=== PATIENT | female | born 1955 | race Caucasian/White ===

== ENCOUNTER 2020-10-12 11:15 | Outpatient (REF) | payer MEDICARE, MEDICAID, SELFPAY ==
[2020-10-12 14:40] LABS: MANUAL DIFF FLAG NO
[2020-10-12 14:46] LABS: Basophils Absolute Auto 0.1 X10*3/uL (0.0-0.2); Basophils Percent Auto 0.7 % (0-2); Eosinophils Absolute Auto 0.3 X10*3/uL (0.0-0.4); Eosinophils Percent Auto 3.9 % (0-4); Hematocrit 42.6 % (37-47); Hemoglobin 13.1 g/dl (12.0-16.0); Imm Gran Abs Auto 0.03 X10*3/uL (0.00-0.03); Imm Gran Pct Auto 0.4 % (0.0-0.4); Lymphocytes Absolute Auto 2.6 X10*3/uL (1.2-4.9); Lymphocytes Percent Auto 37.7 % (20-40); Mean Corpuscular HGB Conc 30.8 g/dl (31.0-35.0); Mean Corpuscular Hemoglobin 25.8 pg (27.0-33.0); Mean Platelet Volume 11.6 fL (9.4-12.3); Monocytes Absolute Auto 0.5 X10*3/uL (0.1-1.2); Monocytes Percent Auto 7.5 % (2-11); Neutrophils Absolute Auto 3.4 X10*3/uL (2.0-8.3); Neutrophils Percent Auto 49.8 % (45-73); Platelet Count 280 X10*3/uL (160-400); Red Blood Count 5.07 X10*6/uL (4.20-5.50); Red Cell Distribution Width 14.2 % (11.0-16.0); White Blood Count 6.9 X10*3/uL (4.8-10.8)
[2020-10-12 15:06] LABS: Alanine Aminotransferase 17 U/L (0-31); Albumin Level 4.1 g/dL (3.5-5.0); Alkaline Phosphatase 106 U/L (39-117); Anion Gap 13 (12-20); Aspartate Amino Transferase 16 U/L (5-31); Bilirubin Total 0.9 mg/dL (0.0-1.0); Blood Urea Nitrogen 11 mg/dL (9-16); Calcium 8.9 mg/dL (8.4-10.2); Carbon Dioxide 25 mmol/L (22-29); Chloride 106 mmol/L (96-108); Cholesterol 175 mg/dL; Estimated Glomerular Filt Rate 60; Glucose Fasting 175 mg/dL (60-99); HDL Cholesterol 44 mg/dL; LDL Cholesterol Calculated 108 mg/dl; Potassium 4.3 mmol/L (3.3-5.1); Sodium 140 mmol/L (135-145); Total Protein 6.7 g/dL (6.5-8.0); Triglycerides 116 mg/dL
[2020-10-12 15:11] LABS: Estimated Average Glucose 131 mg/dL; Hemoglobin A1C 151.1496 umol/L; Hemoglobin A1c % 6.2 %
== END 2020-10-12 11:16 | disposition home or self-care (01) ==
LOC: HO.10HDL 11:15
PROVIDERS: Visit Provider Internal Medicine Medical Oncology
DX: E11.9 Type 2 diabetes mellitus without complications (principal); E78.00 Pure hypercholesterolemia, unspecified; E66.01 Morbid (severe) obesity due to excess calories
CPT/HCPCS: 36415; 80053; 80061; 83036; 85025

== ENCOUNTER 2020-12-10 11:35 | Outpatient (REF) | payer MEDICARE, MEDICAID, SELFPAY ==
--- NOTE | ~2020-12-10 | XR_ITS ---
EXAMINATION: XR SHOULDER, LEFT CLINICAL INFORMATION: Pain. COMPARISON: None. TECHNIQUE: AP external rotation, Grashey, scapular Y, and axillary views of the left shoulder. FINDINGS: No fracture. Mild acromioclavicular arthritis. Glenohumeral and acromioclavicular alignment is anatomic with normal joint space. No abnormal soft tissue calcifications. XR/XR shoulder LT min 2V IMPRESSION: Mild acromioclavicular arthritis.
== END 2020-12-10 11:36 | disposition home or self-care (01) ==
LOC: HO.XRAY 11:35
PROVIDERS: PCP Internal Medicine Medical Oncology; Visit Provider Internal Medicine Medical Oncology
DX: M25.512 Pain in left shoulder (principal)
CPT/HCPCS: 73030

== ENCOUNTER 2021-01-12 08:58 | Outpatient (REF) | payer MEDICARE, MEDICAID, SELFPAY ==
--- NOTE | 2021-01-12 13:07 | MHC.AU.HAS ---
Hearing Aid Evaluation Date of Visit: 01/12/21 Historical Information: Description of Hearing: Normal sloping to profound sensorineural hearing loss bilaterally Current personal amplification information, if applicable: Oticon Nera miniRITE Summary: Patient was recently seen for audiological re-evaluation at [facility]. She received a pair of Oticon Nera miniRITE hearing aids in 2013. She has not been happy with the hearing aids, and would like to try a different style. Hearing aid options were discussed. Patient would like to try an ITC. She would like if we could stay with a 312 battery, as that is what her previous hearing aids used and she has many packages of them at home. Hearing Aid Prescription: Based on the individual?s shared listening needs, communication environments, dexterity, desire for connectivity, and personal preferences, the following prescription for amplification has been made: Right ear: Volunteer Services Specialist: Phonak Model: Virto M70-312 Battery Size: 312 Left ear: Volunteer Services Specialist: Phonak Model: Virto M70-312 Battery Size: 312 Action Taken/Action Needed: [place]old Impressions Taken Hearing Fitting to be scheduled when materials arrive Primary Diagnosis: H90.3 Bilateral Sensorineural Hearing Loss Signature: Provider: Freida Rodriguez, CCC-A
== END 2021-01-12 08:59 | disposition home or self-care (01) ==
LOC: HO.HAP 08:58
PROVIDERS: Visit Provider Otolaryngology
DX: Z46.1 Encounter for fitting and adjustment of hearing aid (principal); H90.3 Sensorineural hearing loss, bilateral
CPT/HCPCS: 92591; V5275

== ENCOUNTER 2021-01-13 07:51 | Outpatient (REF) | payer MEDICARE, MEDICAID, SELFPAY ==
--- NOTE | ~2021-01-13 | MM_ITS ---
EXAMINATION: BONE DENSITOMETRY CLINICAL INDICATION: Osteoporosis. COMPARISON: None (current study represents initial baseline exam). TECHNIQUE: Using a [employer] International DXA System (software version: 13.1) manufactured by [employer], dual-energy x-ray absorptiometry was performed of the lumbar spine and left hip. The images are of good technical quality. Summary results are attached. FINDINGS: AP SPINE L1-L4: BMD 0.881 g/cm2, Z-score -2.1, T-score -2.5, osteoporosis. LEFT FEMUR, NECK: BMD 0.812 g/cm2, Z-score -0.9, T-score -1.6, osteopenia. LEFT FEMUR, TOTAL: BMD 1.103 g/cm2, Z-score 1.1, T-score 0.8, normal. IDENTIFIED RISK FACTORS: Recurrent falls, height loss. Early menopause, secondary osteoporosis, glucocorticoids (chronic), hysterectomy, left oophorectomy. HISTORY OF FRACTURE: None listed. MEDICATIONS: None listed. MM/XR DEXA axial skeleton IMPRESSION: 1. DIAGNOSIS: Osteoporosis based on the lowest T-score value of -2.5 in the lumbar spine applying World Health Organization criteria. 2. 10-YEAR FRACTURE RISK PREDICTION, FRAX: Major osteoporotic fracture (clinical spine, forearm, hip or shoulder) 13.1%. Hip fracture 1.7%. 3. Treatment Recommendations: NOF guidelines recommend consideration for treatment in postmenopausal women and men age 50 and older presenting with the following: -A hip or vertebral (clinical or morphometric) fracture. -T-score less than or equal to -2.5 at the femoral neck or spine after appropriate evaluation to exclude secondary causes. -Low bone mass at the hip or spine and a 10-year fracture probability by FRAX of greater than or equal to 3% for hip fracture or greater than or equal to 20% for major osteoporotic fracture based on the [place] adapted WHO algorithm. 4. Other Recommendations: All treatment decisions require clinical judgment and consideration of individual patient factors, including patient preferences, comorbidities, previous drug use, risk factors not captured in the FRAX model (e.g. frailty, falls, vitamin D deficiency, increased bone turnover, interval significant decline in bone density) and possible under or overestimation of fracture risk by FRAX. Additional medical evaluation for secondary cause of low bone mineral density may be appropriate. FUTURE SCAN RECOMMENDATION: People with diagnosed cases of osteoporosis or at high risk for fracture should have regular bone mineral density tests. For patients eligible for Medicare, routine testing is allowed once every 2 years. The testing frequency can be increased to one year for patients who have rapidly progressing disease, those who are receiving or discontinuing medical therapy to restore bone mass, or have additional risk factors.
== END 2021-01-13 07:52 | disposition home or self-care (01) ==
LOC: HO.MAMMO 07:51
PROVIDERS: Visit Provider Internal Medicine Medical Oncology
DX: Z13.820 Encounter for screening for osteoporosis (principal); M81.0 Age-related osteoporosis without current pathological fracture; M85.80 Other specified disorders of bone density and structure, unspecified site; E27.49 Other adrenocortical insufficiency; Z98.890 Other specified postprocedural states; Z91.81 History of falling
CPT/HCPCS: 77080

== ENCOUNTER 2021-01-31 07:49 | Outpatient (REF) | payer MEDICARE, MEDICAID, SELFPAY ==
[2021-01-31 08:43] LABS: MANUAL DIFF FLAG NO
[2021-01-31 08:46] LABS: Basophils Absolute Auto 0.1 X10*3/uL (0.0-0.2); Basophils Percent Auto 0.7 % (0-2); Eosinophils Absolute Auto 0.4 X10*3/uL (0.0-0.4); Eosinophils Percent Auto 5.5 % (0-4); Hematocrit 41.2 % (37-47); Hemoglobin 12.8 g/dl (12.0-16.0); Imm Gran Abs Auto 0.03 X10*3/uL (0.00-0.03); Imm Gran Pct Auto 0.4 % (0.0-0.4); Lymphocytes Percent Auto 39.8 % (20-40); Mean Corpuscular HGB Conc 31.1 g/dl (31.0-35.0); Mean Corpuscular Hemoglobin 25.7 pg (27.0-33.0); Mean Corpuscular Volume 82.7 fL (80-98); Mean Platelet Volume 11.3 fL (9.4-12.3); Monocytes Absolute Auto 0.6 X10*3/uL (0.1-1.2); Monocytes Percent Auto 8.1 % (2-11); Neutrophils Absolute Auto 3.5 X10*3/uL (2.0-8.3); Neutrophils Percent Auto 45.5 % (45-73); Platelet Count 283 X10*3/uL (160-400); Red Blood Count 4.98 X10*6/uL (4.20-5.50); Red Cell Distribution Width 14.2 % (11.0-16.0); White Blood Count 7.6 X10*3/uL (4.8-10.8)
[2021-01-31 08:51] LABS: Estimated Average Glucose 143 mg/dL; Hemoglobin A1c % 6.6 %
[2021-01-31 09:13] LABS: Alanine Aminotransferase 18 U/L (0-31); Albumin Level 3.9 g/dL (3.5-5.0); Alkaline Phosphatase 110 U/L (39-117); Anion Gap 17 (12-20); Aspartate Amino Transferase 18 U/L (5-31); Bilirubin Total 0.7 mg/dL (0.0-1.0); Blood Urea Nitrogen 11 mg/dL (9-16); Carbon Dioxide 21 mmol/L (22-29); Chloride 108 mmol/L (96-108); Cholesterol 166 mg/dL; Estimated Glomerular Filt Rate > 60; Glucose Fasting 208 mg/dL (60-99); HDL Cholesterol 41 mg/dL; LDL Cholesterol Calculated 101 mg/dl; Potassium 4.5 mmol/L (3.3-5.1); Sodium 141 mmol/L (135-145); Total Protein 6.4 g/dL (6.5-8.0); Triglycerides 120 mg/dL
[2021-01-31 10:21] LABS: Creatinine Urine 153.28 mg/dL
== END 2021-01-31 07:50 | disposition home or self-care (01) ==
LOC: HO.LAB 07:49
PROVIDERS: PCP Internal Medicine Medical Oncology; Visit Provider Internal Medicine Medical Oncology
DX: E11.9 Type 2 diabetes mellitus without complications (principal); E66.01 Morbid (severe) obesity due to excess calories; E78.00 Pure hypercholesterolemia, unspecified
CPT/HCPCS: 36415; 80053; 80061; 82043; 83036; 85025

== ENCOUNTER 2021-01-31 08:20 | Outpatient (REF) | payer MEDICARE, MEDICAID, SELFPAY ==
--- NOTE | 2021-01-31 09:09 | MHC.AU.HFA ---
Hearing Instrument Fitting- Adult- Binaural Date of Visit: 01/31/21 Hearing Instruments Dispensed: Right Ear: Paid Internship: Phonak Model: Virto M70-312 Serial Number: [id number] Repair Warranty: 02/23/2024 Loss and Damage Warranty: 02/23/2024 Battery Size: 312 Color: [place] Type of Wax Guard: Cerustop Left Ear: Paid Internship: Phonak Model: Virto M70-312 Serial Number: [id number] Repair Warranty: 02/23/2024 Loss and Damage Warranty: 02/23/2024 Battery Size: 312 Color: [place] Type of Wax Guard: CeruStop Summary of Fitting: Feedback brand manager was run. Verifit performed and levels adjusted to better reach targets. Target gain set to 100%. Patient was pleased with the sound of the instruments and did not feel any additional adjustments were necessary. Hearing aid care and maintenance were discussed and demonstrated. Hearing aids were paired to the patient's phone. Recommendations: Patient is an experienced hearing aid user and will call if follow-up is needed. Diagnosis Code(s): Primary Diagnosis: H90.3 Bilateral Sensorineural Hearing Loss Signature: Provider: Freida Rodriguez, CCC-A
== END 2021-01-31 08:21 | disposition home or self-care (01) ==
LOC: HO.HAP 08:20
PROVIDERS: Visit Provider Otolaryngology
DX: Z46.1 Encounter for fitting and adjustment of hearing aid (principal); H90.3 Sensorineural hearing loss, bilateral
CPT/HCPCS: V5011; V5020; V5160; V5259; V5266

== ENCOUNTER 2021-05-12 09:39 | Outpatient (REF) | payer MEDICARE, MEDICAID, SELFPAY ==
[2021-05-12 10:20] LABS: MANUAL DIFF FLAG NO
[2021-05-12 10:33] LABS: Estimated Average Glucose 146 mg/dL; Hemoglobin A1c % 6.7 %
[2021-05-12 10:35] LABS: Basophils Absolute Auto 0.1 X10*3/uL (0.0-0.2); Basophils Percent Auto 0.7 % (0-2); Eosinophils Absolute Auto 0.4 X10*3/uL (0.0-0.4); Eosinophils Percent Auto 4.4 % (0-4); Hematocrit 42.5 % (37-47); Hemoglobin 13.2 g/dl (12.0-16.0); Imm Gran Abs Auto 0.02 X10*3/uL (0.00-0.03); Imm Gran Pct Auto 0.2 % (0.0-0.4); Lymphocytes Absolute Auto 3.1 X10*3/uL (1.2-4.9); Lymphocytes Percent Auto 37.5 % (20-40); Mean Corpuscular HGB Conc 31.1 g/dl (31.0-35.0); Mean Corpuscular Hemoglobin 25.7 pg (27.0-33.0); Mean Corpuscular Volume 82.8 fL (80-98); Mean Platelet Volume 11.5 fL (9.4-12.3); Monocytes Absolute Auto 0.7 X10*3/uL (0.1-1.2); Monocytes Percent Auto 8.7 % (2-11); Neutrophils Percent Auto 48.5 % (45-73); Platelet Count 306 X10*3/uL (160-400); Red Blood Count 5.13 X10*6/uL (4.20-5.50); Red Cell Distribution Width 14.4 % (11.0-16.0); White Blood Count 8.2 X10*3/uL (4.8-10.8)
[2021-05-12 10:50] LABS: Alanine Aminotransferase 19 U/L (0-31); Alkaline Phosphatase 106 U/L (39-117); Anion Gap 11 (12-20); Aspartate Amino Transferase 15 U/L (5-31); Bilirubin Total 0.7 mg/dL (0.0-1.0); Blood Urea Nitrogen 11 mg/dL (9-16); Calcium 9.8 mg/dL (8.4-10.2); Carbon Dioxide 29 mmol/L (22-29); Chloride 104 mmol/L (96-108); Cholesterol 166 mg/dL; Estimated Glomerular Filt Rate > 60; Glucose Fasting 150 mg/dL (60-99); HDL Cholesterol 45 mg/dL; LDL Cholesterol Calculated 100 mg/dl; Potassium 4.2 mmol/L (3.3-5.1); Sodium 140 mmol/L (135-145); Total Protein 6.7 g/dL (6.5-8.0); Triglycerides 105 mg/dL
== END 2021-05-12 09:40 | disposition home or self-care (01) ==
LOC: HO.10HDL 09:39
PROVIDERS: Visit Provider Internal Medicine Medical Oncology
DX: E11.9 Type 2 diabetes mellitus without complications (principal); E78.00 Pure hypercholesterolemia, unspecified; E66.01 Morbid (severe) obesity due to excess calories
CPT/HCPCS: 36415; 80053; 80061; 83036; 85025

== ENCOUNTER 2021-07-08 09:18 | Outpatient (REF) | payer MEDICARE, MEDICAID, SELFPAY | END 2021-07-08 09:19 | disposition home or self-care (01) | LOC: HO.HAP 09:18 | PROVIDERS: Visit Provider Internal Medicine Medical Oncology | DX: Z13.89 Encounter for screening for other disorder (principal) ==

== ENCOUNTER 2021-09-02 09:18 | Outpatient (REF) | payer MEDICARE, MEDICAID, SELFPAY ==
[2021-09-02 10:05] LABS: MANUAL DIFF FLAG NO
[2021-09-02 10:07] LABS: Basophils Absolute Auto 0.1 X10*3/uL (0.0-0.2); Basophils Percent Auto 0.6 % (0-2); Eosinophils Absolute Auto 0.3 X10*3/uL (0.0-0.4); Eosinophils Percent Auto 3.9 % (0-4); Hematocrit 43.3 % (37.0-47.0); Hemoglobin 13.8 g/dl (12.0-16.0); Imm Gran Abs Auto 0.03 X10*3/uL (0.00-0.03); Imm Gran Pct Auto 0.4 % (0.0-0.4); Lymphocytes Absolute Auto 2.9 X10*3/uL (1.2-4.9); Lymphocytes Percent Auto 36.2 % (20-40); Mean Corpuscular HGB Conc 31.9 g/dl (31.0-35.0); Mean Corpuscular Hemoglobin 26.3 pg (27.0-33.0); Mean Corpuscular Volume 82.5 fL (80.0-98.0); Mean Platelet Volume 11.2 fL (9.4-12.3); Monocytes Absolute Auto 0.6 X10*3/uL (0.1-1.2); Monocytes Percent Auto 7.8 % (2-11); Neutrophils Percent Auto 51.1 % (45-73); Platelet Count 310 X10*3/uL (160-400); Red Blood Count 5.25 X10*6/uL (4.20-5.50); Red Cell Distribution Width 14.1 % (11.0-16.0); White Blood Count 7.9 X10*3/uL (4.8-10.8)
[2021-09-02 10:44] LABS: Estimated Average Glucose 143 mg/dL; Hemoglobin A1c % 6.6 %
[2021-09-02 11:22] LABS: Alanine Aminotransferase 22 U/L (0-31); Alkaline Phosphatase 103 U/L (39-117); Anion Gap 13 (12-20); Aspartate Amino Transferase 16 U/L (5-31); Bilirubin Total 0.9 mg/dL (0.0-1.0); Blood Urea Nitrogen 12 mg/dL (9-16); Calcium 9.5 mg/dL (8.4-10.2); Carbon Dioxide 26 mmol/L (22-29); Chloride 106 mmol/L (96-108); Cholesterol 168 mg/dL; Estimated Glomerular Filt Rate 60; Glucose Fasting 153 mg/dL (60-99); HDL Cholesterol 45 mg/dL; LDL Cholesterol Calculated 99 mg/dl; Potassium 4.6 mmol/L (3.3-5.1); Sodium 140 mmol/L (135-145); Total Protein 6.9 g/dL (6.5-8.0); Triglycerides 122 mg/dL
== END 2021-09-02 09:19 | disposition home or self-care (01) ==
LOC: HO.10HDL 09:18
PROVIDERS: Visit Provider Internal Medicine Medical Oncology
DX: E11.9 Type 2 diabetes mellitus without complications (principal); J45.909 Unspecified asthma, uncomplicated; E78.5 Hyperlipidemia, unspecified
CPT/HCPCS: 36415; 80053; 80061; 83036; 85025

== ENCOUNTER 2022-01-23 09:39 | Outpatient (REF) | payer MEDICARE, MEDICAID, SELFPAY | END 2022-01-23 09:40 | disposition home or self-care (01) | LOC: HO.HAP 09:39 | PROVIDERS: Visit Provider Internal Medicine Medical Oncology | DX: Z46.1 Encounter for fitting and adjustment of hearing aid (principal); H90.3 Sensorineural hearing loss, bilateral | CPT/HCPCS: 92593; V5266 ==

== ENCOUNTER 2022-02-14 09:50 | Outpatient (REF) | payer MEDICARE, MEDICAID, SELFPAY ==
[2022-02-14 11:11] LABS: MANUAL DIFF FLAG NO
[2022-02-14 11:12] LABS: Basophils Absolute Auto 0.1 X10*3/uL (0.0-0.2); Eosinophils Absolute Auto 0.3 X10*3/uL (0.0-0.4); Eosinophils Percent Auto 4.2 % (0-4); Hematocrit 41.9 % (37.0-47.0); Hemoglobin 13.1 g/dl (12.0-16.0); Imm Gran Abs Auto 0.03 X10*3/uL (0.00-0.03); Imm Gran Pct Auto 0.4 % (0.0-0.4); Lymphocytes Absolute Auto 2.5 X10*3/uL (1.2-4.9); Lymphocytes Percent Auto 36.9 % (20-40); Mean Corpuscular HGB Conc 31.3 g/dl (31.0-35.0); Mean Corpuscular Hemoglobin 26.1 pg (27.0-33.0); Mean Corpuscular Volume 83.6 fL (80.0-98.0); Mean Platelet Volume 11.6 fL (9.4-12.3); Monocytes Absolute Auto 0.6 X10*3/uL (0.1-1.2); Monocytes Percent Auto 9.2 % (2-11); Neutrophils Absolute Auto 3.3 x10*3/uL (2.0-8.3); Neutrophils Percent Auto 48.3 % (45-73); Platelet Count 262 X10*3/uL (160-400); Red Blood Count 5.01 X10*6/uL (4.20-5.50); Red Cell Distribution Width 13.8 % (11.0-16.0); White Blood Count 6.7 X10*3/uL (4.8-10.8)
[2022-02-14 11:20] LABS: Estimated Average Glucose 131 mg/dL; Hemoglobin A1C 160.7267 umol/L; Hemoglobin A1c % 6.2 %
[2022-02-14 11:43] LABS: Alanine Aminotransferase 18 U/L (0-31); Albumin Level 3.9 g/dL (3.5-5.0); Alkaline Phosphatase 102 U/L (39-117); Anion Gap 14 (12-20); Aspartate Amino Transferase 14 U/L (5-31); Bilirubin Total 0.7 mg/dL (0.0-1.0); Blood Urea Nitrogen 9 mg/dL (9-16); Calcium 8.7 mg/dL (8.4-10.2); Carbon Dioxide 26 mmol/L (22-29); Chloride 106 mmol/L (96-108); Cholesterol 151 mg/dL; Estimated Glomerular Filt Rate > 60; Glucose Fasting 185 mg/dL (60-99); HDL Cholesterol 42 mg/dL; LDL Cholesterol Calculated 89 mg/dl; Potassium 4.2 mmol/L (3.3-5.1); Sodium 142 mmol/L (135-145); Total Protein 6.4 g/dL (6.5-8.0); Triglycerides 102 mg/dL
== END 2022-02-14 09:51 | disposition home or self-care (01) ==
LOC: HO.10HDL 09:50
PROVIDERS: Visit Provider Internal Medicine Medical Oncology
DX: E11.9 Type 2 diabetes mellitus without complications (principal); E78.01 Familial hypercholesterolemia
CPT/HCPCS: 36415; 80053; 80061; 83036; 85025

== ENCOUNTER → 2022-02-17 08:02 | Outpatient (BNVA) | payer MEDICARE, MEDICAID, SELFPAY | PROVIDERS: PCP Internal Medicine Medical Oncology; Referring Provider Internal Medicine Medical Oncology; Visit Provider Nurse Practitioner | DX: Z01.818 Encounter for other preprocedural examination (principal); Z80.0 Family history of malignant neoplasm of digestive organs | CPT/HCPCS: 99202 ==

== ENCOUNTER 2022-04-18 11:01 | Outpatient (REF) | payer MEDICARE, MEDICAID, SELFPAY ==
[2022-04-18 13:46] LABS: MANUAL DIFF FLAG NO
[2022-04-18 13:51] LABS: Basophils Absolute Auto 0.1 X10*3/uL (0.0-0.2); Basophils Percent Auto 0.7 % (0-2); Eosinophils Absolute Auto 0.3 X10*3/uL (0.0-0.4); Eosinophils Percent Auto 3.5 % (0-4); Hematocrit 41.5 % (37.0-47.0); Hemoglobin 13.1 g/dl (12.0-16.0); Imm Gran Abs Auto 0.03 X10*3/uL (0.00-0.03); Imm Gran Pct Auto 0.4 % (0.0-0.4); Lymphocytes Absolute Auto 2.6 X10*3/uL (1.2-4.9); Lymphocytes Percent Auto 34.9 % (20-40); Mean Corpuscular HGB Conc 31.6 g/dl (31.0-35.0); Mean Corpuscular Hemoglobin 26.1 pg (27.0-33.0); Mean Corpuscular Volume 82.7 fL (80.0-98.0); Mean Platelet Volume 11.9 fL (9.4-12.3); Monocytes Absolute Auto 0.5 X10*3/uL (0.1-1.2); Monocytes Percent Auto 7.2 % (2-11); Neutrophils Absolute Auto 3.9 x10*3/uL (2.0-8.3); Neutrophils Percent Auto 53.3 % (45-73); Platelet Count 282 X10*3/uL (160-400); Red Blood Count 5.02 X10*6/uL (4.20-5.50); Red Cell Distribution Width 14.1 % (11.0-16.0); White Blood Count 7.4 X10*3/uL (4.8-10.8)
[2022-04-18 14:02] LABS: Estimated Average Glucose 134 mg/dL; Hemoglobin A1c % 6.3 %
[2022-04-18 14:04] LABS: Alanine Aminotransferase 17 U/L (0-31); Alkaline Phosphatase 90 U/L (39-117); Anion Gap 14 (12-20); Aspartate Amino Transferase 14 U/L (5-31); Bilirubin Total 0.8 mg/dL (0.0-1.0); Blood Urea Nitrogen 12 mg/dL (9-16); Calcium 9.1 mg/dL (8.4-10.2); Carbon Dioxide 28 mmol/L (22-29); Chloride 104 mmol/L (96-108); Cholesterol 181 mg/dL; Estimated Glomerular Filt Rate > 60; Glucose Fasting 134 mg/dL (60-99); HDL Cholesterol 49 mg/dL; LDL Cholesterol Calculated 110 mg/dl; Potassium 4.4 mmol/L (3.3-5.1); Sodium 142 mmol/L (135-145); Total Protein 6.7 g/dL (6.5-8.0); Triglycerides 111 mg/dL
[2022-04-18 14:49] LABS: Creatinine Urine 101.89 mg/dL; Microalbumin Urine < 5.0 mg/L
== END 2022-04-18 11:02 | disposition home or self-care (01) ==
LOC: HO.10HDL 11:01
PROVIDERS: Visit Provider Internal Medicine Medical Oncology
DX: E11.9 Type 2 diabetes mellitus without complications (principal); E66.01 Morbid (severe) obesity due to excess calories; E78.01 Familial hypercholesterolemia
CPT/HCPCS: 36415; 80053; 80061; 82043; 83036; 85025

== ENCOUNTER 2022-04-19 08:57 | Outpatient (REF) | payer MEDICARE, MEDICAID, SELFPAY ==
[2022-04-19 11:22] LABS: Vitamin D 25-OH Total 26.9 ng/mL (>30)
== END 2022-04-19 08:58 | disposition home or self-care (01) ==
LOC: HO.10HDL 08:57
PROVIDERS: Visit Provider Internal Medicine Medical Oncology
DX: E55.9 Vitamin D deficiency, unspecified (principal)
CPT/HCPCS: 36415; 82306

== ENCOUNTER 2022-06-21 07:55 | Outpatient (REF) | payer MEDICARE, MEDICAID, SELFPAY | END 2022-06-21 07:56 | disposition home or self-care (01) | LOC: HO.HAP 07:55 | PROVIDERS: Visit Provider Internal Medicine Medical Oncology | DX: Z46.1 Encounter for fitting and adjustment of hearing aid (principal); H90.3 Sensorineural hearing loss, bilateral | CPT/HCPCS: 92593; V5266; V5275 ==

== ENCOUNTER 2022-07-11 10:27 | Outpatient (REF) | payer SELFPAY ==
--- NOTE | 2022-07-11 11:40 | MHC.AU.HFU ---
Hearing Instrument Follow-Up- Binaural Date of Visit: 07/11/22 Right Ear: Phonak Virto M70-312 SN: [id number] Color: [place] Repair Warranty: 04/23/2024 Loss and Damage Warranty: 04/23/2024 Service Plan: 01/31/2022 Battery Size: 312 Type of Wax Guard: Cerustop Dispensed By: [facility] Date of Fittin01/31/2021 Left Ear: Phonak Virto M70-312 SN: [id number] Color: [place] Repair Warranty: 04/23/2024 Loss and Damage Warranty: 04/23/2024 Service Plan: 01/31/2022 Battery Size: 312 Type of Wax Guard: CeruStop Dispensed By: [facility] Date of Fittin01/31/2021 Follow-Up Summary: Yareli picked up her repaired left hearing aid. Performed feedback business management manager, reprogrammed, and reconnected to right hearing aid via [employer]. Re-paired both hearing aids to cell phone and confirmed connection. Recommendations: Hearing instrument maintenance in 6 months, or sooner if needed. Please contact our clinic with any questions or concerns. Diagnosis Code(s): Primary Diagnosis: H90.3 Bilateral Sensorineural Hearing Loss Signature: Provider: Dave Zamora, [facility]
== END 2022-07-11 10:28 | disposition home or self-care (01) ==
LOC: HO.HAP 10:27
PROVIDERS: Visit Provider Internal Medicine Medical Oncology
DX: Z46.1 Encounter for fitting and adjustment of hearing aid (principal); H90.3 Sensorineural hearing loss, bilateral
CPT/HCPCS: V5267

== ENCOUNTER 2022-12-18 08:38 | Outpatient (REF) | payer MEDICARE, MEDICAID, SELFPAY ==
[2022-12-18 10:57] LABS: MANUAL DIFF FLAG NO
[2022-12-18 11:10] LABS: Basophils Absolute Auto 0.1 X10*3/uL (0.0-0.2); Basophils Percent Auto 0.8 % (0-2); Eosinophils Absolute Auto 0.3 X10*3/uL (0.0-0.4); Eosinophils Percent Auto 3.7 % (0-4); Hematocrit 40.2 % (37.0-47.0); Hemoglobin 12.8 g/dl (12.0-16.0); Imm Gran Abs Auto 0.03 X10*3/uL (0.00-0.03); Imm Gran Pct Auto 0.4 % (0.0-0.4); Lymphocytes Percent Auto 40.6 % (20-40); Mean Corpuscular HGB Conc 31.8 g/dl (31.0-35.0); Mean Corpuscular Volume 81.5 fL (80.0-98.0); Mean Platelet Volume 11.7 fL (9.4-12.3); Monocytes Absolute Auto 0.7 X10*3/uL (0.1-1.2); Monocytes Percent Auto 8.9 % (2-11); Neutrophils Absolute Auto 3.3 x10*3/uL (2.0-8.3); Neutrophils Percent Auto 45.6 % (45-73); Platelet Count 285 X10*3/uL (160-400); Red Blood Count 4.93 X10*6/uL (4.20-5.50); Red Cell Distribution Width 13.9 % (11.0-16.0); White Blood Count 7.3 X10*3/uL (4.8-10.8)
[2022-12-18 12:25] LABS: Microalbum/Creatinine Ratio Ur 6.3 ug/mg cr
[2022-12-18 12:39] LABS: Alanine Aminotransferase 19 U/L (0-31); Albumin Level 3.8 g/dL (3.5-5.0); Alkaline Phosphatase 104 U/L (39-117); Anion Gap 13 (12-20); Aspartate Amino Transferase 14 U/L (5-31); Bilirubin Total 1.3 mg/dL (0.0-1.0); Blood Urea Nitrogen 9 mg/dL (9-16); Calcium 9.2 mg/dL (8.4-10.2); Carbon Dioxide 24 mmol/L (22-29); Chloride 106 mmol/L (96-108); Cholesterol 148 mg/dL; Estimated Glomerular Filt Rate > 60; Glucose Fasting 125 mg/dL (60-99); HDL Cholesterol 45 mg/dL; LDL Cholesterol Calculated 85 mg/dl; Sodium 139 mmol/L (135-145); Total Protein 6.3 g/dL (6.5-8.0); Triglycerides 91 mg/dL
[2022-12-18 12:44] LABS: Estimated Average Glucose 140 mg/dL; Hemoglobin A1c % 6.5 %
== END 2022-12-18 08:39 | disposition home or self-care (01) ==
LOC: HO.10HDL 08:38
PROVIDERS: Visit Provider Internal Medicine Medical Oncology
DX: E11.9 Type 2 diabetes mellitus without complications (principal); J45.909 Unspecified asthma, uncomplicated; E78.5 Hyperlipidemia, unspecified
CPT/HCPCS: 36415; 80053; 80061; 82043; 83036; 85025

== ENCOUNTER 2023-04-05 13:40 | Outpatient (REF) | payer MEDICARE, MEDICAID, SELFPAY | END 2023-04-05 13:41 | disposition home or self-care (01) | LOC: HO.HAP 13:40 | PROVIDERS: Visit Provider Internal Medicine Medical Oncology | DX: Z46.1 Encounter for fitting and adjustment of hearing aid (principal); H90.3 Sensorineural hearing loss, bilateral | CPT/HCPCS: 92593; V5266 ==

== ENCOUNTER 2023-04-05 14:03 | Outpatient (REF) | payer SELFPAY | END 2023-04-05 14:04 | disposition home or self-care (01) | LOC: HO.HAP 14:03 | PROVIDERS: Visit Provider Internal Medicine Medical Oncology | DX: Z46.1 Encounter for fitting and adjustment of hearing aid (principal); H90.3 Sensorineural hearing loss, bilateral | CPT/HCPCS: V5267 ==

== ENCOUNTER 2023-04-12 10:29 | Outpatient (REF) | payer MEDICARE, MEDICAID, SELFPAY ==
--- NOTE | ~2023-04-12 | MM_ITS ---
EXAMINATION: BONE DENSITOMETRY CLINICAL INDICATION: Age-related osteoporosis without current pathological fracture. COMPARISON: Baseline BD dated 01/13/2021. TECHNIQUE: Using a Declara DXA System (software version: 13.1) manufactured by [employer], dual-energy x-ray absorptiometry was performed of the lumbar spine and left hip. The images are of good technical quality. Summary results are attached. FINDINGS: LEFT FEMUR, NECK: Current: BMD 0.767 g/cm2, Z-score -1.0, T-score -1.9, osteopenia. Baseline: BMD 0.812 g/cm2. LEFT FEMUR, TOTAL: Current: BMD 1.037 g/cm2, Z-score 0.9, T-score 0.2, normal, 6.0% decrease from baseline (<5% change is not significant). Baseline: BMD 1.103 g/cm2. AP SPINE L1-L4: Current: BMD 0.920 g/cm2, Z-score -1.5, T-score -2.2, osteopenia, 4.4% increase from baseline (<5% change is not significant). Baseline: BMD 0.881 g/cm2. IDENTIFIED RISK FACTORS: Recurrent falls, hysterectomy, menopause, left oophorectomy. HISTORY OF FRACTURE: None listed. MEDICATIONS: Vitamin D. MM/XR DEXA axial skeleton IMPRESSION: 1. DIAGNOSIS: Osteopenia based on the lowest T-score value of -2.2 in the lumbar spine applying World Health Organization criteria. 2. 10-YEAR FRACTURE RISK PREDICTION, FRAX: Major osteoporotic fracture (clinical spine, forearm, hip or shoulder) 10.1%. Hip fracture 1.6%. 3. Treatment Recommendations: NOF guidelines recommend consideration for treatment in postmenopausal women and men age 50 and older presenting with the following: -A hip or vertebral (clinical or morphometric) fracture. -T-score less than or equal to -2.5 at the femoral neck or spine after appropriate evaluation to exclude secondary causes. -Low bone mass at the hip or spine and a 10-year fracture probability by FRAX of greater than or equal to 3% for hip fracture or greater than or equal to 20% for major osteoporotic fracture based on the [place] adapted WHO algorithm. 4. Other Recommendations: All treatment decisions require clinical judgment and consideration of individual patient factors, including patient preferences, comorbidities, previous drug use, risk factors not captured in the FRAX model (e.g. frailty, falls, vitamin D deficiency, increased bone turnover, interval significant decline in bone density) and possible under or overestimation of fracture risk by FRAX. Additional medical evaluation for secondary cause of low bone mineral density may be appropriate. FUTURE SCAN RECOMMENDATION: People with diagnosed cases of osteoporosis or at high risk for fracture should have regular bone mineral density tests. For patients eligible for Medicare, routine testing is allowed once every 2 years. The testing frequency can be increased to one year for patients who have rapidly progressing disease, those who are receiving or discontinuing medical therapy to restore bone mass, or have additional risk factors.
== END 2023-04-12 10:30 | disposition home or self-care (01) ==
LOC: HO.MAMMO 10:29
PROVIDERS: PCP Internal Medicine Medical Oncology; Visit Provider Internal Medicine Medical Oncology
DX: Z13.820 Encounter for screening for osteoporosis (principal); M81.0 Age-related osteoporosis without current pathological fracture; Z78.0 Asymptomatic menopausal state
CPT/HCPCS: 77080

== ENCOUNTER → 2023-04-12 10:30 | Outpatient (BNV) | payer MEDICARE, MEDICAID, SELFPAY | PROVIDERS: PCP Internal Medicine Medical Oncology; Visit Provider Radiology Diagnostic Radiology | DX: M85.89 Other specified disorders of bone density and structure, multiple sites (principal) | CPT/HCPCS: 77080 ==

== ENCOUNTER 2023-05-10 10:15 | Outpatient (REF) | payer MEDICARE, MEDICAID, SELFPAY ==
[2023-05-15 21:08] LABS: HPV mRNA E6/E7 rflx Not Detected (Not Detected)
== END 2023-05-10 10:16 | disposition home or self-care (01) ==
LOC: HO.LNP 10:15
PROVIDERS: PCP Internal Medicine Medical Oncology; Visit Provider Obstetrics & Gynecology
DX: Z01.419 Encounter for gynecological examination (general) (routine) without abnormal findings (principal); Z90.710 Acquired absence of both cervix and uterus
CPT/HCPCS: 87624; 88142; G0101

== ENCOUNTER 2023-05-10 10:15 | Outpatient (AMB) | payer MEDICARE, MEDICAID, SELFPAY ==
--- NOTE | 2023-05-10 10:46 | MHC.OFFVIS ---
Intake Vital Signs 05/10/23 10:48 Height 5 ft 2 in Weight 223 lb BMI 40.8 BP 120/66 Intake Visit Reasons: pcp referral [facility] Shift Lead Required: No Information Interpreted: non-clinical & clinical Television Schedule Coordinator: Television Schedule Coordinator Present (Shara HUMPHREY) Accompanied by: Self / Same As Patient Allergies cyclobenzaprine [From FLEXERIL] Allergy (Severe, Verified 05/10/23 10:50) STOP BREATHING latex [LATEX] Allergy (Intermediate, Verified 05/10/23 10:50) RASH, anxiety Post menopausal: Yes HPI HPI Comments History of Present Illness Details Presenting referred from PCP for annual exam. No complaints. The patient has a history of endometrial complex hyperplasia with ATP IN 3 status post hysterectomy. No history of cervical dysplasia abnormal Pap smears Last Pap/HPV was many years ago, no history of abnormal Pap smear status post supracervical hysterectomy with LSO Last Mammogram was 2 months ago at [facility], no report available, according to the patient was negative Last Colonoscopy was in 2016, the patient is in the process of scheduling another colonoscopy Last DEXA scan was in 04/11 was in the low risk category PFSH Medical History Chronic neck and back pain DM type 2 (diabetes mellitus, type 2) GERD (gastroesophageal reflux disease) Depression Asthma Elevated cholesterol On beta luis fernando at home HTN (hypertension) Surgical History History of thyroglossal duct cyst removal Hx of bilateral breast reduction surgery Hx of colonoscopy Hx of breast lump removal Hx of cholecystectomy Hx of hysterectomy Hx of section Hx of tubal ligation Family History Maternal Aunt Bone cancer Sister Breast CA Colon cancer Father Lung cancer Mother Colon cancer Maternal Grandmother Stomach cancer Breast CA Maternal Uncle Pancreatic cancer Social History Household Members: Spouse and Family Alcohol intake: current Alcohol intake frequency: holidays/special occasions only Patient Tobacco Use Status: Former Tobacco user Tobacco use type: Cigarette Years Smoked: patient quie 2011 Review of Systems Const All systems reviewed & are unremarkable except as noted in HPI and below Card Reports as per HPI and Reports no additional complaints Resp Reports as per HPI and Reports no additional complaints GI Reports as per HPI and Reports no additional complaints Reports as per HPI Physical Exam Vital Signs: Last Vital Signs BP 120/66 05/10/23 10:48 BMI result Body Mass Index 40.8 Const General: cooperative, healthy appearing and comfortable External Female Exam: No lesion Speculum Exam - Vagina: normal appearance of the vagina, normal vaginal discharge and not erythematous Speculum Exam - Cervix: normal appearance of the cervix Bimanual exam- vagina & uterus: uterus absent Bimanual Exam- Adnexa, other: Other (No masses detected) Assessment & Plan Assessment & Plan (1) Well woman exam: Code(s): Z01.419 - Encounter for gynecological examination (general) (routine) without abnormal findings Plan: Co testing I done. Counseled the patient about the recommended dietary allowance of 1200 mg of Calcium & 800 IU of vitamin D. Instructions given the patient to schedule next screening Mammogram in 03/12 The patient states that she will call to schedule her next screening colonoscopy with GI since she has seen 1 of the providers for a preop visit. The patient was instructed to perform monthly self-breast exams and to schedule a 2 week DEXA scan follow-up appointment and an annual exam in a year; All questions answered and the patient verbalized understanding. Coding Level of Care Code Est Pt Prev Care >65y(86888) Diagnoses Well woman exam Z01.419
[2023-05-10 10:48] VITALS: BP 120/66; BMI 40.8
== END 2023-05-10 11:10 | disposition home or self-care (01) ==
PROVIDERS: PCP Internal Medicine Medical Oncology; Visit Provider Obstetrics & Gynecology
DX: Z01.419 Encounter for gynecological examination (general) (routine) without abnormal findings (principal)
CPT/HCPCS: G0101

== ENCOUNTER 2023-06-18 09:07 | Outpatient (REF) | payer MEDICARE, MEDICAID, SELFPAY ==
[2023-06-18 11:04] LABS: MANUAL DIFF FLAG NO
[2023-06-18 11:08] LABS: Basophils Absolute Auto 0.1 X10*3/uL (0.0-0.2); Basophils Percent Auto 0.8 % (0-2); Eosinophils Absolute Auto 0.3 X10*3/uL (0.0-0.4); Eosinophils Percent Auto 3.4 % (0-4); Imm Gran Abs Auto 0.03 X10*3/uL (0.00-0.03); Imm Gran Pct Auto 0.4 % (0.0-0.4); Lymphocytes Absolute Auto 2.5 X10*3/uL (1.2-4.9); Lymphocytes Percent Auto 31.1 % (20-40); Mean Corpuscular Hemoglobin 26.2 pg (27.0-33.0); Mean Corpuscular Volume 84.5 fL (80.0-98.0); Mean Platelet Volume 11.4 fL (9.4-12.3); Monocytes Absolute Auto 0.5 X10*3/uL (0.1-1.2); Monocytes Percent Auto 6.2 % (2-11); Neutrophils Absolute Auto 4.6 x10*3/uL (2.0-8.3); Neutrophils Percent Auto 58.1 % (45-73); Platelet Count 299 X10*3/uL (160-400); Red Blood Count 4.97 X10*6/uL (4.20-5.50); Red Cell Distribution Width 13.8 % (11.0-16.0); White Blood Count 7.9 X10*3/uL (4.8-10.8)
[2023-06-18 11:28] LABS: Estimated Average Glucose 131 mg/dL; Hemoglobin A1c % 6.2 % (<6.0)
[2023-06-18 11:40] LABS: Alanine Aminotransferase 17 U/L (0-31); Albumin Level 3.9 g/dL (3.5-5.0); Alkaline Phosphatase 103 U/L (39-117); Anion Gap 14 (12-20); Aspartate Amino Transferase 16 U/L (5-31); Bilirubin Total 0.7 mg/dL (0.0-1.0); Blood Urea Nitrogen 9 mg/dL (9-16); Calcium 9.2 mg/dL (8.4-10.2); Carbon Dioxide 23 mmol/L (22-29); Chloride 106 mmol/L (96-108); Cholesterol 157 mg/dL (<200); Estimated Glomerular Filt Rate > 60; Glucose Fasting 192 mg/dL (60-99); HDL Cholesterol 40 mg/dL (>40); LDL Cholesterol Calculated 93 mg/dL (<100); Potassium 3.7 mmol/L (3.3-5.1); Sodium 139 mmol/L (135-145); Triglycerides 123 mg/dL (<150)
== END 2023-06-18 09:08 | disposition home or self-care (01) ==
LOC: HO.10HDL 09:07
PROVIDERS: Visit Provider Internal Medicine Medical Oncology
DX: E11.9 Type 2 diabetes mellitus without complications (principal); E66.01 Morbid (severe) obesity due to excess calories; E78.5 Hyperlipidemia, unspecified
CPT/HCPCS: 36415; 80053; 80061; 83036; 85025

== ENCOUNTER 2023-08-31 11:19 | Outpatient (REF) | payer MEDICARE, MEDICAID, SELFPAY ==
--- NOTE | 2023-08-31 13:26 | MHC.AU.HA3 ---
Hearing Instrument Follow-Up- Binaural Date of Visit: 08/31/23 Right Ear: Larry, Model, Color, Serial Number: Shanta Blunt M70-312 SN: [id number] Color: [place] Light Rail Train Operator Repair Warranty: 04/23/2024 Light Rail Train Operator Loss and Damage Warranty: 04/23/2024 [facility] Service Plan: 01/31/2022 Battery Size: 312 Second Hand/Slim Tube: [place]/Dome/CShell/SlimTip: Type of Wax Guard: Cerustop Dispensed By: [facility] Date of Fittin01/31/2021 Left Ear: Larry, Model, Color, Serial Number: Shanta Blunt M70-312 SN: [id number] Color: [place] Light Rail Train Operator Repair Warranty: 04/23/2024 Light Rail Train Operator Loss and Damage Warranty: 04/23/2024 [facility] Service Plan: 01/31/2022 Battery Size: 312 Second Hand/Slim Tube: [place]/Dome/CShell/SlimTip: Type of Wax Guard: CeruStop Dispensed By: [facility] Date of Fittin01/31/2021 Follow-Up Summary: Yareli reported difficulty hearing out of her hearing aids, believes they need a cleaning. Changed wax guards, vacuumed microphones. Listening check OK after cleaning. Otoscopy clear bilaterally. Yareli reported improved sound quality in office. Follow up as needed. Recommendations: Recommendations: Hearing instrument follow-up or maintenance as needed. Diagnosis Code(s): Primary Diagnosis: H90.3 Bilateral Sensorineural Hearing Loss Signature: Provider: Freida Marcos, CCC-A
== END 2023-08-31 11:20 | disposition home or self-care (01) ==
LOC: HO.HAP 11:19
PROVIDERS: Visit Provider Internal Medicine Medical Oncology
DX: Z13.89 Encounter for screening for other disorder (principal)
CPT/HCPCS: 92593; 99499

== ENCOUNTER 2023-08-31 12:27 | Outpatient (REF) | payer MEDICARE, MEDICAID, SELFPAY | END 2023-08-31 12:28 | disposition home or self-care (01) | LOC: HO.HAP 12:27 | PROVIDERS: Visit Provider Internal Medicine Medical Oncology | DX: Z46.1 Encounter for fitting and adjustment of hearing aid (principal) | CPT/HCPCS: 92593; 99499; V5266 ==

== ENCOUNTER 2023-12-11 12:54 | Outpatient (REF) | payer MEDICARE, MEDICAID, SELFPAY ==
[2023-12-11 13:23] LABS: MANUAL DIFF FLAG NO
[2023-12-11 13:45] LABS: Basophils Absolute Auto 0.1 X10*3/uL (0.0-0.2); Basophils Percent Auto 0.7 % (0-2); Eosinophils Absolute Auto 0.3 X10*3/uL (0.0-0.4); Eosinophils Percent Auto 3.4 % (0-4); Hematocrit 41.4 % (37.0-47.0); Hemoglobin 13.5 g/dl (12.0-16.0); Imm Gran Abs Auto 0.04 X10*3/uL (0.00-0.03); Imm Gran Pct Auto 0.5 % (0.0-0.4); Lymphocytes Absolute Auto 3.6 X10*3/uL (1.2-4.9); Lymphocytes Percent Auto 41.5 % (20-40); Mean Corpuscular HGB Conc 32.6 g/dl (31.0-35.0); Mean Corpuscular Hemoglobin 26.9 pg (27.0-33.0); Mean Corpuscular Volume 82.5 fL (80.0-98.0); Mean Platelet Volume 10.8 fL (9.4-12.3); Monocytes Absolute Auto 0.9 X10*3/uL (0.1-1.2); Monocytes Percent Auto 9.9 % (2-11); Neutrophils Absolute Auto 3.8 x10*3/uL (2.0-8.3); Platelet Count 289 X10*3/uL (160-400); Red Blood Count 5.02 X10*6/uL (4.20-5.50); Red Cell Distribution Width 14.2 % (11.0-16.0); White Blood Count 8.6 X10*3/uL (4.8-10.8)
[2023-12-11 14:08] LABS: Alanine Aminotransferase 23 U/L (0-31); Albumin Level 4.1 g/dL (3.5-5.0); Alkaline Phosphatase 108 U/L (39-117); Anion Gap 10 (12-20); Aspartate Amino Transferase 18 U/L (5-31); Bilirubin Total 0.5 mg/dL (0.0-1.0); Blood Urea Nitrogen 13 mg/dL (9-16); Calcium 9.7 mg/dL (8.4-10.2); Carbon Dioxide 26 mmol/L (22-29); Chloride 108 mmol/L (96-108); Cholesterol 199 mg/dL (<200); Estimated Glomerular Filt Rate > 60; Glucose Fasting 122 mg/dL (60-99); HDL Cholesterol 48 mg/dL (>40); LDL Cholesterol Calculated 128 mg/dL (<100); Potassium 3.9 mmol/L (3.3-5.1); Sodium 140 mmol/L (135-145); Total Protein 7.2 g/dL (6.5-8.0); Triglycerides 115 mg/dL (<150)
[2023-12-11 14:38] LABS: Estimated Average Glucose 148 mg/dL; Hemoglobin A1c % 6.8 % (<6.0)
[2023-12-11 14:58] LABS: Creatinine Urine 171.36 mg/dL; Microalbum/Creatinine Ratio Ur 5.2 ug/mg cr (<30)
== END 2023-12-11 12:55 | disposition home or self-care (01) ==
LOC: HO.LAB 12:54
PROVIDERS: PCP Internal Medicine Medical Oncology; Visit Provider Internal Medicine Medical Oncology
DX: E11.9 Type 2 diabetes mellitus without complications (principal); E66.01 Morbid (severe) obesity due to excess calories; E78.5 Hyperlipidemia, unspecified
CPT/HCPCS: 36415; 80053; 80061; 82043; 82570; 83036; 85025

== ENCOUNTER 2024-02-04 08:05 | Outpatient (REF) | payer MEDICARE, MEDICAID, SELFPAY ==
--- NOTE | 2024-02-04 09:18 | MHC.AU.HA3 ---
Hearing Instrument Follow-Up- Binaural Date of Visit: 02/04/24 Right Ear: Larry, Model, Color, Serial Number: Shanta Blunt M70-312 SN: [id number] Color: [place] [employer] Car Checker Repair Warranty: 04/23/2024 Mechanical And Auto Body Car Checker Loss and Damage Warranty: 04/23/2024 [facility] Service Plan: 01/31/2022 Battery Size: 312 Recycling Crew Supervisor/Slim Tube: [place]/Dome/CShell/SlimTip: Type of Wax Guard: Cerustop Dispensed By: [facility] Date of Fittin01/31/2021 Left Ear: Larry, Model, Color, Serial Number: Shanta Blunt M70-312 SN: [id number] Color: [place] [employer] Car Checker Repair Warranty: 04/23/2024 Mechanical And Auto Body Car Checker Loss and Damage Warranty: 04/23/2024 [facility] Service Plan: 01/31/2022 Battery Size: 312 Recycling Crew Supervisor/Slim Tube: [place]/Dome/CShell/SlimTip: Type of Wax Guard: CeruStop Dispensed By: [facility] Date of Fittin01/31/2021 Follow-Up Summary: Here with hearing aid problem, reports wax guard missing. Cleaned and checked aids, found both wax guards missing, vacuumed out mortgage loan officer originator ports. Replaced wax guard left. Right is missing gasket and cannot hold wax guard. Listening check positive left. Sending right to Phonak, under warranty. Yareli notes hearing has been muffled recently. Will see how things sound for her when right is back, may need adjustment, would recommend new eval as last in chart is from 2020. Recommendations: Recommendations: Patient will be contacted when materials have arrived. Diagnosis Code(s): Primary Diagnosis: H90.3 Bilateral Sensorineural Hearing Loss Signature: Provider: Dave Eddy, [facility]
== END 2024-02-04 08:06 | disposition home or self-care (01) ==
LOC: HO.HAP 08:05
PROVIDERS: Visit Provider Internal Medicine Medical Oncology
DX: Z46.1 Encounter for fitting and adjustment of hearing aid (principal); H90.3 Sensorineural hearing loss, bilateral
CPT/HCPCS: 92593; V5266

== ENCOUNTER 2024-03-07 09:38 | Outpatient (REF) | payer SELFPAY ==
--- NOTE | 2024-03-07 09:54 | MHC.AU.HA3 ---
Hearing Instrument Follow-Up- Binaural Date of Visit: 03/07/24 Right Ear: Make, Model, Color, Serial Number: Shanta Blunt M70-312 SN: [id number] Color: [place] Help Desk Engineer Repair Warranty: 04/23/2024 Help Desk Engineer Loss and Damage Warranty: 04/23/2024 [facility] Service Plan: 01/31/2022 Battery Size: 312 Type of Wax Guard: Cerustop Dispensed By: [facility] Date of Fittin01/31/2021 Left Ear: Make, Model, Color, Serial Number: Shanta Blunt M70-312 SN: [id number] Color: [place] Help Desk Engineer Repair Warranty: 04/23/2024 Help Desk Engineer Loss and Damage Warranty: 04/23/2024 [facility] Service Plan: 01/31/2022 Battery Size: 312 Type of Wax Guard: CeruStop Dispensed By: [facility] Date of Fittin01/31/2021 Follow-Up Summary: Dispensed repaired right aid. Paired with phone and tested streaming. Advised that her new MR Adv plan will require her to go to an in network hearing aid provider and suggested calling number on insurance card for direction. Recommendations: Recommendations: Hearing instrument follow-up or maintenance as needed. Diagnosis Code(s): Primary Diagnosis: H90.3 Bilateral Sensorineural Hearing Loss Signature: Provider: Dave Eddy, [facility]
== END 2024-03-07 09:39 | disposition home or self-care (01) ==
LOC: HO.HAP 09:38
PROVIDERS: Visit Provider Internal Medicine Medical Oncology
DX: Z13.89 Encounter for screening for other disorder (principal)

== ENCOUNTER 2024-07-31 09:26 | Outpatient (AMB) | payer MEDICARE, SELFPAY ==
--- OUTSIDE RECORDS SUMMARY | 2024-07-31 09:31 | XMS_ITS ---
Author Organization Aureliano Conteh III, MD Address [address] [place] [address] Care Team Providers Care Special Education Resource Teacher Name Role Phone Aureliano Conteh Primary Care Provider [phone] REASON FOR VISIT Rx Request Medications Medication SIG (Take, Route, Frequency, Duration) Notes Start Date End Date Status One Touch Delica Lancets - Check blood sugar 4 times a day for 30 days E11.9 Type 2 Diabetes 06/04/2024 Active Social History Sex Assigned At : Social History Observation Description Sex Assigned At Female Encounters Encounter Location Date Provider Diagnosis Aureliano Conteh III, MD [address] [place] [address] [place] [address] 06/03/2024 Aureliano Conteh Plan Of Treatment Medication Medication Name Sig Start Date Stop Date Notes One Touch Delica Lancets - Check blood sugar 4 times a day for 30 days 06/04/2024 E11.9 Type 2 Diabete s Next Appt Details Provider Name:Aureliano Conteh, 08/07/2024 09:45:00 AM, [address] [place] [address] [place], [address], Provider Name:Aureliano Conteh, 12/16/2024 02:00:00 PM, [address] [place] [address] [address], [place], [address], Progress Notes * CALHOUNYareli RODRIGUEZ HDOB:[birth year] (69 yo F)Acc No.[id number]:06/03/2024 Patient:?Yareli CALHOUN H :1955???Age:69 Y???Sex:Female Address:[address] [place], [place] [address], [address] * Refills? Start One Touch Delica Lancets Miscellaneous, -, 120 Unspecified, Check blood sugar 4 times a day, 30 days, Refills=11 * true * Date:? Generated for Yovani rod/Zo/Gabesmitting on:?07/31/2024 09:31 AM EST
--- OUTSIDE RECORDS SUMMARY | 2024-07-31 09:31 | XMS_ITS | Continuity of Care Document ---
Author Organization [facility] Address [address] [place] [address] Care Team Providers Care Seafood Service Team Member Name Role Phone Yady LUTZ, Aureliano Fisher Primary Care Physician [phone] Encounter [facility] Date(s): 06/05/24 - 07/05/[address] [address] Attending Physician: Yoel Pak Admitting Physician: Yoel Pak Referring Physician: AdmtrYoel Encounter Type: Triage Allergies, Adverse Reactions, Alerts Substance Criticality Severity Reaction Reaction Severity Status Flexeril diffculty breathing Active Latex itchy feeling Active Medications acetaminophen 325 mg oral tablet 650 mg, 2, tablet, By Mouth, Every 4 hours, Refills 0, Maintenance, 04/06/20 7:58:00 AM EDT Start Date: 04/06/20 Status: Ordered Repeat number: 1 atorvastatin 10 mg oral tablet 1 tablet = 10 mg, By Mouth, Daily, 0 Refills, Maintenance Start Date: 01/21/17 Status: Ordered Repeat number: 1 Caltrate 600 + D By Mouth, 2 times a day, 0 Refills, Maintenance, 05/07/23 9:34:00 AM EDT, Partial fill upon patient request if the prescription is for a schedule II opioid drug. Start Date: 05/07/23 Status: Ordered Repeat number: 1 escitalopram 20 mg oral tablet 1 tablet = 20 mg, By Mouth, Daily, # 30 tablet, 0 Refills, Maintenance, 04/05/20 1:26:00 PM EDT, Tablet Start Date: 04/05/20 Status: Ordered Quantity: 30.0 Unit: tablet Repeat number: 1 metoprolol 25 mg oral tablet, extended release 25 mg, 1, tablet, By Mouth, Daily, Refills 0, Maintenance, 01/21/17 1:36:34 PM EDT Start Date: 01/21/17 Status: Ordered Repeat number: 1 omeprazole 20 mg oral enteric coated capsule 1 capsule = 20 mg, By Mouth, Daily, # 30 capsule, 0 Refills, Maintenance, 05/10/18 11:04:44 AM EDT, EC Capsule Start Date: 05/10/18 Status: Ordered Quantity: 30.0 Unit: capsule Repeat number: 1 oxyCODONE 5 mg oral tablet 5 mg, 1, tablet, By Mouth, Every 4 hours, PRN, The patient may fill in an amount not to exceed the recommended full quantity indicated., # 10 tablet, Refills 0, Tot. Refills 0, Maintenance, for pain,04/06/20 7:58:00 AM EDT, Route to Pharmacy Electronically, [facility], Partial fill upon patient request, 158, cm, 04/06/20 4:02:00 EDT, Height, 83.4, kg, 04/05/20 15:57:00 EDT, Dry Weight Start Date: 04/06/20 Status: Ordered Quantity: 10.0 Unit: tablet Repeat number: 1 pioglitazone 15 mg oral tablet 1 tablet = 15 mg, By Mouth, Daily, # 30 tablet, 0 Refills, Maintenance, 04/05/20 1:28:00 PM EDT, Tablet Start Date: 04/05/20 Status: Ordered Quantity: 30.0 Unit: tablet Repeat number: 1 ProAir HFA 2 puffs, Inhalation, 4 times a day, PRN Wheezing/Shortness of Breath, 0 Refills, Maintenance, 01/16/14 4:51:47 PM EDT Start Date: 01/16/14 Status: Ordered Repeat number: 1 Trulicity Pen 1.5 mg/0.5 mL subcutaneous solution = 1.5 mg, Subcutaneous Infusion, 0 Refills, Maintenance, 05/07/23 9:34:00 AM EDT, Partial fill upon patient request if the prescription is for a schedule II opioid drug. Start Date: 05/07/23 Status: Ordered Repeat number: 1 Problem List Condition Confirmation Course Effective Dates Status Health St atus Informant Chest pain Confirmed Active Erythematous condition Confirmed Active Obese class II Confirmed Active Social History Social History Type Response Smoking Status Former smoker entered on: 05/09/18 Sex Female Sex Representation Female (finding) Patient Care team information Care Team Personnel Name: Aureliano Conteh MD Position: [facility] Physician - Oncology Member Role: PCP Address: [address] [place] [address] [address] [place] [address] Telecom: Care Team Related Persons Name: NOY CALHOUN Insurance Providers Guarantor name: MALICK CALHOUN Health Plan Information #: 1 Payer: MEDICARE PART B OUTPT Member Number: NA Policy Number: NA Group Number: NA Health Plan Information #: 2 [facility] Member Number: NA Policy Number: NA Group Number: NA
--- OUTSIDE RECORDS SUMMARY | 2024-07-31 09:31 | XMS_ITS ---
Author Organization Aureliano Conteh III, MD Address [address] [place] [address] [place] [address] Care Team Providers Care Fresh Work Wrapper Layer Name Role Phone Aureliano Conteh Primary Care Provider REASON FOR VISIT Rx Refill Medications Medication SIG (Take, Route, Fr equency, Duration) Notes Start Date End Date Status Nystatin 758947 UNIT/GM APPLY TOPICALLY TO THE AFFECTED AREA TWICE DAILY Externally Twice a day for 7 days Active Social History Sex Assigned At : Social History Observation Description Sex Assigned At Female Encounters Encounter Location Date Provider Diagnosis Aureliano Conteh III, MD [address] [place] [address] [place] [address] 06/10/2024 Aureliano Conteh Former smoker Z87.891 Assessments Encounter Date Diagnosis (ICD Code) Assessment Notes Treatment Notes Treatment Clinical Notes 06/10/2024 Former smoker (ICD-10 - Z87.891) She is highly motivated not to smoke and we discussed strategies for maintenance of abstinence. Plan Of Treatment Medication Medication Name Sig Start Date Stop Date Notes Nystatin 687780 UNIT/GM APPLY TOPICALLY TO THE AFFECTED AREA TWICE DAILY Externally Twice a day for 7 days Next Appt Details Provider Name:Aureliano Conteh, 08/07/2024 09:45:00 AM, [address] [place] [address] [place] [place], [place], [phone], Provider Name:Aureliano Conteh, 12/16/2024 02:00:00 PM, [address] [place] [address] [place], [place], [phone], Progress Notes * Yareli CALHOUN HDOB:[birth year] (69 yo F)Acc No.[id number]:06/10/2024 Patient:?CALHOUN, Yareli H :1955???Age:69 Y???Sex:Female Address:[address] [place] [address], [phone] * Refills? Refill Nystatin Cream, 245850 UNIT/GM, Externally, 15 Gram, APPLY TOPICALLY TO THE AFFECTED AREA TWICE DAILY, Twice a day, 7 days, Refills=11 * true * Date:? Generated for Yovani rod/Zo/eTransmitting on:?07/31/2024 09:31 AM EST
--- OUTSIDE RECORDS SUMMARY | 2024-07-31 09:31 | XMS_ITS | Patient Health Record ---
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 In Name Role Phone Aureliano Conteh Primary Care Provider Allergies Allergen (clinical drug ingredient) Drug/Non Drug Allergy documented on EMR Reaction Allergy Type Onset Date Status Cat dander Cat Dander Unknown Allergy Active Latex Gloves Unknown Drug Allergy Acti ve Flexeril Unknown Drug Allergy Active Results Component Value Reference Range Notes Diabetic Eye Exam Reviewed date:12/12/2023 05:13:32 AM Interpretation:undefined Performing Lab: Notes/Report: undefined Complete Blood Count Auto Di ff Reviewed date:12/12/2023 05:13:32 AM Interpretation: Performing Lab:[facility], [address] [place] [phone] Notes/Report: White Blood Count 8.6 4.8-10.8 X10*3/uL Red Blood Count 5.02 4.20-5.50 X10*6/uL Hemoglobin 13.5 12.0-16.0 g/dl Hematocrit 41.4 37.0-47.0 % Mean Corpuscular Volume 82.5 80.0-98.0 fL Mean Corpuscular Hemoglobin 26.9 27.0-33.0 pg Mean Corpuscular HGB Conc 32.6 31.0-35.0 g/dl Red Cell Distribution Width 14.2 11.0-16.0 % Platelet Count 289 160-400 X10*3/uL Mean Platelet Volume 10.8 9.4-12.3 fL Neutrophils Percent Auto 44.0 45-73 % Imm Gran Pct Auto 0.5 0.0-0.4 % Lymphocytes Percent Auto 41.5 20-40 % Monocytes Percent Auto 9.9 2-11 % Eosinophils Percent Auto 3.4 0-4 % Basophils Percent Auto 0.7 0-2 % NRBC Pct Auto 0.0 0.0-0.2 /100WBC Neutrophils Absolute Auto 3.8 2.0-8.3 x10*3/u L Imm Gran Abs Auto 0.04 0.00-0.03 X10*3/uL Lymphocytes Absolute Auto 3.6 1.2-4.9 X10*3/u L Monocytes Absolute Auto 0.9 0.1-1.2 X10*3/uL Eosinophils Absolute Auto 0.3 0.0-0.4 X10*3/u L Basophils Absolute Auto 0.1 0.0-0.2 X10*3/uL NRBC Abs Auto 0.000 0.0-0.012 X10*3/uL Comprehensive [place]. Panel Fa st Reviewed date:12/12/2023 05:13:32 AM Interpretation: Performing Lab:[facility], [address] [place] [phone] Notes/Report: Sodium 140 135-145 mmol/L Potassium 3.9 3.3-5.1 mmol/L Chloride 108 96-108 mmol/L Carbon Dioxide 26 22-29 mmol/L Anion Gap 10 12-20 Blood Urea Nitrogen 13 9-16 mg/dL Creatinine 0.84 0.5-1.4 mg/dL Estimated Glomerular Filt Rate > 60 NOTE: For -[place] individuals, multiply the result by 1.210. Chronic Kidney Disease: Estimated GFR < 60 mL/min/1.73m2 Severe Kidney Disease: Estimated GFR < 15 mL/min/1.73m2 Glucose Fasting 122 60-99 mg/dL A fasting glucose from 100-125 mg/dl is considered impaired (pre-diabetes). Calcium 9.7 8.4-10.2 mg/dL Bilirubin Total 0.5 0.0-1.0 mg/dL Aspartate Amino Transferase 18 5-31 U/L Alanine Aminotransferase 23 0-31 U/L Total Protein 7.2 6.5-8.0 g/dL Albumin Level 4.1 3.5-5.0 g/dL Alkaline Phosphatase 108 39-117 U/L Lipid Panel Reviewed date:12/12/2023 05:13:32 AM Interpretation: Performing Lab:[facility], [address] [place] [phone] Notes/Report: Triglycerides 115 <150 mg/dL Desirable Triglyceride: less than 150 mg/dL Borderline High Triglyceride 150-199 mg/dL High Triglyceride: 200-499 mg/dL Very High Triglyceride: greater than or equal to 5OO mg/dL Cholesterol 199 <200 mg/dL Desirable Cholesterol: less than 200 mg/dL Borderline High Cholesterol: 200-239 mg/dL High Cholesterol: greater than 239 mg/dL LDL Cholesterol Calculated 128 <100 mg/dL Desirable LDL: less than 100 mg/dL Near Optimal/Above Optimal LDL: 110-129 mg/dL Borderline High LDL: 130-159 mg/dL High LDL: 160-189 mg/dL Very High LDL: greater than or equal to 190 mg/dL HDL Cholesterol 48 >40 mg/dL Desirable HDL: greater than 40 mg/dL Note: This HDL assay may give artificially low results in patients with liver disease. Microalbumin, Random Reviewed date:12/12/2023 05:13:32 AM Interpretation: Performing Lab:[facility], [address] [place] [phone] Notes/Report: Creatinine Urine 171.36 Microalbumin Urine 9.0 Microalbum/Creatinine Ratio Ur 5.2 <30 ug/mg cr Albumin/Creatinine Ratio Reference Ranges: Normal: < 30 ug/mg creatinine Microalbuminuria: 30 - 300 ug/mg creatinine Clinical Albuminuria: > 300 ug/mg creatinine Hemoglobin A1c Reviewed date:12/12/2023 05:13:32 AM Interpretation: Performing Lab:[facility], [address] [place] [phone] Notes/Report: Hemoglobin A1c % 6.8 <6.0 % Hemoglobin A1C Reference Range Adults: 4.8 - 6.0 % Non diabetic: < 6.0 % Goal: < 7.0 % Additional Action Suggested: > 8.0 % Note: Hemoglobin A1c results are invalid for patients with abnormal amounts of HbF. Blood transfusions may impact the HbA1c concentration in the patient sample. Estimated Average Glucose 148 eAG = Estimated average glucose which is %A1C expressed as average glucose, using the formula of the Z1T-Mvcusyc Average Glucose study (ADAG), Diabetes Care, Vol.31,#8, Mar. 2007 Reason For Referral Reason Screen for Colon Can cer, Overdue Diagnosis 1 Colon cancer screeni ng (Z12.11) Referral Organization Aureliano Conteh III, MD Referring Provider First Name Aureliano Referring Provider Last Name Yady Referring Provider Speciality Internal edicine Referred Provider [facility] er, Gastroenterology Referred Provider Specialty Gastroentero logy Referral Priority Routine Reason Consult and Treat Panniculitis Diagnosis 1 Panniculitis, unspec ified (M79.3) Referral Organization Aureliano Conteh III, MD Referring Provider First Name Aureliano Referring Provider Last Name Yady Referring Provider Speciality Internal edicine Referred Provider YUE MENDES Referred Provider Specialty Plastic and Reconstructive Surgery General Notes Nikki Diana 2023 04:01:43 PM EDT > Faxed referral and progress Joel taylor Amber 06/12/2024 03:49:37 PM > Office spoke with patient. BMI 33 or below. Patient is not able to go at this time, but once she is able to get her BMI under she is able to schedule an appointment with them. Referral Priority Routine Reason Consult and Treat Bilateral Hearing Loss Diagnosis 1 Hearing loss, bilate ral (H91.93) Referral Organization Aureliano Conteh III, MD Referring Provider First Name Aureliano Referring Provider Last Name Yady Referring Provider Speciality Internal edicine Referred Provider [facility] Referred Provider Specialty Audiologists General Notes Nikki Diana 05/27 04:52:30 PM > Faxed referral Referral Priority Routine Medications Medication SIG (Take, Route, Frequency, Duration) Notes Start Date End Date Status Nebulizer Mask Adult - as directed - use three times daily 04/16/2023 Active All-In-One Nebulizer System - as directed - use three times a day 04/16/2023 Active Albuterol Sulfate (2.5 MG/3ML) 0.083% 3 ml Inhalation Three times a day 02/06/2017 Active Metoprolol Succinate ER 25 MG TAKE 1 TABLET BY MOUTH DAILY Active Omeprazole 20 MG TAKE 1 CAPSULE BY MOUTH DAILY Active Trulicity 1.5 MG/0.5ML as directed Subcutaneous Active Caltrate 600+D Activ e One Touch Delica Lancets - Check blood sugar 4 times a day for 30 days E11.9 Type 2 Diabetes 06/04/2024 Active Nystatin 261809 UNIT/GM APPLY TOPICALLY TO THE AFFECTED AREA TWICE DAILY Externally Twice a day for 7 days Active Pioglitazone HCl 15 MG TAKE 1 TABLET BY MOUTH EVERY DAY Active Pioglitazone HCl 15 MG TAKE 1 TABLET BY MOUTH EVERY DAY Active Alcohol Prep Pad none - - use to check blood sugars four times a day for 90 days 05/19/2018 Active Atorvastatin Calcium 10 MG TAKE 1 TABLET BY MOUTH DAILY Active Albuterol Sulfate HFA 108 (90 Base) MCG/ACT 1 puff as needed Inhalation every 4 hrs 01/22/2024 Active Immunizations Vaccine Route Administration Date Status Comme nts Influenza, quad IM Intramuscular 07/28/2021 Administered Decline: Influenza Unknown 06/12/2014 Refused Decline: Pneumococcal Unknown 06/12/2014 Refused Social History Tobacco Use: Social History Observation Description Date Details (start date - stop date) Former Smoker NA - NA Sex Assigned At : Social History Observation Description Sex Assigned At Female Tobacco Use/Smoking Question Answer Notes Patient is a former smoker How long has it been since you last smoked? > 10 years Additional Findings: Tobacco Non-User Ex-cigaret te smoker Alcohol Screen Question Answer Notes Did you have a drink containing alcohol in the p ast year? No Points 0 Interpretation Negative Problems Problem Type SNOMED Code ICD Code Onset Dates Problem Status W/U Status Risk Notes Problem 7891373 Former smoker (Z87.891) Active confirmed She is highly motivated not to smoke and we discussed strategies for maintenance of abstinence. Problem Hyperlipidemia (50848455) Hyperlipidemia (E78.5) Active confirmed Problem 937297379 Asthma (J45.909) Active confirmed She is breathing comfortably today on room air. No change in her regimen was needed. Problem DM - Diabetes mellitus (93644011) DM (diabetes mellitus) (E11.9) Active confirmed I have increased the trulicity to 1.5. She was given a follow-up appointment in near future. Comprehensive blood work has been ordered. Problem 41290226 Depression (F32.9) Active confirmed Her depression is much better. No change in her medication was made. Problem 36453765 Type 2 diabetes mellitus without complications (E11.9) Active confirmed She has been compliant with her medications. She has not had blood work done but it was ordered today to be done in the next week. In November of this year the hemoglobin A1c was 6.8. 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 She will obtain a pair of those are new symptoms. She willl then reportt back. Problem 980763788 Low back pain (M54.5) Active confirmed Her back pain is mild and stable and she is conducting all of the activities of daily life without impairment. No change in her regimen was needed. Problem History of transplantation of pancreas (231022455) Pancreas transplant status (Z94.83) Active confirmed Problem 37262016 Hearing loss, bilateral (H91.93) Active confirmed She did not have her hearing aids today. They are being repaired. She will wear them on her next visit. There is been no change in her hearing loss. Problem 418708793 Hyperlipidemia type II (E78.0) Active confirmed Most recent fasting total cholesterol was 199. A fasting lipid profile has been ordered today. No change in her medications was made today. Problem Osteoporosis (79635925) Osteoporosis (M81.0) Active confirmed She was sent for a bone density test. Problem 23703554 Cervical dysplasia (N87.9) Active confirmed She says she has an upcoming appointment with her focused factory manager. She wished to defer her pelvic examination and rectal examination to the focused factory manager. Her breast examination was unremarkable. 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 She has no difficulty swallowing or odynophagia. Problem 838969828 Atypical lobular hyperplasia of breast (N62) Active confirmed There is no sign of breast cancer. She has completed 5 years of tamoxifen as a preventative and the drug was discontinued at this time. Problem Hyperlipidaemia (57370204) Hyperlipemia (E78.5) Active confirmed Problem 600386159 Morbid obesity (E66.01) Active confirmed Her weight is stable and unchanged. Her body mass index is 43. We have reviewed her weight loss strategy today. We have reviewed her diet and nutrition. We have discussed lifestyle modifications. He is using trulicity. We have discussed the use of injected semaglutide at length today. Is going to consider it but has not made a decision. Problem Pure hypercholesterolemi a (409399126) Hyperlipidemia type II (E78.01) Active confirmed Vital Signs Heart Rate 94 /min 05/08/2024 Temperature 98.3 degrees Fahrenheit 05/08/2024 Blood pressure diastolic 76 mm Hg 05/08/2024 Height 61 in 05/08/2024 Blood pressure systolic 137 mm Hg 05/08/2024 Weight 230 lbs 05/08/2024 BMI 43.45 kg/m2 05/08/2024 Encounters Encounter Location Date Provider Diagnosis Aureliano Conteh III, MD [address] [place] [address] [place] [address] 10/01/2023 Aureliano Conteh Type 2 diabetes amor itus without complications E11.9 ; Hyperlipidemia type II E78.0 ; Morbid obesity E66.01 ; Former smoker Z87.891 ; Hearing loss, bilateral H91.93 and Depression F32.9 Aureliano Conteh III, MD [address] [place] [address] [place] [address] 12/11/2023 Aureliano Conteh Former smoker Z87.89 1 ; Hearing loss, bilateral H91.93 ; Depression F32.9 ; Atypical lobular hyperplasia of breast N62 ; Type 2 diabetes mellitus without complications E11.9 ; Hyperlipidemia type II E78.0 ; Vitamin D deficiency E55.9 and Morbid obesity E66.01 Aureliano Conteh III, MD [address] [place] [address] [place] [address] 01/22/2024 Aureliano Conteh Depression F32.9 ; Hearing loss, bilateral H91.93 ; Former smoker Z87.891 ; Low back pain M54.5 ; Cervical dysplasia N87.9 ; Asthma J45.909 ; Osteoporosis M81.0 ; Morbid obesity E66.01 ; Atypical lobular hyperplasia of breast N62 ; Varicose veins of bilateral lower extremities with other complications I83.893 ; Hyperlipidemia type II E78.01 and Type 2 diabetes mellitus without complications E11.9 Aureliano Conteh III, MD [address] [place] [address] [place] [address] 02/26/2024 Aureliano Conteh Former smoker Z87.89 1 ; Depression F32.9 ; Hearing loss, bilateral H91.93 ; Type 2 diabetes mellitus without complications E11.9 ; Hyperlipidemia type II E78.0 and Asthma J45.909 Aureliano Conteh III, MD [address] [place] [address] [place] [address] 05/08/2024 Aureliano Conteh Former smoker Z87.89 1 ; Type 2 diabetes mellitus without complications E11.9 ; Hyperlipidemia type II E78.0 ; Morbid obesity E66.01 ; Hearing loss, bilateral H91.93 ; Depression F32.9 ; Low back pain M54.5 and Asthma J45.909 Aureliano Conteh III, MD [address] [place] [address] [place] [address] 10/09/2023 Aureliano Conteh III, MD [address] [place] [address] [place] [address] 10/11/2023 Aureliano Conteh III, MD [address] [place] [address] [place] [address] 11/13/2023 Aureliano Conteh III, MD [address] [place] [address] [place] [address] 11/14/2023 Aureliano Conteh III, MD [address] [place] [address] [place] [address] 11/26/2023 Aureliano Conteh III, MD [address] [place] [address] [place] [address] 11/28/2023 Aureliano Conteh III, MD [address] [place] [address] [place] [address] 11/29/2023 Aureliano Conteh III, MD [address] [place] [address] [place] [address] 12/12/2023 Aureliano Conteh III, MD [address] [place] [address] [place] [address] 12/13/2023 Aureliano Conteh III, MD [address] [place] [address] [place] [address] 12/17/2023 Aureliano Conteh III, MD [address] [place] [address] 03/18/2024 Aureliano Conteh III, MD [address] [place] [address] [place] [address] 03/18/2024 Aureliano Conteh III, MD [address] [place] [address] [place] [address] 05/13/2024 Aureliano Conteh Former smoker Z87.89 1 Aureliano Conteh III, MD [address] [place] [address] [place] [address] 05/15/2024 Aureliano Conteh Former smoker Z87.89 1 Aureliano Conteh III, MD [address] [place] [address] [place] [address] 05/15/2024 Aureliano Conteh III, MD [address] [place] [address] [place] [address] 05/27/2024 Aureliano Conteh III, MD [address] [place] [address] [place] [address] 06/03/2024 Aureliano Conteh III, MD [address] [place] [address] [place] [address] 06/10/2024 Aureliano Conteh Former smoker Z87.89 1 Aureliano Conteh III, MD [address] [place] [address] [place] [address] 06/11/2024 Aureliano Conteh Assessments Encounter Date Diagnosis (ICD Code) Assessment Notes Treat ment Notes Treatment Clinical Notes 10/01/2023 Type 2 diabetes mellitus without complications (ICD-10 - E11.9) Her diabetes mellitus appears to be stable and controlled. No change in her regimen was made. Strongly recommended aggressive weight loss. We reviewed the elements of a diabetic diet. 10/01/2023 Hyperlipidemia type II (ICD-10 - E78.0) Comprehensive blood work with a fasting lipid profile has been ordered. 12/11/2023 Former smoker (ICD-1 0 - Z87.891) She is highly motivated not to smoke and we discussed strategies for maintenance of abstinence. 12/11/2023 Hearing loss, bilateral (ICD-10 - H91.93) She did not have her hearing aids today. They are being repaired. She will wear them on her next visit. There is been no change in her hearing loss. 01/22/2024 Depression (ICD-10 - F32.9) Her depression is much better. No change in her medication was made. 01/22/2024 Hearing loss, bilateral (ICD-10 - H91.93) She did not have her hearing aids today. They are being repaired. She will wear them on her next visit. There is been no change in her hearing loss. 02/26/2024 Former smoker (ICD-1 0 - Z87.891) She is highly motivated not to smoke and we discussed strategies for maintenance of abstinence. 02/26/2024 Depression (ICD-10 - F32.9) Her depression is much better. No change in her medication was made. 05/08/2024 Former smoker (ICD-1 0 - Z87.891) She is highly motivated not to smoke and we discussed strategies for maintenance of abstinence. 05/08/2024 Type 2 diabetes mellitus without complications (ICD-10 - E11.9) She has been compliant with her medications. She has not had blood work done but it was ordered today to be done in the next week. In November of this year the hemoglobin A1c was 6.8. 05/13/2024 Former smoker (ICD-1 0 - Z87.891) She is highly motivated not to smoke and we discussed strategies for maintenance of abstinence. 05/15/2024 Former smoker (ICD-1 0 - Z87.891) She is highly motivated not to smoke and we discussed strategies for maintenance of abstinence. 06/10/2024 Former smoker (ICD-1 0 - Z87.891) She is highly motivated not to smoke and we discussed strategies for maintenance of abstinence. 10/01/2023 Morbid obesity (ICD-10 - E66.01) I recommended aggressive weight loss and calorie restriction combined with physical activity. I offered to refer her for bariatric surgery at [facility] weight loss program but she declined. I did recommend her to the metabolic clinic. 12/11/2023 Depression (ICD-10 - F32.9) Her depression is much better than on the last visit. Despite the pain in her knee. She was tearful and seemed happy today. No change in her medication was made. 01/22/2024 Former smoker (ICD-1 0 - Z87.891) She is highly motivated not to smoke and we discussed strategies for maintenance of abstinence. 02/26/2024 Hearing loss, bilateral (ICD-10 - H91.93) She did not have her hearing aids today. They are being repaired. She will wear them on her next visit. There is been no change in her hearing loss. 05/08/2024 Hyperlipidemia type II (ICD-10 - E78.0) Most recent fasting total cholesterol was 199. A fasting lipid profile has been ordered today. No change in her medications was made today. 10/01/2023 Former smoker (ICD-1 0 - Z87.891) She is highly motivated not to smoke and we discussed strategies for maintenance of abstinence. 12/11/2023 Atypical lobular hyperplasia of breast (ICD-10 - N62) There is no sign of breast cancer. She has completed 5 years of tamoxifen as a preventative and the drug was discontinued at this time. 01/22/2024 Low back pain (ICD-1 0 - M54.5) Her back pain is mild and stable and she is conducting all of the activities of daily life without impairment. No change in her regimen was needed. 02/26/2024 Type 2 diabetes mellitus without complications (ICD-10 - E11.9) Her diabetes mellitus appears to be stable and controlled. No change in her regimen was made. Her hemoglobin A1c has increased from 6.2-6.8. We have discussed the importance of weight loss and adherence to a diabetic diet and physical activity. 05/08/2024 Morbid obesity (ICD-10 - E66.01) Her weight is stable and unchanged. Her body mass index is 43. We have reviewed her weight loss strategy today. We have reviewed her diet and nutrition. We have discussed lifestyle modifications. He is using trulicity. We have discussed the use of injected semaglutide at length today. Is going to consider it but has not made a decision. 10/01/2023 Hearing loss, bilateral (ICD-10 - H91.93) She did not have her hearing aids today. They are being repaired. She will wear them on her next visit. There is been no change in her hearing loss. 12/11/2023 Type 2 diabetes mellitus without complications (ICD-10 - E11.9) Her diabetes mellitus appears to be stable and controlled. No change in her regimen was made. Her hemoglobin A1c has increased from 6.2-6.8. We have discussed the importance of weight loss and adherence to a diabetic diet and physical activity. 01/22/2024 Cervical dysplasia (ICD-10 - N87.9) She says she has an upcoming appointment with her focused factory manager. She wished to defer her pelvic examination and rectal examination to the focused factory manager. Her breast examination was unremarkable. 02/26/2024 Hyperlipidemia type II (ICD-10 - E78.0) Comprehensive blood work with a fasting lipid profile has been ordered. 05/08/2024 Hearing loss, bilateral (ICD-10 - H91.93) She did not have her hearing aids today. They are being repaired. She will wear them on her next visit. There is been no change in her hearing loss. 10/01/2023 Depression (ICD-10 - F32.9) Her depression is much better than on the last visit. Despite the pain in her knee. She was tearful and seemed happy today. No change in her medication was made. 12/11/2023 Hyperlipidemia type II (ICD-10 - E78.0) Comprehensive blood work with a fasting lipid profile has been ordered. 01/22/2024 Asthma (ICD-10 - J45.909) She is breathing comfortably today on room air. No change in her regimen was needed. 02/26/2024 Asthma (ICD-10 - J45.909) She is breathing comfortably today on room air. No change in her regimen was needed. 05/08/2024 Depression (ICD-10 - F32.9) Her depression is much better. No change in her medication was made. 12/11/2023 Vitamin D deficiency (ICD-10 - E55.9) She has been found to have osteoporosis. She will continue on 1000 units of vitamin D daily. 01/22/2024 Osteoporosis (ICD-10 - M81.0) She was sent for a bone density test. 05/08/2024 Low back pain (ICD-1 0 - M54.5) Her back pain is mild and stable and she is conducting all of the activities of daily life without impairment. No change in her regimen was needed. 12/11/2023 Morbid obesity (ICD-10 - E66.01) I recommended aggressive weight loss and calorie restriction combined with physical activity. I offered to refer her for bariatric surgery at [facility] weight loss program but she declined. I did recommend her to the metabolic clinic. 01/22/2024 Morbid obesity (ICD-10 - E66.01) I recommended aggressive weight loss and calorie restriction combined with physical activity. I offered to refer her for bariatric surgery at [facility] weight loss program but she declined. I did recommend her to the metabolic clinic. 05/08/2024 Asthma (ICD-10 - J45.909) She is breathing comfortably today on room air. No change in her regimen was needed. 01/22/2024 Atypical lobular hyperplasia of breast (ICD-10 - N62) There is no sign of breast cancer. She has completed 5 years of tamoxifen as a preventative and the drug was discontinued at this time. 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 She will obtain a pair of those are new symptoms. She willl then reportt back. 01/22/2024 Hyperlipidemia type II (ICD-10 - E78.01) The recent fasting lipid profile shows good control of her lipids and no change in her regimen was needed. We discussed her weight loss program in detail. 01/22/2024 Type 2 diabetes mellitus without complications (ICD-10 - E11.9) Her diabetes mellitus appears to be stable and controlled. No change in her regimen was made. Her hemoglobin A1c has increased from 6.2-6.8. We have discussed the importance of weight loss and adherence to a diabetic diet and physical activity. Plan Of Treatment Pending Test Test Name Order Date PROFILE, FASTING (COMPREHENSIVE METABOLI C) 08/04/2021 PROFILE, FASTING (COMPREHENSIVE METABOLI C) 04/10/2019 PROFILE, FASTING (COMPREHENSIVE METABOLI C) 02/08/2018 PROFILE, FASTING (COMPREHENSIVE METABOLI C) 11/01/2018 PROFILE, FASTING (COMPREHENSIVE METABOLI C) 04/06/2017 PROFILE, FASTING (COMPREHENSIVE METABOLI C) 12/10/2020 PROFILE, FASTING (COMPREHENSIVE METABOLI C) 03/12/2023 PROFILE, FASTING (COMPREHENSIVE METABOLI C) 05/12/2021 PROFILE, FASTING (COMPREHENSIVE METABOLI C) 05/08/2024 PROFILE, FASTING (COMPREHENSIVE METABOLI C) 10/01/2023 PROFILE, FASTING (COMPREHENSIVE METABOLI C) 08/09/2020 PROFILE, FASTING (COMPREHENSIVE METABOLI C) 02/14/2022 PROFILE, FASTING (COMPREHENSIVE METABOLI C) 04/30/2020 PROFILE, FASTING (COMPREHENSIVE METABOLI C) 02/09/2021 PROFILE, FASTING (COMPREHENSIVE METABOLI C) 12/18/2022 PROFILE, FASTING (COMPREHENSIVE METABOLI C) 06/28/2018 PROFILE, FASTING (COMPREHENSIVE METABOLI C) 11/02/2022 PROFILE, FASTING (COMPREHENSIVE METABOLI C) 08/18/2019 PROFILE, RANDOM (COMPREHENSIVE METABOLIC ) 01/14/2020 PROFILE, RANDOM (COMPREHENSIVE METABOLIC ) 11/03/2021 HEMOGLOBIN A1C (GLYCOHEMOGLOBIN) 023 HEMOGLOBIN A1C (GLYCOHEMOGLOBIN) 020 HEMOGLOBIN A1C (GLYCOHEMOGLOBIN) 022 HEMOGLOBIN A1C (GLYCOHEMOGLOBIN) 023 HEMOGLOBIN A1C (GLYCOHEMOGLOBIN) 019 HEMOGLOBIN A1C (GLYCOHEMOGLOBIN) 021 HEMOGLOBIN A1C (GLYCOHEMOGLOBIN) 019 HEMOGLOBIN A1C (GLYCOHEMOGLOBIN) 018 HEMOGLOBIN A1C (GLYCOHEMOGLOBIN) 019 HEMOGLOBIN A1C (GLYCOHEMOGLOBIN) 017 HEMOGLOBIN A1C (GLYCOHEMOGLOBIN) 021 HEMOGLOBIN A1C (GLYCOHEMOGLOBIN) 023 HEMOGLOBIN A1C (GLYCOHEMOGLOBIN) 021 HEMOGLOBIN A1C (GLYCOHEMOGLOBIN) 020 HEMOGLOBIN A1C (GLYCOHEMOGLOBIN) 022 HEMOGLOBIN A1C (GLYCOHEMOGLOBIN) 020 LIPID PANEL 06/28/2018 LIPID PANEL 08/09/2020 LIPID PANEL 04/30/2020 LIPID PANEL 01/14/2020 LIPID PANEL 11/03/2021 LIPID PANEL 11/02/2022 LIPID PANEL 08/18/2019 LIPID PANEL 08/04/2021 LIPID PANEL 04/10/2019 LIPID PANEL 02/08/2018 LIPID PANEL 11/01/2018 LIPID PANEL 04/06/2017 LIPID PANEL 12/10/2020 LIPID PANEL 03/12/2023 LIPID PANEL 12/18/2022 MICROALBUMIN, RANDOM 12/10/2020 MICROALBUMIN, RANDOM 03/12/2023 MICROALBUMIN, RANDOM 02/14/2022 MICROALBUMIN, RANDOM 12/18/2022 MICROALBUMIN, RANDOM 01/14/2020 MICROALBUMIN, RANDOM 11/02/2022 MICROALBUMIN, RANDOM 08/18/2019 CBC w DIFF 12/10/2020 CBC w DIFF 06/28/2018 CBC w DIFF 08/09/2020 CBC w DIFF 03/12/2023 CBC w DIFF 02/14/2022 CBC w DIFF 04/30/2020 CBC w DIFF 12/18/2022 CBC w DIFF 11/03/2021 CBC w DIFF 01/14/2020 CBC w DIFF 11/02/2022 CBC w DIFF 08/18/2019 CBC w DIFF 08/04/2021 CBC w DIFF 04/10/2019 CBC w DIFF 05/12/2021 CBC w DIFF 02/08/2018 CBC w DIFF 11/01/2018 CBC w DIFF 02/09/2021 CBC w DIFF 04/06/2017 ROUTINE CULTURE 03/05/2018 XR SHOULDER LT 2 VIEWS 12/10/2020 BONE DENSITY DEXA 03/12/2023 BONE DENSITY DEXA 12/10/2020 MAMMOGRAM DIGITAL BILATERAL SCREEN 04/06 MAMMOGRAM DIGITAL BILATERAL SCREEN 11/03 MAMMOGRAM DIGITAL BILATERAL SCREEN 08/23 MAMMOGRAM DIGITAL UNILATERAL ANÍBAL RT 02/17 Stress Test 05/13/2018 VITAMIN D 25-OH TOTAL 04/18/2022 VITAMIN D 25-OH TOTAL 04/30/2020 US BREAST RIGHT 03/05/2018 CBC WITH AUTO DIFF 05/08/2024 CBC WITH AUTO DIFF 10/01/2023 Lipid Panel 10/01/2023 Lipid Panel 02/09/2021 Lipid Panel 05/08/2024 Microalbumin, Random 10/01/2023 Hemoglobin A1c 05/08/2024 Hemoglobin A1c 02/09/2021 Hemoglobin A1c 10/01/2023 Next Appt Details Provider Name:Aureliano Conteh, 08/07/2024 09:45:00 AM, [address] [facility] [place], [address], Provider Name:Aureliano Conteh, 12/16/2024 02:00:00 PM, [address] [facility] [place], [address], Insurance Providers Payer Name Payer Address Payer Phone Subscriber Number Group Number Insured Name Patient Relationship to Insured Coverage Start Date Coverage End Date [employer] Medicare [address] [place] [phone] [id number] Yareli Fernandez Self - patient is the insured MEDICAID [address] [place], [place] [id number] Yareli Fernandez Self - patient is the insured Medical (General) History Medical History History ICD Code asthma depression obesity low back pain cervical dysplasia thyroglosal cyst hearing loss chronic upper back and neck pain bilateral breast pain. atypical lobular hyperplasia AODM 2017 noncardiac chest pain Osteoporosis January 2022 diabetes Surgical History Surgery Date(Month/Year) Gallbaldder surgery 03/2020 bilateral reduction mammoplasty January tubal ligation laser surgery of cervix, precancer thyroglossal cystectomy partial hystererectomy 08/04/2003 Hospitalization History Reason Date(Month/Year) chest pain [facility] 05/10/2018
--- OUTSIDE RECORDS SUMMARY | 2024-07-31 09:31 | XMS_ITS ---
Author Organization Aureliano Conteh III, MD Address [address] [place] [address] [place] [address] Care Team Providers Care Brick Tender Name Role Phone Aureliano Conteh Primary Care Provider [phone] Medications Medication SIG (Take, Route, Frequency, Duration) Notes Start Date End Date Status Nystatin 815352 UNIT/GM 1 application Ex ternally Twice a day for 30 days 06/11/2024 06/06/2025 Active Social History Sex Assigned At : Social History Observation Description Sex Assigned At Female Encounters Encounter Location Date Provider Diagnosis Aureliano Conteh III, MD [address] [place] [address] [place] [address] 06/11/2024 Aureliano Conteh Plan Of Treatment Medication Medication Name Sig Start Date Stop Date Notes Nystatin 356344 UNIT/GM 1 application Ex ternally Twice a day for 30 days 06/11/2024 06/06/2025 Next Appt Details Provider Name:Aureliano Conteh, 08/07/2024 09:45:00 AM, [address] [place] [address] [place], [address], Provider Name:Aureliano Conteh, 12/16/2024 02:00:00 PM, [address] [place] [address] [address] [place], [place], [address], Progress Notes * CALHOUNYareli RODRIGUEZ HDOB:[birth year] (69 yo F)Acc No.[id number]:06/11/2024 Patient:?Yareli CALHOUN H :1955???Age:69 Y???Sex:Female Address:[address] [place], [place] [address], [address] * Refills? Start Nystatin Ointment, 139845 UNIT/GM, Externally, 30 Gram, 1 application, Twice a day, 30 days, Refills=11 * true * Date:? Generated for Yovani rod/Zo/Gabesmitting on:?07/31/2024 09:30 AM EST
--- NOTE | 2024-07-31 09:32 | MHC.OFFVIS ---
Vital Signs 07/31/24 09:33 Height 5 ft 2 in Weight 222 lb 10.67 oz BMI 40.7 BP 143/74 H Blood Pressure Location Lt brachial Position Sitting Pulse 98 Intake Visit Reasons: Colonoscopy screening Intake Note: Patient in office today for colonoscopy screening. CC: Patient c/o a lot of gas, and bouts of diarrhea every once in a while per PT. She reports that she had an episode of black stool once but she was taking Pepto Bismol at the time. She states a little bit of acid reflux and heartburn but Omeprazole helps. She states that she has been very stressed lately. Screen Printing Inspector Required: No Accompanied by: Son Allergies cyclobenzaprine [From FLEXERIL] Allergy (Severe, Verified 07/31/24 09:34) STOP BREATHING latex [LATEX] Allergy (Intermediate, Verified 07/31/24 09:34) RASH, anxiety HPI HPI Colonoscopy screening: Details: 66-year-old female here for initial evaluation of rectal bleeding. She is referred by Aureliano Conteh MD of [facility] primary care. PMX Asthma Diabetes Depression [place] Chronic back and neck pain Cervical dysplasia Thyroglossal cyst Atypical lobular hyperplasia of the lung * SURGICAL HISTORY Partial hysterectomy Thyroglossal cystectomy Tubal ligation Cholecystectomy Bilateral reduction mammaplasty * ALLERGIES Flexeril Latex gloves * [facility]: Laboratory Tests 12/11/23 13:20 WBC 8.6 Hgb 13.5 Hct 41.4 Plt Count 289 Estimated GFR > 60 Total Bilirubin 0.5 AST 18 ALT 23 Alkaline Phosphatase 108 Assessment & Plan (1) Pre-op examination: Code(s): Z01.818 - Encounter for other preprocedural examination Plan: This is her third colonoscopy, the last was in 2017 and she tolerated it well. She has trouble with gas anesthesia r/t her asthma, no other problems. No ID problems. Her asthma is controlled and she denies cardiac problems. Her mother and her sister had CRC - sister fighting it now. She herself tied to TA is removed in 2017. (2) Family history of colon cancer in mother: Code(s): Z80.0 - Family history of malignant neoplasm of digestive organs Medications: New peg 3350-electrolytes 236-22.74-6.74 -5.86 gram (Golytely) until fecal effluent is clear; do not exceed a total volume of 2,000 mL 240 mL PO Q10M 1 day 4,000 mL 0RF Z12.11 - Encounter for screening for malignant neoplasm of colon TODAY'S VISIT She is here today with her son who is supportive. This is her third colonoscopy, the last was in 2017 and she tolerated it well. She has trouble with gas anesthesia r/t her asthma, no other problems. No ID problems. Her asthma is controlled and she denies cardiac problems. Her mother and her sister had CRC - sister fighting it now. She herself had 2 TA is removed in 2017. [facility] Medical History (Updated 07/31/24 @ 09:56 by ISI Kirk) Well woman exam Chronic neck and back pain DM type 2 (diabetes mellitus, type 2) GERD (gastroesophageal reflux disease) Depression Asthma Elevated cholesterol On beta luis fernando at home HTN (hypertension) Surgical History History of thyroglossal duct cyst removal Hx of bilateral breast reduction surgery Hx of colonoscopy Hx of breast lump removal Hx of cholecystectomy Hx of hysterectomy Hx of section Hx of tubal ligation Family History Maternal Aunt Bone cancer Sister Breast CA Colon cancer Father Lung cancer Mother Colon cancer Maternal Grandmother Stomach cancer Breast CA Maternal Uncle Pancreatic cancer Social History Household Members: Spouse and Family Alcohol intake: current Alcohol intake frequency: holidays/special occasions only Patient Tobacco Use Status: Former Tobacco user Tobacco use type: Cigarette Years Smoked: patient quie 2012 Review of Systems Const Denies fatigue, Denies fever(s), Denies night sweats, Denies poor appetite and Denies weight loss Eyes Details: glasses Reports requires corrective lenses ENT Reports Normal hearing present, Denies dental pain, Denies dysphagia, Denies hearing loss, Denies mouth pain, Denies odynophagia, Denies throat swelling, Denies tongue swelling and Reports other (Dentition adequate) Card Reports no additional complaints and Reports dyspnea on exertion Resp Reports cough and Reports dyspnea on exertion GI Details: Denies abdominal pain, Denies melena, Reports bloating, Denies hematochezia, Denies constipation, Denies GI cramping, Denies dysphagia, Reports excessive flatus, Denies early satiety, Denies heartburn, Reports diarrhea, Denies nausea, Denies odynophagia, Denies vomiting and Denies hematemesis Skin/Breast Denies pruritus, Denies lesions, Denies rash and Denies jaundice Neuro Reports Normal hearing present and Denies Abnormal speech present Endo Denies fatigue Aller/Immun Denies throat swelling and Denies tongue swelling Physical Exam Vital Signs: Last Vital Signs Pulse 98 07/31/24 09:33 BP 143/74 H 07/31/24 09:33 BMI result Body Mass Index 40.7 Const General: cooperative, no acute distress, well developed and well groomed Nutritional Appearance: well nourished and obese centrally obese Orientation/consciousness: oriented to person, oriented to place and oriented to time Limitations: No language barrier HEENT Head: Yes normocephalic and Yes atraumatic Eyes General: appearance normal, both eyes and all related structures Pupils: Equal, round and reactive pupils present Neck Neck: Yes normal visual inspection and Yes no lymphadenopathy Thyroid: Thyroid normal Resp Effort & Inspection: normal respiratory effort and able to speak in complete sentences Auscultation: clear to auscultation bilaterally Cardio Rate: regular rate Rhythm: regular rhythm Heart sounds: Normal, physiologic split S2 sound present Peripheral pulses: radial pulses present and posterior tibial pulses present GI Inspection: No distended, Yes Abdominal panniculus present and Yes obesity Palpation (GI): Soft to palpation, nontender, no guarding, not rigid and No hepatosplenomegaly present Percussion: Yes normal to percussion Auscultation: normal bowel sounds Rectal Exam - Female: deferred Abdomen image: 1. surgical scar Skin General skin exam: no rashes or lesions noted, turgor normal, skin not dry, no jaundice, No spider nevi and no striae Rashes: no rashes Nails: normal Neuro General: oriented to person, oriented to place and oriented to time Cranial nerves: Yes Equal, round and reactive pupils present and Yes Normal hearing present Speech: No Abnormal speech present Extrem General: Yes normal to inspection, No clubbing, No cyanosis and No edema Psych Appearance: grossly normal and well kempt Mental Status: mental status grossly normal Speech and movement: Normal speech and movement present Affect: normal affect Attitude: cooperative Thought process: Normal thought process present and not confabulating Thought content: Normal thought content present Insight: Limited insight present (Psych) Judgement: Limited judgement present (Psych) Assessment & Plan Assessment & Plan (1) Pre-op examination: Code(s): Z01.818 - Encounter for other preprocedural examination Category: Medical (2) Tubular adenoma of colon: Comment: 2 TA's removed 2017; kristen. Code(s): D12.6 - Benign neoplasm of colon, unspecified Category: Medical (3) Family history of colon cancer in mother: Code(s): Z80.0 - Family history of malignant neoplasm of digestive organs Category: Medical (4) Irritable bowel syndrome with diarrhea: Code(s): K58.0 - Irritable bowel syndrome with diarrhea Category: Medical Plan She is here today with her son who is supportive. This is her third colonoscopy, the last was in 2017 and she tolerated it well. She has trouble with gas anesthesia r/t her asthma, no other problems. No ID problems. Her asthma is controlled and she denies cardiac problems. Her mother and her sister had CRC - sister fighting it now. She herself had 2 TA is removed in 2017. Orders: Orders Colonoscopy - GI Use Only Today D12.6 - Benign neoplasm of colon, unspecified, Z01.818 - Encounter for other preprocedural examination, Z80.0 - Family history of malignant neoplasm of digestive organs Medications: New sodium,potassium,mag sulfates 17.5-3.13-1.6 gram (Suprep Bowel Prep Kit) 480 mL orally; FOR COLONOSCOPY PREP 354 mL 0RF fnpusm-uulbrhoq-xfprlmu 36,000-114,000- 180,000 unit (Creon) administer with meals and/or snacks 2 caps PO BID 120 caps 6RF K58.0 - Irritable bowel syndrome with diarrhea Coding Level of Care Code New Pt Level 3 (09083) Diagnoses Pre-op examination Z01.818 Tubular adenoma of colon D12.6 Family history of colon cancer in mother Z80.0 Irritable bowel syndrome with diarrhea K58.0
[2024-07-31 09:33] VITALS: BP 143/74; PULSE 98; BMI 40.7
== END 2024-07-31 09:59 | disposition home or self-care (01) ==
PROVIDERS: PCP Internal Medicine Medical Oncology; Visit Provider Nurse Practitioner
DX: K58.0 Irritable bowel syndrome with diarrhea (principal); Z01.818 Encounter for other preprocedural examination; Z12.11 Encounter for screening for malignant neoplasm of colon; Z86.0101 Personal history of adenomatous and serrated colon polyps; Z80.0 Family history of malignant neoplasm of digestive organs
CPT/HCPCS: 99203

== ENCOUNTER 2024-07-31 09:26 | Outpatient (REF) | payer MEDICARE, SELFPAY ==
[2024-07-31 10:50] LABS: MANUAL DIFF FLAG NO
[2024-07-31 11:44] LABS: Basophils Absolute Auto 0.1 X10*3/uL (0.0-0.2); Basophils Percent Auto 0.9 % (0-2); Eosinophils Absolute Auto 0.2 X10*3/uL (0.0-0.4); Eosinophils Percent Auto 2.9 % (0-4); Hematocrit 42.3 % (37.0-47.0); Hemoglobin 13.7 g/dl (12.0-16.0); Imm Gran Abs Auto 0.02 X10*3/uL (0.00-0.03); Imm Gran Pct Auto 0.3 % (0.0-0.4); Lymphocytes Absolute Auto 2.4 X10*3/uL (1.2-4.9); Lymphocytes Percent Auto 36.3 % (20-40); Mean Corpuscular HGB Conc 32.4 g/dl (31.0-35.0); Mean Corpuscular Hemoglobin 26.4 pg (27.0-33.0); Mean Corpuscular Volume 81.5 fL (80.0-98.0); Mean Platelet Volume 11.8 fL (9.4-12.3); Monocytes Absolute Auto 0.5 X10*3/uL (0.1-1.2); Monocytes Percent Auto 8.1 % (2-11); Neutrophils Absolute Auto 3.4 x10*3/uL (2.0-8.3); Neutrophils Percent Auto 51.5 % (45-73); Platelet Count 277 X10*3/uL (160-400); Red Blood Count 5.19 X10*6/uL (4.20-5.50); Red Cell Distribution Width 14.1 % (11.0-16.0); White Blood Count 6.6 X10*3/uL (4.8-10.8)
[2024-07-31 11:54] LABS: Estimated Average Glucose 148 mg/dL; Hemoglobin A1C 169.7773 umol/L; Hemoglobin A1c % 6.8 % (<6.0); Total Hemoglobin (HGBA1C) 3361.8301 umol/L
[2024-07-31 12:19] LABS: Alanine Aminotransferase 27 U/L (0-31); Albumin Level 3.9 g/dL (3.5-5.0); Alkaline Phosphatase 100 U/L (39-117); Anion Gap 13 (12-20); Aspartate Amino Transferase 24 U/L (5-31); Bilirubin Total 0.8 mg/dL (0.0-1.0); Blood Urea Nitrogen 9 mg/dL (9-16); Calcium 9.5 mg/dL (8.4-10.2); Carbon Dioxide 25 mmol/L (22-29); Chloride 108 mmol/L (96-108); Cholesterol 162 mg/dL (<200); Estimated Glomerular Filt Rate > 60; Glucose Fasting 129 mg/dL (60-99); HDL Cholesterol 43 mg/dL (>40); LDL Cholesterol Calculated 100 mg/dL (<100); Potassium 3.8 mmol/L (3.3-5.1); Sodium 142 mmol/L (135-145); Total Protein 6.9 g/dL (6.5-8.0); Triglycerides 99 mg/dL (<150)
== END 2024-07-31 09:27 | disposition home or self-care (01) ==
LOC: HO.LAB 09:26
PROVIDERS: PCP Internal Medicine Medical Oncology; Visit Provider Nurse Practitioner
DX: Z01.818 Encounter for other preprocedural examination (principal); D12.6 Benign neoplasm of colon, unspecified; K58.0 Irritable bowel syndrome with diarrhea; Z80.0 Family history of malignant neoplasm of digestive organs; E11.9 Type 2 diabetes mellitus without complications; I10 Essential (primary) hypertension
CPT/HCPCS: 36415; 80053; 80061; 83036; 85025; 99202

== ENCOUNTER 2024-11-10 10:51 | Outpatient (REF) | payer MEDICARE, MEDICAID, SELFPAY ==
[2024-11-10 11:31] LABS: MANUAL DIFF FLAG NO
[2024-11-10 11:51] LABS: Basophils Absolute Auto 0.1 X10*3/uL (0.0-0.2); Basophils Percent Auto 0.7 % (0-2); Eosinophils Absolute Auto 0.3 X10*3/uL (0.0-0.4); Eosinophils Percent Auto 3.3 % (0-4); Hematocrit 41.3 % (37.0-47.0); Imm Gran Abs Auto 0.02 X10*3/uL (0.00-0.03); Imm Gran Pct Auto 0.3 % (0.0-0.4); Lymphocytes Absolute Auto 2.6 X10*3/uL (1.2-4.9); Mean Corpuscular HGB Conc 31.5 g/dl (31.0-35.0); Mean Corpuscular Hemoglobin 25.8 pg (27.0-33.0); Mean Corpuscular Volume 81.9 fL (80.0-98.0); Mean Platelet Volume 11.2 fL (9.4-12.3); Monocytes Absolute Auto 0.6 X10*3/uL (0.1-1.2); Monocytes Percent Auto 7.6 % (2-11); Neutrophils Absolute Auto 4.1 x10*3/uL (2.0-8.3); Neutrophils Percent Auto 54.1 % (45-73); Platelet Count 315 X10*3/uL (160-400); Red Blood Count 5.04 X10*6/uL (4.20-5.50); Red Cell Distribution Width 14.1 % (11.0-16.0); White Blood Count 7.6 X10*3/uL (4.8-10.8)
[2024-11-10 12:14] LABS: Estimated Average Glucose 154 mg/dL; Total Hemoglobin (HGBA1C) 3496.6069 umol/L
[2024-11-10 12:41] LABS: Alanine Aminotransferase 27 U/L (0-31); Albumin Level 3.8 g/dL (3.5-5.0); Alkaline Phosphatase 100 U/L (39-117); Anion Gap 11 (12-20); Aspartate Amino Transferase 27 U/L (5-31); Bilirubin Total 0.9 mg/dL (0.0-1.0); Blood Urea Nitrogen 8 mg/dL (9-16); Calcium 9.3 mg/dL (8.4-10.2); Carbon Dioxide 25 mmol/L (22-29); Chloride 109 mmol/L (96-108); Cholesterol 152 mg/dL (<200); Estimated Glomerular Filt Rate > 60; Glucose Fasting 131 mg/dL (60-99); HDL Cholesterol 39 mg/dL (>40); LDL Cholesterol Calculated 85 mg/dL (<100); Potassium 3.9 mmol/L (3.3-5.1); Sodium 141 mmol/L (135-145); Total Protein 6.9 g/dL (6.5-8.0); Triglycerides 143 mg/dL (<150)
[2024-11-10 12:53] LABS: Creatinine Urine 139.35 mg/dL; Microalbum/Creatinine Ratio Ur 12.9 ug/mg cr (<30)
== END 2024-11-10 10:52 | disposition home or self-care (01) ==
LOC: HO.LAB 10:51
PROVIDERS: PCP Internal Medicine Medical Oncology; Visit Provider Internal Medicine Medical Oncology
DX: Z87.891 Personal history of nicotine dependence (principal); E11.9 Type 2 diabetes mellitus without complications; J45.909 Unspecified asthma, uncomplicated; E66.01 Morbid (severe) obesity due to excess calories
CPT/HCPCS: 36415; 80053; 80061; 82043; 82570; 83036; 85025

== ENCOUNTER 2024-12-04 09:13 | Outpatient (AMB) | payer MEDICARE, MEDICAID, SELFPAY ==
[2024-12-04 09:16] VITALS: BP 141/96; PULSE 84; BMI 38.4
--- NOTE | 2024-12-04 09:16 | MHC.OFFVIS ---
Vital Signs 12/04/24 09:16 Height 5 ft 2 in Weight 209 lb 14.081 oz BMI 38.4 BP 141/96 H Blood Pressure Location Lt brachial Position Sitting Pulse 84 Intake Visit Reasons: 6 week follow up GERD R/S from 09/26/24 Intake Note: Patient in office today in follow up of GERD. CC: Patient states that she saw a little bit of blood when she wiped after having a BM. Denies other GI symptoms today. Floor Steward/Stewardess Required: No Accompanied by: Self / Same As Patient Allergies cyclobenzaprine [From FLEXERIL] Allergy (Severe, Verified 12/04/24 09:23) STOP BREATHING latex [LATEX] Allergy (Intermediate, Verified 12/04/24 09:23) RASH, anxiety HPI HPI 6 week follow up GERD R/S from 09/26/24: Details: Assessment & Plan (1) Pre-op examination: Code(s): Z01.818 - Encounter for other preprocedural examination Category: Medical (2) Tubular adenoma of colon: Comment: 2 TA's removed 2017; kristen. Code(s): D12.6 - Benign neoplasm of colon, unspecified Category: Medical (3) Family history of colon cancer in mother: Code(s): Z80.0 - Family history of malignant neoplasm of digestive organs Category: Medical (4) Irritable bowel syndrome with diarrhea: Code(s): K58.0 - Irritable bowel syndrome with diarrhea Category: Medical Plan She is here today with her son who is supportive. This is her third colonoscopy, the last was in 2017 and she tolerated it well. She has trouble with gas anesthesia r/t her asthma, no other problems. No ID problems. Her asthma is controlled and she denies cardiac problems. Her mother and her sister had CRC - sister fighting it now. She herself had 2 TA is removed in 2017. Orders: Orders Colonoscopy - GI Use Only Today D12.6 - Benign neoplasm of colon, unspecified, Z01.818 - Encounter for other preprocedural examination, Z80.0 - Family history of malignant neoplasm of digestive organs Medications: New sodium,potassium,mag sulfates 17.5-3.13-1.6 gram (Suprep Bowel Prep Kit) 480 mL orally; FOR COLONOSCOPY PREP 354 mL 0RF ysuyas-vkvgritt-sjmckan 36,000-114,000- 180,000 unit (Creon) administer with meals and/or snacks 2 caps PO BID 120 caps 6RF K58.0 - Irritable bowel syndrome with diarrhea COLONOSCOPY BIOPSY TODAY'S VISIT She had a bout of rectal bleeding that frightened her because her sister of CRC. But she also had itching and burning at the rectum so hemorrhoids are the likely cause at it was BRB. She is using OTC hemorrhoid tx with good success. She had N/V with the creon, but she is now using imodium with good control of her diarrhea. She has not yet heard re: colonoscopy, but the schedulers are behind. I encourage her to persist with this test given her FHX of crc despite her having a negative BRACA test. ROV 6 mos. PFS Medical History (Updated 07/31/24 @ 09:56 by ISI Kirk) Well woman exam Chronic neck and back pain DM type 2 (diabetes mellitus, type 2) GERD (gastroesophageal reflux disease) Depression Asthma Elevated cholesterol On beta luis fernando at home HTN (hypertension) Surgical History History of thyroglossal duct cyst removal Hx of bilateral breast reduction surgery Hx of colonoscopy Hx of breast lump removal Hx of cholecystectomy Hx of hysterectomy Hx of section Hx of tubal ligation Family History Maternal Aunt Bone cancer Sister Breast CA Colon cancer Father Lung cancer Mother Colon cancer Maternal Grandmother Stomach cancer Breast CA Maternal Uncle Pancreatic cancer Social History Household Members: Spouse and Family Alcohol intake: current Alcohol intake frequency: holidays/special occasions only Patient Tobacco Use Status: Former Tobacco user Tobacco use type: Cigarette Years Smoked: patient piero 2011 Review of Systems Const Denies fatigue, Denies fever(s), Denies night sweats, Denies poor appetite and Denies weight loss Eyes Details: glasses Reports requires corrective lenses ENT Reports Normal hearing present, Denies dental pain, Denies dysphagia, Denies hearing loss, Denies mouth pain, Denies odynophagia, Denies throat swelling, Denies tongue swelling and Reports other (Dentition adequate) Card Reports no additional complaints Resp Reports no additional complaints GI Details: Denies abdominal pain, Denies melena, Denies bloating, Reports hematochezia, Denies constipation, Denies GI cramping, Denies dysphagia, Denies excessive flatus, Denies early satiety, Denies heartburn, Denies diarrhea, Reports loose stools, Denies nausea, Denies odynophagia, Denies vomiting and Denies hematemesis Skin/Breast Denies pruritus, Denies lesions, Denies rash and Denies jaundice Neuro Reports Normal hearing present and Denies Abnormal speech present Endo Denies fatigue Aller/Immun Denies throat swelling and Denies tongue swelling Physical Exam Vital Signs: Last Vital Signs Pulse 84 12/04/24 09:16 BP 141/96 H 12/04/24 09:16 BMI result Body Mass Index 38.4 Const General: cooperative, no acute distress, well developed and well groomed Nutritional Appearance: well nourished and obese Orientation/consciousness: oriented to person, oriented to place and oriented to time Limitations: No language barrier HEENT Head: Yes normocephalic and Yes atraumatic Eyes General: appearance normal, both eyes and all related structures Pupils: Equal, round and reactive pupils present Neck Neck: Yes normal visual inspection and Yes no lymphadenopathy Thyroid: Thyroid normal Resp Effort & Inspection: normal respiratory effort and able to speak in complete sentences Auscultation: clear to auscultation bilaterally Cardio Rate: regular rate Rhythm: regular rhythm Heart sounds: Normal, physiologic split S2 sound present Peripheral pulses: radial pulses present and posterior tibial pulses present GI Inspection: No distended, Yes Abdominal panniculus present and Yes obesity Palpation (GI): Soft to palpation, nontender, no guarding, not rigid and No hepatosplenomegaly present Percussion: Yes normal to percussion Auscultation: normal bowel sounds Rectal Exam - Female: deferred Skin General skin exam: no rashes or lesions noted, turgor normal, skin not dry, no jaundice, No spider nevi and no striae Rashes: no rashes Nails: normal Neuro General: oriented to person, oriented to place and oriented to time Cranial nerves: Yes Equal, round and reactive pupils present and Yes Normal hearing present Speech: No Abnormal speech present Extrem General: Yes normal to inspection, No clubbing, No cyanosis and No edema Psych Appearance: grossly normal and well kempt Mental Status: mental status grossly normal Speech and movement: Pressured speech present Affect: Animated affect present Attitude: cooperative Thought process: not confabulating and Loose association thought process present Thought content: Normal thought content present Insight: Limited insight present (Psych) Judgement: Limited judgement present (Psych) Assessment & Plan Assessment & Plan (1) Irritable bowel syndrome with diarrhea: Code(s): K58.0 - Irritable bowel syndrome with diarrhea Category: Medical (2) Family history of colon cancer in mother: Code(s): Z80.0 - Family history of malignant neoplasm of digestive organs Category: Medical Plan She had a bout of rectal bleeding that frightened her because her sister of CRC. But she also had itching and burning at the rectum so hemorrhoids are the likely cause at it was BRB. She is using OTC hemorrhoid tx with good success. She had N/V with the creon, but she is now using imodium with good control of her diarrhea. She has not yet heard re: colonoscopy, but the schedulers are behind. I encourage her to persist with this test given her FHX of crc despite her having a negative BRACA test. ROV 6 mos. Medications: New omeprazole 20 mg PO DAILY 30 caps 6RF Discontinued qipuqk-tblcqrzx-tauubov 36,000-114,000- 180,000 unit (Creon) administer with meals and/or snacks Discontinued Reason: Doctor's Order 2 caps PO BID 120 caps 6RF K58.0 - Irritable bowel syndrome with diarrhea Coding Level of Care Code Est Pt Level 3 (95550) Diagnoses Irritable bowel syndrome with diarrhea K58.0 Family history of colon cancer in mother Z80.0
--- OUTSIDE RECORDS SUMMARY | 2024-12-04 10:17 | XMS_ITS ---
Author Organization Aureliano Conteh III, MD Address [address] [place] [address] Care Team Providers Care Occupational Health Manager Name Role Phone Aureliano Conteh Primary Care Provider REASON FOR VISIT Message Social History Sex Assigned At : Social History Observation Description Sex Assigned At Female Encounters Encounter Location Date Provider Diagnosis Aureliano Conteh III, MD [address] [place] [address] [place] [address] 11/17/2024 Aureliano Conteh Plan Of Treatment Next Appt Details Provider Name:Aureliano Conteh, 12/16/2024 02:00:00 PM, [address] [place] [address] [place], [address], Progress Notes * Yareli CALHOUN HDOB:[birth year] (69 yo F)Acc No.[id number]:11/17/2024 Patient:?Yareli CALHOUN :1955???Age:69 Y???Sex:Female Address:[address] [place] [address], [phone] * true * Date:? Generated for Yovani rod/Zo/Angelaitting on:?12/04/2024 10:17 AM EDT
--- OUTSIDE RECORDS SUMMARY | 2024-12-04 10:17 | XMS_ITS ---
Author Organization Aureliano Conteh III, MD Address [address] [place] [address] Care Team Providers Care Radiotelegraphist Name Role Phone Aureliano Conteh Primary Care Provider Medications Medication SIG (Take, Route, Frequency, Duration) Notes Start Date End Date Status Ciprofloxacin HCl 500 MG 1 tablet Orally every 12 hrs for 7 days 11/12/2024 11/19/2024 Active Social History Sex Assigned At : Social History Observation Description Sex Assigned At Female Encounters Encounter Location Date Provider Diagnosis Aureliano Conteh III, MD [address] [place] [address] [place] [address] 11/12/2024 Aureliano Conteh Plan Of Treatment Medication Medication Name Sig Start Date Stop Date Notes Ciprofloxacin HCl 500 MG 1 tablet Orally every 12 hrs for 7 days 11/12/2024 11/19/2024 Next Appt Details Provider Name:Aureliano Conteh, 12/16/2024 02:00:00 PM, [address] [place] [address] [place], [address], Progress Notes * Yareli CALHOUN HDOB:[birth year] (69 yo F)Acc No.[id number]:11/12/2024 Patient:?Yareli CALHOUN :1955???Age:69 Y???Sex:Female Address:[address] [place] [address], [address] * Refills? Start Ciprofloxacin HCl Tablet, 500 MG, Orally, 14 Tablet, 1 tablet, every 12 hrs, 7 days, Refills=0 * true * Date:? Generated for Yovani rod/Zo/Gabesmitting on:?12/04/2024 10:16 AM EDT
--- OUTSIDE RECORDS SUMMARY | 2024-12-04 10:17 | XMS_ITS ---
Author Organization Aureliano Conteh III, MD Address [address] [place] [address] Care Team Providers Care Doping Supervisor Name Role Phone Aureliano Conteh Primary Care Provider [phone] REASON FOR VISIT PT-1 Form Social History Sex Assigned At : Social History Observation Description Sex Assigned At Female Encounters Encounter Location Date Provider Diagnosis Aureliano Conteh III, MD [address] [place] [address] [place] [address] 11/13/2024 Aureliano Conteh Plan Of Treatment Next Appt Details Provider Name:Aureliano Conteh, 12/16/2024 02:00:00 PM, [address] [place] [address] [place], [address], Progress Notes * Yareli CALHOUN HDOB:[birth year] (69 yo F)Acc No.[id number]:11/13/2024 Patient:?Yareli CALHOUN :1955???Age:69 Y???Sex:Female Address:[address] [place] [address], [place], [address] * true * Date:? Generated for Yovani rod/Zo/Gabesmitting on:?12/04/2024 10:17 AM EDT
--- OUTSIDE RECORDS SUMMARY | 2024-12-04 10:17 | XMS_ITS | Patient Health Record ---
Author Organization Aureliano Conteh III, MD Address [address] [place] [address] Care Team Providers Care Assistant Professor Of History Name Role Phone Aureliano Conteh Primary Care Provider [phone] Allergies Allergen (clinical drug ingredient) Drug/Non Drug Allergy documented on EMR Reaction Allergy Type Onset Date Status Cat dander Cat Dander Unknown Allergy Active Latex Gloves Unknown Drug Allergy Acti ve Flexeril Unknown Drug Allergy Active Results Component Value Reference Range Notes Lipid Panel Reviewed date:11/12/2024 01:06:57 PM Interpretation: Performing Lab:[facility] [place], [address] [place] [phone] Notes/Report: Triglycerides 143 <150 mg/dL Desirable Triglyceride: less than 150 mg/dL Borderline High Triglyceride 150-199 mg/dL High Triglyceride: 200-499 mg/dL Very High Triglyceride: greater than or equal to 5OO mg/dL Cholesterol 152 <200 mg/dL Desirable Cholesterol: less than 200 mg/dL Borderline High Cholesterol: 200-239 mg/dL High Cholesterol: greater than 239 mg/dL LDL Cholesterol Calculated 85 <100 mg/dL Desirable LDL: less than 100 mg/dL Near Optimal/Above Optimal LDL: 110-129 mg/dL Borderline High LDL: 130-159 mg/dL High LDL: 160-189 mg/dL Very High LDL: greater than or equal to 190 mg/dL HDL Cholesterol 39 >40 mg/dL Desirable HDL: greater than 40 mg/dL Note: This HDL assay may give artificially low results in patients with liver disease. Microalbumin, Random Reviewed date:11/12/2024 01:06:57 PM Interpretation: Performing Lab:[address] [phone] Notes/Report: Creatinine Urine 139.35 Microalbumin Urine 18.0 Microalbum/Creatinine Ratio Ur 12.9 <30 ug/mg cr Albumin/Creatinine Ratio Reference Ranges: Normal: < 30 ug/mg creatinine Microalbuminuria: 30 - 300 ug/mg creatinine Clinical Albuminuria: > 300 ug/mg creatinine Hemoglobin A1c Reviewed date:11/12/2024 01:06:57 PM Interpretation: Performing Lab:[address] [phone] Notes/Report: Hemoglobin A1c % 7.0 <6.0 % Hemoglobin A1C Reference Range Adults: 4.8 - 6.0 % Non diabetic: < 6.0 % Goal: < 7.0 % Additional Action Suggested: > 8.0 % Note: Hemoglobin A1c results are invalid for patients with abnormal amounts of HbF. Blood transfusions may impact the HbA1c concentration in the patient sample. Estimated Average Glucose 154 eAG = Estimated average glucose which is %A1C expressed as average glucose, using the formula of the [id number] Average Glucose study (ADAG), Diabetes Care, Vol.31,#8, Mar. 2007 Complete Blood Count Auto Di ff Reviewed date:12/12/2023 05:13:32 AM Interpretation: Performing Lab:[address] [phone] Notes/Report: White Blood Count 8.6 4.8-10.8 X10*3/uL [...] NRBC Abs Auto 0.000 0.0-0.012 X10*3/uL Comprehensive [place]. Panel Fa st Reviewed date:12/12/2023 05:13:32 AM Interpretation: Performing Lab:[facility] [place], [address] [place] [phone] Notes/Report: Sodium 140 135-145 mmol/L Potassium 3.9 3.3-5.1 mmol/L Chloride 108 96-108 mmol/L Carbon Dioxide 26 22-29 mmol/L Anion Gap 10 12-20 Blood Urea Nitrogen 13 9-16 mg/dL Creatinine 0.84 0.5-1.4 mg/dL Estimated Glomerular Filt Rate > 60 NOTE: For -Swedish individuals, multiply the result by 1.210. Chronic [...] Panel Reviewed date:12/12/2023 05:13:32 AM Interpretation: Performing Lab:[facility] [place], [address] [place] [phone] Notes/Report: Triglycerides 115 <150 mg/dL Desirable Triglyceride: [...] Random Reviewed date:12/12/2023 05:13:32 AM Interpretation: Performing Lab:[facility] [place], [address] [place] [phone] Notes/Report: Creatinine Urine 171.36 Microalbumin Urine 9.0 Microalbum/Creatinine Ratio Ur 5.2 <30 ug/mg cr Albumin/Creatinine Ratio Reference Ranges: Normal: < 30 ug/mg creatinine Microalbuminuria: 30 - 300 ug/mg creatinine Clinical Albuminuria: > 300 ug/mg creatinine Hemoglobin A1c Reviewed date:12/12/2023 05:13:32 AM Interpretation: Performing Lab:[facility] [place], [address] [place] [phone] Notes/Report: Hemoglobin A1c % 6.8 <6.0 % [...] average glucose, using the formula of the [id number] Average Glucose study (ADAG), Diabetes Care, Vol.31,#8, Mar. 2007 Complete Blood Count Auto Di ff Reviewed date:08/01/2024 08:35:00 AM Interpretation: Performing Lab:[facility] [place], [address] [place] [phone] Notes/Report: White Blood Count 6.6 4.8-10.8 X10*3/uL Red Blood Count 5.19 4.20-5.50 X10*6/uL Hemoglobin 13.7 12.0-16.0 g/dl Hematocrit 42.3 37.0-47.0 % Mean Corpuscular Volume 81.5 80.0-98.0 fL Mean Corpuscular Hemoglobin 26.4 27.0-33.0 pg Mean Corpuscular HGB Conc 32.4 31.0-35.0 g/dl Red Cell Distribution Width 14.1 11.0-16.0 % Platelet Count 277 160-400 X10*3/uL Mean Platelet Volume 11.8 9.4-12.3 fL Neutrophils Percent Auto 51.5 45-73 % Imm Gran Pct Auto 0.3 0.0-0.4 % Lymphocytes Percent Auto 36.3 20-40 % Monocytes Percent Auto 8.1 2-11 % Eosinophils Percent Auto 2.9 0-4 % Basophils Percent Auto 0.9 0-2 % NRBC Pct Auto 0.0 0.0-0.2 /100WBC Neutrophils Absolute Auto 3.4 2.0-8.3 x10*3/u L Imm Gran Abs Auto 0.02 0.00-0.03 X10*3/uL Lymphocytes Absolute Auto 2.4 1.2-4.9 X10*3/u L Monocytes Absolute Auto 0.5 0.1-1.2 X10*3/uL Eosinophils Absolute Auto 0.2 0.0-0.4 X10*3/u L Basophils Absolute Auto 0.1 0.0-0.2 X10*3/uL NRBC Abs Auto 0.000 0.0-0.012 X10*3/uL Comprehensive [place]. Panel Fa st Reviewed date:08/01/2024 08:35:00 AM Interpretation: Performing Lab:[facility] [place], [address] [place] [phone] Notes/Report: Sodium 142 135-145 mmol/L Potassium 3.8 3.3-5.1 mmol/L Chloride 108 96-108 mmol/L Carbon Dioxide 25 22-29 mmol/L Anion Gap 13 12-20 Blood Urea Nitrogen 9 9-16 mg/dL Creatinine 0.85 0.5-1.4 mg/dL Estimated Glomerular Filt Rate > 60 Chronic Kidney Disease: Estimated GFR < 60 mL/min/1.73m2 Severe Kidney Disease: Estimated GFR < 15 mL/min/1.73m2 Glucose Fasting 129 60-99 mg/dL A fasting glucose of 126 mg/dl or greater on more than one occasion is considered diagnostic of diabetes. Calcium 9.5 8.4-10.2 mg/dL Bilirubin Total 0.8 0.0-1.0 mg/dL Aspartate Amino Transferase 24 5-31 U/L Alanine Aminotransferase 27 0-31 U/L Total Protein 6.9 6.5-8.0 g/dL Albumin Level 3.9 3.5-5.0 g/dL Alkaline Phosphatase 100 39-117 U/L Lipid Panel Reviewed date:08/01/2024 08:35:01 AM Interpretation: Performing Lab:[facility] [place], [address] [place] [phone] Notes/Report: Triglycerides 99 <150 mg/dL Desirable Triglyceride: less than 150 mg/dL Borderline High Triglyceride 150-199 mg/dL High Triglyceride: 200-499 mg/dL Very High Triglyceride: greater than or equal to 5OO mg/dL Cholesterol 162 <200 mg/dL Desirable Cholesterol: less than 200 mg/dL Borderline High Cholesterol: 200-239 mg/dL High Cholesterol: greater than 239 mg/dL LDL Cholesterol Calculated 100 <100 mg/dL Desirable LDL: less than 100 mg/dL Near Optimal/Above Optimal LDL: 110-129 mg/dL Borderline High LDL: 130-159 mg/dL High LDL: 160-189 mg/dL Very High LDL: greater than or equal to 190 mg/dL HDL Cholesterol 43 >40 mg/dL Desirable HDL: greater than 40 mg/dL Note: This HDL assay may give artificially low results in patients with liver disease. Hemoglobin A1c Reviewed date:08/01/2024 08:35:00 AM Interpretation: Performing Lab:[facility] [place], [address] [place] [phone] Notes/Report: Hemoglobin A1c % 6.8 <6.0 % [...] average glucose, using the formula of the P0X-Uusnzzj Average Glucose study (ADAG), Diabetes Care, Vol.31,#8, Mar. 2007 Complete Blood Count Auto Di ff Reviewed date:11/12/2024 01:06:57 PM Interpretation: Performing Lab:[facility] [place], [address] [place] [phone] Notes/Report: White Blood Count 7.6 4.8-10.8 X10*3/uL Red Blood Count 5.04 4.20-5.50 X10*6/uL Hemoglobin 13.0 12.0-16.0 g/dl Hematocrit 41.3 37.0-47.0 % Mean Corpuscular Volume 81.9 80.0-98.0 fL Mean Corpuscular Hemoglobin 25.8 27.0-33.0 pg Mean Corpuscular HGB Conc 31.5 31.0-35.0 g/dl Red Cell Distribution Width 14.1 11.0-16.0 % Platelet Count 315 160-400 X10*3/uL Mean Platelet Volume 11.2 9.4-12.3 fL Neutrophils Percent Auto 54.1 45-73 % Imm Gran Pct Auto 0.3 0.0-0.4 % Lymphocytes Percent Auto 34.0 20-40 % Monocytes Percent Auto 7.6 2-11 % Eosinophils Percent Auto 3.3 0-4 % Basophils Percent Auto 0.7 0-2 % NRBC Pct Auto 0.0 0.0-0.2 /100WBC Neutrophils Absolute Auto 4.1 2.0-8.3 x10*3/u L Imm Gran Abs Auto 0.02 0.00-0.03 X10*3/uL Lymphocytes Absolute Auto 2.6 1.2-4.9 X10*3/u L Monocytes Absolute Auto 0.6 0.1-1.2 X10*3/uL Eosinophils Absolute Auto 0.3 0.0-0.4 X10*3/u L Basophils Absolute Auto 0.1 0.0-0.2 X10*3/uL NRBC Abs Auto 0.000 0.0-0.012 X10*3/uL Comprehensive [place]. Panel Fa st Reviewed date:11/12/2024 01:06:57 PM Interpretation: Performing Lab:[facility] [place], [address] [place] [phone] Notes/Report: Sodium 141 135-145 mmol/L Potassium 3.9 3.3-5.1 mmol/L Chloride 109 96-108 mmol/L Carbon Dioxide 25 22-29 mmol/L Anion Gap 11 12-20 Blood Urea Nitrogen 8 9-16 mg/dL Creatinine 0.79 0.5-1.4 mg/dL Estimated Glomerular Filt Rate > 60 Chronic Kidney Disease: Estimated GFR < 60 mL/min/1.73m2 Severe Kidney Disease: Estimated GFR < 15 mL/min/1.73m2 Glucose Fasting 131 60-99 mg/dL A fasting glucose of 126 mg/dl or greater on more than one occasion is considered diagnostic of diabetes. Calcium 9.3 8.4-10.2 mg/dL Bilirubin Total 0.9 0.0-1.0 mg/dL Aspartate Amino Transferase 27 5-31 U/L Alanine Aminotransferase 27 0-31 U/L Total Protein 6.9 6.5-8.0 g/dL Albumin Level 3.8 3.5-5.0 g/dL Alkaline Phosphatase 100 39-117 U/L Reason For Referral Reason Screen for Colon Can cer, Overdue Diagnosis 1 Colon cancer screeni ng (Z12.11) Referral Organization Aureliano Conteh III, MD Referring Provider First Name Aureliano Referring Provider Last Name Yady Referring Provider Speciality Internal M edicine Referred Provider [facility], Gastroenterology Referred Provider Specialty Gastroentero logy Referral Priority Routine Referral Appointment Date 07/31/2024 Reason Consult and Treat Panniculitis Diagnosis 1 Panniculitis, unspec ified (M79.3) Referral Organization Aureliano Conteh III, MD Referring Provider First Name Aureliano Referring Provider Last Name Conteh Referring Provider Speciality Internal edicine Referred Provider YUE MENDES Referred Provider Specialty Plastic and Reconstructive Surgery General Notes Nikki Diana 2023 04:01:43 PM EDT > Faxed referral and progress note, Nikki Maldonado 06/12/2024 03:49:37 PM > Office spoke with patient. BMI 33 or below. Patient is not able to go at this time, but once she is able to get her BMI under she is able to schedule an appointment with them. Referral Priority Routine Reason Consult and Treat Bilateral Hearing Loss Diagnosis 1 Hearing loss, bilate ral (H91.93) Referral Organization Aureliaon Conteh III, MD Referring Provider First Name Aureliano Referring Provider Last Name Yady [facility] Referred Provider [facility] Audiology Referred Provider Specialty Audiologists General Notes Nikki Diana 05/27 04:52:30 PM > Faxed referral Referral Priority Routine Referral Appointment Date 11/14/2024 Reason Consult and Treat Bilateral Hearing Loss Diagnosis 1 Hearing loss, bilate ral (H91.93) Referral Organization Aureliano Conteh III, MD Referring Provider First Name Aureliano Referring Provider Last Name Conteh [facility] Referred Provider [facility] Audiology Referred Provider Specialty Audiologists General Notes Nikki Maldonado 10/13/2024 01:13:57 PM > referral was faxed again per request from [facility]ologists. Referral Priority Routine Referral Appointment Date 11/14/2024 Reason left 5th finger old fracture now pain with lump in palm evaluate and treatment Diagnosis 1 Closed nondisplaced fracture of phalanx of finger, unspecified finger, unspecified phalanx, initial encounter (S62.606A) Referral Organization Aureliano Conteh III, MD Referring Provider First Name Aureliano Referring Provider Last Name Conteh Referring Provider Speciality Internal edicine Referred Provider [place] Referred Provider Specialty Orthopedic S urgery General Notes Bibi Benoit CMA 11/11 01:28:05 PM >referral with progress note faxed to [place] [facility] pt made aware of this, Bibi Benoit KIRBY 11/25/2024 04:09:32 PM >I called TAYL[facility] pt has appt on 11/28/2024 at 9:15am Referral Priority Routine Referral Appointment Date 11/28/2024 Medications Medication SIG (Take, Route, Frequency, Duration) Notes Start Date End Date Status Alcohol Prep Pad none - - use to check blood sugars four times a day 05/19/2018 Active Osteo Bi-Flex One Per Day - as directed Orally Active Metoprolol Succinate ER 25 MG TAKE 1 TABLET BY MOUTH DAILY Active Pioglitazone HCl 15 MG TAKE 1 TABLET BY MOUTH EVERY DAY Active Atorvastatin Calcium 10 MG 1 tablet Orally Once a day Active Albuterol Sulfate HFA 108 (90 Base) MCG/ACT 1 puff as needed Inhalation every 4 hrs 01/22/2024 Active Pioglitazone HCl 15 MG TAKE 1 TABLET BY MOUTH EVERY DAY Active Nebulizer Mask Adult - as directed - use three times daily 04/16/2023 Active All-In-One Nebulizer System - as directed - use three times a day 04/16/2023 Active Albuterol Sulfate (2.5 MG/3ML) 0.083% 3 ml Inhalation Three times a day 02/06/2017 Active Caltrate 600+D Activ e Omeprazole 20 MG TAKE 1 CAPSULE BY MOUTH DAILY Active Ozempic (0.25 or 0.5 MG/DOSE) 2 MG/3ML 0.5 mg Subcutaneous weekly disp one month supply woitjh needles please 09/11/2024 Active One Touch Delica Lancets - Check blood sugar 4 times a day E11.9 Type 2 Diabetes 06/04/2024 Active Nystatin 885206 UNIT/GM APPLY TOPICALLY TO THE AFFECTED AREA TWICE DAILY Externally Twice a day Active Trulicity 1.5 MG/0.5ML as directed Subcutaneous Active Immunizations Vaccine Route Administration Date Status [...] Problem Status W/U Status Risk Notes Problem 9217344 Former smoker (Z87.891) Active confirmed She is highly motivated not to smoke and we discussed strategies for maintenance of abstinence. Problem 587543940 Asthma (J45.909) Active confirmed She is breathing comfortably today on room air. No change in her regimen was needed. Problem 06168376 Depression (F32.9) Active confirmed Her depression is much better. No change in her medication was made. Problem 17774961 Type 2 diabetes mellitus without complications (E11.9) Active confirmed She has been compliant with her medications. She has not had blood work done but it was ordered today to be done in the next week. Her hemoglobin A1c was 6.8.Her blood sugar was 129. 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 She will obtain a pair of those are new symptoms. She willl then reportt back. Problem 613167963 Low back pain (M54.5) Active confirmed Her back pain is mild and stable and she is conducting all of the activities of daily life without impairment. No change in her regimen was needed. Problem 46111603 Hearing loss, bilateral (H91.93) Active confirmed She did not have her hearing aids today. They are being repaired. She will wear them on her next visit. There is been no change in her hearing loss. Problem 344382767 Hyperlipidemia type II (E78.0) Active confirmed Most recent fasting total cholesterol was 199. A fasting lipid profile has been ordered today. No change in her medications was made today. Problem 63818761 Cervical dysplasia (N87.9) Active confirmed She says s he has an upcoming appointment with her winding inspector and tester. She wished to defer her pelvic examination and rectal examination to the winding inspector and tester. Her breast examination was unremarkable. Problem 62954227 Thyroglossal cys t (Q89.2) Active confirmed She has no symptoms in her neck. She has no difficulty swallowing or odynophagia. Problem 039403033 Atypical lobular hyperplasia of breast (N62) Active confirmed There is no sign of breast cancer. She has completed 5 years of tamoxifen as a preventative and the drug was discontinued at this time. Problem 494128688 Morbid obesity (E66.01) Active confirmed Her weight is stable and unchanged. Her body mass index is 43. We have reviewed her weight loss strategy today. We have reviewed her diet and nutrition. We have discussed lifestyle modifications. I all stopped her trulicity. She began Ozempic. Problem 222215341 Osteopenia of spine (M85.88) Active confirmed He was continued on her regimen of calcium tablets and vitamin D. Vital Signs Heart Rate 90 /min 11/10/2024 Temperature 99.1 degrees Fahrenheit 11/10/2024 Blood pressure diastolic 87 mm Hg 11/10/2024 Height 61 in 11/10/2024 Blood pressure systolic 130 mm Hg 11/10/2024 Weight 215 lbs 11/10/2024 BMI 40.62 kg/m2 11/10/2024 Encounters Encounter Location Date Provider Diagnosis Aureliano Conteh III, MD [address] [place] [address] [place] [address] 12/11/2023 Aureliano Conteh Former smoker Z87.89 1 ; Hearing loss, bilateral H91.93 ; Depression F32.9 ; Atypical lobular hyperplasia of breast N62 ; Type 2 diabetes mellitus without complications E11.9 ; Hyperlipidemia type II E78.0 ; Vitamin D deficiency E55.9 and Morbid obesity E66.01 Aureliano Conteh III, MD [address] [place] [address] [place] [address] 01/22/2024 Aureliano Conteh Depression F32.9 ; Hearing [...] without complications E11.9 Aureliano Conteh III, MD [address] [place] [address] [place] [address] 02/26/2024 Aureliano Conteh Former smoker Z87.89 1 ; Depression F32.9 ; Hearing loss, bilateral H91.93 ; Type 2 diabetes mellitus without complications E11.9 ; Hyperlipidemia type II E78.0 and Asthma J45.909 Aureliano Conteh III, MD [address] [place] [address] [place] [address] 05/08/2024 Aureliano Kaiserrne Former smoker Z87.89 1 ; Type 2 diabetes mellitus without complications E11.9 ; Hyperlipidemia type II E78.0 ; Morbid obesity E66.01 ; Hearing loss, bilateral H91.93 ; Depression F32.9 ; Low back pain M54.5 and Asthma J45.909 Aureliano Conteh III, MD [address] [place] [address] [place] [address] 08/07/2024 Aureliano Kaiserrne Former smoker Z87.89 1 ; Type 2 diabetes mellitus without complications E11.9 ; Depression F32.9 ; Hearing loss, bilateral H91.93 ; Asthma J45.909 ; Morbid obesity E66.01 and Osteoporosis M81.0 Aureliano Conteh III, MD [address] [place] [address] [place] [address] 09/11/2024 Aureliano Kaiserrne Former smoker Z87.89 1 ; Type 2 diabetes mellitus without complications E11.9 ; Depression F32.9 ; Hearing loss, bilateral H91.93 ; Atypical lobular hyperplasia of breast N62 ; Obesity 278.00 ; Hyperlipidemia type II E78.0 ; Low back pain M54.5 ; Asthma J45.909 ; Morbid obesity E66.01 ; Varicose veins of bilateral lower extremities with other complications I83.893 and Osteopenia of spine M85.88 Aureliano Conteh III, MD [address] [place] [address] [place] [address] 10/13/2024 Aureliano Conteh Type 2 diabetes amor itus without complications E11.9 ; Obesity E66.9 ; Former smoker Z87.891 ; Asthma J45.909 ; Depression F32.9 and Hearing loss, bilateral H91.93 Aureliano Conteh III, MD [address] [place] [address] [place] [address] 11/10/2024 Aureliano Yady Former smoker Z87.89 1 ; Type 2 diabetes mellitus without complications E11.9 ; Hearing loss, bilateral H91.93 ; Depression F32.9 ; Asthma J45.909 ; Morbid obesity E66.01 and Low back pain M54.5 Aureliano Conteh III, MD [address] [place] [address] 12/12/2023 Aureliano Conteh III, MD [address] [place] [address] [place] [address] 12/13/2023 Aureliano Conteh III, MD [address] [place] [address] [place] [address] 12/17/2023 Aureliano Conteh III, MD [address] [place] [address] [place] [address] 03/18/2024 Aureliano Conteh III, MD [address] [place] [address] [place] [address] 03/18/2024 Aureliano Conteh III, MD [address] [place] [address] [place] [address] 05/13/2024 Aureliano Conteh Former smoker Z87.89 1 Aureliano Conteh III, MD [address] [place] [address] [place] [address] 05/15/2024 Aureliano Conteh Former smoker Z87.89 1 Aureliano Conteh III, MD [address] [place] [address] [place] [address] 05/15/2024 Aureliano Conteh III, MD [address] [place] [address] [place] [address] 05/27/2024 Aureliano Conteh III, MD [address] [place] [address] [place] [address] 06/03/2024 Aureliano Conteh III, MD [address] [place] [address] [place] [address] 06/10/2024 Aureliano Conteh Former smoker Z87.89 1 Aureliano Conteh III, MD [address] [place] [address] 06/11/2024 Aureliano Conteh III, MD [address] [place] [address] [place] [address] 08/14/2024 Aureliano Conteh III, MD [address] [place] [address] [place] [address] 08/22/2024 Aureliano Conteh III, MD [address] [place] [address] [place] [address] 11/07/2024 Aureliano Conteh III, MD [address] [place] [address] [place] [address] 11/12/2024 Aureliano Conteh III, MD [address] [place] [address] [place] [address] 11/12/2024 Aureliano Conteh III, MD [address] [place] [address] [place] [address] 11/13/2024 Aureliano Conteh III, MD [address] [place] [address] [address] [place] [address] 11/17/2024 Aureliano Conteh Assessments Encounter Date Diagnosis (ICD Code) Assessment Notes Treat ment Notes Treatment Clinical Notes 12/11/2023 Former smoker (ICD-1 0 - Z87.891) [...] this year the hemoglobin A1c was 6.8. 08/07/2024 Former smoker (ICD-1 0 - Z87.891) She is highly motivated not to smoke and we discussed strategies for maintenance of abstinence. 08/07/2024 Type 2 diabetes mellitus without complications (ICD-10 - E11.9) She has been compliant with her medications. She has not had blood work done but it was ordered today to be done in the next week. Her hemoglobin A1c was 6.8.Her blood sugar was 129. All 09/11/2024 Former smoker (ICD-1 0 - Z87.891) She is highly motivated not to smoke and we discussed strategies for maintenance of abstinence. 09/11/2024 Type 2 diabetes mellitus without complications (ICD-10 - E11.9) She has been compliant with her medications. She has not had blood work done but it was ordered today to be done in the next week. Her hemoglobin A1c was 6.8.Her blood sugar was 129. I have increased the dose of Ozempic to 0.5 mg weekly 10/13/2024 Obesity (ICD-10 - E66.9) She continues to lose weight on the current dose of Ozempic. No changes in her regimen were made. Her only side effect is mild nausea infrequently and occasional loose stools not more than once a day. 10/13/2024 Type 2 diabetes mellitus without complications (ICD-10 - E11.9) She has been compliant with her medications. She has not had blood work done but it was ordered today to be done in the next week. Her hemoglobin A1c was 6.8.Her blood sugar was 129. I have increased the dose of Ozempic to 0.5 mg weekly 11/10/2024 Former smoker (ICD-1 0 - Z87.891) She is highly motivated not to smoke and we discussed strategies for maintenance of abstinence. 11/10/2024 Type 2 diabetes mellitus without complications (ICD-10 - E11.9) She has been compliant with her medications. She has not had blood work done but it was ordered today to be done in the next week. Her hemoglobin A1c was 6.8.Her blood sugar was 129. I have increased the dose of Ozempic to 0.5 mg weekly 05/13/2024 Former smoker (ICD-1 0 - Z87.891) [...] discussed strategies for maintenance of abstinence. 12/11/2023 Depression (ICD-10 - F32.9) Her depression [...] change in her medications was made today. 08/07/2024 Depression (ICD-10 - F32.9) Her depression is much better. No change in her medication was made. 09/11/2024 Depression (ICD-10 - F32.9) Her depression is much better. No change in her medication was made. 10/13/2024 Former smoker (ICD-1 0 - Z87.891) She is highly motivated not to smoke and we discussed strategies for maintenance of abstinence. 11/10/2024 Hearing loss, bilateral (ICD-10 - H91.93) She did not have her hearing aids today. They are being repaired. She will wear them on her next visit. There is been no change in her hearing loss. 12/11/2023 Atypical lobular hyperplasia of breast (ICD-10 [...] it but has not made a decision. 08/07/2024 Hearing loss, bilateral (ICD-10 - H91.93) She did not have her hearing aids today. They are being repaired. She will wear them on her next visit. There is been no change in her hearing loss. 09/11/2024 Hearing loss, bilateral (ICD-10 - H91.93) She did not have her hearing aids today. They are being repaired. She will wear them on her next visit. There is been no change in her hearing loss. 10/13/2024 Asthma (ICD-10 - J45.909) She is breathing comfortably today on room air. No change in her regimen was needed. 11/10/2024 Depression (ICD-10 - F32.9) Her depression is much better. No change in her medication was made. 12/11/2023 Type 2 diabetes mellitus without complications [...] she has an upcoming appointment with her winding inspector and tester. She wished to defer her pelvic examination and rectal examination to the winding inspector and tester. Her breast examination was unremarkable. 02/26/2024 Hyperlipidemia type II (ICD-10 - E78.0) Comprehensive blood work with a fasting lipid profile has been ordered. 05/08/2024 Hearing loss, bilateral (ICD-10 - H91.93) She did not have her hearing aids today. They are being repaired. She will wear them on her next visit. There is been no change in her hearing loss. 08/07/2024 Asthma (ICD-10 - J45.909) She is breathing comfortably today on room air. No change in her regimen was needed. 09/11/2024 Atypical lobular hyperplasia of breast (ICD-10 - N62) There is no sign of breast cancer. She has completed 5 years of tamoxifen as a preventative and the drug was discontinued at this time. 10/13/2024 Depression (ICD-10 - F32.9) Her depression is much better. No change in her medication was made. 11/10/2024 Asthma (ICD-10 - J45.909) She is breathing comfortably today on room air. No change in her regimen was needed. 12/11/2023 Hyperlipidemia type II (ICD-10 - E78.0) [...] No change in her medication was made. 08/07/2024 Morbid obesity (ICD-10 - E66.01) Her weight is stable and unchanged. Her body mass index is 43. We have reviewed her weight loss strategy today. We have reviewed her diet and nutrition. We have discussed lifestyle modifications.I all stopped her trulicity. She began Ozempic. 09/11/2024 Obesity (ICD9-CM - 278.00) 10/13/2024 Hearing loss, bilateral (ICD-10 - H91.93) She did not have her hearing aids today. They are being repaired. She will wear them on her next visit. There is been no change in her hearing loss. 11/10/2024 Morbid obesity (ICD-10 - E66.01) Her weight is stable and unchanged. Her body mass index is 43. We have reviewed her weight loss strategy today. We have reviewed her diet and nutrition. We have discussed lifestyle modifications.I all stopped her trulicity. She began Ozempic. 12/11/2023 Vitamin D deficiency (ICD-10 - E55.9) [...] No change in her regimen was needed. 08/07/2024 Osteoporosis (ICD-10 - M81.0) She was sent for a bone density test. 09/11/2024 Hyperlipidemia type II (ICD-10 - E78.0) Most recent fasting total cholesterol was 199. A fasting lipid profile has been ordered today. No change in her medications was made today. 11/10/2024 Low back pain (ICD-1 0 - M54.5) Her back pain is mild and stable and she is conducting all of the activities of daily life without impairment. No change in her regimen was needed. 12/11/2023 Morbid obesity (ICD-10 - E66.01) I recommended aggressive weight loss and calorie restriction combined with physical activity. I offered to refer her for bariatric surgery at [facility] weight loss program but she declined. I did recommend her to the metabolic clinic. 01/22/2024 Morbid obesity (ICD-10 - E66.01) I recommended aggressive weight loss and calorie restriction combined with physical activity. I offered to refer her for bariatric surgery at [facility] weight loss program but she declined. I did recommend her to the metabolic clinic. 05/08/2024 Asthma (ICD-10 - J45.909) She is breathing comfortably today on room air. No change in her regimen was needed. 09/11/2024 Low back pain (ICD-1 0 - M54.5) [...] the drug was discontinued at this time. 09/11/2024 Asthma (ICD-10 - J45.909) She is breathing comfortably today on room air. No change in her regimen was needed. 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 She will obtain a pair of those are new symptoms. She willl then reportt back. 09/11/2024 Morbid obesity (ICD-10 - E66.01) Her weight is stable and unchanged. Her body mass index is 43. We have reviewed her weight loss strategy today. We have reviewed her diet and nutrition. We have discussed lifestyle modifications.I all stopped her trulicity. She began Ozempic. 01/22/2024 Hyperlipidemia type II (ICD-10 - E78.01) The recent fasting lipid profile shows good control of her lipids and no change in her regimen was needed. We discussed her weight loss program in detail. 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 She will obtain a pair of those are new symptoms. She willl then reportt back. 01/22/2024 Type 2 diabetes mellitus without complications (ICD-10 - E11.9) Her diabetes mellitus appears to be stable and controlled. No change in her regimen was made. Her hemoglobin A1c has increased from 6.2-6.8. We have discussed the importance of weight loss and adherence to a diabetic diet and physical activity. 09/11/2024 Osteopenia of spine (ICD-10 - M85.88) He was continued on her regimen of calcium tablets and vitamin D. Plan Of Treatment Pending Test Test Name Order Date PROFILE, FASTING (COMPREHENSIVE METABOLI C) 02/08/2018 PROFILE, FASTING (COMPREHENSIVE METABOLI C) 04/06/2017 PROFILE, FASTING (COMPREHENSIVE METABOLI C) 11/01/2018 PROFILE, FASTING (COMPREHENSIVE METABOLI C) 05/08/2024 PROFILE, FASTING (COMPREHENSIVE METABOLI C) 12/10/2020 PROFILE, FASTING (COMPREHENSIVE METABOLI C) 10/01/2023 PROFILE, FASTING (COMPREHENSIVE METABOLI C) 05/12/2021 PROFILE, FASTING (COMPREHENSIVE METABOLI C) 03/12/2023 PROFILE, FASTING (COMPREHENSIVE METABOLI C) 08/09/2020 PROFILE, FASTING (COMPREHENSIVE METABOLI C) 02/09/2021 PROFILE, FASTING (COMPREHENSIVE METABOLI C) 02/14/2022 PROFILE, FASTING (COMPREHENSIVE METABOLI C) 04/30/2020 PROFILE, FASTING (COMPREHENSIVE METABOLI C) 06/28/2018 PROFILE, FASTING (COMPREHENSIVE METABOLI C) 12/18/2022 PROFILE, FASTING (COMPREHENSIVE METABOLI C) 11/02/2022 PROFILE, FASTING (COMPREHENSIVE METABOLI C) 08/18/2019 PROFILE, FASTING (COMPREHENSIVE METABOLI C) 08/04/2021 PROFILE, FASTING (COMPREHENSIVE METABOLI C) 04/10/2019 PROFILE, RANDOM (COMPREHENSIVE METABOLIC ) 11/03/2021 PROFILE, RANDOM (COMPREHENSIVE METABOLIC ) 01/14/2020 HEMOGLOBIN A1C (GLYCOHEMOGLOBIN) 021 HEMOGLOBIN A1C (GLYCOHEMOGLOBIN) 019 HEMOGLOBIN A1C (GLYCOHEMOGLOBIN) 018 HEMOGLOBIN A1C (GLYCOHEMOGLOBIN) 017 HEMOGLOBIN A1C (GLYCOHEMOGLOBIN) 019 HEMOGLOBIN A1C (GLYCOHEMOGLOBIN) 021 HEMOGLOBIN A1C (GLYCOHEMOGLOBIN) 021 HEMOGLOBIN A1C (GLYCOHEMOGLOBIN) 023 HEMOGLOBIN A1C (GLYCOHEMOGLOBIN) 020 HEMOGLOBIN A1C (GLYCOHEMOGLOBIN) 022 HEMOGLOBIN A1C (GLYCOHEMOGLOBIN) 020 HEMOGLOBIN A1C (GLYCOHEMOGLOBIN) 022 HEMOGLOBIN A1C (GLYCOHEMOGLOBIN) 023 HEMOGLOBIN A1C (GLYCOHEMOGLOBIN) 020 HEMOGLOBIN A1C (GLYCOHEMOGLOBIN) 023 HEMOGLOBIN A1C (GLYCOHEMOGLOBIN) 019 LIPID PANEL 11/03/2021 LIPID PANEL 01/14/2020 LIPID PANEL 11/02/2022 LIPID PANEL 08/18/2019 LIPID PANEL 08/04/2021 LIPID PANEL 04/10/2019 LIPID PANEL 02/08/2018 LIPID PANEL 04/06/2017 LIPID PANEL 11/01/2018 LIPID PANEL 12/10/2020 LIPID PANEL 03/12/2023 LIPID PANEL 06/28/2018 LIPID PANEL 12/18/2022 LIPID PANEL 08/09/2020 LIPID PANEL 04/30/2020 MICROALBUMIN, RANDOM 12/18/2022 MICROALBUMIN, RANDOM 01/14/2020 MICROALBUMIN, RANDOM 11/02/2022 MICROALBUMIN, RANDOM 08/18/2019 MICROALBUMIN, RANDOM 12/10/2020 MICROALBUMIN, RANDOM 03/12/2023 MICROALBUMIN, RANDOM 02/14/2022 CBC w DIFF 12/10/2020 CBC w DIFF 06/28/2018 CBC w DIFF 08/09/2020 CBC w DIFF 03/12/2023 CBC w DIFF 02/14/2022 CBC w DIFF 04/30/2020 CBC w DIFF 11/03/2021 CBC w DIFF 12/18/2022 CBC w DIFF 01/14/2020 CBC w DIFF 08/04/2021 CBC w DIFF 11/02/2022 CBC w DIFF 08/18/2019 CBC w DIFF 04/10/2019 CBC w DIFF 05/12/2021 CBC w DIFF 02/08/2018 CBC w DIFF 02/09/2021 CBC w DIFF 04/06/2017 CBC w DIFF 11/01/2018 ROUTINE CULTURE 03/05/2018 XR SHOULDER LT 2 VIEWS 12/10/2020 BONE DENSITY DEXA 12/10/2020 MAMMOGRAM DIGITAL BILATERAL SCREEN 11/03 MAMMOGRAM DIGITAL BILATERAL SCREEN 08/23 MAMMOGRAM DIGITAL BILATERAL SCREEN 04/06 MAMMOGRAM DIGITAL UNILATERAL ANÍBAL RT 02/17 Stress Test 05/13/2018 VITAMIN D 25-OH TOTAL 04/18/2022 VITAMIN D 25-OH TOTAL 04/30/2020 US BREAST RIGHT 03/05/2018 CBC WITH AUTO DIFF 05/08/2024 CBC WITH AUTO DIFF 10/01/2023 Lipid Panel 05/08/2024 Lipid Panel 10/01/2023 Lipid Panel 02/09/2021 Microalbumin, Random 10/01/2023 Hemoglobin A1c 10/01/2023 Hemoglobin A1c 02/09/2021 Hemoglobin A1c 05/08/2024 Next Appt Details Provider Name:Aureliano Yady, 12/16/2024 02:00:00 PM, [address] [place] [address] [place]AT PIMENTEL, SHARON SAEZ, [id number], Insurance Providers Payer Name Payer Address Payer Phone Subscriber Number Group Number Insured Name Patient Relationship to Insured Coverage Start Date Coverage End Date [employer] [address] [place] [address] [id number] Yareli Fernandez Self - patient is the insured [place] [address] [place], [place] [id number] [phone] [id number] Yareli Fernandez Self - patient is the insured MEDICARE NGS [address] [facility] [address] [id number] Yareli Fernandez Self - patient is the insured Medical (General) History Medical History History ICD Code asthma depression obesity low back pain cervical dysplasia thyroglosal cyst hearing loss chronic upper back and neck pain bilateral breast pain. atypical lobular hyperplasia AODM 2017 noncardiac chest pain Osteoporosis January 2022 diabetes Surgical History Surgery Date(Month/Year) No history Gallbaldder surgery 03/2020 bilateral reduction mammoplasty January tubal ligation laser surgery of cervix, precancer thyroglossal cystectomy partial hystererectomy 08/04/2003 Hospitalization History Reason Date(Month/Year) No history chest pain [facility] 05/10/2018
== END 2024-12-04 10:01 | disposition home or self-care (01) ==
LOC: HO.HGI 09:14
PROVIDERS: PCP Internal Medicine Medical Oncology; Visit Provider Nurse Practitioner
DX: K58.0 Irritable bowel syndrome with diarrhea (principal); Z80.0 Family history of malignant neoplasm of digestive organs
CPT/HCPCS: 99213

== ENCOUNTER → 2024-12-04 09:13 | Outpatient (BNVA) | payer MEDICARE, MEDICAID, SELFPAY | PROVIDERS: PCP Internal Medicine Medical Oncology; Visit Provider Nurse Practitioner | DX: K21.9 Gastro-esophageal reflux disease without esophagitis (principal); K58.0 Irritable bowel syndrome with diarrhea; Z80.0 Family history of malignant neoplasm of digestive organs | CPT/HCPCS: 99212 ==

== ENCOUNTER 2025-02-12 06:57 | Day surgery (SDC) | payer MEDICARE, MEDICAID, SELFPAY ==
--- OUTSIDE RECORDS SUMMARY | 2024-12-15 13:08 | XMS_ITS | Continuity of Care Document ---
Author Organization [facility] Address [address] [place] [id number]- Care Team Providers Care Duster Tender Name Role Phone Yady LUTZ, Aureliano Fisher Primary Care Physician [phone] Encounter [facility] Date(s): 11/14/24 - 12/14/[address] [address] Attending Physician: Yoel Pak Admitting Physician: Yoel [...] 7:58:00 AM EDT, Route to Pharmacy Electronically, [facility], Partial fill upon patient [...] Team Personnel Name: Aureliano Conteh MD Position: [facility] Physician - Oncology Member Role: PCP Address: [address] [place] [address] [address] [place] [address] Telecom: Care Team Related Persons Name: NOY CALHOUN Insurance Providers Guarantor name: [facility] Information #: 1 Payer: [employer] Member Number: NA Policy Number: NA Group Number: NA
[2025-02-10 14:36] VITALS: BMI 38.2
--- NOTE | 2025-02-11 11:59 | HO.ANESPROP2 ---
Documented by User: Bernice Keller NP 02/11/25 12:00 HPI - Anesthesia Eval Consult details Narrative: 69yo F for Colonoscopy Anesthesia Pre-Procedure Meds Is the patient on any of the following meds?: GLP1/DPP4 PMFSH Active Problems Active Problems: All Active Problems Irritable bowel syndrome with diarrhea (Acute) Tubular adenoma of colon (Acute) Asthma (Acute) Family history of colon cancer in mother (Acute) Pre-op examination (Acute) Past Medical History Medical History Well woman exam Chronic neck and back pain DM type 2 (diabetes mellitus, type 2) GERD (gastroesophageal reflux disease) Depression Asthma Elevated cholesterol On beta luis fernando at home HTN (hypertension) Family History Family History Maternal Aunt Bone cancer Sister Breast CA Colon cancer Father Lung cancer Mother Colon cancer Maternal Grandmother Stomach cancer Breast CA Maternal Uncle Pancreatic cancer Surgical History Surgical History History of thyroglossal duct cyst removal Hx of bilateral breast reduction surgery Hx of colonoscopy Hx of breast lump removal Hx of cholecystectomy Hx of hysterectomy Hx of section Hx of tubal ligation Social History Social History Household Members: Spouse and Family Are you a primary healthcare market consultant to a significant other at home: No Do you presently have visiting nurse or other home services: No Alcohol intake: current Alcohol intake frequency: does not drink Patient Tobacco Use Status: Former Tobacco user Tobacco use type: Cigarette Years Smoked: patient quie 2011 Use of substances other than those prescribed or required for medical reasons: No Are you DNR?: No Advance Directives: No Advance Directives Information Provided: Yes Poor oral hygiene: Yes Meds Allergies Allergy/AdvReac Type Severity Reaction Status Date / Time cyclobenzaprine (From Allergy Severe STOP Verified 02/12/25 07:36 FLEXERIL) BREATHING latex (LATEX) Allergy Intermediate RASH, Verified 02/12/25 07:36 anxiety Home Medications ?Medication ?Instructions ?Recorded ?Confirmed ?Last Taken ?Type atorvastatin 10 mg tablet 10 mg PO DAILY 02/17/22 02/12/25 Unknown History metoprolol succinate 25 mg 25 mg PO DAILY 02/17/22 02/12/25 Unknown History tablet,extended release 24 hr pioglitazone 15 mg tablet 15 mg PO DAILY 02/17/22 02/12/25 Unknown History calcium 600 mg (as carbonate)-vit 1 tab PO DAILY 07/31/24 02/12/25 Unknown History D3 20 mcg (800 unit) chewable tablet (Caltrate plus D) glucosamine-chondroitin 250 mg-200 2 tab PO TID 07/31/24 02/12/25 Unknown History mg tablet (Osteo Bi-Flex) semaglutide 0.25 mg or 0.5 mg (2 0.5 mg subcut QWEEK 12/04/24 02/12/25 02/02/25 History mg/3 mL) subcutaneous pen injector (I AND [employer]empic) Exam Height,Weight and Vital Signs: Height 5 ft 2 in Weight 94.801 kg Assessment and Plan Assessment Anesthesia Assessment: Chart Reviewed Documented by User: Chris Goldberg MD 02/12/25 09:03 FORMERLY [facility], [facility] Past Medical History Medical History Well woman exam Chronic neck and back pain DM type 2 (diabetes mellitus, type 2) GERD (gastroesophageal reflux disease) Depression Asthma Elevated cholesterol On beta luis fernando at home HTN (hypertension) Family History Family History Maternal Aunt Bone cancer Sister Breast CA Colon cancer Father Lung cancer Mother Colon cancer Maternal Grandmother Stomach cancer Breast CA Maternal Uncle Pancreatic cancer Family history of problems with anesthesia: No Surgical History Surgical History History of thyroglossal duct cyst removal Hx of bilateral breast reduction surgery Hx of colonoscopy Hx of breast lump removal Hx of cholecystectomy Hx of hysterectomy Hx of section Hx of tubal ligation History of Problems with Anesthesia: No Social History Social History Household Members: Spouse and Family Are you a primary healthcare market consultant to a significant other at home: No Do you presently have visiting nurse or other home services: No Alcohol intake: current Alcohol intake frequency: does not drink Patient Tobacco Use Status: Former Tobacco user Tobacco use type: Cigarette Years Smoked: patient quie 2011 Use of substances other than those prescribed or required for medical reasons: No Are you DNR?: No Advance Directives: No Advance Directives Information Provided: Yes Poor oral hygiene: Yes Meds Allergies Allergy/AdvReac Type Severity Reaction Status Date / Time cyclobenzaprine (From Allergy Severe STOP Verified 02/12/25 07:36 FLEXERIL) BREATHING latex (LATEX) Allergy Intermediate RASH, Verified 02/12/25 07:36 anxiety Home Medications ?Medication ?Instructions ?Recorded ?Confirmed ?Last Taken ?Type atorvastatin 10 mg tablet 10 mg PO DAILY 02/17/22 02/12/25 Unknown History metoprolol succinate 25 mg 25 mg PO DAILY 02/17/22 02/12/25 Unknown History tablet,extended release 24 hr pioglitazone 15 mg tablet 15 mg PO DAILY 02/17/22 02/12/25 Unknown History calcium 600 mg (as carbonate)-vit 1 tab PO DAILY 07/31/24 02/12/25 Unknown History D3 20 mcg (800 unit) chewable tablet (Caltrate plus D) glucosamine-chondroitin 250 mg-200 2 tab PO TID 07/31/24 02/12/25 Unknown History mg tablet (Osteo Bi-Flex) semaglutide 0.25 mg or 0.5 mg (2 0.5 mg subcut QWEEK 12/04/24 02/12/25 02/02/25 History mg/3 mL) subcutaneous pen injector (Ozempic) Exam Airway Mallampati Class: III TM Dist: <=3cm Neck ROM: Full Denture: Upper and Lower Heart: ok Lungs: ok Assessment and Plan Assessment Anesthesia Assessment: Anesthesia Plan Discussed Final Anesthetic Review Family History of Problems with Anesthesia: No History of Problems with Anesthesia: No NPO: Yes ASA Class: III Final Preanesthetic Review: No Changes in Pt Med Stat, Meds/Allgs Chart Reviewed, Consent Obtained/Reviewed and Anes Risks/Benef Reviewed Patient Risk: High Procedure Risk: Low Anesthetic Plan Anesthetic Plan: MAC: and Agree w/ Assess. and Plan Disposition: Standard PACU
[2025-02-12 07:44] VITALS: BMI 38.7
[2025-02-12 07:45] VITALS: BP 133/67; PULSE 78; RESP 14; TEMP 36.6; O2SAT 96; BMI 38.7
[2025-02-12] MEDS: Lactated Ringers 1,000 ML 100 ML IVCONT (07:48)
--- NOTE | 2025-02-12 08:02 | MHC.SHP ---
Pre-Procedural Eval Section A - 24 Hr Update-Section A only Date of Service: 02/12/25 Section B - Complete if H&P > 30 days Chief Complaint: IBS,Encounter for other preprocedural examination Relevant Family History (Specify if Yes): Yes Relevant Social History: None Medical History: Significant History (History of thyroglossal duct cyst removal Hx of bilateral breast reduction surgery Hx of colonoscopy Hx of breast lump removal Hx of cholecystectomy Hx of hysterectomy Hx of section Hx of tubal ligation) History of Previous Operations: Relevant previous surgery/procedure and date(s) (Chronic neck and back pain DM type 2 (diabetes mellitus, type 2) GERD (gastroesophageal reflux disease) Depression Asthma Elevated cholesterol On beta luis fernando at home HTN (hypertension)) Allergies: Allergies Allergy/AdvReac Type Severity Reaction Status Date / Time cyclobenzaprine (From Allergy Severe STOP Verified 02/12/25 07:36 FLEXERIL) BREATHING latex (LATEX) Allergy Intermediate RASH, Verified 02/12/25 07:36 anxiety Review of Systems Sugical H&P ROS: Negative: Constitution, Cardiovascular, Respiratory, Neurological, Psychiatric, Hem-Onc, Allergic/Immunologic, Gastrointestinal, Genitourinary, Musculoskeletal, Integumentary, Endocrine and Eyes/Ears/Nose/Throat Exam Surgical H&P Exam: Normal: HEENT, Normal: Heart, Normal: Lungs, Normal: Extremities, Normal: Abdomen, Normal: Skin and Normal: Neurological Plan Diagnosis/Plan: Unchanged I have reviewed the history and physical and performed a pertinent physical examination on my patient. No changes have occurred unless specified. Time Spent With Patient Time: Total time managing care of this patient today ____ minutes.
[2025-02-12 08:07] LABS: Glucose, Whole Blood 147 mg/dL (60-115)
--- NOTE | 2025-02-12 09:19 | P.OPN-COLO_ITS ---
Colonoscopy Operative Note Operative Note Date of Service: 02/12/25 Narrative: Operative Information Procedure Description: Colonoscopy Indication: FH of CRC Anesthesia: MAC COLONOSCOPY Instrument: Olympus variable stiffness pediatric scope 190L Colonoscopy Monitoring: Vital signs and clinical assessment, continuous EKG monitoring, Pulse oximetry, Carbon Dioxide monitoring and blood pressure monitoring were done throughout the procedure. Colon withdrawal time was 22 minutes. Procedure: The patient was placed in the left lateral decubitis position and pre-procedure medications were administered. After a digital rectal examination of the ano-rectum, the video colonoscope was inserted into the rectum and advanced through the colon to the cecum/TI. The colonoscope was slowly withdrawn in a retrograde panoramic fashion and the colon mucosa was carefully examined including a retroflexed view of the rectum. Findings and interventions are described below. Procedure Difficulty: difficult, colowrap was on, also prep was fair to poor in areas Findings: Terminal Ileum-not intubated Cecum: AVM noted Ascending Colon: normal Transverse Colon -normal Descending Colon: x 3 sessile polyps 10 mm removed with cold snare Sigmoid Colon: moderate severe diverticulosis, x 2 sessile polyps 8-10 mm removed with cold snare Rectum: Retroflexion with small internal hemorrhoids seen, grade I with skin tag, x 2 sessile polyps 8-9 mm removed with cold snare Anorectum - normal Intervention: cold snare Colon preparation: [place] Bowel Preparation Scale Right colon; 1-2 Transverse colon: 2 Left colon; 1-2 (0 = Unprepared colon segment with mucosa not seen due to solid stool that cannot be cleared. 1 = Portion of mucosa of the colon segment seen, but other areas of the colon segment not well seen due to staining, residual stool and/or opaque liquid. 2 = Minor amount of residual staining, small fragments of stool and/or opaque liquid, but mucosa of colon segment seen well. 3 = Entire mucosa of colon segment seen well with no residual staining, small fragments of stool or opaque liquid) Impression and Post Procedure Diagnosis: diverticulosis colon polyps x 8 internal hemorrhoids Plan: High fiber diet leaflet Avoid straining at stool, epsom salts and sitz bath, anusol supps or cream Repeat Colonoscopy in 6-12 months or earlier if clinically indicated --next time try 2 d prep also adult scope with colowrap Above findings were reviewed with the patient and relevant handouts were provided if indicated.
[2025-02-12 09:26] VITALS: BP 110/60; PULSE 77; RESP 16; TEMP 36.4; O2SAT 95
[2025-02-12 09:41] VITALS: BP 120/67; PULSE 84; RESP 12; O2SAT 98
[2025-02-12 09:56] VITALS: PULSE 76; RESP 12; TEMP 36.3; O2SAT 98
== END 2025-02-12 11:36 | disposition home or self-care (01) ==
PROVIDERS: PCP Internal Medicine Medical Oncology; Visit Provider Internal Medicine Gastroenterology
PROC: 0DJD8ZZ Inspection of Lower Intestinal Tract, Via Natural or Artificial Opening Endoscopic (ICD-10-PCS; CPT 45378; principal; 2025-02-12 09:10)
DX: Z12.11 Encounter for screening for malignant neoplasm of colon (principal); D12.4 Benign neoplasm of descending colon; D12.5 Benign neoplasm of sigmoid colon; K62.1 Rectal polyp; K56.2 Volvulus; K55.20 Angiodysplasia of colon without hemorrhage; K57.30 Diverticulosis of large intestine without perforation or abscess without bleeding; K64.0 First degree hemorrhoids; K64.4 Residual hemorrhoidal skin tags; Z86.0101 Personal history of adenomatous and serrated colon polyps; Z80.0 Family history of malignant neoplasm of digestive organs; I10 Essential (primary) hypertension; J45.909 Unspecified asthma, uncomplicated; E78.00 Pure hypercholesterolemia, unspecified; K21.9 Gastro-esophageal reflux disease without esophagitis; Z79.02 Long term (current) use of antithrombotics/antiplatelets; Z79.899 Other long term (current) drug therapy
CPT/HCPCS: 45385; 82947; 88305; J2003; J2704

== ENCOUNTER → 2025-02-12 06:57 | Outpatient (BNV) | payer MEDICARE, MEDICAID, SELFPAY | PROVIDERS: PCP Internal Medicine Medical Oncology; Visit Provider Internal Medicine Gastroenterology | DX: Z12.11 Encounter for screening for malignant neoplasm of colon (principal); K55.20 Angiodysplasia of colon without hemorrhage; D12.4 Benign neoplasm of descending colon; D12.5 Benign neoplasm of sigmoid colon; D12.8 Benign neoplasm of rectum; K57.30 Diverticulosis of large intestine without perforation or abscess without bleeding; K64.0 First degree hemorrhoids; K64.4 Residual hemorrhoidal skin tags; Z80.0 Family history of malignant neoplasm of digestive organs | CPT/HCPCS: 45385 ==

== ENCOUNTER 2025-03-26 09:18 | Outpatient (AMB) | payer MEDICARE, MEDICAID, SELFPAY ==
--- NOTE | 2025-03-26 09:19 | A.OFFVIS_ITS ---
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 Animal Scientist: Animal Scientist Present Allergies cyclobenzaprine (From FLEXERIL) Allergy (Severe, Verified 03/26/25 09:27) STOP BREATHING latex (LATEX) Allergy (Intermediate, Verified 03/26/25 09:27) RASH, anxiety Medication List - Last Reconciled 03/26/25 by Gemma Brown LPN atorvastatin 10 mg PO DAILY calcium carbonate-vitamin D3 600 mg-20 mcg (800 unit) (Caltrate plus D) 1 tab PO DAILY glucosamine-chondroitin 250-200 mg (Osteo Bi-Flex) 2 tabs PO TID metoprolol succinate ER 25 mg PO DAILY omeprazole 20 mg PO DAILY pioglitazone 15 mg PO DAILY semaglutide (Ozempic) 0.5 mg subcut QWEEK Post menopausal: Yes Patient : No HPI Comments Details: Patient is a postmenopausal woman 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 Currently not sexually active in years. Denies any vaginal dryness or irritation. STI testing offered; she declines. Attempting to eat a healthy diet with calcium and vitamin D and stays active with exercise. Last pap smear; 2022, negative. History of abnormal Pap in 1983, treated with laser therapy. History of hysterectomy due to heavy menstrual bleeding and fi broids. Last mammogram; at [facility] no copies available. Colonoscopy is UTD. Family history of breast and colon cancer. FOR[facility]LY [facility], 1928–1983 Medical History Abnormal Pap smear of cervix Well woman exam Chronic neck and back pain DM type 2 (diabetes mellitus, type 2) GERD (gastroesophageal reflux disease) Depression Asthma Elevated cholesterol On beta luis fernando at home HTN (hypertension) Surgical History History of thyroglossal duct cyst removal Hx of bilateral breast reduction surgery Hx of colonoscopy Hx of breast lump removal Hx of cholecystectomy Hx of hysterectomy Hx of section Hx of tubal ligation Family History Maternal Aunt Bone cancer Sister Breast CA Colon cancer Father Lung cancer Mother Colon cancer Maternal Grandmother Stomach cancer Breast CA Maternal Uncle Pancreatic cancer Social History Household Members: Spouse and Family Are you a primary health care liaison to a significant other at home: No Do you presently have visiting nurse or other home services: No Alcohol intake: current Alcohol intake frequency: does not drink Patient Tobacco Use Status: Former Tobacco user Tobacco use type: Cigarette Years Smoked: patient piero 2012 Female Reproductive History Menstrual Menopause type: surgical Total pregnancies: 3 Full term: 3 Number of Living Children: 3 Date of last pap smear: 05/11/23 History of abnormal pap smear: No History of STI: No Date of Mammogram: 10/29/24 (done at [facility] [place], need records.) Date of last Bone Density Screenin04/12/23 (Osteopenia) Review of Systems Const All systems reviewed & are unremarkable except as noted in HPI and below Reports as per HPI Eyes Reports no additional complaints ENT Reports no additional complaints Card Reports no additional complaints Resp Reports no additional complaints GI Reports as per HPI and Reports no additional complaints Reports as per HPI Musc Reports no additional complaints Skin/Breast Reports as per HPI Neuro Reports no additional complaints Psych Reports no additional complaints Endo Reports no additional complaints Cosmo/Lymph Reports no additional complaints Aller/Immun Reports no additional complaints Physical Exam Const General: cooperative, healthy appearing, no acute distress, well developed and alert Orientation/consciousness: patient oriented x3 HEENT Head: Yes normal to inspection Eyes General: appearance normal, both eyes and all related structures Neck Neck: Yes normal visual inspection Thyroid: Thyroid normal Chest Chest palpation & inspection: normal inspection of the chest (Bilateral breast reduction scarring) and other (no puckering, dimpling, peau de orange, retraction, discharge, masses) Breast/axilla inspection: normal inspection of the breasts Breast/axilla palpation: normal palpation of the breasts Resp Effort & Inspection: normal respiratory effort GI Inspection: Yes normal to inspection, Yes obesity and Yes scar Palpation (GI): Soft to palpation Rectal Exam - Female: deferred General: Yes bladder normal to palpation External Female Exam: normal external appearance and normal appearance of the urethra Speculum Exam - Vagina: normal appearance of the vagina, normal palpation, normal vaginal discharge and vagina atrophic Speculum Exam - Cervix: normal appearance of the cervix Bimanual exam- vagina & uterus: normal bimanual exam, normal palpation and bladder normal to palpation Bimanual Exam- Adnexa, other: no masses Skin General skin exam: no rashes or lesions noted Rashes: no rashes Neuro General: patient oriented x3 Cognition (Neuro): normal cognition Extrem General: Yes normal to inspection Psych Attitude: cooperative Thought process: Normal thought process present Assessment & Plan Assessment & Plan (1) Encounter for well woman exam with routine gynecological exam: Code(s): Z01.419 - Encounter for gynecological examination (general) (routine) without abnormal findings Category: Medical Plan Discussed: Current recommendations for pap smears per ASCCP guidelines. Breast awareness, periodic self breast exams and yearly mammogram. Maintain a healthy lifestyle, well balanced diet including Calcium 1,200 mg and Vitamin D 600 IU daily, and routine exercise. Contact the office with any postmenopausal bleeding. Patient verbalizes understanding and agrees to the plan of care. She was given opportunity to ask questions and all questions were answered to the best of my ability. RTO in 1 year for annual senior clinical research scientist exam. This note is constructed using voice recognition software. While every effort has been made to ensure accuracy, director dermatology errors may have been included. Coding Level of Care Code Est Pt Prev Care >65y(70116) Diagnoses Encounter for well woman exam with routine gynecological exam Z01.419
[2025-03-26 09:20] VITALS: BP 124/64; BMI 38.8
--- OUTSIDE RECORDS SUMMARY | 2025-03-26 09:42 | XMS_ITS | Patient Health Record ---
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 Name Role Phone Aureliano Conteh Primary Care Provider Allergies Allergen (clinical drug ingredient) Drug/Non Drug Allergy documented on EMR Reaction Allergy Type Onset Date Status Ragweed Unknown Allergy Active Cat dander Cat Dander Unknown Allergy Active Latex Gloves Unknown Drug Allergy Acti ve Flexeril Unknown Drug Allergy Active Results Component Value Reference Range Notes Lipid Panel Reviewed date:11/12/2024 01:06:57 PM Interpretation: Performing Lab:[facility], [address] [place] [phone] Notes/Report: Triglycerides 143 <150 mg/dL Desirable Triglyceride: [...] Random Reviewed date:11/12/2024 01:06:57 PM Interpretation: Performing Lab:[address] [address] Notes/Report: Creatinine Urine 139.35 Microalbumin Urine 18.0 Microalbum/Creatinine Ratio Ur 12.9 <30 ug/mg cr Albumin/Creatinine Ratio Reference Ranges: Normal: < 30 ug/mg creatinine Microalbuminuria: 30 - 300 ug/mg creatinine Clinical Albuminuria: > 300 ug/mg creatinine Hemoglobin A1c Reviewed date:11/12/2024 01:06:57 PM Interpretation: Performing Lab:[address] [address] Notes/Report: Hemoglobin A1c % 7.0 <6.0 % [...] average glucose, using the formula of the K8R-Zwcytxl Average Glucose study (ADAG), Diabetes Care, Vol.31,#8, Mar. 2007 Complete Blood Count Auto Di ff Reviewed date:08/01/2024 08:35:00 AM Interpretation: Performing Lab:[address] [address] Notes/Report: White Blood Count 6.6 4.8-10.8 X10*3/uL [...] 0.0-0.2 /100WBC Neutrophils Absolute Auto 3.4 2.0-8.3 x10*3/uL Imm Gran Abs Auto 0.02 0.00-0.03 X10*3/uL Lymphocytes Absolute Auto 2.4 1.2-4.9 X10*3/uL Monocytes Absolute Auto 0.5 0.1-1.2 X10*3/uL Eosinophils Absolute Auto 0.2 0.0-0.4 X10*3/uL Basophils Absolute Auto 0.1 0.0-0.2 X10*3/uL NRBC Abs Auto 0.000 0.0-0.012 X10*3/uL Comprehensive [place]. Panel Fa st Reviewed date:08/01/2024 08:35:00 AM Interpretation: Performing Lab:[facility], [address] [place] [phone] Notes/Report: Sodium 142 135-145 mmol/L Potassium 3.8 [...] Panel Reviewed date:08/01/2024 08:35:01 AM Interpretation: Performing Lab:[address] [address] Notes/Report: Triglycerides 99 <150 mg/dL Desirable Triglyceride: [...] A1c Reviewed date:08/01/2024 08:35:00 AM Interpretation: Performing Lab:[address] [address] Notes/Report: Hemoglobin A1c % 6.8 <6.0 % [...] average glucose, using the formula of the L3P-Drdites Average Glucose study (ADAG), Diabetes Care, Vol.31,#8, 2007 Complete Blood Count Auto Di ff Reviewed date:11/12/2024 01:06:57 PM Interpretation: Performing Lab:[facility], [address] [place] [phone] Notes/Report: White Blood Count 7.6 4.8-10.8 X10*3/uL [...] 0.0-0.2 /100WBC Neutrophils Absolute Auto 4.1 2.0-8.3 x10*3/uL Imm Gran Abs Auto 0.02 0.00-0.03 X10*3/uL Lymphocytes Absolute Auto 2.6 1.2-4.9 X10*3/uL Monocytes Absolute Auto 0.6 0.1-1.2 X10*3/uL Eosinophils Absolute Auto 0.3 0.0-0.4 X10*3/uL Basophils Absolute Auto 0.1 0.0-0.2 X10*3/uL NRBC Abs Auto 0.000 0.0-0.012 X10*3/uL Comprehensive [place]. Panel Fa st Reviewed date:11/12/2024 01:06:57 PM Interpretation: Performing Lab:[facility], [address] [place] [phone] Notes/Report: Sodium 141 135-145 mmol/L Potassium 3.9 [...] 3.5-5.0 g/dL Alkaline Phosphatase 100 39-117 U/L Glucose, Whole Blood Reviewed date:02/18/2025 03:55:55 PM Interpretation: Performing Lab:[facility], [address] [place] [phone] Notes/Report: Glucose, Whole Blood 147 60-115 mg/dL METER # : [id number] Pathology Reviewed date:02/18/2025 03:55:55 PM Interpretation: Performing Lab:[facility], [address] [place] [phone] Notes/Report: ------ Name: Cosme Salvador leoncio Age/Sex: 69/F : 1955 Unit#: [id number] Attend Dr: Parish Lopez MD Re02/12/25 Status : [facility] Location: [facility] Disch: ------ SPEC : [id number] RECD : 02/12/25 STATUS: [facility] NUM: [id number] MARK: 02/12/[address] [facility] DR: Parish Lopez MD ENTERED: 02/12/25 51 SP TYPE: Surgical OTHR DR: Aureliano Conteh MD ORDERED: HE Stain/9, Gross Micro L4/3 Diagnosis A. Colon, descending , polypectomies: Fragments of tubular adenomata; negative for high- grade dysplasia or carcinoma. B. Colon, sigmoid, polypectomies: - Tubular adenoma; negative for high-grade dysplasia or carcinoma. - Hyperplastic mucos al polyp. C. Rectum, polypecto mies: Hyperplastic mucosal polyps. Clinical History Pre-Op Dx: IBS, screening Post-Op Dx: Diverticulosis, colon polyps, AVM, tortuous colon, internal hemorrhoids - fair prep Microscopic Description A-C. Microscopic sec tions reviewed. Material Received A. Descending colon polyps B. Sigmoid colon polyps C. Rectal polyps Gross Description Received in three parts. Part A: Received in formalin labeled ?descending colon polyps? are multiple joiner-pink irregular and papula r tissue fragments ranging from minute to 0.3 cm and aggregating 1.5 x 1.2 x 0.3 cm, submit tab in toto in a cassette labeled A. Part B: Received in formalin labeled ?sigmoid colon polyps? along with copious mucus and debris are multiple joiner and joiner-pink irregular and papular tissue fragments ranging from minute to 0.45 cm an d aggregating 1.2 x 1.0 x 0.3 cm, submitted in toto in a cassette labeled B. Part C: Received in formalin labeled ?rectal polyps? are two joiner-pink papular tissue fragments each measu ring 0.6 cm, submitted in toto in a cassette labeled C. CEDS CONTINUED ON NEXT PAGE ------ Name: Cosme Salvador Age/Sex: 69/F : 1955 Unit#: [id number] Attend Dr: Parish Lopez MD Re02/12/25 Status : [facility] Location: [facility] Disch: ------ SPEC : [id number] RECD : 02/12/25 STATUS: [facility] NUM: [id number] MARK: 02/12/[address] [facility] [address]: Parish Lopez MD ENTERED: 02/12/25 51 SP TYPE: Surgical OTHR DR: Aureliano Conteh MD ORDERED: HE Stain/9, Gross Micro L4/3 IHC S/NG Disclaimer NOTE: Unless otherwi se stated, all tissue is formalin-fixed and paraffin-embedded. Some or all of the immunohistochemical tests reported herein may have been developed and their performance characteristics determined by [facility]. They have not been cleared or appr micah by the U.S. Food and Drug Administration (FDA). However, the FDA has determined that such clearance or approval is not necessary. This laboratory is certified under the Clinical Laboratory Improvement Amendments of 1988 (CLIA) as qualified to perform high comp lexity clinical laboratory testing. Copies To: Aureliano Conteh MD [address] [facility] [address] [place] [address] Parish Lopez MD [facility] [address] [place], [place] [id number] ------ Signed (signature on file) Pepe Amanda MD 02/13/25 1334 ------ END OF REPORT Reason For Referral Reason Consult and Treat Panniculitis Diagnosis 1 Panniculitis, unspec ified (M79.3) Referral Organization Aureliano Conteh III, MD Referring Provider First Name Aureliano Referring Provider Last Name Yady Referring Provider Speciality Internal M edicine Referred Provider YUE MENDES Referred Provider Specialty Plastic and Reconstructive Surgery General Notes Nikki Diana 2023 04:01:43 PM EDT > Faxed referral and progress note, Nikki Gonzales 06/12/2024 03:49:37 PM > Office spoke with patient. BMI 33 or below. Patient is not able to go at this time, but once she is able to get her BMI under she is able to schedule an appointment with them. Referral Priority Routine Reason Consult and Treat Bilateral Hearing Loss Diagnosis 1 Hearing loss, yanaate narda (H91.93) Referral Organization Aureliano Conteh III, MD Referring Provider First Name Aureliano Referring Provider Last Name Yady Referring Provider Speciality Internal M edicine Referred Provider [facility] Audiology Referred Provider Specialty Audiologists General Notes Nikki Diana 05/27 04:52:30 PM > Faxed referral Referral Priority Routine Referral Appointment Date 11/14/2024 Reason Consult and Treat Bilateral Hearing Loss Diagnosis 1 Hearing loss, bilate ral (H91.93) Referral Organization Aureliano Conteh III, MD Referring Provider First Name Aureliano Referring Provider Last Name Conteh Referring Provider Speciality Internal M edicine Referred Provider [facility] Audiology Referred Provider Specialty Audiologists General Notes Nikki Gonzales 10/13/2024 01:13:57 PM > referral was faxed again per request from [facility] Audiologists. Referral Priority Routine Referral Appointment Date 11/14/2024 Reason left 5th finger old fracture now pain with lump in palm evaluate and treatment Diagnosis 1 Closed nondisplaced fracture of phalanx of finger, unspecified finger, unspecified phalanx, initial encounter (S62.609A) Referral Organization Aureliano Conteh III, MD Referring Provider First Name Aureliano Referring Provider Last Name Yady Referring Provider Speciality Internal M edicine Referred Provider [facility] Referred Provider Specialty Orthopedic S gamal General Notes Bibi Benoit CMA 11/11 01:28:05 PM >referral with progress note faxed to [facility] pt made aware of this, Bibi Benoit CMA 11/25/2024 04:09:32 PM >I called [facility] pt has appt on 11/28/2024 at 9:15am Referral Priority Routine Referral Appointment Date 11/28/2024 Medications Medication SIG (Take, Route, Frequency, Duration) Notes Start Date End Date Status Caltrate 600+D Activ e All-In-One Nebulizer System - as directed - use three times a day 04/16/2023 Active Albuterol Sulfate (2.5 MG/3ML) 0.083% 3 ml Inhalation Three times a day 02/06/2017 Active Omeprazole 20 MG TAKE 1 CAPSULE BY MOUTH DAILY Active Alcohol Prep Pad none - - use to check blood sugars four times a day 05/19/2018 Active One Touch Delica Lancets - Check blood sugar 4 times a day E11.9 Type 2 Diabetes 06/04/2024 Active Ozempic (0.25 or 0.5 MG/DOSE) 2 MG/3ML 0.5 mg Subcutaneous weekly disp one month supply woitjh needles please 09/11/2024 Active Nystatin 017023 UNIT/GM APPLY TOPICALLY TO THE AFFECTED AREA TWICE DAILY Externally Twice a day Active Osteo Bi-Flex One Per Day - as directed Orally Active Metoprolol Succinate ER 25 MG TAKE 1 TABLET BY MOUTH DAILY Active Trulicity 1.5 MG/0.5ML [...] - use three times daily 04/16/2023 Active Immunizations Vaccine Route Administration Date Status Comme nts Influenza, quad IM Intramuscular 07/28/2021 Administered Flu-IIv4pf Unknown 06/09/2018 Administered Influenza-iiv4 p-free high dose Unknown 07/13/2020 Administered PCV13 Unknown 07/13/2020 Administered Flu-IIv4pf Unknown 08/29/2022 Administered Decline: Influenza Unknown 06/12/2014 Refused Decline: [...] Additional Findings: Tobacco non-user Ex-cigaret te smoker AUDIT-C (Standard) Question Answer Notes Did you have a drink containing alcohol in the p ast year? No Points 0 Interpretation Negative Problems Problem Type SNOMED Code ICD Code Onset Dates Problem Status W/U Status Risk Notes Problem 6813073 Former smoker (Z87.891) Active confirmed She is highly motivated not to smoke and we discussed strategies for maintenance of abstinence. Problem 291685816 Obesity (E66.9) Active confirmed She continues to lose weight on the current dose of Ozempic. No changes in her regimen were made. Her only side effect is mild nausea infrequently and occasional loose stools not more than once a day. Problem 178900634 Asthma (J45.909) Active confirmed She is breathing comfortably today on room air. No change in her regimen was needed. Problem 24996074 Depression (F32.9) Active confirmed Her depression is much better. No change in her medication was made. Problem 05763632 Type 2 diabetes mellitus without complications (E11.9) Active confirmed She has been compliant with her medications. She has not had blood work done but it was ordered today to be done in the next week. Her hemoglobin A1c was 6.8.Her blood sugar was 129. 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 She will obtain a pair of those are new symptoms. She willl then reportt back. Problem 729792235 Low back pain (M54.5) Active confirmed Her back pain is mild and stable and she is conducting all of the activities of daily life without impairment. No change in her regimen was needed. Problem 76072667 Hearing loss, bilateral (H91.93) Active confirmed She did not have her hearing aids today. They are being repaired. She will wear them on her next visit. There is been no change in her hearing loss. Problem 678823321 Hyperlipidemia type II (E78.0) Active confirmed Most recent fasting total cholesterol was 199. A fasting lipid profile has been ordered today. No change in her medications was made today. Problem Osteoporosis (66360208) Osteoporosis (M81.0) Active confirmed She was sent for a bone density test. Problem 89731633 Cervical dysplasia (N87.9) Active confirmed She says she has an upcoming appointment with her sample paster. She wished to defer her pelvic examination and rectal examination to the sample paster. Her breast examination was unremarkable. 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 She has no difficulty swallowing or odynophagia. Problem 192834973 Atypical lobular hyperplasia of breast (N62) Active confirmed There is no sign of breast cancer. She has completed 5 years of tamoxifen as a preventative and the drug was discontinued at this time. Problem 766637553 Morbid obesity (E66.01) Active confirmed Her weight is stable and unchanged. Her body mass index is 43. We have reviewed her weight loss strategy today. We have reviewed her diet and nutrition. We have discussed lifestyle modifications. I all stopped her trulicity. She began Ozempic. Problem 174427275 Osteopenia of spine (M85.88) Active confirmed He was continued on her regimen of calcium tablets and vitamin D. Vital Signs Heart Rate 91 /min 02/19/2025 Temperature 97.6 degrees Fahrenheit 02/19/2025 Blood pressure diastolic 77 mm Hg 02/19/2025 Height 61 in 02/19/2025 Blood pressure systolic 132 mm Hg 02/19/2025 Weight 211 lbs 02/19/2025 BMI 39.86 kg/m2 02/19/2025 Encounters Encounter Location Date Provider Diagnosis Aureliano Conteh III, MD [address] [place] [address] [place] [address] 05/08/2024 Aureliano Conteh Former smoker Z87.89 1 ; Type 2 diabetes mellitus without complications E11.9 ; Hyperlipidemia type II E78.0 ; Morbid obesity E66.01 ; Hearing loss, bilateral H91.93 ; Depression F32.9 ; Low back pain M54.5 and Asthma J45.909 Aureliano Conteh III, MD [address] [place] [address] [place] [address] 08/07/2024 Aureliano Conteh Former smoker Z87.89 1 ; Type 2 diabetes mellitus without complications E11.9 ; Depression F32.9 ; Hearing loss, bilateral H91.93 ; Asthma J45.909 ; Morbid obesity E66.01 and Osteoporosis M81.0 Aureliano Conteh III, MD [address] [place] [address] [place] [address] 09/11/2024 Aureliano Yady Former smoker Z87.89 1 ; [...] of spine M85.88 Aureliano Conteh III, MD [address] [place] [address] [place] [address] 10/13/2024 Aureliano Conteh Type 2 diabetes amor itus without complications E11.9 ; Obesity E66.9 ; Former smoker Z87.891 ; Asthma J45.909 ; Depression F32.9 and Hearing loss, bilateral H91.93 Aureliano Conteh III, MD [address] [place] [address] [place] [address] 11/10/2024 Aureliano Conteh Former smoker Z87.89 1 ; Type 2 diabetes mellitus without complications E11.9 ; Hearing loss, bilateral H91.93 ; Depression F32.9 ; Asthma J45.909 ; Morbid obesity E66.01 and Low back pain M54.5 Aureliano Conteh III, MD [address] [place] [address] [place] [address] 12/16/2024 Aureliano Kaiserrne Former smoker Z87.89 1 ; Type 2 diabetes mellitus without complications E11.9 ; Depression F32.9 ; Hearing loss, bilateral H91.93 ; Asthma J45.909 ; Obesity E66.9 ; Osteoporosis M81.0 and Varicose veins of bilateral lower extremities with other complications I83.893 Aureliano Conteh III, MD [address] [place] [address] [place] [address] 01/13/2025 Aureliano Kaiserrne Former smoker Z87.89 1 ; Type 2 diabetes mellitus without complications E11.9 ; Depression F32.9 ; Hearing loss, bilateral H91.93 ; Low back pain M54.5 ; Cervical dysplasia N87.9 ; Hyperlipidemia type II E78.0 ; Asthma J45.909 and Morbid obesity E66.01 Aureliano Conteh III, MD [address] [place] [address] [place] [address] 02/19/2025 Aureliano Kaiserrne Former smoker Z87.89 1 ; Type 2 diabetes mellitus without complications E11.9 ; Hearing loss, bilateral H91.93 ; Depression F32.9 ; Asthma J45.909 and Obesity E66.9 Aureliano Conteh III, MD [address] [place] [address] [place] [address] 05/13/2024 Aureliano Conteh Former smoker Z87.89 1 Aureliano Conteh III, MD [address] [place] [address] [place] [address] 05/15/2024 Aureliano Yady Former smoker Z87.89 1 Aureliano Conteh III, MD [address] [place] [address] [place] [address] 05/15/2024 Aureliano Conteh III, MD [address] [place] [address] [place] [address] 05/27/2024 Aureliano Conteh III, MD [address] [place] [address] [place] [address] 06/03/2024 Aureliano Conteh III, MD [address] [place] [address] [place] [address] 06/10/2024 Aureliano Conteh Former smoker Z87.89 1 Aureliano Conteh III, MD [address] [place] [address] [place] [address] 06/11/2024 Aureliano Conteh III, MD [address] [place] [address] [place] [address] 08/14/2024 Aureliano Conteh III, MD [address] [place] [address] [place] [address] 08/22/2024 Aureliano Conteh III, MD [address] [place] [address] [place] [address] 11/07/2024 Aureliano Conteh III, MD [address] [place] [address] [place] [address] 11/12/2024 Aureliano Conteh III, MD [address] [place] [address] [place] [address] 11/12/2024 Aureliano Conteh III, MD [address] [place] [address] [place] [address] 11/13/2024 Aureliano Conteh III, MD [address] [place] [address] [place] [address] 11/17/2024 Aureliano Conteh Assessments Encounter Date Diagnosis (ICD Code) Assessment Notes Treat ment Notes Treatment Clinical Notes 05/08/2024 Former smoker (ICD-1 0 - Z87.891) [...] dose of Ozempic to 0.5 mg weekly 12/16/2024 Former smoker (ICD-1 0 - Z87.891) She is highly motivated not to smoke and we discussed strategies for maintenance of abstinence. 12/16/2024 Type 2 diabetes mellitus without complications (ICD-10 - E11.9) She has been compliant with her medications. She has not had blood work done but it was ordered today to be done in the next week. Her hemoglobin A1c was 6.8.Her blood sugar was 129. I have increased the dose of Ozempic to 0.5 mg weekly 01/13/2025 Former smoker (ICD-1 0 - Z87.891) [...] of Ozempic to 0.5 mg weekly 02/19/2025 Former smoker (ICD-1 0 - Z87.891) She [...] discussed strategies for maintenance of abstinence. 05/08/2024 Hyperlipidemia type II (ICD-10 - E78.0) [...] been no change in her hearing loss. 12/16/2024 Depression (ICD-10 - F32.9) Her depression is much better. No change in her medication was made. 01/13/2025 Depression (ICD-10 - F32.9) Her depression is much better. No change in her medication was made. 02/19/2025 Hearing loss, bilateral (ICD-10 - H91.93) She did not have her hearing aids today. They are being repaired. She will wear them on her next visit. There is been no change in her hearing loss. 05/08/2024 Morbid obesity (ICD-10 - E66.01) Her [...] No change in her medication was made. 12/16/2024 Hearing loss, bilateral (ICD-10 - H91.93) She did not have her hearing aids today. They are being repaired. She will wear them on her next visit. There is been no change in her hearing loss. 01/13/2025 Hearing loss, bilateral (ICD-10 - H91.93) She did not have her hearing aids today. They are being repaired. She will wear them on her next visit. There is been no change in her hearing loss. 02/19/2025 Depression (ICD-10 - F32.9) Her depression is much better. No change in her medication was made. 05/08/2024 Hearing loss, bilateral (ICD-10 - H91.93) [...] No change in her regimen was needed. 12/16/2024 Asthma (ICD-10 - J45.909) She is breathing comfortably today on room air. No change in her regimen was needed. 01/13/2025 Low back pain (ICD-1 0 - M54.5) Her back pain is mild and stable and she is conducting all of the activities of daily life without impairment. No change in her regimen was needed. 02/19/2025 Asthma (ICD-10 - J45.909) She is [...] all stopped her trulicity. She began Ozempic. 12/16/2024 Obesity (ICD-10 - E66.9) She continues to lose weight on the current dose of Ozempic. No changes in her regimen were made. Her only side effect is mild nausea infrequently and occasional loose stools not more than once a day. 01/13/2025 Cervical dysplasia (ICD-10 - N87.9) She says she has an upcoming appointment with her sample paster. She wished to defer her pelvic examination and rectal examination to the sample paster. Her breast examination was unremarkable. 02/19/2025 Obesity (ICD-10 - E66.9) She continues to lose weight on the current dose of Ozempic. No changes in her regimen were made. Her only side effect is mild nausea infrequently and occasional loose stools not more than once a day. 05/08/2024 Low back pain (ICD-1 0 - [...] No change in her regimen was needed. 12/16/2024 Osteoporosis (ICD-10 - M81.0) She was sent for a bone density test. 01/13/2025 Hyperlipidemia type II (ICD-10 - E78.0) Most recent fasting total cholesterol was 199. A fasting lipid profile has been ordered today. No change in her medications was made today. 05/08/2024 Asthma (ICD-10 - J45.909) She is breathing comfortably today on room air. No change in her regimen was needed. 09/11/2024 Low back pain (ICD-1 0 - M54.5) Her back pain is mild and stable and she is conducting all of the activities of daily life without impairment. No change in her regimen was needed. 12/16/2024 Varicose veins of bilateral lower extremities with other complications (ICD-10 - I83.893) We discussed compression hose. She will obtain a pair of those are new symptoms. She willl then reportt back. 01/13/2025 Asthma (ICD-10 - J45.909) She is breathing comfortably today on room air. No change in her regimen was needed. 09/11/2024 Asthma (ICD-10 - J45.909) She is [...] stopped her trulicity. She began Ozempic. 09/11/2024 Morbid obesity (ICD-10 - E66.01) Her weight is stable and unchanged. Her body mass index is 43. We have reviewed her weight loss strategy today. We have reviewed her diet and nutrition. We have discussed lifestyle modifications.I all stopped her trulicity. She began Ozempic. 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 She will obtain a pair of those are new symptoms. She willl then reportt back. 09/11/2024 Osteopenia of spine (ICD-10 - M85.88) He was continued on her regimen of calcium tablets and vitamin D. Plan Of Treatment Pending Test Test Name Order Date PROFILE, FASTING (COMPREHENSIVE METABOLI C) 08/04/2021 PROFILE, FASTING (COMPREHENSIVE METABOLI C) 04/10/2019 PROFILE, FASTING (COMPREHENSIVE METABOLI C) 02/08/2018 PROFILE, FASTING (COMPREHENSIVE METABOLI C) 04/06/2017 PROFILE, FASTING (COMPREHENSIVE METABOLI C) 11/01/2018 PROFILE, FASTING (COMPREHENSIVE METABOLI C) 12/10/2020 PROFILE, FASTING (COMPREHENSIVE METABOLI C) 05/12/2021 PROFILE, FASTING (COMPREHENSIVE METABOLI C) 08/09/2020 PROFILE, FASTING (COMPREHENSIVE METABOLI C) 04/30/2020 PROFILE, FASTING (COMPREHENSIVE METABOLI C) 02/09/2021 PROFILE, FASTING (COMPREHENSIVE METABOLI C) 02/14/2022 PROFILE, FASTING (COMPREHENSIVE METABOLI C) 05/08/2024 PROFILE, FASTING (COMPREHENSIVE METABOLI C) 06/28/2018 PROFILE, FASTING (COMPREHENSIVE METABOLI C) 10/01/2023 PROFILE, FASTING (COMPREHENSIVE METABOLI C) 12/18/2022 PROFILE, FASTING (COMPREHENSIVE METABOLI C) 03/12/2023 PROFILE, FASTING (COMPREHENSIVE METABOLI C) 11/02/2022 PROFILE, FASTING (COMPREHENSIVE METABOLI C) 08/18/2019 PROFILE, RANDOM (COMPREHENSIVE METABOLIC ) 11/03/2021 PROFILE, RANDOM (COMPREHENSIVE METABOLIC ) 01/14/2020 HEMOGLOBIN A1C (GLYCOHEMOGLOBIN) 023 HEMOGLOBIN A1C (GLYCOHEMOGLOBIN) 023 HEMOGLOBIN A1C (GLYCOHEMOGLOBIN) 019 HEMOGLOBIN A1C (GLYCOHEMOGLOBIN) 021 HEMOGLOBIN A1C (GLYCOHEMOGLOBIN) 019 HEMOGLOBIN A1C (GLYCOHEMOGLOBIN) 018 HEMOGLOBIN A1C (GLYCOHEMOGLOBIN) 017 HEMOGLOBIN A1C (GLYCOHEMOGLOBIN) 019 HEMOGLOBIN A1C (GLYCOHEMOGLOBIN) 021 HEMOGLOBIN A1C (GLYCOHEMOGLOBIN) 021 HEMOGLOBIN A1C (GLYCOHEMOGLOBIN) 020 HEMOGLOBIN A1C (GLYCOHEMOGLOBIN) 020 HEMOGLOBIN A1C (GLYCOHEMOGLOBIN) 022 HEMOGLOBIN A1C (GLYCOHEMOGLOBIN) 022 HEMOGLOBIN A1C (GLYCOHEMOGLOBIN) 023 HEMOGLOBIN A1C (GLYCOHEMOGLOBIN) 020 LIPID PANEL 08/09/2020 LIPID PANEL 04/30/2020 LIPID PANEL 11/03/2021 LIPID PANEL 01/14/2020 LIPID PANEL 03/12/2023 LIPID PANEL 11/02/2022 LIPID PANEL 08/18/2019 LIPID PANEL 12/18/2022 LIPID PANEL 08/04/2021 LIPID PANEL 04/10/2019 LIPID PANEL 02/08/2018 LIPID PANEL 04/06/2017 LIPID PANEL 11/01/2018 LIPID PANEL 12/10/2020 LIPID PANEL 06/28/2018 MICROALBUMIN, RANDOM 02/14/2022 MICROALBUMIN, RANDOM 01/14/2020 MICROALBUMIN, RANDOM 03/12/2023 MICROALBUMIN, RANDOM 11/02/2022 MICROALBUMIN, RANDOM 08/18/2019 MICROALBUMIN, RANDOM 12/18/2022 MICROALBUMIN, RANDOM 12/10/2020 CBC w DIFF 12/10/2020 CBC w DIFF 06/28/2018 CBC w DIFF 08/09/2020 CBC w DIFF 04/30/2020 CBC w DIFF 02/14/2022 CBC w DIFF 11/03/2021 CBC w DIFF 01/14/2020 CBC w DIFF 08/04/2021 CBC w DIFF 03/12/2023 CBC w DIFF 11/02/2022 CBC w DIFF 08/18/2019 CBC w DIFF 12/18/2022 CBC w DIFF 04/10/2019 CBC w DIFF [...] Stress Test 05/13/2018 VITAMIN D 25-OH TOTAL 04/30/2020 VITAMIN D 25-OH TOTAL 04/18/2022 US BREAST RIGHT 03/05/2018 CBC WITH AUTO DIFF 05/08/2024 CBC WITH AUTO DIFF 10/01/2023 Lipid Panel 02/09/2021 Lipid Panel 05/08/2024 Lipid Panel 10/01/2023 Microalbumin, Random 10/01/2023 Hemoglobin A1c 02/09/2021 Hemoglobin A1c 05/08/2024 Hemoglobin A1c 10/01/2023 Next Appt Details Provider Name:Aureliano Conteh, 04/03/2025 09:45:00 AM, [address] [facility] [address], [place], [address], Provider Name:Aureliano Conteh, 12/18/2025 02:15:00 PM, [address] [facility] [address], [place], [address], Insurance Providers Payer Name Payer Address Payer Phone Subscriber Number Group Number Insured Name Patient Relationship to Insured Coverage Start Date Coverage End Date [employer] [address] [place] [address] [id number] Yareli Fernandez Self - patient is the insured MEDICAID [place] [address] [place] [id number] Vi gonzales Yareli Self - patient is the insured MEDICARE NGS [address] [place] [address] [id number] Vi gonzales Yareli Self - patient is the insured Medical (General) History Medical History History ICD Code asthma depression obesity low back pain cervical dysplasia thyroglosal cyst hearing loss chronic upper back and neck pain bilateral breast pain. atypical lobular hyperplasia AODM 2017 noncardiac chest pain Osteoporosis January 2022 diabetes Surgical History Surgery Date(Month/Year) No history Gallbaldder surgery 03/2020 bilateral reduction mammoplasty January 4 tubal ligation laser surgery of cervix, precancer thyroglossal cystectomy partial hystererectomy 08/04/2003 Hospitalization History Reason Date(Month/Year) No history chest pain [facility] 05/10/2018
== END 2025-03-26 10:02 | disposition home or self-care (01) ==
LOC: HO.HWS 09:18
PROVIDERS: PCP Internal Medicine Medical Oncology; Visit Provider Advanced Practice Midwife
DX: Z01.419 Encounter for gynecological examination (general) (routine) without abnormal findings (principal)
CPT/HCPCS: 99397; 99459

== ENCOUNTER → 2025-03-26 09:18 | Outpatient (BNVA) | payer MEDICARE, MEDICAID, SELFPAY | PROVIDERS: PCP Internal Medicine Medical Oncology; Visit Provider Advanced Practice Midwife | DX: Z01.419 Encounter for gynecological examination (general) (routine) without abnormal findings (principal) | CPT/HCPCS: 99397 ==

== ENCOUNTER 2025-05-01 10:17 | Outpatient (REF) | payer MEDICARE, MEDICAID, SELFPAY ==
--- OUTSIDE RECORDS SUMMARY | 2025-01-13 07:30 | XMS_ITS ---
Author Organization Aureliano Conteh III, MD Address [address] [address] Care Team Providers Care Compliance Monitor Name Role Phone Aureliano Conteh Primary Care Provider [phone] Allergies Allergen (clinical drug ingredient) Drug/Non Drug Allergy documented on EMR Reaction Allergy Type Onset Date Status Ragweed Unknown Allergy Active Cat dander Cat Dander Unknown Allergy Active Latex Gloves Unknown Drug Allergy Acti ve Flexeril Unknown Drug Allergy Active REASON FOR VISIT Depression, Hearing loss, Diabetes, Has, Morbid obesity, Osteoporosis, Atypical lobular hyperplasiaof the breast Medications Medication SIG (Take, Route, Frequency, Duration) Notes Start Date End Date Status Metoprolol Succinate ER 25 MG TAKE 1 TABLET BY MOUTH DAILY Active One Touch Delica Lancets - Check blood sugar 4 times a day E11.9 Type 2 Diabetes 06/04/2024 Active Nystatin 358216 UNIT/GM APPLY TOPICALLY TO THE AFFECTED AREA TWICE DAILY Externally Twice a day Active Alcohol Prep Pad none - - use to check blood sugars four times a day 05/19/2018 Active Omeprazole 20 MG TAKE 1 CAPSULE BY MOUTH DAILY Active Trulicity 1.5 MG/0.5ML as directed Subcutaneous Active Atorvastatin Calcium 10 MG 1 tablet Orally Once a day Active Pioglitazone HCl 15 MG TAKE 1 TABLET BY MOUTH EVERY DAY Active Ozempic (0.25 or 0.5 MG/DOSE) 2 MG/3ML 0.5 mg Subcutaneous weekly disp one month supply stevie hawkins 09/11/2024 Active Osteo Bi-Flex One Per Day - as directed Orally Active Caltrate 600+D Activ e All-In-One Nebulizer System - as directed - use three times a day 04/16/2023 Active Albuterol Sulfate (2.5 MG/3ML) 0.083% 3 ml Inhalation Three times a day 02/06/2017 Active Albuterol Sulfate HFA 108 (90 Base) MCG/ACT 1 puff as needed Inhalation every 4 hrs 01/22/2024 Active Nebulizer Mask Adult - as directed - use three times daily 04/16/2023 Active Social History Tobacco Use: Social History Observation Description Date Details (start date - stop date) Former Smoker NA - NA Sex Assigned At : Social History Observation Description Sex Assigned At Female Tobacco Control (Standard) Question Answer Notes Tobacco use: Former smoker How long has it been since you last smoked? Grea ter than 10 years Additional Findings: Tobacco non-user Ex-cigaret te smoker Vital Signs Temperature 98.0 degrees Fahrenheit 01/14/20 25 Blood pressure systolic 130 mm Hg 01/14/20 25 Blood pressure diastolic 73 mm Hg 025 Heart Rate 83 /min 01/13/2025 Height 61 in 01/13/2025 Weight 213 lbs 01/13/2025 BMI 40.24 kg/m2 01/13/2025 Encounters Encounter Location Date Provider Diagnosis Aureliano Conteh III, MD [address] [place] [address] [address] [place], [place] [id number] 01/13/2025 Aureliano Conteh Former smoker Z87.89 1 ; Type 2 diabetes mellitus without complications E11.9 ; Depression F32.9 ; Hearing loss, bilateral H91.93 ; Low back pain M54.5 ; Cervical dysplasia N87.9 ; Hyperlipidemia type II E78.0 ; Asthma J45.909 and Morbid obesity E66.01 Assessments Encounter Date Diagnosis (ICD Code) Assessment Notes Treat ment Notes Treatment Clinical Notes 01/13/2025 Former smoker (ICD-1 0 - Z87.891) She is highly motivated not to smoke and we discussed strategies for maintenance of abstinence. 01/13/2025 Type 2 diabetes mellitus without complications (ICD-10 - E11.9) She has been compliant with her medications. She has not had blood work done but it was ordered today to be done in the next week. Her hemoglobin A1c was 6.8.Her blood sugar was 129. I have increased the dose of Ozempic to 0.5 mg weekly 01/13/2025 Depression (ICD-10 - F32.9) Her depression is much better. No change in her medication was made. 01/13/2025 Hearing loss, bilateral (ICD-10 - H91.93) She did not have her hearing aids today. They are being repaired. She will wear them on her next visit. There is been no change in her hearing loss. 01/13/2025 Low back pain (ICD-1 0 - M54.5) Her back pain is mild and stable and she is conducting all of the activities of daily life without impairment. No change in her regimen was needed. 01/13/2025 Cervical dysplasia (ICD-10 - N87.9) She says she has an upcoming appointment with her field sales agent. She wished to defer her pelvic examination and rectal examination to the field sales agent. Her breast examination was unremarkable. 01/13/2025 Hyperlipidemia type II (ICD-10 - E78.0) Most recent fasting total cholesterol was 199. A fasting lipid profile has been ordered today. No change in her medications was made today. 01/13/2025 Asthma (ICD-10 - J45.909) She is breathing comfortably today on room air. No change in her regimen was needed. 01/13/2025 Morbid obesity (ICD-10 - E66.01) Her weight is stable and unchanged. Her body mass index is 43. We have reviewed her weight loss strategy today. We have reviewed her diet and nutrition. We have discussed lifestyle modifications.I all stopped her trulicity. She began Ozempic. Plan Of Treatment Medication Medication Name Sig Start Date Stop Date Notes Metoprolol Succinate ER 25 MG TAKE 1 TABLET BY MOUTH DAILY One Touch Delica Lancets - Check blood sugar 4 times a day 06/04/2024 E11.9 Type 2 Diabetes Nystatin 012326 UNIT/GM APPLY TOPICALLY TO THE AFFECTED AREA TWICE DAILY Externally Twice a day Alcohol Prep Pad none - - use to check b lood sugars four times a day 05/19/2018 Omeprazole 20 MG TAKE 1 CAPSULE BY MO [facility] DAILY Trulicity 1.5 MG/0.5ML as directed Subcutaneous Atorvastatin Calcium 10 MG 1 tablet Orally Once a day Pioglitazone HCl 15 MG TAKE 1 TABLET BY MOUTH EVERY DAY Ozempic (0.25 or 0.5 MG/DOSE) 2 MG/3ML 0.5 mg Subcutaneous weekly 09/11/2024 disp one month supply [facility] needles please Osteo Bi-Flex One Per Day - as directed Orally Caltrate 600+D All-In-One Nebulizer System - as directed - use three times a day 04/16/2023 Albuterol Sulfate (2.5 MG/3ML) 0.083% 3 ml Inhalation Three times a day 02/06/2017 Albuterol Sulfate HFA 108 (90 Base) MCG/ACT 1 puff as needed Inhalation every 4 hrs 01/22/2024 Nebulizer Mask Adult - as directed - use three times daily 04/16/2023 Next Appt Details Follow Up: 4 Weeks, Reason: OV Provider Name:Aureliano Conteh, 05/29/2025 10:00:00 AM, [address] [place] [address] [address], [place], [address], Provider Name:Aureliano Conteh, 12/18/2025 02:15:00 PM, [address] [place] [address] [address], [place], [phone], Progress Notes * Yareli CALHOUN HDOB:[birth year] (69 yo F)Acc No.[id number]:01/13/2025 Progress Notes Patient: Yareli WALSH Provider: Otto Conteh MD :1955 A ge:69 Y S ex:Female Date:01/13/2025 Address:[address] [place] [address], [id number] Subjective: * Chief Complaints: * D epressionHearing lossDiabetesHasMorbid obesityOsteoporosisAtypical lobular hyperplasia of the breast * HPI: C OVID-19 Screening: She returns for medical management of all of her medical issues. She continues her efforts at weight loss and consumption of a healthy diet. She has been compliant with all off her medications. She has had no asthma recently, despite it being pollen season.She has gained 2 pounds.? Her blood pressure is stable. Questions H ave you had any new onset fever, chills, cough, congestion, sore throat, shortness of breath, muscle aches? N o * ROS: G eneral/Constitutional: pain L umbar spine, otherwise only normal aches and pains.?Chills d enies. F atigue a dmits. F ever d enies. E NT: Decreased hearing i n both ears. R espiratory: Cough d enies. C ardiovascular: Chest pain with exertion d enies. D yspnea on exertion?denies. S hortness of breath d enies. G astrointestinal: Constipation o ccasional. D ecreased appetite d enies. D iarrhea d enies. H eartburn d enies. N ausea d enies. R ectal bleeding d enies. V omiting d enies. H ematology: bruising d enies. p etechiae d enies. S wollen glands n one have been noted. G enitourinary: Frequent urination d enies. M usculoskeletal: Muscle aches d enies. P ainful joints L umbar spine. S ciatica d enies. W eakness d enies. S kin: Itching d enies. R rosa isela d enies. S kin lesion(s)?denies. N eurologic: Difficulty speaking d enies. D izziness d enies.?Headache d enies. L ow back pain t hat is chronic. P sychiatric: Depressed mood w hich is mild. * Medical History: * Surgical History: p artial hystererectomy 08/04/2003thyroglossal cystectomy laser surgery of cervix, precancer tubal ligation bilateral reduction mammoplasty January 2014[facility] surgery 03/2020No history * Hospitalization/Major Diagno stic Procedure: c hest pain [facility] 05/10/2018No history * Family History: F ather: 52 yrs, lung cancer, diagnosed with Cancer. M other: 68 yrs, colon cancer, uterine cancer, diagnosed with Cancer. S on(s): alive. S iblings: alive, colon cancer, diagnosed with Cancer. 2 brother(s) , 1 sister(s) . 2 son(s) , 1 daughter(s) . . A brother and a sister have type 2 diabetes mellitus. One son has Aspberger's syndrome. A sister had breast cancer in her forties, Ulcerative Cillitis. A grandmother had breast and gastric cancer. Youngest sister have Colon Cancer. Colon cancer The patient's sister has terminal cancer ( 08/2024) The patient's niece is in liver and kidney failure. * Social History: T obacco Use: T obacco Control (Standard) T obacco use: F ormer smoker H ow long has it been since you last smoked??Greater than 10 years A dditional Findings: Tobacco non-user E x-cigarette smoker S he has been to Shmuel for thirty years. They have one child. She has two other children from a previous union. She is not working at this time. 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 She was born in [place], [place]. * Medications: T akingAtorvastatin Calcium 10 MG Tablet 1 tablet Orally Once a day Metoprolol Succinate ER 25 MG Tablet Extended Release 24 Hour TAKE 1 TABLET BY MOUTH DAILY Nystatin 721034 UNIT/GM Cream APPLY TOPICALLY TO THE AFFECTED AREA TWICE DAILY Externally Twice a day One Touch Delica Lancets - Miscellaneous Check blood sugar 4 times a day , Notes to Pharmacist: E11.9 Type 2 DiabetesAlcohol Prep Pad none pad - - use to check blood sugars four times a day Omeprazole 20 MG Capsule Delayed Release TAKE 1 CAPSULE BY MOUTH DAILY Caltrate 600+D Albuterol Sulfate (2.5 MG/3ML) 0.083% Nebulization Solution 3 ml Inhalation Three times a day All-In-One Nebulizer System - Miscellaneous as directed - use three times a day Nebulizer Mask Adult - Miscellaneous as directed - use three times daily Albuterol Sulfate HFA 108 (90 Base) MCG/ACT Aerosol Solution 1 puff as needed Inhalation every 4 hrs Pioglitazone HCl 15 MG Tablet TAKE 1 TABLET BY MOUTH EVERY DAY Trulicity 1.5 MG/0.5ML Solution Pen-injector as directed Subcutaneous Osteo Bi-Flex One Per Day - Tablet as directed Orally Ozempic (0.25 or 0.5 MG/DOSE) 2 MG/3ML Solution Pen-injector 0.5 mg Subcutaneous weekly , Notes to Pharmacist: disp one month supply [facility] needles pleaseMedication List reviewed and reconciled with the patientTaking Atorvastatin Calcium 10 MG Tablet 1 tablet Orally Once a day Taking Metoprolol Succinate ER 25 MG Tablet Extended Release 24 Hour TAKE 1 TABLET BY MOUTH DAILY Taking Nystatin 159873 UNIT/GM Cream APPLY TOPICALLY TO THE AFFECTED AREA TWICE DAILY Externally Twice a day Taking One Touch Delica Lancets - Miscellaneous Check blood sugar 4 times a day , Notes to Pharmacist: E11.9 Type 2 DiabetesTaking Alcohol Prep Pad none pad - - use to check blood sugars four times a day Taking Omeprazole 20 MG Capsule Delayed Release TAKE 1 CAPSULE BY MOUTH DAILY Taking Caltrate 600+D Taking Albuterol Sulfate (2.5 MG/3ML) 0.083% Nebulization Solution 3 ml Inhalation Three times a day Taking All-In-One Nebulizer System - Miscellaneous as directed - use three times a day Taking Nebulizer Mask Adult - Miscellaneous as directed - use three times daily Taking Albuterol Sulfate HFA 108 (90 Base) MCG/ACT Aerosol Solution 1 puff as needed Inhalation every 4 hrs Taking Pioglitazone HCl 15 MG Tablet TAKE 1 TABLET BY MOUTH EVERY DAY Taking Trulicity 1.5 MG/0.5ML Solution Pen-injector as directed Subcutaneous Taking Osteo Bi-Flex One Per Day - Tablet as directed Orally Taking Ozempic (0.25 or 0.5 MG/DOSE) 2 MG/3ML Solution Pen-injector 0.5 mg Subcutaneous weekly , Notes to Pharmacist: disp one month supply [facility] needles pleaseMedication List reviewed and reconciled with the patient * Allergies: F lexerilLatex GlovesCat DanderRagweedno[Allergies Verified] Objective: * Vitals: H t: 61, Wt:213, BMI:40.24, BP:130/73, HR:83, Temp:98.0, Ht-cm: 154.94, Wt-k.62. * Examination: G eneral Examination: GENERAL APPEARANCE: p leasant, well nourished, well developed, in no acute distress, calm and relaxed, obese, woman. HEAD: a traumatic, normocephalic. EYES: e jojo, perrla, anicteric, conjugate. EARS: n ormal. NOSE: s eptum intact. ORAL CAVITY: n ormal, unremarkable. NECK/THYROID: n o jugular venous distention, no carotid bruit, thyroid normal. LYMPH NODES: n o enlarged lymph nodes,spleen normal. SKIN: n o suspicious lesions, anicteric. HEART: n o clicks, gallops, murmurs, or rubs, regular rhythm, S1, S2 normal, no s3, or vascular bruits. LUNGS: c lear to auscultation . BREASTS: N ot examined. ABDOMEN: b owel sounds normal, no ascites, no organomegaly, no mass, centripital obesity. RECTAL EXAM: n ot examined. MUSCULOSKELETAL: e xtremities unremarkable, no clubbing, cyanosis or edema. PERIPHERAL PULSES: n ormal. NEUROLOGIC: a lert and oriented, cranial nerves 2-12 grossly intact, deep tendon reflexes 2+ symmetrical, motor strength normal upper and lower extremities, sensory exam intact. PSYCH: a lert, oriented, mood depressed. ? Assessment: * Assessment: 1. T ype 2 diabetes mellitus without complications - E11.9 (Primary) N otes :She has been compliant with her medications. She has not had blood work done but it was ordered today to be done in the next week. Her hemoglobin A1c was 6.8.Her blood sugar was 129. I have increased the dose of Ozempic to 0.5 mg weekly 2 . F ormer smoker - Z87.891 N otes :She is highly motivated not to smoke and we discussed strategies for maintenance of abstinence. 3 . D epression - F32.9 N otes :Her depression is much better. No change in her medication was made. 4 . H earing loss, bilateral - H91.93 N otes :She did not have her hearing aids today. They are being repaired. She will wear them on her next visit. There is been no change in her hearing loss. 5 . L ow back pain - M54.5 N otes :Her back pain is mild and stable and she is conducting all of the activities of daily life without impairment. No change in her regimen was needed. 6 . C ervical dysplasia - N87.9 N otes :She says she has an upcoming appointment with her field sales agent. She wished to defer her pelvic examination and rectal examination to the field sales agent. Her breast examination was unremarkable. 7 . H yperlipidemia type II - E78.0 N otes :Most recent fasting total cholesterol was 199. A fasting lipid profile has been ordered today. No change in her medications was made today. 8 . A sthma - J45.909 N otes :She is breathing comfortably today on room air. No change in her regimen was needed. 9 . M orbid obesity - E66.01 N otes :Her weight is stable and unchanged. Her body mass index is 43. We have reviewed her weight loss strategy today. We have reviewed her diet and nutrition. We have discussed lifestyle modifications.I all stopped her trulicity. She began Ozempic. Plan: * Treatment: 2. O thers Continue One Touch Delica Lancets Miscellaneous, -, Check blood sugar 4 times a day, Notes to Pharmacist: E11.9 Type 2 Diabetes; C ontinue Omeprazole Capsule Delayed Release, 20 MG, TAKE 1 CAPSULE BY MOUTH DAILY; C ontinue Pioglitazone HCl Tablet, 15 MG, TAKE 1 TABLET BY MOUTH EVERY DAY.? * Procedure Codes: * Preventive Medicine: Counseling: C are goal follow-up plan: Counseling for abnormal BMI given Y es Above Normal BMI Follow-up D ietary management education, guidance, and counseling, Dietary needs education, Exercise promotion: strength training, Exercise promotion: stretching, Feeding regime, Giving encouragement to exercise, Lifestyle education regarding diet, Nutrition / feeding management, Nutrition therapy, Prescribed activity/exercise education, Prescribed diet education, Prescribed dietary intake, Special diet education, Weight monitoring , Intervention, Order not done: Medical or Other reason not done S moking/Tobacco Use Patient counseled on the dangers of tobacco use and urged to quit. 0 01/13/2025 DM Care Plan: P atient Lifestyle Goals P atient wants to be able to manage diabetes without too much effort. T reatment Goals H bA1C < 7.0, Blood Sugars less than < 115. B arriers n o barriers. S elf-Managment Goals W ork on weight loss, with a goal of losing 1 lb per week. * Follow Up: 4 Weeks (Reason: OV) * Images: * Sign off status: Completed true * Provider: Otto Conteh MD Date: 0 01/13/2025 Generated for Yovani rod/Zo/Melony on: 0 05/01/2025 11:43 AM EDT History and Physical Notes * HPI (History of Present Illness) Category Sub-Category Detail Notes COVID-19 Screening Questions Have you had any new onset fever, chills, cough, congestion, sore throat, shortness of breath, muscle aches?: No Examination Category Sub-Category Detail Notes General Examination GENERAL APPEARANCE: pleasant , well nourished, well developed, in no acute distress, calm and relaxed, obese, woman HEAD: atraumatic, normocep halic EYES: eomi, perrla, anicte jenny, conjugate EARS: normal NOSE: septum intact NECK/THYROID: no jugular venous di stention, no carotid bruit, thyroid normal HEART: no clicks, gallops, murmurs, or rubs, regular rhythm, S1, S2 normal, no s3, or vascular bruits LUNGS: clear to auscultatio n ABDOMEN: bowel sounds normal, no ascites, no organomegaly, no mass, centripital obesity NEUROLOGIC: alert and oriented, cranial nerves 2-12 grossly intact, deep tendon reflexes 2+ symmetrical, motor strength normal upper and lower extremities, sensory exam intact SKIN: no suspicious lesion s, anicteric PERIPHERAL PULSES: normal BREASTS: Not examined MUSCULOSKELETAL: extremities unremark able, no clubbing, cyanosis or edema LYMPH NODES: no enlarged lymph no gaurav,spleen normal RECTAL EXAM: not examined PSYCH: alert, oriented, moo d depressed ORAL CAVITY: normal, unremarkable
--- OUTSIDE RECORDS SUMMARY | 2025-02-19 07:15 | XMS_ITS ---
Author Organization Aureliano Conteh III, MD Address [address] [address] Care Team Providers Care Sales Merchandise Associate Name Role Phone Aureliano Conteh Primary Care Provider [phone] Allergies Allergen (clinical drug ingredient) Drug/Non Drug [...] E11.9 Type 2 Diabetes 06/04/2024 Active Nystatin 440520 UNIT/GM APPLY TOPICALLY TO THE AFFECTED AREA [...] Date Provider Diagnosis Aureliano Conteh III, MD [address] [place] [address] [address] [place], [place] [phone] 02/19/2025 Aureliano Conteh Former smoker Z87.89 1 [...] 20 MG TAKE 1 CAPSULE BY MO [facility] DAILY Nebulizer Mask Adult - as directed - use three times daily 04/16/2023 Alcohol Prep Pad none - - use to check b lood sugars four times a day 05/19/2018 One Touch Delica Lancets - Check blood sugar 4 times a day 06/04/2024 E11.9 Type 2 Diabetes Nystatin 868607 UNIT/GM APPLY TOPICALLY TO THE AFFECTED AREA TWICE DAILY Externally Twice a day Metoprolol Succinate ER 25 MG TAKE 1 TABLET BY MOUTH DAILY Atorvastatin Calcium 10 MG 1 tablet Orally Once a day Next Appt Details Follow Up: 6 Weeks, Reason: OV Provider Name:Aureliano Conteh, 05/29/2025 10:00:00 AM, [address] [place] [address] [address], [place], [phone], Provider Name:Aureliano Conteh, 12/18/2025 02:15:00 PM, [address] [place] [address] [place] [place]IM[place], [place], [phone], Progress Notes * Yareli CALHOUN HDOB:[birth year] (69 yo F)Acc No.[id number]:02/19/2025 Progress Notes Patient: Yareli WALSH Provider: Otto Conteh MD :1955 A ge:69 Y S ex:Female Date:02/19/2025 Address:[address] [place] [address], [id number] Subjective: * Chief Complaints: * O besityOzempic [...] working at this time. 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 * Medications: T akingAtorvastatin Calcium 10 MG Tablet 1 tablet Orally Once a day Metoprolol Succinate ER 25 MG Tablet Extended Release 24 Hour TAKE 1 TABLET BY MOUTH DAILY Nystatin 422187 UNIT/GM Cream APPLY TOPICALLY TO THE AFFECTED [...] 1 TABLET BY MOUTH DAILY Taking Nystatin 292252 UNIT/GM Cream APPLY TOPICALLY TO THE AFFECTED [...] 0 02/19/2025 Generated for Yovani rod/Zo/Angelaitting on: 05/01/2025 11:44 AM EDT History and Physical Notes * [...] edema LYMPH NODES: no enlarged lymph no gauarv,spleen normal RECTAL EXAM: not examined PSYCH: alert, oriented ORAL CAVITY: normal, unremarkable
--- OUTSIDE RECORDS SUMMARY | 2025-04-03 05:45 | XMS_ITS ---
Author Organization Aureliano Conteh III, MD Address [address] [place] [address] Care Team Providers Care Agency Cashier Name Role Phone Aureliano Conteh Primary Care Provider Allergies Allergen (clinical drug ingredient) Drug/Non Drug Allergy documented on EMR Reaction Allergy Type Onset Date Status Ragweed Unknown Allergy Active Cat dander Cat Dander Unknown Allergy Active Latex Gloves Unknown Drug Allergy Acti ve Flexeril Unknown Drug Allergy Active REASON FOR VISIT Depression, Hearing loss, Diabetes, Hyperlipidemia, Osteopenia, Obesity Medications Medication SIG (Take, Route, Frequency, Duration) Notes Start Date End Date Status Trulicity 1.5 MG/0.5ML as directed Subcutaneous Active Pioglitazone HCl 15 MG TAKE 1 TABLET BY MOUTH EVERY DAY Active Ozempic (0.25 or 0.5 MG/DOSE) 2 MG/3ML 0.5 mg Subcutaneous weekly disp one month supply woitjh needles please 09/11/2024 Active Osteo Bi-Flex One Per Day - as directed Orally Active Albuterol Sulfate HFA 108 (90 Base) MCG/ACT 1 puff as needed Inhalation every 4 hrs 01/22/2024 Active All-In-One Nebulizer System - as directed - use three times a day 04/16/2023 Active Albuterol Sulfate (2.5 MG/3ML) 0.083% 3 ml Inhalation Three times a day 02/06/2017 Active Nebulizer Mask Adult - as directed - use three times daily 04/16/2023 Active Caltrate 600+D Activ e Omeprazole 20 MG TAKE 1 CAPSULE BY MOUTH DAILY Active Atorvastatin Calcium 10 MG 1 tablet Orally Once a day Active Nystatin 440551 UNIT/GM APPLY TOPICALLY TO THE AFFECTED AREA TWICE DAILY Externally Twice a day Active Metoprolol Succinate ER 25 MG TAKE 1 TABLET BY MOUTH DAILY Active Alcohol Prep Pad none - - use to check blood sugars four times a day 05/19/2018 Active One Touch Delica Lancets - Check blood sugar 4 times a day E11.9 Type 2 Diabetes 06/04/2024 Active Social History Tobacco Use: Social History [...] Additional Findings: Tobacco non-user Ex-cigaret te smoker Problems Problem Type SNOMED Code ICD Code Onset Dates Problem Status W/U Status Risk Notes Problem 841909011 Osteopenia of hip, unspecified laterality (M85.859) Active confirmed She will continue on vitamin D and calcium. Vital Signs Temperature 97.4 degrees Fahrenheit 04/03/20 25 Blood pressure systolic 136 mm Hg 04/03/20 25 Blood pressure diastolic 77 mm Hg 025 Heart Rate 81 /min 04/03/2025 Height 61 in 04/03/2025 Weight 210 lbs 04/03/2025 BMI 39.67 kg/m2 04/03/2025 Encounters Encounter Location Date Provider Diagnosis Aureliano Conteh III, MD [address] [place] [address] [address] [place], [place] [address] 04/03/2025 Aureliano Conteh Obesity E66.9 ; Type 2 diabetes mellitus without complications E11.9 ; Former smoker Z87.891 ; Hearing loss, bilateral H91.93 ; Depression F32.9 ; Low back pain M54.5 ; Cervical dysplasia N87.9 ; Atypical lobular hyperplasia of breast N62 ; Varicose veins of bilateral lower extremities with other complications I83.893 ; Osteopenia of spine M85.88 and Osteopenia of hip, unspecified laterality M85.859 Assessments Encounter Date Diagnosis (ICD Code) Assessment Notes Treat ment Notes Treatment Clinical Notes 04/03/2025 Obesity (ICD-10 - E66.9) She continues to lose weight on the current dose of Ozempic. No changes in her regimen were made. Her only side effect is mild nausea infrequently and occasional loose stools not more than once a day. 04/03/2025 Type 2 diabetes mellitus without complications (ICD-10 - E11.9) She has been compliant with her medications. She has not had blood work done but it was ordered today to be done in the next week. Her hemoglobin A1c was 6.8.Her blood sugar was 129. I have increased the dose of Ozempic to 0.5 mg weekly 04/03/2025 Former smoker (ICD-10 - Z87.891) She is highly motivated not to smoke and we discussed strategies for maintenance of abstinence. 04/03/2025 Hearing loss, bilateral (ICD-10 - H91.93) She did not have her hearing aids today. They are being repaired. She will wear them on her next visit. There is been no change in her hearing loss. 04/03/2025 Depression (ICD-10 - F32.9) Her depression is much better. No change in her medication was made. 04/03/2025 Low back pain (ICD-10 - M54.5) Her back pain is mild and stable and she is conducting all of the activities of daily life without impairment. No change in her regimen was needed. 04/03/2025 Cervical dysplasia (ICD-10 - N87.9) She says she has an upcoming appointment with her installer apprentice. She wished to defer her pelvic examination and rectal examination to the installer apprentice. Her breast examination was unremarkable. 04/03/2025 Atypical lobular hyperplasia of breast (ICD-10 - N62) There is no sign of breast cancer. She has completed 5 years of tamoxifen as a preventative and the drug was discontinued at this time. 04/03/2025 Varicose veins of bilateral lower extremities with other complications (ICD-10 - I83.893) We discussed compression hose. She will obtain a pair of those are new symptoms. She willl then reportt back. 04/03/2025 Osteopenia of spine (ICD-10 - M85.88) He was continued on her regimen of calcium tablets and vitamin D. 04/03/2025 Osteopenia of hip, unspecified laterality (ICD-10 - M85.859) She will continue on vitamin D and calcium. Plan Of Treatment Medication Medication Name Sig Start Date Stop Date Notes Trulicity 1.5 MG/0.5ML as directed Subcutaneous Pioglitazone HCl 15 MG TAKE 1 TABLET BY MOUTH EVERY DAY Ozempic (0.25 or 0.5 MG/DOSE) 2 MG/3ML 0.5 mg Subcutaneous weekly 09/11/2024 disp one month supply woit needles please Osteo Bi-Flex One Per Day - as directed Orally Albuterol Sulfate HFA 108 (90 Base) MCG/ACT 1 puff as needed Inhalation every 4 hrs 01/22/2024 All-In-One Nebulizer System - as directed - use three times a day 04/16/2023 Albuterol Sulfate (2.5 MG/3ML) 0.083% 3 ml Inhalation Three times a day 02/06/2017 Nebulizer Mask Adult - as directed - use three times daily 04/16/2023 Caltrate 600+D Omeprazole 20 MG TAKE 1 CAPSULE BY MO UTH DAILY Atorvastatin Calcium 10 MG 1 tablet Orally Once a day Nystatin 426291 UNIT/GM APPLY TOPICALLY TO THE AFFECTED AREA TWICE DAILY Externally Twice a day Metoprolol Succinate ER 25 MG TAKE 1 TABLET BY MOUTH DAILY Alcohol Prep Pad none - - use to check b lood sugars four times a day 05/19/2018 One Touch Delica Lancets - Check blood sugar 4 times a day 06/04/2024 E11.9 Type 2 Diabetes Next Appt Details Follow Up: 6 Weeks, Reason: ov Provider Name:Aureliano Conteh, 05/29/2025 10:00:00 AM, [address] [facility] [place], [address], Provider Name:Aureliano Conteh, 12/18/2025 02:15:00 PM, [address] [facility] [place], [address], Progress Notes * Yareli CALHOUN:[birth year] (69 yo F)Acc No.[id number]:04/03/2025 Progress Notes Patient: Yareli WALSH Provider: Otto Conteh MD :1955 A ge:69 Y S ex:Female Date:04/03/2025 Address:[address] [place] [address], [id number] Subjective: * Chief Complaints: * D epressionHearing lossDiabetesHyperlipidemiaOsteopeniaObesity * HPI: C OVID-19 Screening: She returns for ongoing medical management. She recently had a mammogram as well as a colonoscopy. She was found to have tubular adenomas. She is feeling healthy and well today.Her weight and blood pressure are stable. She is trying to consume a healthy diet and lose weight.? She has joined a gym. She has no new complaints. She has been compliant with her medications. Questions H ave you had any new [...] have been noted. G enitourinary: Frequent urination a t night. M usculoskeletal: Muscle aches d enies. P ainful joints d enies. S ciatica d enies. W eakness d enies. S kin: Itching d enies. R rosa isela d enies. S kin lesion(s)?denies. N eurologic: Difficulty speaking d enies. D izziness d enies.?Headache d enies. L ow back pain d enies. P sychiatric: Depressed mood d enies. * Medical History: * Surgical History: p artial hystererectomy 08/04/2003thyroglossal cystectomy laser surgery of cervix, precancer tubal ligation bilateral reduction mammoplasty January 2014Gallbaldder surgery 03/2020No history * Hospitalization/Major Diagno stic Procedure: c hest pain [facility] 05/10/2018No history * Family History: F ather: [...] working at this time. 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 * Medications: T akingAtorvastatin Calcium 10 MG Tablet 1 tablet Orally Once a day Metoprolol Succinate ER 25 MG Tablet Extended Release 24 Hour TAKE 1 TABLET BY MOUTH DAILY Nystatin 735200 UNIT/GM Cream APPLY TOPICALLY TO THE AFFECTED [...] 1 TABLET BY MOUTH DAILY Taking Nystatin 001966 UNIT/GM Cream APPLY TOPICALLY TO THE AFFECTED [...] the patient * Allergies: F lexerilLatex GlovesCat Renukano[Allergies Verified] Objective: * Vitals: H t: 61, Wt:210, BMI:39.67, BP:136/77, HR:81, Temp:97.4, Ht-cm: 154.94, Wt-k.25. * P ast Orders: L ab:Pathology (Order Date - 02/12/2025) (Collection Date & Time - 02/12/2025 08:56 AM) L ab:Glucose, Whole Blood (Order Date - 02/12/2025) (Collection Date & Time - 02/12/2025 08:02 AM) Value Reference Range Glucose, Whole Blood 147 H 60-115 - mg/dL * Examination: G eneral Examination: GENERAL APPEARANCE: p leasant, well nourished, well developed, in no acute distress, calm and relaxed: overweight: woman. HEAD: a traumatic, normocephalic. EYES: e jojo, perrla, anicteric, conjugate. EARS: N ormal anatomy without cerumen with bilateral hearing loss wearing hearing aids. NOSE: s eptum intact. ORAL CAVITY: n [...] sounds normal, no ascites, no organomegaly, no mass: overweight: soft, nontender, nondistended: no rebound tenderness. RECTAL EXAM: n ot examined. MUSCULOSKELETAL: e [...] Ozempic to 0.5 mg weekly 2 . O besity - E66.9 N otes :She continues to lose weight on the current dose of Ozempic. No changes in her regimen were made. Her only side effect is mild nausea infrequently and occasional loose stools not more than once a day. 3 . F ormer smoker - Z87.891 N otes :She is highly motivated not to smoke and we discussed strategies for maintenance of abstinence. 4 . H earing loss, bilateral - H91.93 N otes :She did not have her hearing aids today. They are being repaired. She will wear them on her next visit. There is been no change in her hearing loss. 5 . D epression - F32.9 N otes :Her depression is much better. No change in her medication was made. 6 . L ow back pain - M54.5 N otes :Her back pain is mild and stable and she is conducting all of the activities of daily life without impairment. No change in her regimen was needed. 7 . C ervical dysplasia - N87.9 N otes :She says she has an upcoming appointment with her installer apprentice. She wished to defer her pelvic examination and rectal examination to the installer apprentice. Her breast examination was unremarkable. 8 . A typical lobular hyperplasia of breast - N62 N otes :There is no sign of breast cancer. She has completed 5 years of tamoxifen as a preventative and the drug was discontinued at this time. 9 . V aricose veins of bilateral lower extremities with other complications - I83.893 N otes :We discussed compression hose. She will obtain a pair of those are new symptoms. She willl then reportt back. 1 0. O steopenia of spine - M85.88 N otes :He was continued on her regimen of calcium tablets and vitamin D. 1 1. O steopenia of hip, unspecified laterality - M85.859 N otes :She will continue on vitamin D and calcium. Plan: * Treatment: 2. O thers Continue [...] tobacco use and urged to quit. 0 04/03/2025 DM Care Plan: P atient Lifestyle Goals P atient wants to be able to manage diabetes without too much effort. T reatment Goals B lood Sugars less than < 115, HbA1C < 7.0. B arriers n o barriers. S elf-Managment Goals W ork on weight loss, with a goal of losing 1 lb per week. * Follow Up: 6 Weeks (Reason: ov) * Images: * Sign off status: Completed true * Provider: Otto Conteh MD Date: 0 04/03/2025 Generated for Yovani rod/Zo/Angelaitting on: 0 05/01/2025 11:44 AM EDT History and Physical Notes * HPI (History of Present Illness) Category Sub-Category Detail Notes COVID-19 Screening Questions Have you had any new onset fever, chills, cough, congestion, sore throat, shortness of breath, muscle aches?: No Examination Category Sub-Category Detail Notes General Examination GENERAL APPEARANCE: pleasant , well nourished, well developed, in no acute distress, calm and relaxed: overweight: woman HEAD: atraumatic, normocep halic EYES: eomi, perrla, anicte jenny, conjugate EARS: Normal anatomy witho ut cerumen with bilateral hearing loss wearing hearing aids NOSE: septum intact NECK/THYROID: no jugular venous di stention, no carotid bruit, thyroid normal HEART: no clicks, gallops, murmurs, or rubs, regular rhythm, S1, S2 normal, no s3, or vascular bruits LUNGS: clear to auscultatio n ABDOMEN: bowel sounds normal, no ascites, no organomegaly, no mass: overweight: soft, nontender, nondistended: no rebound tenderness NEUROLOGIC: alert and oriented, cranial nerves 2-12 [...]
--- OUTSIDE RECORDS SUMMARY | 2025-04-17 07:26 | XMS_ITS ---
Author Organization Aureliano Conteh III, MD Address [address] [facility] [place] [address] Care Team Providers Care Surgical Services Asst Name Role Phone Aureliano Conteh Primary Care Provider REASON FOR VISIT PT 1 Request Social History Sex Assigned At : Social History Observation Description Sex Assigned At Female Encounters Encounter Location Date Provider Diagnosis Aureliano Conteh III, MD [address] [place] [address] [place] [address] 04/17/2025 Aureliano Conteh Plan Of Treatment Next Appt Details Provider Name:Aureliano Conteh, 05/29/2025 10:00:00 AM, [address] [place] [address] [place], [address], Provider Name:Aureliano Conteh, 12/18/2025 02:15:00 PM, [address] [place] [address] [place], [address], Progress Notes * Yareli CALHOUN HDOB:[birth year] (69 yo F)Acc No.[id number]:04/17/2025 Patient: Yareli WALSH :1955 A ge:69 Y S ex:Female Address:[address] [place] [address], [phone] * true * Date: Generated for Yovani rod/Zo/Angelaitting on: 0 05/01/2025 11:43 AM EDT
--- OUTSIDE RECORDS SUMMARY | 2025-05-01 05:30 | XMS_ITS ---
Author Organization Aureliano Conteh III, MD Address [address] [place] [address] Care Team Providers Care Oracle Database Architect Name Role Phone Aureliano Conteh Primary Care Provider [phone] Allergies Allergen (clinical drug ingredient) Drug/Non Drug Allergy documented on EMR Reaction Allergy Type Onset Date Status Ragweed Unknown Allergy Active Cat dander Cat Dander Unknown Allergy Active Latex Gloves Unknown Drug Allergy Acti ve Flexeril Unknown Drug Allergy Active REASON FOR VISIT Follow up, Left leg pain Medications Medication SIG (Take, Route, Frequency, Duration) [...] 1 CAPSULE BY MOUTH DAILY Active Nystatin 040941 UNIT/GM APPLY TOPICALLY TO THE AFFECTED AREA [...] has it been since you last smoked? Caioa ter than 10 years Additional Findings: Tobacco non-user Ex-cigaret te smoker Vital Signs Temperature 97.7 degrees Fahrenheit 05/01/20 25 Blood pressure systolic 128 mm Hg 05/01/20 25 Blood pressure diastolic 63 mm Hg 025 Heart Rate 76 /min 05/01/2025 Height 61 in 05/01/2025 Weight 211 lbs 05/01/2025 BMI 39.86 kg/m2 05/01/2025 Encounters Encounter Location Date Provider Diagnosis Aureliano Conteh III, MD [address] [place] [address] [place] [address] 05/01/2025 Aureliano Conteh Former smoker Z87.89 1 ; Left leg pain M79.605 ; Type 2 diabetes mellitus without complications E11.9 ; Obesity E66.9 and Hyperlipidemia type II E78.01 Assessments Encounter Date Diagnosis (ICD Code) Assessment Notes Treat ment Notes Treatment Clinical Notes 05/01/2025 Former smoker (ICD-1 0 - Z87.891) She is highly motivated not to smoke and we discussed strategies for maintenance of abstinence. 05/01/2025 Left leg pain (ICD-1 0 - M79.605) 05/01/2025 Type 2 diabetes mellitus without complications (ICD-10 - E11.9) 05/01/2025 Obesity (ICD-10 - E66.9) 05/01/2025 Hyperlipidemia type II (ICD-10 - E78.01) Plan Of Treatment Medication Medication Name Sig [...] disp one month supply woit needles please All-In-One Nebulizer System - as [...] 20 MG TAKE 1 CAPSULE BY MO PAH DAILY Nystatin 887547 UNIT/GM APPLY TOPICALLY TO THE AFFECTED AREA TWICE DAILY Externally Twice a day One Touch Delica Lancets - Check blood sugar 4 times a day 06/04/2024 E11.9 Type 2 Diabetes Pending Test Test Name Order Date PROFILE, FASTING (COMPREHENSIVE METABOLI C) 05/01/2025 CBC w DIFF 05/01/2025 US LEG LT VENOUS DOPPLER 05/01/2025 Lipid Panel 05/01/2025 Next Appt Details Follow Up: 4 Weeks, Reason: OV Provider Name:Aureliano Conteh, 05/29/2025 10:00:00 AM, [address] [place] [address] [place], [place], [id number], Provider Name:Aureliano Conteh, 12/18/2025 02:15:00 PM, [address] [place] [address] [place], [place], [phone], Progress Notes * Yareli CALHOUN HDOB:[birth year] (69 yo F)Acc No.[id number]:05/01/2025 Progress Notes Patient: Yareli WALSH Provider: Otto Conteh MD :1955 A ge:69 Y S ex:Female Date:05/01/2025 Address:[address] [place] [address] [place], [id number] Subjective: * Chief Complaints: * 1 . Follow up. 2. Left leg pain. * HPI: C OVID-19 Screening: ssaw vein doc squeezed left leg and it hurts a while ago diarrhea frpom ozempi. Questions H ave you had any new onset fever, chills, cough, congestion, sore throat, shortness of breath, muscle aches? N o * ROS: G eneral/Constitutional: pain o nly normal aches and pains. C hills d enies.?Fatigue a dmits. F ever d enies. E NT: Decreased hearing d enies. R espiratory: Cough d enies. C ardiovascular: Chest pain with exertion d enies. D yspnea on exertion?denies. S hortness of breath d enies. G astrointestinal: Constipation d enies. D ecreased appetite d enies.?Diarrhea d enies. H eartburn d enies. N ausea d enies. R ectal bleeding?denies. V omiting d enies. H ematology: bruising [...] Depressed mood d enies. * Medical History: A sthma, Depression, Obesity, Low back pain, Cervical dysplasia, Thyroglosal cyst, Hearing loss, Chronic upper back and neck pain, Bilateral breast pain., Atypical lobular hyperplasia, AODM, 2017 noncardiac chest pain, Osteoporosis January 2022, Diabetes. * Surgical History: p artial hystererectomy 08/04/2003, thyroglossal cystectomy , laser surgery of cervix, precancer , tubal ligation , bilateral reduction mammoplasty January 2014, Gallbaldder surgery 03/2020, No history . * Hospitalization/Major Diagno stic Procedure: c hest pain [facility] 05/10/2018, No history . * Family History: F ather: 52 yrs, [...] working at this time. 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 She was born in [place], [place]. * Medications: T aking Atorvastatin Calcium 10 MG Tablet 1 tablet Orally Once a day , Taking Metoprolol Succinate ER 25 MG Tablet Extended Release 24 Hour TAKE 1 TABLET BY MOUTH DAILY , Taking Nystatin 482693 UNIT/GM Cream APPLY TOPICALLY TO THE AFFECTED AREA TWICE DAILY Externally Twice a day , Taking One Touch Delica Lancets - Miscellaneous Check blood sugar 4 times a day , Notes to Pharmacist: E11.9 Type 2 Diabetes, Taking Alcohol Prep Pad none pad - - use to check blood sugars four times a day , Taking Omeprazole 20 MG Capsule Delayed Release TAKE 1 CAPSULE BY MOUTH DAILY , Taking Caltrate 600+D , Taking Albuterol Sulfate (2.5 MG/3ML) 0.083% Nebulization Solution 3 ml Inhalation Three times a day , Taking All-In-One Nebulizer System - Miscellaneous as directed - use three times a day , Taking Nebulizer Mask Adult - Miscellaneous as directed - use three times daily , Taking Albuterol Sulfate HFA 108 (90 Base) MCG/ACT Aerosol Solution 1 puff as needed Inhalation every 4 hrs , Taking Pioglitazone HCl 15 MG Tablet TAKE 1 TABLET BY MOUTH EVERY DAY , Taking Trulicity 1.5 MG/0.5ML Solution Pen-injector as directed Subcutaneous , Taking Osteo Bi-Flex One Per Day - Tablet as directed Orally , Taking Ozempic (0.25 or 0.5 MG/DOSE) 2 MG/3ML Solution Pen- injector 0.5 mg Subcutaneous weekly , Notes to Pharmacist: disp one month supply woit needles please, Medication List reviewed and reconciled with the patient * Allergies: F lexeril, Latex Gloves, Cat Dander, Ragweed. Objective: * Vitals: H t: 61, Wt:211, [...] developed, in no acute distress, calm and relaxed. HEAD: a traumatic, normocephalic. EYES: e jojo, [...] a lert, oriented. Assessment: * Assessment: 1. F ormer smoker - Z87.891 N otes :She is highly motivated not to smoke and we discussed strategies for maintenance of abstinence. 2 . L eft leg pain - M79.605 3 . T ype 2 diabetes mellitus without complications - E11.9 4 . O besity - E66.9 5 . H yperlipidemia type II - E78.01 Plan: * Treatment: 2. L eft leg pain I maging: US LEG LT VENOUS DOPPLER 3. T ype 2 diabetes mellitus without complications L AB: PROFILE, FASTING (COMPREHENSIVE METABOLIC) L AB: CBC w DIFF L AB: Lipid Panel 4. O besity L AB: PROFILE, FASTING (COMPREHENSIVE METABOLIC) L AB: CBC w DIFF L AB: Lipid Panel 5. H yperlipidemia type II L AB: PROFILE, FASTING (COMPREHENSIVE METABOLIC) L AB: CBC w DIFF L AB: Lipid Panel 6. O thers Continue One Touch Delica Lancets Miscellaneous, -, Check blood sugar 4 times a day, Notes to Pharmacist: E11.9 Type 2 Diabetes; C ontinue Omeprazole Capsule Delayed Release, 20 MG, TAKE 1 CAPSULE BY MOUTH DAILY; C ontinue Pioglitazone HCl Tablet, 15 MG, TAKE 1 TABLET BY MOUTH EVERY DAY.? * Preventive Medicine: Counseling: C are goal [...] done: Medical or Other reason not done * Follow Up: 4 Weeks (Reason: OV) * Images: * The named appointment provid er may or may not be the originator of this progress note, and it is not deemed complete until electronically signed by the appointment provider. Sign off status: Pending * Provider: Otto Conteh MD Date: 05/01/2025 Generated for Reginai marcel/Zo/Angelaitting on: 05/01/2025 11:45 AM EDT History and Physical Notes * HPI (History of Present Illness) Category Sub-Category Detail Notes COVID-19 Screening Questions Have you had any new onset fever, chills, cough, congestion, sore throat, shortness of breath, muscle aches?: No Examination Category Sub-Category Detail Notes General Examination GENERAL APPEARANCE: pleasant , well nourished, well developed, in no acute distress, calm and relaxed HEAD: atraumatic, normocep halic EYES: eomi, perrla, [...] BREASTS: no masses palpable b ilaterally MUSCULOSKELETAL: extremities unremark able, no clubbing, cyanosis or edema LYMPH NODES: no enlarged lymph no gaurav,spleen normal RECTAL EXAM: not examined PSYCH: alert, oriented ORAL CAVITY: normal, unremarkable
[2025-05-01 13:25] LABS: MANUAL DIFF FLAG NO
[2025-05-01 13:33] LABS: Hematocrit 40.1 % (37.0-47.0); Hemoglobin 13.1 g/dl (12.0-16.0); Imm Gran Abs Auto 0.04 X10*3/uL (0.00-0.03); Imm Gran Pct Auto 0.6 % (0.0-0.4); Lymphocytes Absolute Auto 2.3 X10*3/uL (1.2-4.9); Mean Corpuscular HGB Conc 32.7 g/dl (31.0-35.0); Mean Corpuscular Hemoglobin 26.6 pg (27.0-33.0); Mean Corpuscular Volume 81.3 fL (80.0-98.0); NRBC Abs Auto 0.000 X10*3/uL (0.0-0.012); NRBC Pct Auto 0.0 /100WBC (0.0-0.2); Platelet Count 262 X10*3/uL (160-400); Red Blood Count 4.93 X10*6/uL (4.20-5.50); White Blood Count 7.0 X10*3/uL (4.8-10.8)
[2025-05-01 14:10] LABS: Alanine Aminotransferase 18 U/L (0-31); Albumin Level 3.9 g/dL (3.5-5.0); Alkaline Phosphatase 88 U/L (39-117); Anion Gap 11 (12-20); Aspartate Amino Transferase 26 U/L (5-31); Blood Urea Nitrogen 12 mg/dL (9-16); Calcium 9.4 mg/dL (8.4-10.2); Carbon Dioxide 26 mmol/L (22-29); Chloride 109 mmol/L (96-108); Cholesterol 158 mg/dL (<200); Estimated Glomerular Filt Rate > 60; HDL Cholesterol 45 mg/dL (>40); Potassium 3.7 mmol/L (3.3-5.1); Sodium 142 mmol/L (135-145); Total Protein 6.6 g/dL (6.5-8.0); Triglycerides 101 mg/dL (<150)
== END 2025-05-01 10:18 | disposition home or self-care (01) ==
LOC: HO.10HDL 10:17
PROVIDERS: Visit Provider Internal Medicine Medical Oncology
DX: E11.9 Type 2 diabetes mellitus without complications (principal); E78.5 Hyperlipidemia, unspecified; E66.9 Obesity, unspecified
CPT/HCPCS: 36415; 80053; 80061; 85025

== ENCOUNTER 2025-05-01 10:45 | Outpatient (REF) | payer MEDICARE, MEDICAID, SELFPAY ==
--- NOTE | ~2025-05-01 | US_ITS ---
EXAMINATION: US LOWER EXTREMITY VEINS LIMITED FOLLOW UP LEFT HISTORY: left leg pain COMPARISON: There are no prior studies available for comparison. TECHNIQUE: Duplex and color Doppler sonographic examination of the deep venous system of the left lower extremity was performed. FINDINGS: The common femoral, superficial femoral, and popliteal veins are patent demonstrating normal compressibility, spontaneous flow, and augmentation. There is a normal color and spectral Doppler waveform appearance of the visualized deep venous system above the knee. The posterior tibial and peroneal veins are patent. US/US venous duplex LE LT IMPRESSION: No evidence of acute DVT in the left lower extremity. Electronically signed by: Aureliano Ochoa MD 05/01/2025 11:26 AM EDT
== END 2025-05-01 10:46 | disposition home or self-care (01) ==
LOC: HO.US 10:45
PROVIDERS: PCP Internal Medicine Medical Oncology; Visit Provider Internal Medicine Medical Oncology
DX: M79.605 Pain in left leg (principal)
CPT/HCPCS: 93971

== ENCOUNTER → 2025-05-01 11:00 | Outpatient (BNV) | payer MEDICARE, MEDICAID, SELFPAY | PROVIDERS: PCP Internal Medicine Medical Oncology; Visit Provider Radiology Diagnostic Radiology | DX: M79.605 Pain in left leg (principal) | CPT/HCPCS: 93971 ==

== ENCOUNTER 2025-05-07 09:32 | Outpatient (AMB) | payer MEDICARE, MEDICAID, SELFPAY ==
--- OUTSIDE RECORDS SUMMARY | 2025-01-13 07:30 | XMS_ITS ---
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 She wished to defer her pelvic examination and rectal examination to the email operations manager. Her breast examination was unremarkable. 01/13/2025 Hyperlipidemia [...] day 06/04/2024 E11.9 Type 2 Diabetes Nystatin 947777 UNIT/GM APPLY TOPICALLY TO THE AFFECTED AREA TWICE DAILY Externally Twice a day Alcohol Prep Pad none - - use to check b lood sugars four times a day 05/19/2018 Omeprazole 20 MG TAKE 1 [facility]SULE [facility] Trulicity 1.5 MG/0.5ML as directed Subcutaneous [...] OV Provider Name:Aureliano Conteh, 05/29/2025 10:00:00 AM, [address] [place] [address] [address], [place], [phone], Provider Name:Aureliano Conteh, 12/18/2025 02:15:00 PM, [address] [place] [address] [address], [place], [phone], Progress Notes * Yareli CALHOUN HDOB:[birth year] (69 yo F)Acc No.[id number]:01/13/2025 Progress Notes Patient: Yareli WALSH Provider: Otto Conteh MD :1955 A ge:69 Y S ex:Female Date:01/13/2025 Address:[address] [place] [address], [id number] Subjective: * Chief Complaints: * D epressionHearing [...] working at this time. 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 * Medications: T akingAtorvastatin Calcium 10 MG Tablet 1 tablet Orally Once a day Metoprolol Succinate ER 25 MG Tablet Extended Release 24 Hour TAKE 1 TABLET BY MOUTH DAILY Nystatin 471210 UNIT/GM Cream APPLY TOPICALLY TO THE AFFECTED [...] Notes to Pharmacist: disp one month supply [facility] needles pleaseMedication List reviewed and reconciled with the patientTaking Atorvastatin Calcium 10 MG Tablet 1 tablet Orally Once a day Taking Metoprolol Succinate ER 25 MG Tablet Extended Release 24 Hour TAKE 1 TABLET BY MOUTH DAILY Taking Nystatin 316165 UNIT/GM Cream APPLY TOPICALLY TO THE AFFECTED [...] Notes to Pharmacist: disp one month supply [facility] needles pleaseMedication List reviewed and reconciled with [...] she has an upcoming appointment with her email operations manager. She wished to defer her pelvic examination and rectal examination to the email operations manager. Her breast examination was unremarkable. 7 . [...] 01/13/2025 Generated for Yovani rod/Zo/Melony on: 0 05/07/2025 11:11 AM EDT History and Physical Notes * [...]
--- OUTSIDE RECORDS SUMMARY | 2025-02-19 07:15 | XMS_ITS ---
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 Name Role Phone Aureliano Conteh Primary Care Provider [phone] Allergies Allergen (clinical drug ingredient) Drug/Non Drug Allergy documented on EMR Reaction Allergy Type Onset Date Status Ragweed Unknown Allergy Active Cat dander Cat Dander Unknown Allergy Active Latex Gloves Unknown Drug Allergy Acti ve Flexeril Unknown Drug Allergy Active REASON FOR VISIT Obesity, Ozempic weight loss program, Osteoporosis, Asthma, Hyperlipidemia, Diabetes, Hearing loss,Depression Medications Medication SIG (Take, Route, Frequency, Duration) Notes Start Date End Date Status Ozempic (0.25 or 0.5 MG/DOSE) 2 MG/3ML 0.5 mg Subcutaneous weekly disp one month supply woitjsamuel needles please 09/11/2024 Active Osteo Bi-Flex One Per Day - as directed Orally Active Trulicity 1.5 MG/0.5ML as directed Subcutaneous Active Pioglitazone HCl 15 MG TAKE 1 TABLET BY MOUTH EVERY DAY Active Albuterol Sulfate HFA 108 (90 Base) MCG/ACT 1 puff as needed Inhalation every 4 hrs 01/22/2024 Active All-In-One Nebulizer System - as directed - use three times a day 04/16/2023 Active Albuterol Sulfate (2.5 MG/3ML) 0.083% 3 ml Inhalation Three times a day 02/06/2017 Active Caltrate 600+D Activ e Omeprazole 20 MG TAKE 1 CAPSULE BY MOUTH DAILY Active Nebulizer Mask Adult - as directed - use three times daily 04/16/2023 Active Alcohol Prep Pad none - - use to check blood sugars four times a day 05/19/2018 Active One Touch Delica Lancets - Check blood sugar 4 times a day E11.9 Type 2 Diabetes 06/04/2024 Active Nystatin 116366 UNIT/GM APPLY TOPICALLY TO THE AFFECTED AREA TWICE DAILY Externally Twice a day Active Metoprolol Succinate ER 25 MG TAKE 1 TABLET BY MOUTH DAILY Active Atorvastatin Calcium 10 MG 1 tablet Orally Once a day Active Social History Tobacco Use: Social History [...] non-user Ex-cigaret te smoker Vital Signs Temperature 97.6 degrees Fahrenheit 02/20/20 25 Blood pressure systolic 132 mm Hg 02/20/20 25 Blood pressure diastolic 77 mm Hg 025 Heart Rate 91 /min 02/19/2025 Height 61 in 02/19/2025 Weight 211 lbs 02/19/2025 BMI 39.86 kg/m2 02/19/2025 Encounters Encounter Location Date Provider Diagnosis Aureliano Conteh III, MD [address] [place] [address] [place], [place] [id number] 02/19/2025 Aureliano Conteh Former smoker Z87.89 1 ; Type 2 diabetes mellitus without complications E11.9 ; Hearing loss, bilateral H91.93 ; Depression F32.9 ; Asthma J45.909 and Obesity E66.9 Assessments Encounter Date Diagnosis (ICD Code) Assessment Notes Treat ment Notes Treatment Clinical Notes 02/19/2025 Former smoker (ICD-10 - Z87.891) She is highly motivated not to smoke and we discussed strategies for maintenance of abstinence. 02/19/2025 Type 2 diabetes mellitus without complications (ICD-10 - E11.9) She has been compliant with her medications. She has not had blood work done but it was ordered today to be done in the next week. Her hemoglobin A1c was 6.8.Her blood sugar was 129. I have increased the dose of Ozempic to 0.5 mg weekly 02/19/2025 Hearing loss, bilateral (ICD-10 - H91.93) She did not have her hearing aids today. They are being repaired. She will wear them on her next visit. There is been no change in her hearing loss. 02/19/2025 Depression (ICD-10 - F32.9) Her depression is much better. No change in her medication was made. 02/19/2025 Asthma (ICD-10 - J45.909) She is breathing comfortably today on room air. No change in her regimen was needed. 02/19/2025 Obesity (ICD-10 - E66.9) She continues to lose weight on the current dose of Ozempic. No changes in her regimen were made. Her only side effect is mild nausea infrequently and occasional loose stools not more than once a day. Plan Of Treatment Medication Medication Name Sig Start Date Stop Date Notes Ozempic (0.25 or 0.5 MG/DOSE) 2 MG/3ML 0.5 mg Subcutaneous weekly 09/11/2024 disp one month supply woitj needles please Osteo Bi-Flex One Per Day - as directed Orally Trulicity 1.5 MG/0.5ML as directed Subcutaneous Pioglitazone HCl 15 MG TAKE 1 TABLET BY MOUTH EVERY DAY Albuterol Sulfate HFA 108 (90 Base) MCG/ACT 1 puff as needed Inhalation every 4 hrs 01/22/2024 All-In-One Nebulizer System - as directed - use three times a day 04/16/2023 Albuterol Sulfate (2.5 MG/3ML) 0.083% 3 ml Inhalation Three times a day 02/06/2017 Caltrate 600+D Omeprazole 20 MG TAKE 1 CAPSULE BY MO [facility] DAILY Nebulizer Mask Adult - as directed - use three times daily 04/16/2023 Alcohol Prep Pad none - - use to check b lood sugars four times a day 05/19/2018 One Touch Delica Lancets - Check blood sugar 4 times a day 06/04/2024 E11.9 Type 2 Diabetes Nystatin 239369 UNIT/GM APPLY TOPICALLY TO THE AFFECTED AREA TWICE DAILY Externally Twice a day Metoprolol Succinate ER 25 MG TAKE 1 TABLET BY MOUTH DAILY Atorvastatin Calcium 10 MG 1 tablet Orally Once a day Next Appt Details Follow Up: 6 Weeks, Reason: OV Provider Name:Aureliano Conteh, 05/29/2025 10:00:00 AM, [address] [place] [address] [address], [place], [phone], Provider Name:Aureliano Conteh, 12/18/2025 02:15:00 PM, [address] [place] [address] [address], [place], [phone], Progress Notes * Yareli CALHOUN HDOB:[birth year] (69 yo F)Acc No.[id number]:02/19/2025 Progress Notes Patient: Yareli WALSH Provider: Otto Conteh MD :1955 A ge:69 Y S ex:Female Date:02/19/2025 Address:[address] [place] [address], [id number] Subjective: * Chief Complaints: * O besityOzempic weight loss programOsteoporosisAsthmaHyperlipidemiaDiabetesHearing lossDepression * HPI: C OVID-19 Screening: She has lost 2 more pounds. Discussed the dose of Ozempic she should be taking his was 0.5 mg weekly. He feels generally healthy and her depression is in remission. She is not smoking. Her hearing is stable. She wants to lose faster. Her breathing has been unremarkable.She had a colonoscopy recently had an adenomatous we discussed the significance of this. Glucose levels have been acceptable. Questions H ave you had any new onset fever, chills, cough, congestion, sore throat, shortness of breath, muscle aches? N o * ROS: G eneral/Constitutional: pain o nly normal aches and pains. C hills d enies.?Fatigue a dmits. F ever d enies. E NT: Decreased hearing i n both ears. R espiratory: Cough d enies. C ardiovascular: Chest pain with exertion d enies. D yspnea on exertion?denies. S hortness of breath d enies. G astrointestinal: Constipation o ccasional. D ecreased appetite d enies. D iarrhea d enies. H eartburn c ontrolled with medications. N ausea d enies. R ectal bleeding d enies. V omiting d enies. H ematology: bruising d enies. p etechiae d enies. S wollen glands n one have been noted. G enitourinary: Frequent urination o nce a night. M usculoskeletal: Muscle aches d enies. P ainful joints d enies. S ciatica d enies. W eakness d enies. S kin: Itching d enies. R rosa isela d enies. S kin lesion(s)?denies. N eurologic: Difficulty speaking d enies. D izziness d enies.?Headache d enies. L ow back pain d enies. P sychiatric: Depressed mood w hich is [...] working at this time. 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 She was born in [place], [place]. * Medications: T akingAtorvastatin Calcium 10 MG Tablet 1 tablet Orally Once a day Metoprolol Succinate ER 25 MG Tablet Extended Release 24 Hour TAKE 1 TABLET BY MOUTH DAILY Nystatin 657186 UNIT/GM Cream APPLY TOPICALLY TO THE AFFECTED [...] Notes to Pharmacist: disp one month supply woitjh needles pleaseMedication List reviewed and reconciled with the patientTaking Atorvastatin Calcium 10 MG Tablet 1 tablet Orally Once a day Taking Metoprolol Succinate ER 25 MG Tablet Extended Release 24 Hour TAKE 1 TABLET BY MOUTH DAILY Taking Nystatin 417780 UNIT/GM Cream APPLY TOPICALLY TO THE AFFECTED [...] Notes to Pharmacist: disp one month supply woitj needles pleaseMedication List reviewed and reconciled with the patient * Allergies: F lexerilLatex GlovesCat DanderRagweedno[Allergies Verified] Objective: * Vitals: H t: 61, Wt:211, BMI:39.86, BP:132/77, HR:91, Temp:97.6, Ht-cm: 154.94, Wt-k.71. * P ast Orders: L ab:Glucose, Whole Blood (Order Date - 02/12/2025) (Collection Date & Time - 02/12/2025 08:02 AM) Value Reference Range Glucose, Whole Blood 147 H 60-115 - mg/dL L ab:Pathology (Order Date - 02/12/2025) (Collection Date & Time - 02/12/2025 08:56 AM) * Examination: G eneral Examination: GENERAL APPEARANCE: [...] normal, no s3, or vascular bruits. LUNGS: , diminished breath sounds throughout, no wheezes, rales, rhonchi, good air movement. BREASTS: , Not examined, Declined. ABDOMEN: b owel sounds normal, no ascites, no organomegaly, no mass. RECTAL EXAM: n ot examined. MUSCULOSKELETAL: e xtremities unremarkable, no clubbing, cyanosis or edema. PERIPHERAL PULSES: n ormal. NEUROLOGIC: a lert and oriented, cranial nerves 2-12 grossly intact, deep tendon reflexes 2+ symmetrical, motor strength normal upper and lower extremities, sensory exam intact. PSYCH: a lert, oriented. Assessment: * Assessment: 1. T ype 2 [...] strategies for maintenance of abstinence. 3 . H earing loss, bilateral - H91.93 N otes :She did not have her hearing aids today. They are being repaired. She will wear them on her next visit. There is been no change in her hearing loss. 4 . D epression - F32.9 N otes :Her depression is much better. No change in her medication was made. 5 . A sthma - J45.909 N otes :She is breathing comfortably today on room air. No change in her regimen was needed. 6 . O besity - E66.9 N otes :She continues to lose weight on the current dose of Ozempic. No changes in her regimen were made. Her only side effect is mild nausea infrequently and occasional loose stools not more than once a day. Plan: * Treatment: 2. O thers Continue [...] tobacco use and urged to quit. 0 02/19/2025 DM Care Plan: P atient Lifestyle Goals P atient wants to be able to manage diabetes without too much effort. T reatment Goals B lood Sugars less than < 115, HbA1C < 7.0. B arriers n o barriers. S elf-Managment Goals W ork on weight loss, with a goal of losing 1 lb per week. * Follow Up: 6 Weeks (Reason: OV) * Images: * Sign off status: Completed true * Provider: Otto Conteh MD Date: 0 02/19/2025 Generated for Yovani rod/Zo/Angelaitting on: 05/07/2025 11:11 AM EDT History and Physical [...] normal, no s3, or vascular bruits LUNGS: , diminished breath sounds throughout, no wheezes, rales, rhonchi, good air movement ABDOMEN: bowel sounds normal, no ascites, no organomegaly, no mass NEUROLOGIC: alert and oriented, cranial nerves 2-12 grossly intact, deep tendon reflexes 2+ symmetrical, motor strength normal upper and lower extremities, sensory exam intact SKIN: no suspicious lesion s, anicteric PERIPHERAL PULSES: normal BREASTS: , Not examined, Decl ined MUSCULOSKELETAL: extremities unremark able, no clubbing, cyanosis or edema LYMPH NODES: no enlarged lymph no gaurav,spleen normal RECTAL EXAM: not examined PSYCH: alert, oriented ORAL CAVITY: normal, unremarkable
--- OUTSIDE RECORDS SUMMARY | 2025-04-03 05:45 | XMS_ITS ---
Author Organization Aureliano Conteh III, MD Address [address] [facility] [place] [address] Care Team Providers Care Advanced Nursing Professor Name Role Phone Aureliano Conteh Primary Care [...] tablet Orally Once a day Active Nystatin 078418 UNIT/GM APPLY TOPICALLY TO THE AFFECTED AREA [...] Problem Status W/U Status Risk Notes Problem 147644457 Osteopenia of hip, unspecified laterality (M85.859) Active [...] Date Provider Diagnosis Aureliano Conteh III, MD [address] [place] [address] [address] [place], [place] [address] 04/03/2025 Aureliano Conteh Obesity E66.9 ; Type [...] she has an upcoming appointment with her chilling hood operator. She wished to defer her pelvic examination and rectal examination to the chilling hood operator. Her breast examination was unremarkable. 04/03/2025 Atypical [...] 1 tablet Orally Once a day Nystatin 851929 UNIT/GM APPLY TOPICALLY TO THE AFFECTED AREA [...] Provider Name:Aureliano Conteh, 05/29/2025 10:00:00 AM, [address] [facility] [place], [address], Provider Name:Aureliano Conteh, 12/18/2025 02:15:00 PM, [address] [facility] [place], [address], Progress Notes * Yareli CALHOUN:[birth year] (69 yo F)Acc No.[id number]:04/03/2025 Progress Notes Patient: Yareli WALSH Provider: Otto Conteh MD :1955 A ge:69 Y S ex:Female Date:04/03/2025 Address:[address] [place] [address], [id number] Subjective: * Chief Complaints: * D epressionHearing [...] Hospitalization/Major Diagno stic Procedure: [place] [facility] [place] * Family History: [...] working at this time. 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 * Medications: T akingAtorvastatin Calcium 10 MG Tablet 1 tablet Orally Once a day Metoprolol Succinate ER 25 MG Tablet Extended Release 24 Hour TAKE 1 TABLET BY MOUTH DAILY Nystatin 377171 UNIT/GM Cream APPLY TOPICALLY TO THE AFFECTED [...] 1 TABLET BY MOUTH DAILY Taking Nystatin 228775 UNIT/GM Cream APPLY TOPICALLY TO THE AFFECTED [...] she has an upcoming appointment with her chilling hood operator. She wished to defer her pelvic examination and rectal examination to the chilling hood operator. Her breast examination was unremarkable. 8 . [...] 04/03/2025 Generated for Yovani rod/Zo/Angelaitting on: 0 05/07/2025 11:12 AM EDT History and Physical Notes * [...]
--- OUTSIDE RECORDS SUMMARY | 2025-04-17 07:26 | XMS_ITS ---
Author Organization Aureliano Conteh III, MD Address [address] [facility] [place] [address] Care Team Providers Care Journeyman Pipe Fitter Name Role Phone Aureliano Conteh Primary Care Provider REASON FOR VISIT PT 1 Request Social History Sex Assigned At : Social History Observation Description Sex Assigned At Female Encounters Encounter Location Date Provider Diagnosis Aureliano Conteh III, MD [address] [place] [address] [place] [address] 04/17/2025 Aureliano Conteh Plan Of Treatment Next Appt Details Provider Name:Aureliano Conteh, 05/29/2025 10:00:00 AM, [address] [place] [address] [place], [address], Provider Name:Aureliano Conteh, 12/18/2025 02:15:00 PM, [address] [place] [address] [place], [address], Progress Notes * Yraeli CALHOUN HDOB:[birth year] (69 yo F)Acc No.[id number]:04/17/2025 Patient: Yareli WALSH :1955 A ge:69 Y S ex:Female Address:[address] [place] [address], [phone] * true * Date: Generated for Yovani rod/Zo/Gabesmitting on: 0 05/07/2025 11:11 AM EDT
--- OUTSIDE RECORDS SUMMARY | 2025-05-01 05:30 | XMS_ITS ---
Author Organization Aureliano Conteh III, MD Address [address] [place] [address] Care Team Providers Care Calculation Clerk Name Role Phone Aureliano Conteh Primary Care Provider Allergies Allergen (clinical drug ingredient) Drug/Non Drug Allergy documented on EMR Reaction Allergy Type Onset Date Status Ragweed Unknown Allergy Active Cat dander Cat Dander Unknown Allergy Active Latex Gloves Unknown Drug Allergy Acti ve Flexeril Unknown Drug Allergy Active Results Component Value Reference Range Notes Lipid Panel Reviewed date:05/02/2025 05:58:34 PM Interpretation: Performing Lab:[facility], [address] [place] [phone] Notes/Report: Triglycerides 101 <150 mg/dL Desirable Triglyceride: less than 150 mg/dL Borderline High Triglyceride 150-199 mg/dL High Triglyceride: 200-499 mg/dL Very High Triglyceride: greater than or equal to 5OO mg/dL Cholesterol 158 <200 mg/dL Desirable Cholesterol: less than 200 mg/dL Borderline High Cholesterol: 200-239 mg/dL High Cholesterol: greater than 239 mg/dL LDL Cholesterol Calculated 93 <100 mg/dL Desirable LDL: less than 100 mg/dL Near Optimal/Above Optimal LDL: 110-129 mg/dL Borderline High LDL: 130-159 mg/dL High LDL: 160-189 mg/dL Very High LDL: greater than or equal to 190 mg/dL HDL Cholesterol 45 >40 mg/dL Desirable HDL: greater than 40 mg/dL Note: This HDL assay may give artificially low results in patients with liver disease. REASON FOR VISIT Left leg pain, Depression, Hearing loss, Diabetes, Asthma, obesity, Hyperlipidemia Medications Medication SIG (Take, Route, Frequency, Duration) Notes Start Date End Date Status Atorvastatin Calcium 10 MG 1 tablet Orally Once a day Active Pioglitazone HCl 15 MG TAKE 1 TABLET BY MOUTH EVERY DAY Active Trulicity 1.5 MG/0.5ML as directed Subcutaneous Active Osteo Bi-Flex One Per Day - as directed Orally Active Ozempic (0.25 or 0.5 MG/DOSE) 2 MG/3ML 0.5 mg Subcutaneous weekly disp one month supply woitjh needles please 09/11/2024 Active All-In-One Nebulizer System - as directed - use three times a day 04/16/2023 Active Nebulizer Mask Adult - as directed - use three times daily 04/16/2023 Active Albuterol Sulfate HFA 108 (90 Base) MCG/ACT 1 puff as needed Inhalation every 4 hrs 01/22/2024 Active Caltrate 600+D Activ e Albuterol Sulfate (2.5 MG/3ML) 0.083% 3 ml Inhalation Three times a day 02/06/2017 Active Metoprolol Succinate ER 25 MG TAKE 1 TABLET BY MOUTH DAILY Active Alcohol Prep Pad none - - use to check blood sugars four times a day 05/19/2018 Active Omeprazole 20 MG TAKE 1 CAPSULE BY MOUTH DAILY Active Nystatin 635113 UNIT/GM APPLY TOPICALLY TO THE AFFECTED AREA TWICE DAILY Externally Twice a day Active One Touch Delica Lancets - Check [...] Problem Status W/U Status Risk Notes Problem Pain in left leg (157692425) Left leg pain (M79.605) Active confirmed A subsequent evaluation showed no DVT. This is likely an inflamed varicose vein. She is not misusing he. Vital Signs Temperature 97.7 degrees Fahrenheit 05/01/20 25 Blood pressure systolic 128 mm Hg 05/01/20 25 Blood pressure diastolic 63 mm Hg 025 Heart Rate 76 /min 05/01/2025 Height 61 in 05/01/2025 Weight 211 lbs 05/01/2025 BMI 39.86 kg/m2 05/01/2025 Encounters Encounter Location Date Provider Diagnosis Aureliano Conteh III, MD [address] [place] [address] [place] [address] 05/01/2025 Aureliano Conteh Former smoker Z87.89 1 ; Type 2 diabetes mellitus without complications E11.9 ; Left leg pain M79.605 ; Obesity E66.9 ; Depression F32.9 ; Hearing loss, bilateral H91.93 ; Low back pain M54.5 ; Cervical dysplasia N87.9 ; Hyperlipidemia type II E78.0 and Asthma J45.909 Assessments Encounter Date Diagnosis (ICD Code) Assessment Notes Treat ment Notes Treatment Clinical Notes 05/01/2025 Former smoker (ICD-1 0 - Z87.891) She is highly motivated not to smoke and we discussed strategies for maintenance of abstinence. 05/01/2025 Type 2 diabetes mellitus without complications (ICD-10 - E11.9) She has been compliant with her medications. She has not had blood work done but it was ordered today to be done in the next week. Her hemoglobin A1c was 6.8.Her blood sugar was 129. I have increased the dose of Ozempic to 0.5 mg weekly 05/01/2025 Left leg pain (ICD-1 0 - M79.605) A subsequent evaluation showed no DVT. This is likely an inflamed varicose vein. She is not misusing he. 05/01/2025 Obesity (ICD-10 - E66.9) Her weight has been stable. When she uses up the current supply of Ozempic I will increase the dose. 05/01/2025 Depression (ICD-10 - F32.9) Her depression is much better. No change in her medication was made. 05/01/2025 Hearing loss, bilateral (ICD-10 - H91.93) She did not have her hearing aids today. They are being repaired. She will wear them on her next visit. There is been no change in her hearing loss. 05/01/2025 Low back pain (ICD-1 0 - M54.5) Her back pain is mild and stable and she is conducting all of the activities of daily life without impairment. No change in her regimen was needed. 05/01/2025 Cervical dysplasia (ICD-10 - N87.9) She says she has an upcoming appointment with her special education professional. She wished to defer her pelvic examination and rectal examination to the special education professional. Her breast examination was unremarkable. 05/01/2025 Hyperlipidemia type II (ICD-10 - E78.0) Most recent fasting total cholesterol was 199. A fasting lipid profile has been ordered today. No change in her medications was made today. 05/01/2025 Asthma (ICD-10 - J45.909) She is breathing comfortably today on room air. No change in her regimen was needed. Plan Of Treatment Medication Medication Name Sig Start Date Stop Date Notes Atorvastatin Calcium 10 MG 1 tablet Orally Once a day Pioglitazone HCl 15 MG TAKE 1 TABLET BY MOUTH EVERY DAY Trulicity 1.5 MG/0.5ML as directed Subcutaneous Osteo Bi-Flex One Per Day - as directed Orally Ozempic (0.25 or 0.5 MG/DOSE) 2 MG/3ML 0.5 mg Subcutaneous weekly 09/11/2024 disp one month supply woitjh needles please All-In-One Nebulizer System - as directed - use three times a day 04/16/2023 Nebulizer Mask Adult - as directed - use three times daily 04/16/2023 Albuterol Sulfate HFA 108 (90 Base) MCG/ACT 1 puff as needed Inhalation every 4 hrs 01/22/2024 Caltrate 600+D Albuterol Sulfate (2.5 MG/3ML) 0.083% 3 ml Inhalation Three times a day 02/06/2017 Metoprolol Succinate ER 25 MG TAKE 1 TABLET BY MOUTH DAILY Alcohol Prep Pad none - - use to check b lood sugars four times a day 05/19/2018 Omeprazole 20 MG TAKE 1 CAPSULE BY MO [facility] DAILY Nystatin 700410 UNIT/GM APPLY TOPICALLY TO THE AFFECTED AREA TWICE DAILY Externally Twice a day One Touch Delica Lancets - Check blood sugar 4 times a day 06/04/2024 E11.9 Type 2 Diabetes Pending Test Test Name Order Date PROFILE, FASTING (COMPREHENSIVE METABOLI C) 05/01/2025 CBC w DIFF 05/01/2025 US LEG LT VENOUS DOPPLER 05/01/2025 Next Appt Details Follow Up: 4 Weeks, Reason: OV Provider Name:Aureliano Conteh, 05/29/2025 10:00:00 AM, [address] [place] [address] [address], [place], [address], Provider Name:Aureliano Conteh, 12/18/2025 02:15:00 PM, [address] [place] [address] [address], [place], [address], Progress Notes * Yareli CALHOUN HDOB:[birth year] (69 yo F)Acc No.[id number]:05/01/2025 Progress Notes Patient: Yareli WALSH Provider: Otto Conteh MD :1955 A ge:69 Y S ex:Female Date:05/01/2025 Address:[address] [place] [address] [id number] Subjective: * Chief Complaints: * L eft leg painDepressionHearing lossDiabetesAsthmaObesityHyperlipidemia * HPI: C OVID-19 Screening: S he came to the office today for medical management. He recently saw a vascular surgeon about her varicose veins. Her left leg was examined and squeezing has been painful ever since. The popliteal area was painful today. An ultrasound has been ordered to rule out a DVT. She is having occasional diarrhea from the Ozempic.He has not yet lost weight. Dose will be increased if she hasn't. Conference blood work was ordered today. She has not been testing her fasting glucose levels.The blood work that was done today was unremarkable and the ultrasound showed no sign of DVT in the left leg. Questions H ave you had any new onset fever, chills, cough, congestion, sore throat, shortness of breath, muscle aches? N o * ROS: G eneral/Constitutional: pain L eft calf and popliteal fossa. C hills d enies. F atigue a dmits. F ever d enies. E NT: Decreased hearing i n both ears. R espiratory: Cough d enies. C ardiovascular: Chest pain with exertion d enies. D yspnea on exertion?denies. S hortness of breath w ith exertion. G astrointestinal: Constipation o ccasional. D ecreased appetite d enies. D iarrhea t hat is infrequent. H eartburn d enies. N ausea d [...] hat is chronic. P sychiatric: Depressed mood d enies. * [...] at this time. 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 She was born in [place], [place]. * Medications: T akingAtorvastatin Calcium 10 MG Tablet 1 tablet Orally Once a day Metoprolol Succinate ER 25 MG Tablet Extended Release 24 Hour TAKE 1 TABLET BY MOUTH DAILY Nystatin 077831 UNIT/GM Cream APPLY TOPICALLY TO THE AFFECTED [...] 1 TABLET BY MOUTH DAILY Taking Nystatin 544002 UNIT/GM Cream APPLY TOPICALLY TO THE AFFECTED [...] Notes to Pharmacist: disp one month supply woit needles pleaseMedication List reviewed and reconciled with the patient * Allergies: F lexerilLatex GlovesCat DanderRagweedno[Allergies Verified] Objective: * Vitals: H t: 61, Wt:211, BMI:39.86, BP:128/63, HR:76, Temp:97.7, Ht-cm: 154.94, Wt-k.71. * P ast Orders: L ab:Pathology (Order Date - 02/12/2025) (Collection Date & Time - 02/12/2025 08:56 AM) L ab:Glucose, Whole Blood (Order Date - 02/12/2025) (Collection Date & Time - 02/12/2025 08:02 AM) Value Reference Range Glucose, Whole Blood 147 H 60-115 - mg/dL I maging:US venous duplex LE LT (Order Date - 05/01/2025) (Performed Date - 05/01/2025) Lab:[facility] [place]. Pane l Fast * Collection Date 05/01/2025 11/10/2024 07/31/2024 Collection Time 10:25 AM 11:30 AM 10:49 AM Order Date 05/01/2025 11/10/2024 07/31/2024 Sodium 142 (Ref Range: 135-145 mmol/L) 141 (Ref Range: 135-145 mmol/L) 142 (Ref Range: 135-145 mmol/L) Bilirubin Total 0.8 (Ref Range: 0.0-1.0 mg/dL) 0.9 (Ref Range: 0.0-1.0 mg/dL) 0.8 (Ref Range: 0.0-1.0 mg/dL) Aspartate Amino Transferase 26 (Ref Range: 5-31 U/L) 27 (Ref Range: 5-31 U/L) 24 (Ref Range: 5-31 U/L) Alanine Aminotransferase 18 (Ref Range: 0-31 U/L) 27 (Ref Range: 0-31 U/L) 27 (Ref Range: 0-31 U/L) Total Protein 6.6 (Ref Range: 6.5-8.0 g/dL) 6.9 (Ref Range: 6.5-8.0 g/dL) 6.9 (Ref Range: 6.5-8.0 g/dL) Albumin Level 3.9 (Ref Range: 3.5-5.0 g/dL) 3.8 (Ref Range: 3.5-5.0 g/dL) 3.9 (Ref Range: 3.5-5.0 g/dL) Alkaline Phosphatase 88 (Ref Range: 39-117 U/L) 100 (Ref Range: 39-117 U/L) 100 (Ref Range: 39-117 U/L) Potassium 3.7 (Ref Range: 3.3-5.1 mmol/L) 3.9 (Ref Range: 3.3-5.1 mmol/L) 3.8 (Ref Range: 3.3-5.1 mmol/L) Chloride 109 H (Ref Range: 96-108 mmol/L) 109 H (Ref Range: 96-108 mmol/L) 108 (Ref Range: 96-108 mmol/L) Carbon Dioxide 26 (Ref Range: 22-29 mmol/L) 25 (Ref Range: 22-29 mmol/L) 25 (Ref Range: 22-29 mmol/L) Anion Gap 11 L (Ref Range: 12-20) 11 L (Ref Range: 12-20) 13 (Ref Range: 12-20) Blood Urea Nitrogen 12 (Ref Range: 9-16 mg/dL) 8 L (Ref Range: 9-16 mg/dL) 9 (Ref Range: 9-16 mg/dL) Creatinine 0.80 (Ref Range: 0.5-1.4 mg/dL) 0.79 (Ref Range: 0.5-1.4 mg/dL) 0.85 (Ref Range: 0.5-1.4 mg/dL) Estimated Glomerular Filt Rate > 60 > 60 > 60 Glucose Fasting 123 H (Ref Range: 60-99 mg/dL) 131 H (Ref Range: 60-99 mg/dL) 129 H (Ref Range: 60-99 mg/dL) Calcium 9.4 (Ref Range: 8.4-10.2 mg/dL) 9.3 (Ref Range: 8.4-10.2 mg/dL) 9.5 (Ref Range: 8.4-10.2 mg/dL) * Lab:Complete Blood Count Aut o Diff * Collection Date 05/01/2025 11/10/2024 07/31/2024 Collection Time 10:25 AM 11:30 AM 10:49 AM Order Date 05/01/2025 11/10/2024 07/31/2024 White Blood Count 7.0 (Ref Range: 4.8-10.8 X10*3/uL) 7.6 (Ref Range: 4.8-10.8 X10*3/uL) 6.6 (Ref Range: 4.8-10.8 X10*3/uL) Red Blood Count 4.93 (Ref Range: 4.20-5.50 X10*6/uL) 5.04 (Ref Range: 4.20-5.50 X10*6/uL) 5.19 (Ref Range: 4.20-5.50 X10*6/uL) Hemoglobin 13.1 (Ref Range: 12.0-16.0 g/dl) 13.0 (Ref Range: 12.0-16.0 g/dl) 13.7 (Ref Range: 12.0-16.0 g/dl) Hematocrit 40.1 (Ref Range: 37.0-47.0 %) 41.3 (Ref Range: 37.0-47.0 %) 42.3 (Ref Range: 37.0-47.0 %) Mean Corpuscular Volume 81.3 (Ref Range: 80.0-98.0 fL) 81.9 (Ref Range: 80.0-98.0 fL) 81.5 (Ref Range: 80.0-98.0 fL) Mean Corpuscular Hemoglobin 26.6 L (Ref Range: 27.0-33.0 pg) 25.8 L (Ref Range: 27.0-33.0 pg) 26.4 L (Ref Range: 27.0-33.0 pg) Mean Corpuscular HGB Conc 32.7 (Ref Range: 31.0-35.0 g/dl) 31.5 (Ref Range: 31.0-35.0 g/dl) 32.4 (Ref Range: 31.0-35.0 g/dl) Red Cell Distribution Width 13.5 (Ref Range: 11.0-16.0 %) 14.1 (Ref Range: 11.0-16.0 %) 14.1 (Ref Range: 11.0-16.0 %) Platelet Count 262 (Ref Range: 160-400 X10*3/uL) 315 (Ref Range: 160-400 X10*3/uL) 277 (Ref Range: 160-400 X10*3/uL) Mean Platelet Volume 12.3 (Ref Range: 9.4-12.3 fL) 11.2 (Ref Range: 9.4-12.3 fL) 11.8 (Ref Range: 9.4-12.3 fL) Neutrophils Percent Auto 53.0 (Ref Range: 45-73 %) 54.1 (Ref Range: 45-73 %) 51.5 (Ref Range: 45-73 %) Imm Gran Pct Auto 0.6 H (Ref Range: 0.0-0.4 %) 0.3 (Ref Range: 0.0-0.4 %) 0.3 (Ref Range: 0.0-0.4 %) Lymphocytes Percent Auto 32.3 (Ref Range: 20-40 %) 34.0 (Ref Range: 20-40 %) 36.3 (Ref Range: 20-40 %) Monocytes Percent Auto 8.5 (Ref Range: 2-11 %) 7.6 (Ref Range: 2-11 %) 8.1 (Ref Range: 2-11 %) Eosinophils Percent Auto 4.6 H (Ref Range: 0-4 %) 3.3 (Ref Range: 0-4 %) 2.9 (Ref Range: 0-4 %) Basophils Percent Auto 1.0 (Ref Range: 0-2 %) 0.7 (Ref Range: 0-2 %) 0.9 (Ref Range: 0-2 %) NRBC Pct Auto 0.0 (Ref Range: 0.0-0.2 /100WBC) 0.0 (Ref Range: 0.0-0.2 /100WBC) 0.0 (Ref Range: 0.0-0.2 /100WBC) Neutrophils Absolute Auto 3.7 (Ref Range: 2.0-8.3 x10*3/uL) 4.1 (Ref Range: 2.0-8.3 x10*3/uL) 3.4 (Ref Range: 2.0-8.3 x10*3/uL) Imm Gran Abs Auto 0.04 H (Ref Range: 0.00-0.03 X10*3/uL) 0.02 (Ref Range: 0.00-0.03 X10*3/uL) 0.02 (Ref Range: 0.00-0.03 X10*3/uL) Lymphocytes Absolute Auto 2.3 (Ref Range: 1.2-4.9 X10*3/uL) 2.6 (Ref Range: 1.2-4.9 X10*3/uL) 2.4 (Ref Range: 1.2-4.9 X10*3/uL) Monocytes Absolute Auto 0.6 (Ref Range: 0.1-1.2 X10*3/uL) 0.6 (Ref Range: 0.1-1.2 X10*3/uL) 0.5 (Ref Range: 0.1-1.2 X10*3/uL) Eosinophils Absolute Auto 0.3 (Ref Range: 0.0-0.4 X10*3/uL) 0.3 (Ref Range: 0.0-0.4 X10*3/uL) 0.2 (Ref Range: 0.0-0.4 X10*3/uL) Basophils Absolute Auto 0.1 (Ref Range: 0.0-0.2 X10*3/uL) 0.1 (Ref Range: 0.0-0.2 X10*3/uL) 0.1 (Ref Range: 0.0-0.2 X10*3/uL) NRBC Abs Auto 0.000 (Ref Range: 0.0-0.012 X10*3/uL) 0.000 (Ref Range: 0.0-0.012 X10*3/uL) 0.000 (Ref Range: 0.0-0.012 X10*3/uL) * Lab:Lipid Panel * Collection Date 05/01/2025 11/10/2024 07/31/2024 Collection Time 10:25 AM 11:30 AM 10:49 AM Order Date 05/01/2025 11/10/2024 07/31/2024 Triglycerides 101 (Ref Range: <150 mg/dL) 143 (Ref Range: <150 mg/dL) 99 (Ref Range: <150 mg/dL) Cholesterol 158 (Ref Range: <200 mg/dL) 152 (Ref Range: <200 mg/dL) 162 (Ref Range: <200 mg/dL) LDL Cholesterol Calculated 93 (Ref Range: <100 mg/dL) 85 (Ref Range: <100 mg/dL) 100 H (Ref Range: <100 mg/dL) HDL Cholesterol 45 (Ref Range: >40 mg/dL) 39 L (Ref Range: >40 mg/dL) 43 (Ref Range: >40 mg/dL) * Examination: G eneral Examination: GENERAL APPEARANCE: p leasant, well nourished, well developed, in no acute distress, calm and relaxed: obese: woman. HEAD: a traumatic, normocephalic. EYES: e [...] LUNGS: c lear to auscultation . BREASTS: no masses palpable bilaterally. ABDOMEN: b owel sounds normal, no ascites, no organomegaly, no mass. RECTAL EXAM: n ot examined. MUSCULOSKELETAL: T enderness to palpation lateral left gastrocnemius and popliteal fossa, prominent varicose veins both legs. PERIPHERAL PULSES: n ormal. NEUROLOGIC: a lert [...] strategies for maintenance of abstinence. 3 . L eft leg pain - M79.605 N otes :A subsequent evaluation showed no DVT. This is likely an inflamed varicose vein. She is not misusing he. 4 . O besity - E66.9 N otes :Her weight has been stable. When she uses up the current supply of Ozempic I will increase the dose. 5 . D epression - F32.9 N otes :Her depression is much better. No change in her medication was made. 6 . H earing loss, bilateral - H91.93 N otes :She did not have her hearing aids today. They are being repaired. She will wear them on her next visit. There is been no change in her hearing loss. 7 . L ow back pain - M54.5 N otes :Her back pain is mild and stable and she is conducting all of the activities of daily life without impairment. No change in her regimen was needed. 8 . C ervical dysplasia - N87.9 N otes :She says she has an upcoming appointment with her special education professional. She wished to defer her pelvic examination and rectal examination to the special education professional. Her breast examination was unremarkable. 9 . H yperlipidemia type II - E78.0 N otes :Most recent fasting total cholesterol was 199. A fasting lipid profile has been ordered today. No change in her medications was made today. 1 0. A sta - J45.909 N otes :She is breathing comfortably today on room air. No change in her regimen was needed. Plan: * Treatment: 2. L eft leg pain I maging: US LEG LT VENOUS DOPPLER 3. O besity L AB: PROFILE, FASTING (COMPREHENSIVE METABOLIC) L AB: CBC w DIFF L AB: Lipid Panel (Collection Date & Time - 05/01/2025 10:25 AM) Value Reference Range T riglycerides 101 <150 - mg/dL * C holesterol 158 <200 - mg/dL * L DL Cholesterol Calculated 93 <100 - mg/dL * H DL Cholesterol 45 >40 - mg/dL 4.?Others? Continue One Touch Delica Lancets Miscellaneous, -, Check blood sugar 4 times a day, Notes to Pharmacist: E11.9 Type 2 Diabetes;?Continue Omeprazole Capsule Delayed Release, 20 MG, TAKE 1 CAPSULE BY MOUTH DAILY;?Continue Pioglitazone HCl Tablet, 15 MG, TAKE 1 TABLET BY MOUTH EVERY DAY. ? * Procedure Codes: * Preventive Medicine: Counseling: [...] tobacco use and urged to quit. 0 05/01/2025 * Follow Up: 4 Weeks (Reason: OV) * Images: * Sign off status: Completed true * Provider: Otto Conteh MD Date: 0 05/01/2025 Generated for Reginai marcel/Zo/eTransmitting on: 0 05/07/2025 11:12 AM EDT History and Physical Notes * HPI (History of Present Illness) Category Sub-Category Detail Notes COVID-19 Screening Questions Have you had any new onset fever, chills, cough, congestion, sore throat, shortness of breath, muscle aches?: No Examination Category Sub-Category Detail Notes General Examination GENERAL APPEARANCE: pleasant , well nourished, well developed, in no acute distress, calm and relaxed: obese: woman HEAD: atraumatic, normocep halic EYES: eomi, [...] lesion s, anicteric PERIPHERAL PULSES: normal BREASTS: no masses palpable b ilaterally MUSCULOSKELETAL: Tenderness to palpat ion lateral left gastrocnemius and popliteal fossa, prominent varicose veins both legs LYMPH NODES: no enlarged lymph no gaurav,spleen normal RECTAL EXAM: not examined PSYCH: alert, oriented ORAL CAVITY: normal, unremarkable
--- NOTE | 2025-05-07 10:12 | MHC.OFFVIS ---
Vital Signs 05/07/25 10:15 Height 5 ft 2 in Weight 210 lb 8.663 oz BMI 38.5 BP 125/70 Blood Pressure Location Rt brachial Position Sitting Pulse 90 Intake Visit Reasons: S/P colo Intake Note: Yareli presents in office today in follow up s/p colonoscopy. CC: Per patient she sometimes has diarrhea and other times constipation. Per patient she doesn't know if this is related to the Ozempic. 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 Accompanied by: Self / Same As Patient Allergies cyclobenzaprine (From FLEXERIL) Allergy (Severe, Verified 05/07/25 10:26) STOP BREATHING latex (LATEX) Allergy (Intermediate, Verified 05/07/25 10:26) RASH, anxiety HPI HPI S/P colo: Details: Assessment & Plan (1) Irritable bowel syndrome with diarrhea: Code(s): K58.0 - Irritable bowel syndrome with diarrhea Category: Medical (2) Family history of colon cancer in mother: Code(s): Z80.0 - Family history of malignant neoplasm of digestive organs Category: Medical Plan She had a bout of rectal bleeding that frightened her because her sister of CRC. But she also had itching and burning at the rectum so hemorrhoids are the likely cause at it was BRB. She is using OTC hemorrhoid tx with good success. She had N/V with the creon, but she is now using imodium with good control of her diarrhea. She has not yet heard re: colonoscopy, but the schedulers are behind. I encourage her to persist with this test given her FHX of crc despite her having a negative BRACA test. ROV 6 mos. Medications: New omeprazole 20 mg PO DAILY 30 caps 6RF Discontinued gqnkna-cruybcuc-bmuttnz 36,000-114,000- 180,000 unit (Creon) administer with meals and/or snacks Discontinued Reason: Doctor's Order 2 caps PO BID 120 caps 6RF K58.0 - Irritable bowel syndrome with diarrhea COLONOSCOPY 01/2025 Findings: Terminal Ileum-not intubated Cecum: AVM noted Ascending Colon: normal Transverse Colon -normal Descending Colon: x 3 sessile polyps 10 mm removed with cold snare Sigmoid Colon: moderate severe diverticulosis, x 2 sessile polyps 8-10 mm removed with cold snare Rectum: Retroflexion with small internal hemorrhoids seen, grade I with skin tag, x 2 sessile polyps 8-9 mm removed with cold snare Anorectum - normal Intervention: cold snare Impression and Post Procedure Diagnosis: diverticulosis colon polyps x 8 internal hemorrhoids Plan: High fiber diet leaflet Avoid straining at stool, epsom salts and sitz bath, anusol supps or cream Repeat Colonoscopy in 6-12 months or earlier if clinically indicated --next time try 2 d prep also adult scope with colowrap BIOPSY Received: 02/12/25 Diagnosis A. Colon, descending, polypectomies: Fragments of tubular adenomata; negative for high-grade dysplasia or carcinoma. B. Colon, sigmoid, polypectomies: - Tubular adenoma; negative for high-grade dysplasia or carcinoma. - Hyperplastic mucosal polyp. C. Rectum, polypectomies: Hyperplastic mucosal polyps TODAY'S VISIT [facility] Medical History Abnormal Pap smear of cervix Well woman exam Chronic neck and back pain DM type 2 (diabetes mellitus, type 2) GERD (gastroesophageal reflux disease) Depression Asthma Elevated cholesterol On beta luis fernando at home HTN (hypertension) Surgical History History of thyroglossal duct cyst removal Hx of bilateral breast reduction surgery Hx of colonoscopy Hx of breast lump removal Hx of cholecystectomy Hx of hysterectomy Hx of section Hx of tubal ligation Family History Maternal Aunt Bone cancer Sister Breast CA Colon cancer Father Lung cancer Mother Colon cancer Maternal Grandmother Stomach cancer Breast CA Maternal Uncle Pancreatic cancer Social History Household Members: Spouse and Family Are you a primary dialysis patient care technician to a significant other at home: No Do you presently have visiting nurse or other home services: No Alcohol intake: current Alcohol intake frequency: does not drink Patient Tobacco Use Status: Former Tobacco user Tobacco use type: Cigarette Years Smoked: patient quie 2012 Review of Systems Const Denies fatigue, Denies fever(s), Denies night sweats, Denies poor appetite and Denies weight loss Eyes Details: glasses Reports requires corrective lenses ENT Reports Normal hearing present, Denies dental pain, Denies dysphagia, Denies hearing loss, Denies mouth pain, Denies odynophagia, Denies throat swelling, Denies tongue swelling and Reports other (Dentition adequate) Card Reports no additional complaints Resp Reports no additional complaints GI Details: Denies abdominal pain, Denies melena, Denies bloating, Denies hematochezia, Reports constipation, Denies GI cramping, Denies dysphagia, Denies excessive flatus, Denies early satiety, Reports heartburn, Reports diarrhea, Denies nausea, Denies odynophagia, Denies vomiting and Denies hematemesis Skin/Breast Denies pruritus, Denies lesions, Denies rash and Denies jaundice Neuro Reports Normal hearing present and Denies Abnormal speech present Endo Denies fatigue Aller/Immun Denies throat swelling and Denies tongue swelling Physical Exam Vital Signs: Last Vital Signs Pulse 90 05/07/25 10:15 BP 125/70 05/07/25 10:15 BMI result Body Mass Index 38.5 Const General: cooperative, no acute distress, well developed and well groomed Nutritional Appearance: well nourished and obese Orientation/consciousness: oriented to person, oriented to place and oriented to time Limitations: No language barrier HEENT Head: Yes normocephalic and Yes atraumatic Eyes General: appearance normal, both eyes and all related structures Pupils: Equal, round and reactive pupils present Neck Neck: Yes normal visual inspection and Yes no lymphadenopathy Thyroid: Thyroid normal Resp Effort & Inspection: normal respiratory effort and able to speak in complete sentences Auscultation: clear to auscultation bilaterally Cardio Rate: regular rate Rhythm: regular rhythm Heart sounds: Normal, physiologic split S2 sound present Peripheral pulses: radial pulses present and posterior tibial pulses present GI Inspection: No distended, Yes Abdominal panniculus present and Yes obesity Palpation (GI): Soft to palpation, nontender, no guarding, not rigid and No hepatosplenomegaly present Percussion: Yes normal to percussion Auscultation: normal bowel sounds Rectal Exam - Female: deferred Skin General skin exam: no rashes or lesions noted, turgor normal, skin not dry, no jaundice, No spider nevi and no striae Rashes: no rashes Nails: normal Neuro General: oriented to person, oriented to place and oriented to time Cranial nerves: Yes Equal, round and reactive pupils present and Yes Normal hearing present Speech: No Abnormal speech present Extrem General: Yes normal to inspection, No clubbing, No cyanosis and No edema Psych Appearance: grossly normal and well kempt Mental Status: mental status grossly normal Speech and movement: Normal speech and movement present Affect: normal affect Attitude: cooperative Thought process: Normal thought process present and not confabulating Thought content: Normal thought content present Insight: Fair insight present (Psych) Judgement: Fair judgement present (Psych) Assessment & Plan Assessment & Plan (1) Family history of colon cancer in mother: Code(s): Z80.0 - Family history of malignant neoplasm of digestive organs Category: Medical (2) Tubular adenoma of colon: Comment: 01/2025 SCOPE= a TA is to around 10 mm repeat in 1 year; 2 TA's removed 2016; kristen. Code(s): D12.6 - Benign neoplasm of colon, unspecified Category: Medical Plan She is agreeable to the 6-12 month follow-up. The procedure was well tolerated. The results were explained and the patient is agreeable to the follow-up interval as stated. The bowel pattern has returned to normal. Education was provided to tell any 1st degree relatives about their findings to be sure that they are screened by age 45. Educated that they will be put on a recall list when it is time for their repeat scope but should they move out of state or away from the hospital they will need to remember along with their primary to repeat the procedure in a timely fashion to avoid any adverse complications. - The patient is a 70-year-old female presenting with follow-up for colonic polyps removal and gastrointestinal symptoms. - Numerous colonic polyps previously removed, with plan for a follow-up procedure in 6-12 months for residual evaluation. - History of colon cancer in the family increases vigilance for the patient?s future colonoscopic evaluations. - Weight management via Ozempic has led to a decrease from 240 to 211 pounds; no detailed regimen provided. She wants more information on a gastric sleeve and I refer her to the bariatric team for this. - Regular use of Ozempic has led to constipation followed by episodes of diarrhea, self-managed with Imodium when necessary. - Effective control of heartburn symptoms with Omeprazole; no adverse effects reported. This is prescribed by her primary care provider. -She has some stress caring for her who has leg ulcers and severe diabetes. She says he is very stubborn. Return office visit in August to make sure she gets scheduled for her colonoscopy. Coding Level of Care Code Est Pt Level 3 (67708) Diagnoses Family history of colon cancer in mother Z80.0 Tubular adenoma of colon D12.6
[2025-05-07 10:15] VITALS: BP 125/70; PULSE 90; BMI 38.5
--- OUTSIDE RECORDS SUMMARY | 2025-05-07 11:12 | XMS_ITS | Patient Health Record ---
Author Organization Aureliano Conteh III, MD Address [address] [place] [address] Care Team Providers Care Seat Maker Name Role Phone Aureliano Conteh Primary Care Provider Allergies Allergen (clinical drug ingredient) Drug/Non Drug Allergy documented on EMR Reaction Allergy Type Onset Date Status Ragweed Unknown Allergy Active Cat dander Cat Dander Unknown Allergy Active Latex Gloves Unknown Drug Allergy Acti ve Flexeril Unknown Drug Allergy Active Results Component Value Reference Range Notes Lipid Panel Reviewed date:11/12/2024 01:06:57 PM Interpretation: Performing Lab:[facility], [address] [place] [phone] Notes/Report: Triglycerides 143 <150 mg/dL Desirable Triglyceride: [...] Random Reviewed date:11/12/2024 01:06:57 PM Interpretation: Performing Lab:[facility], [address] [place] [phone] Notes/Report: Creatinine Urine 139.35 Microalbumin Urine 18.0 Microalbum/Creatinine Ratio Ur 12.9 <30 ug/mg cr Albumin/Creatinine Ratio Reference Ranges: Normal: < 30 ug/mg creatinine Microalbuminuria: 30 - 300 ug/mg creatinine Clinical Albuminuria: > 300 ug/mg creatinine Hemoglobin A1c Reviewed date:11/12/2024 01:06:57 PM Interpretation: Performing Lab:[facility], [address] [place] [phone] Notes/Report: Hemoglobin A1c % 7.0 <6.0 % [...] average glucose, using the formula of the N1B-Mnkvyvh Average Glucose study (ADAG), Diabetes Care, Vol.31,#8, Mar. 2007 Lipid Panel Reviewed date:05/02/2025 05:58:34 PM Interpretation: Performing Lab:[facility], [address] [place] [phone] Notes/Report: Triglycerides 101 <150 mg/dL Desirable Triglyceride: [...] low results in patients with liver disease. Complete Blood Count Auto Di ff Reviewed date:08/01/2024 08:35:00 AM Interpretation: Performing Lab:[facility], [address] [place] [phone] Notes/Report: White Blood Count 6.6 4.8-10.8 X10*3/uL [...] NRBC Abs Auto 0.000 0.0-0.012 X10*3/uL Comprehensive [place]. Panel Fa st Reviewed date:08/01/2024 08:35:00 AM Interpretation: Performing Lab:[facility], [address] [place] [phone] Notes/Report: Sodium 142 135-145 mmol/L Potassium 3.8 [...] Panel Reviewed date:08/01/2024 08:35:01 AM Interpretation: Performing Lab:[facility], [address] [place] [phone] Notes/Report: Triglycerides 99 <150 mg/dL Desirable Triglyceride: [...] A1c Reviewed date:08/01/2024 08:35:00 AM Interpretation: Performing Lab:[facility], [address] [place] [phone] Notes/Report: Hemoglobin A1c % 6.8 <6.0 % [...] average glucose, using the formula of the G2B-Fkmyidc Average Glucose study (ADAG), Diabetes Care, Vol.31,#8, Mar. 2007 Complete Blood Count Auto Di ff Reviewed date:11/12/2024 01:06:57 PM Interpretation: Performing Lab:[facility], [address] [place] [phone] Notes/Report: White Blood Count 7.6 4.8-10.8 X10*3/uL [...] NRBC Abs Auto 0.000 0.0-0.012 X10*3/uL Comprehensive [place]. Panel Fa st Reviewed date:11/12/2024 01:06:57 PM Interpretation: Performing Lab:[address] [phone] Notes/Report: Sodium 141 135-145 mmol/L Potassium 3.9 [...] Blood Reviewed date:02/18/2025 03:55:55 PM Interpretation: Performing Lab:[address] [phone] Notes/Report: Glucose, Whole Blood 147 60-115 mg/dL METER # : [id number] Pathology Reviewed date:02/18/2025 03:55:55 PM Interpretation: Performing Lab:[facility], [address] [facility], [place] [address] Notes/Report: ------ Name: Cosme Salvador Age/Sex: 69/F : 1955 Unit#: [id number] Attend Dr: Parish Lopez MD Re02/12/25 Status : [facility] Location: [facility] Disch: ------ SPEC : [id number] RECD : 02/12/25 STATUS: [facility] NUM: [id number] MARK: 02/12/[address] [facility] [address]: Parish Lopez MD ENTERED: 02/12/25- 51 SP TYPE: Surgical OTHR DR: Aureliano Cnoteh MD ORDERED: HE Stain/9, Gross Micro L4/3 [...] Cosme Salvador Age/Sex: 69/F : 1955 Unit#: [id number] Attend Dr: Parish Lopez MD Re02/12/25 Status : [facility] Location: [facility] Disch: ------ SPEC : [id number] RECD : 02/12/25 STATUS: [facility] NUM: [id number] MARK: 02/12/[address] [facility] [address]: Parish Lopez MD ENTERED: 02/12/25-09 51 SP TYPE: Surgical OTHR DR: Aureliano Conteh MD ORDERED: HE Stain/9, Gross Micro L4/3 IHC S/NG Disclaimer NOTE: Unless otherwi se stated, all tissue is formalin-fixed and paraffin-embedded. Some or all of the immunohistochemical tests reported herein may have been developed and their performance characteristics determined by [facility]. They have not been cleared or appr micah by the U.S. Food and Drug Administration (FDA). However, the FDA has determined that such clearance or approval is not necessary. This laboratory is certified under the Clinical Laboratory Improvement Amendments of 1988 (CLIA) as qualified to perform high comp lexity clinical laboratory testing. Copies To: Aureliano Conteh MD [address] [facility] [address] [place], [place] [id number] Parish Lopez MD [facility] [address] [place] [address] ------ Signed (signature on file) Pepe Amanda MD 02/13/25 1334 ------ END OF REPORT Complete Blood Count Auto Di ff Reviewed date:05/02/2025 05:58:34 PM Interpretation: Performing Lab:[facility], [address] [place] [phone] Notes/Report: White Blood Count 7.0 4.8-10.8 X10*3/uL Red Blood Count 4.93 4.20-5.50 X10*6/uL Hemoglobin 13.1 12.0-16.0 g/dl Hematocrit 40.1 37.0-47.0 % Mean Corpuscular Volume 81.3 80.0-98.0 fL Mean Corpuscular Hemoglobin 26.6 27.0-33.0 pg Mean Corpuscular HGB Conc 32.7 31.0-35.0 g/dl Red Cell Distribution Width 13.5 11.0-16.0 % Platelet Count 262 160-400 X10*3/uL Mean Platelet Volume 12.3 9.4-12.3 fL Neutrophils Percent Auto 53.0 45-73 % Imm Gran Pct Auto 0.6 0.0-0.4 % Lymphocytes Percent Auto 32.3 20-40 % Monocytes Percent Auto 8.5 2-11 % Eosinophils Percent Auto 4.6 0-4 % Basophils Percent Auto 1.0 0-2 % NRBC Pct Auto 0.0 0.0-0.2 /100WBC Neutrophils Absolute Auto 3.7 2.0-8.3 x10*3/uL Imm Gran Abs Auto 0.04 0.00-0.03 X10*3/uL Lymphocytes Absolute Auto 2.3 1.2-4.9 X10*3/uL Monocytes Absolute Auto 0.6 0.1-1.2 X10*3/uL Eosinophils Absolute Auto 0.3 0.0-0.4 X10*3/uL Basophils Absolute Auto 0.1 0.0-0.2 X10*3/uL NRBC Abs Auto 0.000 0.0-0.012 X10*3/uL Comprehensive [place]. Panel Fa st Reviewed date:05/02/2025 05:58:34 PM Interpretation: Performing Lab:[facility], [address] [place] [phone] Notes/Report: Sodium 142 135-145 mmol/L Potassium 3.7 3.3-5.1 mmol/L Chloride 109 96-108 mmol/L Carbon Dioxide 26 22-29 mmol/L Anion Gap 11 12-20 Blood Urea Nitrogen 12 9-16 mg/dL Creatinine 0.80 0.5-1.4 mg/dL Estimated Glomerular Filt Rate > 60 Chronic Kidney Disease: Estimated GFR < 60 mL/min/1.73m2 Severe Kidney Disease: Estimated GFR < 15 mL/min/1.73m2 Glucose Fasting 123 60-99 mg/dL A fasting glucose from 100-125 mg/dl is considered impaired (pre-diabetes). Calcium 9.4 8.4-10.2 mg/dL Bilirubin Total 0.8 0.0-1.0 mg/dL Aspartate Amino Transferase 26 5-31 U/L Alanine Aminotransferase 18 0-31 U/L Total Protein 6.6 6.5-8.0 g/dL Albumin Level 3.9 3.5-5.0 g/dL Alkaline Phosphatase 88 39-117 U/L US venous duplex LE LT Reviewed date:05/02/2025 05:58:34 PM Interpretation: Performing Lab: Notes/Report: [address] [address] Ultrasound Report Signed Patient: Yareli Salvador MR#: [id number] : 1955 Acct:[id number] Age/Sex: 69 / F ADM Date: 05/01/25 Loc: .US Attending Dr: Aureliano Conteh MD Ordering Physician: Aureliano Conteh MD Date of Service: 05/01/25 Procedure(s): US venous duplex LE LT Accession Number(s): [id number] cc: Aureliano Conteh MD Reason for Exam: left leg pain EXAMINATION: US LOWER EXTREMITY VEINS LIMITED FOLLOW UP LEFT HISTORY: left leg pain COMPARISON: There are no prior studies available for comparison. TECHNIQUE: Duplex and color Doppler sonographic examination of the deep venous system of the left lower extremity was performed. FINDINGS: The common femoral, superficial femoral, and popliteal veins are patent demonstrating normal compressibility, spontaneous flow, and augmentation. There is a normal color and spectral Doppler waveform appearance of the visualized deep venous system above the knee. The posterior tibial and peroneal veins are patent. US/US venous duplex LE LT IMPRESSION: No evidence of acute DVT in the left lower extremity. Electronically signed by: Aureliano Ochoa MD 05/01/2025 11:26 AM EDT Dictated By: Aureliano Ochoa MD Signed By: <Electronically signed by Aureliano Ochoa MD in OV> 05/01/25 1126 DD/ 1100 TD/TT: 05/01/25 111 Marine Consultant: [address] [address] Ultrasound Report Signed Patient: Lorena Salvador MR#: [id number] : 1955 Acct:[id number] Age/Sex: 69 / F ADM Date: 05/01/25 Loc: .[place] Attending Dr: Aureliano Conteh MD Ordering Physician: Aureliano Conteh MD Date of Service: 05/01/25 Procedure(s): US chiki ous duplex LE LT Accession Number(s): [id number] cc: Aureliano Conteh MD Reason for Exam: lef t leg pain EXAMINATION: US LOWE R EXTREMITY VEINS LIMITED FOLLOW UP LEFT HISTORY: left leg pain COMPARISON: There ar e no prior studies available for comparison. TECHNIQUE: Duplex an d color Doppler sonographic examination of the deep venous system o f the left lower extremity was performed. FINDINGS: The common femoral, superficial femoral, and popliteal veins are patent demonstrating normal compressibility, spontaneous flow, and augmentation. There is a normal color and spectral Doppler waveform appearance of the visualized deep venous system above the knee. The posterior tibial and peroneal veins are patent. U S/US venous duplex LE LT IMPRESSION: No evidence of acute DVT in the left lower extremity. Electronically lynette d by: Aureliano Ochoa MD 05/01/2025 11:26 AM EDT Dictated By: Aureliano Ochoa MD Signed By: <Elieser estrada signed by Aureliano Ochoa MD in OV> 05/01/25 1126 DD/ 1100 TD/TT: 05/01/25 1115 Marine Consultant: Reason For Referral Reason Consult and Treat [...] Referring Provider Speciality Internal edicine Referred Provider [facility] Audiology Referred Provider Specialty Audiologists General Notes Nikki Diana 05/27 04:52:30 PM > Faxed referral Referral Priority Routine Referral Appointment Date 11/14/2024 Reason Consult and Treat Bilateral Hearing Loss Diagnosis 1 Hearing loss, bilate ral (H91.93) Referral Organization Aureliano Conteh III, MD Referring Provider First Name Aureliano Referring Provider Last Name Yady Referring Provider Speciality Internal edicine Referred Provider [facility] Audiology Referred Provider Specialty Audiologists General Notes Nikki Maldonado 10/13/2024 01:13:57 PM > referral was faxed again per request from [facility]. Referral Priority Routine Referral Appointment Date 11/14/2024 Reason left 5th finger old fracture now pain with lump in palm evaluate and treatment Diagnosis 1 Closed nondisplaced fracture of phalanx of finger, unspecified finger, unspecified phalanx, initial encounter (S62.609A) Referral Organization Aureliano Conteh III, MD Referring Provider First Name Aureliano Referring Provider Last Name Yady Referring Provider Speciality Internal edicine Referred Provider [facility] Referred Provider Specialty Orthopedic S gamal General Notes Bibi Benoit CMA 11/11 01:28:05 PM >referral with progress note faxed to [place] [facility] pt made aware of this, Bibi Benoit CMA 11/25/2024 04:09:32 PM >I called [facility] pt has appt on 11/28/2024 at 9:15am Referral Priority Routine Referral Appointment Date 11/28/2024 Medications Medication SIG (Take, Route, Frequency, Duration) Notes Start Date End Date Status All-In-One Nebulizer System - as directed - use three times a day 04/16/2023 Active Atorvastatin Calcium 10 MG 1 tablet Orally Once a day Active Pioglitazone HCl 15 MG TAKE 1 TABLET BY MOUTH EVERY DAY Active Metoprolol Succinate ER 25 MG TAKE 1 TABLET BY MOUTH DAILY Active Trulicity 1.5 MG/0.5ML as directed Subcutaneous Active Nebulizer Mask Adult - as directed - use three times daily 04/16/2023 Active Albuterol Sulfate HFA 108 (90 Base) MCG/ACT 1 puff as needed Inhalation every 4 hrs 01/22/2024 Active Alcohol Prep Pad none - - use to check blood sugars four times a day 05/19/2018 Active Omeprazole 20 MG TAKE 1 CAPSULE BY MOUTH DAILY Active Nystatin 589719 UNIT/GM APPLY TOPICALLY TO THE AFFECTED AREA TWICE DAILY Externally Twice a day Active Osteo Bi-Flex One Per Day - as directed Orally Active One Touch Delica Lancets - Check blood sugar 4 times a day E11.9 Type 2 Diabetes 06/04/2024 Active Ozempic (0.25 or 0.5 MG/DOSE) 2 MG/3ML 0.5 mg Subcutaneous weekly disp one month supply woitjh needles please 09/11/2024 Active Caltrate 600+D Activ e Albuterol Sulfate (2.5 MG/3ML) 0.083% 3 ml Inhalation Three times a day 02/06/2017 Active Immunizations Vaccine Route Administration Date Status [...] has it been since you last smoked? Guillermo ter than 10 years Additional Findings: Tobacco non-user Ex-cigaret te smoker AUDIT-C (Standard) Question Answer Notes Did you have a drink containing alcohol in the p ast year? No Points 0 Interpretation Negative Problems Problem Type SNOMED Code ICD Code Onset Dates Problem Status W/U Status Risk Notes Problem 5062682 Former smoker (Z87.891) Active confirmed She is highly motivated not to smoke and we discussed strategies for maintenance of abstinence. Problem 560416564 Obesity (E66.9) Active confirmed Her weight has been stable. When she uses up the current supply of Ozempic I will increase the dose. Problem 329686323 Asthma (J45.909) Active confirmed She is breathing comfortably today on room air. No change in her regimen was needed. Problem 88900360 Depression (F32.9) Active confirmed Her depression is much better. No change in her medication was made. Problem 53547738 Type 2 diabetes mellitus without complications (E11.9) Active confirmed She has been compliant with her medications. She has not had blood work done but it was ordered today to be done in the next week. Her hemoglobin A1c was 6.8.Her blood sugar was 129. 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 She will obtain a pair of those are new symptoms. She willl then reportt back. Problem 297002777 Low back pain (M54.5) Active confirmed Her back pain is mild and stable and she is conducting all of the activities of daily life without impairment. No change in her regimen was needed. Problem 65315636 Hearing loss, bilateral (H91.93) Active confirmed She did not have her hearing aids today. They are being repaired. She will wear them on her next visit. There is been no change in her hearing loss. Problem 048772760 Hyperlipidemia type II (E78.0) Active confirmed Most recent fasting total cholesterol was 199. A fasting lipid profile has been ordered today. No change in her medications was made today. Problem 91306786 Cervical dysplasia (N87.9) Active confirmed She says she has an upcoming appointment with her paper bag making machinist. She wished to defer her pelvic examination and rectal examination to the paper bag making machinist. Her breast examination was unremarkable. 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 She has no difficulty swallowing or odynophagia. Problem 958660227 Atypical lobular hyperplasia of breast (N62) Active confirmed There is no sign of breast cancer. She has completed 5 years of tamoxifen as a preventative and the drug was discontinued at this time. Problem Pain in left leg (270171870) Left leg pain (M79.605) Active confirmed A subsequent evaluation showed no DVT. This is likely an inflamed varicose vein. She is not misusing he. Problem 434271750 Morbid obesity (E66.01) Active confirmed Her weight is stable and unchanged. Her body mass index is 43. We have reviewed her weight loss strategy today. We have reviewed her diet and nutrition. We have discussed lifestyle modifications .I all stopped her trulicity. She began Ozempic. Problem Pure hypercholesterolemia (129697776) Hyperlipidemia type II (E78.01) Active confirmed Problem 129397675 Osteopenia of spine (M85.88) Active confirmed He was continued on her regimen of calcium tablets and vitamin D. Problem 624027019 Osteopenia of hip, unspecified laterality (M85.859) Active confirmed She will continue on vitamin D and calcium. Vital Signs Heart Rate 76 /min 05/01/2025 Temperature 97.7 degrees Fahrenheit 05/01/2025 Blood pressure diastolic 63 mm Hg 05/01/2025 Height 61 in 05/01/2025 Blood pressure systolic 128 mm Hg 05/01/2025 Weight 211 lbs 05/01/2025 BMI 39.86 kg/m2 05/01/2025 Encounters Encounter Location Date Provider Diagnosis Aureliano Conteh III, MD [address] [place] [address] [place] [address] 05/08/2024 Aureliano Conteh Former smoker Z87.89 1 ; Type 2 diabetes mellitus without complications E11.9 ; Hyperlipidemia type II E78.0 ; Morbid obesity E66.01 ; Hearing loss, bilateral H91.93 ; Depression F32.9 ; Low back pain M54.5 and Asthma J45.909 Aureliano Conteh III, MD [address] [place] [address] [place] [address] 08/07/2024 Aureliano Conteh Former smoker Z87.89 1 ; Type 2 diabetes mellitus without complications E11.9 ; Depression F32.9 ; Hearing loss, bilateral H91.93 ; Asthma J45.909 ; Morbid obesity E66.01 and Osteoporosis M81.0 Aureliano Conteh III, MD [address] [place] [address] [place] [address] 09/11/2024 Aureliano Bustosne Former smoker Z87.89 1 ; Type 2 [...] of spine M85.88 Aureliano Conteh III, MD [address] [place] [address] [place] [address] 10/13/2024 Aureliano Kaiserrne Type 2 diabetes amor itus without complications E11.9 ; Obesity E66.9 ; Former smoker Z87.891 ; Asthma J45.909 ; Depression F32.9 and Hearing loss, bilateral H91.93 Aureliano Conteh III, MD [address] [place] [address] [place] [address] 11/10/2024 Aureliano Bustosne Former smoker Z87.89 1 ; Type 2 diabetes mellitus without complications E11.9 ; Hearing loss, bilateral H91.93 ; Depression F32.9 ; Asthma J45.909 ; Morbid obesity E66.01 and Low back pain M54.5 Aureliano Conteh III, MD [address] [place] [address] [place] [address] 12/16/2024 Aureliano Kaiserrne Former smoker Z87.89 1 ; Type 2 diabetes mellitus without complications E11.9 ; Depression F32.9 ; Hearing loss, bilateral H91.93 ; Asthma J45.909 ; Obesity E66.9 ; Osteoporosis M81.0 and Varicose veins of bilateral lower extremities with other complications I83.893 Aureliano Conteh III, MD [address] [place] [address] [place] [address] 01/13/2025 Aureliano Kaiserrne Former smoker Z87.89 1 ; Type 2 diabetes mellitus without complications E11.9 ; Depression F32.9 ; Hearing loss, bilateral H91.93 ; Low back pain M54.5 ; Cervical dysplasia N87.9 ; Hyperlipidemia type II E78.0 ; Asthma J45.909 and Morbid obesity E66.01 Aureliano Conteh III, MD [address] [place] [address] [place] [address] 02/19/2025 Aureliano Conteh Former smoker Z87.89 1 ; Type 2 diabetes mellitus without complications E11.9 ; Hearing loss, bilateral H91.93 ; Depression F32.9 ; Asthma J45.909 and Obesity E66.9 Aureliano Conteh III, MD [address] [place] [address] [place] [address] 04/03/2025 Aureliano Conteh Obesity E66.9 ; Type [...] and Osteopenia of hip, unspecified laterality M85.859 Aureliano Conteh III, MD [address] [place] [address] [place] [address] 05/01/2025 Aureliano Conteh Former smoker Z87.89 1 ; Type 2 diabetes mellitus without complications E11.9 ; Left leg pain M79.605 ; Obesity E66.9 ; Depression F32.9 ; Hearing loss, bilateral H91.93 ; Low back pain M54.5 ; Cervical dysplasia N87.9 ; Hyperlipidemia type II E78.0 and Asthma J45.909 Aureliano Conteh III, MD [address] [place] [address] [place] [address] 05/13/2024 Aureliano Conteh Former smoker Z87.89 1 Aureliano Conteh III, MD [address] [place] [address] [place] [address] 05/15/2024 Aureliano Conteh Former smoker Z87.89 1 Aureliano Conteh III, MD [address] [place] [address] [place] [address] 05/15/2024 Aureliano Conteh III, MD [address] [place] [address] [place] [address] 05/27/2024 Aureliano Conteh III, MD [address] [place] [address] [place] [address] 06/03/2024 Aureliano Conteh III, MD [address] [place] [address] [place] [address] 06/10/2024 Aureliano Conteh Former smoker Z87.89 1 Aureliano Conteh III, MD [address] [place] [address] [place] [address] 06/11/2024 Aureliano Conteh III, MD [address] [place] [address] [place] [address] 08/14/2024 Aureliano Conteh III, MD [address] [place] [address] [place] [address] 08/22/2024 Aureliano Conteh III, MD [address] [place] [address] [place] [address] 11/07/2024 Aureliano Conteh III, MD [address] [place] [address] [place] [address] 11/12/2024 Aureliano Conteh III, MD [address] [place] [address] [place] [address] 11/12/2024 Aureliano Conteh III, MD [address] [place] [address] [place] [address] 11/13/2024 Aureliano Conteh III, MD [address] [place] [address] [place] [address] 11/17/2024 Aureliano Conteh III, MD [address] [place] [address] [place] [address] 04/17/2025 Aureliano Conteh Assessments Encounter Date Diagnosis (ICD [...] of Ozempic to 0.5 mg weekly 04/03/2025 Obesity (ICD-10 - E66.9) She continues [...] of Ozempic to 0.5 mg weekly 05/01/2025 Former smoker (ICD-1 0 - Z87.891) [...] no change in her hearing loss. 04/03/2025 Former smoker (ICD-1 0 - Z87.891) She is highly motivated not to smoke and we discussed strategies for maintenance of abstinence. 05/01/2025 Left leg pain (ICD-1 0 - M79.605) A subsequent evaluation showed no DVT. This is likely an inflamed varicose vein. She is not misusing he. 05/08/2024 Morbid obesity (ICD-10 - E66.01) Her [...] change in her medication was made. 04/03/2025 Hearing loss, bilateral (ICD-10 - H91.93) She did not have her hearing aids today. They are being repaired. She will wear them on her next visit. There is been no change in her hearing loss. 05/01/2025 Obesity (ICD-10 - E66.9) Her weight has been stable. When she uses up the current supply of Ozempic I will increase the dose. 05/08/2024 Hearing loss, bilateral (ICD-10 - H91.93) [...] change in her regimen was needed. 04/03/2025 Depression (ICD-10 - F32.9) Her depression is much better. No change in her medication was made. 05/01/2025 Depression (ICD-10 - F32.9) Her depression is much better. No change in her medication was made. 05/08/2024 Depression (ICD-10 - F32.9) Her depression [...] she has an upcoming appointment with her paper bag making machinist. She wished to defer her pelvic examination and rectal examination to the paper bag making machinist. Her breast examination was unremarkable. 02/19/2025 Obesity (ICD-10 - E66.9) She continues to lose weight on the current dose of Ozempic. No changes in her regimen were made. Her only side effect is mild nausea infrequently and occasional loose stools not more than once a day. 04/03/2025 Low back pain (ICD-1 0 - M54.5) Her back pain is mild and stable and she is conducting all of the activities of daily life without impairment. No change in her regimen was needed. 05/01/2025 Hearing loss, bilateral (ICD-10 - H91.93) She did not have her hearing aids today. They are being repaired. She will wear them on her next visit. There is been no change in her hearing loss. 05/08/2024 Low back pain (ICD-1 0 - [...] change in her medications was made today. 04/03/2025 Cervical dysplasia (ICD-10 - N87.9) She says she has an upcoming appointment with her paper bag making machinist. She wished to defer her pelvic examination and rectal examination to the paper bag making machinist. Her breast examination was unremarkable. 05/01/2025 Low back pain (ICD-1 0 - M54.5) Her back pain is mild and stable and she is conducting all of the activities of daily life without impairment. No change in her regimen was needed. 05/08/2024 Asthma (ICD-10 - J45.909) She is [...] change in her regimen was needed. 04/03/2025 Atypical lobular hyperplasia of breast (ICD-10 - N62) There is no sign of breast cancer. She has completed 5 years of tamoxifen as a preventative and the drug was discontinued at this time. 05/01/2025 Cervical dysplasia (ICD-10 - N87.9) She says she has an upcoming appointment with her paper bag making machinist. She wished to defer her pelvic examination and rectal examination to the paper bag making machinist. Her breast examination was unremarkable. 09/11/2024 Asthma (ICD-10 - J45.909) She is [...] all stopped her trulicity. She began Ozempic. 04/03/2025 Varicose veins of bilateral lower extremities with other complications (ICD-10 - I83.893) We discussed compression hose. She will obtain a pair of those are new symptoms. She willl then reportt back. 05/01/2025 Hyperlipidemia type II (ICD-10 - E78.0) Most recent fasting total cholesterol was 199. A fasting lipid profile has been ordered today. No change in her medications was made today. 09/11/2024 Morbid obesity (ICD-10 - E66.01) Her weight is stable and unchanged. Her body mass index is 43. We have reviewed her weight loss strategy today. We have reviewed her diet and nutrition. We have discussed lifestyle modifications.I all stopped her trulicity. She began Ozempic. 04/03/2025 Osteopenia of spine (ICD-10 - M85.88) He was continued on her regimen of calcium tablets and vitamin D. 05/01/2025 Asthma (ICD-10 - J45.909) She is breathing comfortably today on room air. No change in her regimen was needed. 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 She will obtain a pair of those are new symptoms. She willl then reportt back. 04/03/2025 Osteopenia of hip, unspecified laterality (ICD-10 - M85.859) She will continue on vitamin D and calcium. 09/11/2024 Osteopenia of spine (ICD-10 - M85.88) [...] C) 12/10/2020 PROFILE, FASTING (COMPREHENSIVE METABOLI C) 05/01/2025 PROFILE, FASTING (COMPREHENSIVE METABOLI C) 05/12/2021 PROFILE, FASTING (COMPREHENSIVE METABOLI C) 08/09/2020 PROFILE, FASTING (COMPREHENSIVE METABOLI C) 05/08/2024 PROFILE, FASTING (COMPREHENSIVE METABOLI C) 04/30/2020 PROFILE, FASTING (COMPREHENSIVE METABOLI C) 02/09/2021 PROFILE, FASTING (COMPREHENSIVE METABOLI C) 10/01/2023 PROFILE, FASTING (COMPREHENSIVE METABOLI C) 02/14/2022 PROFILE, FASTING (COMPREHENSIVE METABOLI C) 03/12/2023 PROFILE, FASTING (COMPREHENSIVE METABOLI C) 06/28/2018 PROFILE, [...] HEMOGLOBIN A1C (GLYCOHEMOGLOBIN) 023 HEMOGLOBIN A1C (GLYCOHEMOGLOBIN) 022 HEMOGLOBIN A1C (GLYCOHEMOGLOBIN) 023 HEMOGLOBIN A1C (GLYCOHEMOGLOBIN) 020 LIPID PANEL 08/09/2020 LIPID PANEL 04/30/2020 LIPID PANEL 03/12/2023 LIPID PANEL 11/03/2021 LIPID PANEL 01/14/2020 LIPID PANEL 12/18/2022 LIPID PANEL 11/02/2022 LIPID PANEL 08/18/2019 LIPID PANEL 08/04/2021 LIPID PANEL 04/10/2019 LIPID PANEL 02/08/2018 LIPID PANEL 04/06/2017 LIPID PANEL 11/01/2018 LIPID PANEL 12/10/2020 LIPID PANEL 06/28/2018 MICROALBUMIN, RANDOM 02/14/2022 MICROALBUMIN, RANDOM 03/12/2023 MICROALBUMIN, RANDOM 01/14/2020 MICROALBUMIN, RANDOM 12/18/2022 MICROALBUMIN, RANDOM 11/02/2022 MICROALBUMIN, RANDOM 08/18/2019 MICROALBUMIN, RANDOM 12/10/2020 CBC w DIFF 12/10/2020 CBC w DIFF 06/28/2018 CBC w DIFF 08/09/2020 CBC w DIFF 04/30/2020 CBC w DIFF 02/14/2022 CBC w DIFF 11/03/2021 CBC w DIFF 03/12/2023 CBC w DIFF 01/14/2020 CBC w DIFF 12/18/2022 CBC w DIFF 08/04/2021 CBC w DIFF 05/01/2025 CBC w DIFF 11/02/2022 CBC w DIFF [...] SCREEN 08/23 MAMMOGRAM DIGITAL UNILATERAL ANÍBAL RT 07/02/2018 US LEG LT VENOUS DOPPLER 05/01/2025 Stress Test 05/13/2018 VITAMIN D 25-OH TOTAL 04/30/2020 VITAMIN D 25-OH TOTAL 04/18/2022 US BREAST RIGHT 03/05/2018 CBC WITH AUTO DIFF 05/08/2024 CBC WITH AUTO DIFF 10/01/2023 Lipid Panel 05/08/2024 Lipid Panel 02/09/2021 Lipid Panel 10/01/2023 Microalbumin, Random 10/01/2023 Hemoglobin A1c 05/08/2024 Hemoglobin A1c 02/09/2021 Hemoglobin A1c 10/01/2023 Next Appt Details Provider Name:Aureliano Conteh, 05/29/2025 10:00:00 AM, [address] [place] [address] MONSERRAT PIMENTEL, [place]ARON SAEZ, [address], Provider Name:Aureliano Conteh, 12/18/2025 02:15:00 PM, [address] [place] [address] [place]SERR[place] PIMENTEL, SHARON SAEZ, [address], Insurance Providers Payer Name Payer Address Payer Phone Subscriber Number Group Number Insured Name Patient Relationship to Insured Coverage Start Date Coverage End Date [employer] Medicare [address] [place] [address] [id number] Yareli Fernandez Self - patient is the insured MEDICA[place] [address] [place] [id number] Yareli Fernandez Self - patient is the insured MEDICARE NGS [address] [facility] [address] [id number] Yareli Fernandez Self - patient is the [...]
== END 2025-05-07 10:50 | disposition home or self-care (01) ==
LOC: HO.HGI 09:33
PROVIDERS: PCP Internal Medicine Medical Oncology; Visit Provider Nurse Practitioner
DX: Z80.0 Family history of malignant neoplasm of digestive organs (principal); D12.6 Benign neoplasm of colon, unspecified
CPT/HCPCS: 99213

== ENCOUNTER → 2025-05-07 09:32 | Outpatient (BNVA) | payer MEDICARE, MEDICAID, SELFPAY | PROVIDERS: PCP Internal Medicine Medical Oncology; Visit Provider Nurse Practitioner | DX: D12.6 Benign neoplasm of colon, unspecified (principal); Z80.0 Family history of malignant neoplasm of digestive organs | CPT/HCPCS: 99212 ==

== ENCOUNTER → 2025-05-29 10:33 | Outpatient (REF) | payer MEDICARE, MEDICAID, SELFPAY ==
--- NOTE | 2025-05-29 | ECG_ITS ---
Test Reason : CP Blood Pressure : */* mmHG Vent. Rate : 81 BPM Atrial Rate : 81 BPM P-R Int : 138 ms QRS Dur : 80 ms QT Int : 390 ms P-R-T Axes : 20 17 49 degrees QTcB Int : 453 ms Normal sinus rhythm Normal ECG When compared with ECG of 22-May-2017 13:39, No significant change was found Referred By: Generic ED Physician Electronically Signed By: SHRUTHI LEA MD
--- NOTE | ~2025-05-29 | XR_ITS ---
EXAMINATION: XR CHEST CLINICAL INFORMATION: CHEST PAIN COMPARISON: None available. TECHNIQUE: 2 views of the chest were obtained. FINDINGS: The cardiac, hilar, and mediastinal contours are normal. Aortic mural calcifications. The lungs are clear bilaterally. There is no pneumothorax or pleural effusion. There is no focal osseous or soft tissue abnormality. There are cholecystectomy clips present. XR/XR chest 2V IMPRESSION: No active pulmonary disease. Electronically signed by: Jordi Suazo MD 05/29/2025 11:23 AM EDT
== END ==
LOC: HO.CARD 10:33
PROVIDERS: PCP Internal Medicine Medical Oncology; Visit Provider Internal Medicine Medical Oncology
DX: R07.9 Chest pain, unspecified (principal)
CPT/HCPCS: 71046; 93005

== ENCOUNTER → 2025-05-29 10:54 | Outpatient (BNV) | payer MEDICARE, MEDICAID, SELFPAY | PROVIDERS: PCP Internal Medicine Medical Oncology; Visit Provider Internal Medicine Cardiovascular Disease | DX: R07.9 Chest pain, unspecified (principal) | CPT/HCPCS: 93010 ==

== ENCOUNTER → 2025-05-29 11:12 | Outpatient (BNV) | payer MEDICARE, MEDICAID, SELFPAY | PROVIDERS: PCP Internal Medicine Medical Oncology; Visit Provider Radiology Diagnostic Radiology | DX: R07.9 Chest pain, unspecified (principal) | CPT/HCPCS: 71046 ==

== ENCOUNTER 2025-06-05 10:41 | Outpatient (REF) | payer MEDICARE, MEDICAID, SELFPAY ==
--- OUTSIDE RECORDS SUMMARY | 2025-04-03 05:45 | XMS_ITS ---
Author Organization Aureliano Conteh III, MD Address [address] [facility] [address] Care Team Providers Care Emergency Medicine Physician Assistant Name Role Phone Dr. Aureliano Conteh III Primary Care Provider [phone] Allergies Allergen (clinical drug ingredient) Drug/Non Drug [...] tablet Orally Once a day Active Nystatin 373242 UNIT/GM APPLY TOPICALLY TO THE AFFECTED AREA [...] non-user Ex-cigaret te smoker Vital Signs Temperature 97.4 degrees Fahrenheit 04/03/20 25 Blood pressure systolic 136 mm Hg 04/03/20 25 Blood pressure diastolic 77 mm Hg 025 Heart Rate 81 /min 04/03/2025 Height 61 in 04/03/2025 Weight 210 lbs 04/03/2025 BMI 39.67 kg/m2 04/03/2025 Encounters Encounter Location Date Provider Diagnosis Aureliano Conteh III, MD [address] [place] [address] [address] [place], [place] [address] 04/03/2025 Aureliano Conteh Obesity E66.9 ; Type [...] she has an upcoming appointment with her category consultant. She wished to defer her pelvic examination and rectal examination to the category consultant. Her breast examination was unremarkable. 04/03/2025 Atypical [...] 1 tablet Orally Once a day Nystatin 711010 UNIT/GM APPLY TOPICALLY TO THE AFFECTED AREA [...] Up: 6 Weeks, Reason: ov Provider Name:Aureliano Conteh , 07/03/2025 09:15:00 AM, [address] [place] [address] [address], [place], [address], Provider Name:Aureliano Conteh , 12/18/2025 02:15:00 PM, [address] [place] [address] [place], [address], Progress Notes * Yareli CALHOUN HDOB:[birth year] (69 yo F)Acc No.[id number]:04/03/2025 Progress Notes Patient: Andrew RIGOCosme MORALESha Estefanía Provider: Otto Conteh MD :1955 A ge:69 Y S ex:Female Date:04/03/2025 Address:[address] [place] [address] [place], [id number] Subjective: * Chief Complaints: * D epressionHearing [...] at this time. 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 * Medications: T akingAtorvastatin Calcium 10 MG Tablet 1 tablet Orally Once a day Metoprolol Succinate ER 25 MG Tablet Extended Release 24 Hour TAKE 1 TABLET BY MOUTH DAILY Nystatin 400125 UNIT/GM Cream APPLY TOPICALLY TO THE AFFECTED [...] 1 TABLET BY MOUTH DAILY Taking Nystatin 767946 UNIT/GM Cream APPLY TOPICALLY TO THE AFFECTED [...] she has an upcoming appointment with her category consultant. She wished to defer her pelvic examination and rectal examination to the category consultant. Her breast examination was unremarkable. 8 . [...] Conteh MD Date: 0 04/03/2025 Generated for Yoavni rod/Zo/Melony on: 1 01:08 PM EDT History and Physical Notes * HPI [...]
--- OUTSIDE RECORDS SUMMARY | 2025-04-17 07:26 | XMS_ITS ---
Author Organization Aureliano Conteh III, MD Address [address] [address] Care Team Providers Care Automotive Hardware Engineer Name Role Phone Dr. Aureliano Conteh III Primary Care Provider REASON FOR VISIT PT 1 Request Social History Sex Assigned At : Social History Observation Description Sex Assigned At Female Encounters Encounter Location Date Provider Diagnosis Aureliano Conteh III, MD [address] [place] [address] [place] [address] 04/17/2025 Aureliano Conteh Plan Of Treatment Next Appt Details Provider Name:Aureliano Conteh , 07/03/2025 09:15:00 AM, [address] [place] [address] [place], [address], Provider Name:Aureliano Conteh , 12/18/2025 02:15:00 PM, [address] [place] [address] [place], [address], Progress Notes * Yareli CALHOUN HDOB:[birth year] (69 yo F)Acc No.[id number]:04/17/2025 Patient: Yareli WALSH :1955 A ge:69 Y S ex:Female Address:[address] [place] [address], [phone] * true * Date: Generated for Yovani rod/Zo/Gabesmitting on: 01:07 PM EDT
--- OUTSIDE RECORDS SUMMARY | 2025-05-01 05:30 | XMS_ITS ---
Author Organization Aureliano Conteh III, MD Address [address] [place] [address] Care Team Providers Care Academic Support Specialist Name Role Phone Dr. Aureliano Conteh III Primary Care Provider [phone] Allergies Allergen (clinical drug ingredient) Drug/Non Drug Allergy documented on EMR Reaction Allergy Type Onset Date Status Ragweed Unknown Allergy Active Cat dander Cat Dander Unknown Allergy Active Latex Gloves Unknown Drug Allergy Acti ve Flexeril Unknown Drug Allergy Active Results Component Value Reference Range Notes Lipid Panel Reviewed date:05/02/2025 05:58:34 PM Interpretation: Performing Lab:[facility], [address] [place] [id number] Notes/Report: Triglycerides 101 <150 mg/dL Desirable Triglyceride: [...] mg Subcutaneous weekly disp one month supply jakejsamuel lopez please 09/11/2024 Active All-In-One Nebulizer System - [...] 1 CAPSULE BY MOUTH DAILY Active Nystatin 747392 UNIT/GM APPLY TOPICALLY TO THE AFFECTED AREA [...] non-user Ex-cigaret te smoker Vital Signs Temperature 97.7 degrees Fahrenheit 05/01/20 25 Blood pressure systolic 128 mm Hg 05/01/20 25 Blood pressure diastolic 63 mm Hg 025 Heart Rate 76 /min 05/01/2025 Height 61 in 05/01/2025 Weight 211 lbs 05/01/2025 BMI 39.86 kg/m2 05/01/2025 Encounters Encounter Location Date Provider Diagnosis Aureliano Conteh III, MD [address] [place] [address] [place] [address] 05/01/2025 Aureliano Conteh Former smoker Z87.89 1 [...] she has an upcoming appointment with her senior courtroom clerk. She wished to defer her pelvic examination and rectal examination to the senior courtroom clerk. Her breast examination was unremarkable. 05/01/2025 Hyperlipidemia [...] disp one month supply woitj needles please All-In-One Nebulizer System - as [...] TAKE 1 CAPSULE BY MO [facility] DAILY Nystatin 153067 UNIT/GM APPLY TOPICALLY TO THE AFFECTED AREA TWICE DAILY Externally Twice a day One Touch Delica Lancets - Check blood sugar 4 times a day 06/04/2024 E11.9 Type 2 Diabetes Next Appt Details Follow Up: 4 Weeks, Reason: OV Provider Name:Aureliano Conteh , 07/03/2025 09:15:00 AM, [address] [facility], [place], [phone], Provider Name:Aureliano Conteh , 12/18/2025 02:15:00 PM, [address] [facility], [address], Progress Notes * Yareli CALHOUN HDOB:[birth year] (69 yo F)Acc No.[id number]:05/01/2025 Progress Notes Patient: Yareli WALSH Provider: Otto Conteh MD :1955 A ge:69 Y S ex:Female Date:05/01/2025 Address:[address] [place] [address], [id number] Subjective: * Chief Complaints: * L eft [...] working at this time. 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 * Medications: T akingAtorvastatin Calcium 10 MG Tablet 1 tablet Orally Once a day Metoprolol Succinate ER 25 MG Tablet Extended Release 24 Hour TAKE 1 TABLET BY MOUTH DAILY Nystatin 448475 UNIT/GM Cream APPLY TOPICALLY TO THE AFFECTED [...] 1 TABLET BY MOUTH DAILY Taking Nystatin 296221 UNIT/GM Cream APPLY TOPICALLY TO THE AFFECTED [...] - 05/01/2025) (Performed Date - 05/01/2025) Lab:[facility] [place]. Pane l Fast * Collection Date 05/01/2025 [...] she has an upcoming appointment with her senior courtroom clerk. She wished to defer her pelvic examination and rectal examination to the senior courtroom clerk. Her breast examination was unremarkable. 9 . H yperlipidemia type II - E78.0 N otes :Most recent fasting total cholesterol was 199. A fasting lipid profile has been ordered today. No change in her medications was made today. 1 0. A sthma - J45.909 N otes :She [...] Conteh MD Date: 0 05/01/2025 Generated for Yovani rod/Zo/eTransmitting on: 1 01:08 PM EDT History and [...]
--- OUTSIDE RECORDS SUMMARY | 2025-05-07 11:16 | XMS_ITS ---
Author Organization Aureliano Conteh III, MD Address [address] [place] [address] Care Team Providers Care Usps Letter Carrier Name Role Phone Dr. Aureliano Conteh III Primary Care Provider REASON FOR VISIT lab/ultrasound results Social History Sex Assigned At : Social History Observation Description Sex Assigned At Female Encounters Encounter Location Date Provider Diagnosis Aureliano Conteh III, MD [address] [place] [address] [place] [address] 05/07/2025 Aureliano Conteh Plan Of Treatment Next Appt Details Provider Name:Aureliano Conteh , 07/03/2025 09:15:00 AM, [address] [place] [address] [place], [address], Provider Name:Aureliano Conteh , 12/18/2025 02:15:00 PM, [address] [place] [address] [place], [address], Progress Notes * Yareli CALHOUN HDOB:[birth year] (70 yo F)Acc No.[id number]:05/07/2025 Patient: Yareli WALSH :1955 A ge:70 Y S ex:Female Address:[address] [place] [address], [phone] * true * Date: Generated for Yovani rod/Zo/Gabesmitting on: 01:08 PM EDT
--- OUTSIDE RECORDS SUMMARY | 2025-05-11 09:35 | XMS_ITS ---
Author Organization Aureliano Conteh III, MD Address [address] [address] Care Team Providers Care Plunket Nurse Name Role Phone Dr. Aureliano Conteh III Primary Care Provider REASON FOR VISIT needs PT-2 form Social History Sex Assigned At : Social History Observation Description Sex Assigned At Female Encounters Encounter Location Date Provider Diagnosis Aureliano Conteh III, MD [address] [place] [address] [place] [address] 05/11/2025 Aureliano Conteh Plan Of Treatment Next Appt Details Provider Name:Aureliano Conteh , 07/03/2025 09:15:00 AM, [address] [place] [address] [place], [address], Provider Name:Aureliano Conteh , 12/18/2025 02:15:00 PM, [address] [place] [address] [place], [address], Progress Notes * Yareli CALHOUN HDOB:[birth year] (70 yo F)Acc No.[id number]:05/11/2025 Patient: Yareli WALSH :1955 A ge:70 Y S ex:Female Address:[address] [place] [address], [phone] * true * Date: Generated for Yovani rod/Zo/Gabesmitting on: 01:07 PM EDT
--- OUTSIDE RECORDS SUMMARY | 2025-05-25 05:21 | XMS_ITS ---
Author Organization Aureliano Conteh III, MD Address [address] [facility] [place] [address] Care Team Providers Care Mechatronics Technician Name Role Phone Dr. Aureliano Conteh III Primary Care Provider REASON FOR VISIT Needs call back from Social History Sex Assigned At : Social History Observation Description Sex Assigned At Female Encounters Encounter Location Date Provider Diagnosis Aureliano Conteh III, MD [address] [place] [address] [place] [address] 05/25/2025 Aureliano Conteh Plan Of Treatment Next Appt Details Provider Name:Aureliano Conteh , 07/03/2025 09:15:00 AM, [address] [place] [address] [place], [address], Provider Name:Aureliano Conteh , 12/18/2025 02:15:00 PM, [address] [place] [address] [place], [address], Progress Notes * Yareli CALHOUN HDOB:[birth year] (70 yo F)Acc No.[id number]:05/25/2025 Patient: Yareli WALSH :1955 A ge:70 Y S ex:Female Address:[address] [place] [address], [address] * true * Date: Generated for Yovani rod/Zo/Gabesmitting on: 01:08 PM EDT
--- OUTSIDE RECORDS SUMMARY | 2025-05-25 06:16 | XMS_ITS ---
Author Organization Aureliano Conteh III, MD Address [address] [place] [address] Care Team Providers Care Fretted Instruments Inspector Name Role Phone Dr. Aureliano Conteh III Primary Care Provider Medications Medication SIG (Take, Route, Fr equency, Duration) Notes Start Date End Date Status Ketoconazole 2 % 1 application Bradder ally twice a day for 14 days 05/25/2025 07/19/2025 Active Social History Sex Assigned At : Social History Observation Description Sex Assigned At Female Encounters Encounter Location Date Provider Diagnosis Aureliano Conteh III, MD [address] [place] [address] [place] [address] 05/25/2025 Aureliano Conteh Plan Of Treatment Medication Medication Name Sig Start Date Stop Date Notes Ketoconazole 2 % 1 application Bradder ally twice a day for 14 days 05/25/2025 07/19/2025 Next Appt Details Provider Name:Aureliano Conteh , 07/03/2025 09:15:00 AM, [address] [place] [address] [place], [address], Provider Name:Aureliano Conteh , 12/18/2025 02:15:00 PM, [address] [place] [address] [place] PIMENTEL, SHARON SAEZ, [address], Progress Notes * Yareli SALVADOR HDOB:[birth year] (70 yo F)Acc No.[id number]:05/25/2025 Patient: Andrew RIGOYareli MORALES :1955 A ge:70 Y S ex:Female Address:[address] [place] [address], [address] * Refills Start Ketoconazole Cream, 2 %, Externally, 60 Gram, 1 application, twice a day, 14 days, Refills=3 * true * Date: Generated for Yovani rod/Zo/Gabesmitting on: 1 01:09 PM EDT
--- OUTSIDE RECORDS SUMMARY | 2025-05-29 06:00 | XMS_ITS ---
Author Organization Aureliano Conteh III, MD Address [address] [place] [address] [place] [address] Care Team Providers Care Suspect Artist Supervisor Name Role Phone Dr. Aureliano Conteh [...] 1.5 MG/0.5ML as directed Subcutaneous Active Nystatin 663827 UNIT/GM 1 application Externally Twice a day [...] Problem Status W/U Status Risk Notes Problem Obesity (604648077) Obesity (278.00) Active confirmed She has lost an additional 2 pounds. She will continue on her weight loss program. Problem 259136121 Chest pressure (R07.89) Active confirmed This is atypical for angina. EKG has been ordered. If necessary she will have stress test. She has significant risk factors for heart disease. Vital Signs Temperature 98.4 degrees Fahrenheit 05/29/20 25 Blood pressure systolic 136 mm Hg 05/29/20 25 Blood pressure diastolic 82 mm Hg 025 Heart Rate 91 /min 05/29/2025 Height 61 in 05/29/2025 Weight 209 lbs 05/29/2025 BMI 39.49 kg/m2 05/29/2025 Encounters Encounter Location Date Provider Diagnosis Aureliano Conteh III, MD [address] [place] [address] [address] [place] [address], [place] [address] 05/29/2025 Aureliano Conteh Former smoker Z87.89 1 [...] disp one month supply woitjh needles please Osteo Bi-Flex One Per Day - as directed Orally Trulicity 1.5 MG/0.5ML as directed Subcutaneous Nystatin 597722 UNIT/GM 1 application Externally Twice a day [...] Provider Name:Aureliano Conteh , 07/03/2025 09:15:00 AM, [address] [place] [address] [address], [place], [phone], Provider Name:Aureliano Conteh , 12/18/2025 02:15:00 PM, [address] [place] [address] [address], [place], [phone], Progress Notes * Yareli CALHOUN HDOB:[birth year] (70 yo F)Acc No.[id number]:05/29/2025 Progress Notes Patient: Yareli WALSH Provider: Otto Conteh MD :1955 A ge:70 Y S ex:Female Date:05/29/2025 Address:[address] [place] [address] [id number] Subjective: * Chief Complaints: * O zempic [...] at this time. 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 * Medications: T akingAtorvastatin Calcium 10 MG Tablet 1 tablet Orally Once a day Metoprolol Succinate ER 25 MG Tablet Extended Release 24 Hour TAKE 1 TABLET BY MOUTH DAILY Nystatin 878375 UNIT/GM Cream APPLY TOPICALLY TO THE AFFECTED [...] Pharmacist: disp one month supply woitj needles pleasePioglitazone HCl 15 MG Tablet Take [...] 1 TABLET BY MOUTH DAILY Taking Nystatin 281159 UNIT/GM Cream APPLY TOPICALLY TO THE AFFECTED [...] 0.000 (Ref Range: 0.0-0.012 X10*3/uL) * Lab:[facility] * Collection Date 05/01/2025 11/10/2024 [...] of tobacco use and urged to quit. DM Care Plan: P atient Lifestyle Goals [...] true * Provider: Otto Conteh MD Date: Generated for Yovani rod/Zo/Angelaitting on: 01:09 PM EDT History and Physical Notes * [...]
--- OUTSIDE RECORDS SUMMARY | 2025-06-02 07:27 | XMS_ITS ---
Author Organization Aureliano Conteh III, MD Address [address] [place] [address] Care Team Providers Care Oven Press Tender Name Role Phone Dr. Aureliano Conteh III Primary Care Provider REASON FOR VISIT New Nebulizer Social History Sex Assigned At : Social History Observation Description Sex Assigned At Female Encounters Encounter Location Date Provider Diagnosis Aureliano Conthe III, MD [address] [place] [address] [place] [address] 06/02/2025 Aureliano Conteh Plan Of Treatment Next Appt Details Provider Name:Aureliano Conteh , 07/03/2025 09:15:00 AM, [address] [place] [address] [place], [phone], Provider Name:Aureliano Conteh , 12/18/2025 02:15:00 PM, [address] [place] [address] [place], [address], Progress Notes * Yareli CALHOUN HDOB:[birth year] (70 yo F)Acc No.[id number]:06/02/2025 Patient: Yareli WALSH :1955 A ge:70 Y S ex:Female Address:[address] [place] [address], [phone] * * Date:
--- NOTE | ~2025-06-05 | XR_ITS ---
EXAMINATION: XR WRIST, LEFT CLINICAL INFORMATION: PAIN COMPARISON: None available. TECHNIQUE: PA, lateral, oblique, and scaphoid views of the left wrist. FINDINGS: The bones and soft tissues are normal. No fracture. Alignment is anatomic with normal joint spaces. No erosions or abnormal soft tissue calcifications. XR/XR wrist LT min 3V IMPRESSION: Normal left wrist. Electronically signed by: Jordi Suazo MD 06/05/2025 11:05 AM EDT
--- NOTE | ~2025-06-05 | XR_ITS ---
EXAMINATION: XR HAND, LEFT CLINICAL INFORMATION: PAIN COMPARISON: January 26, 2017 TECHNIQUE: PA, lateral, and oblique views of the left hand. FINDINGS: Joint space narrowing involving the proximal and distal interphalangeal joints of the digits. There is a fixed flexed proximal interphalangeal joints of the feet degenerative. Old traumatic deformity in the proximal phalanx of the fifth digit. No acute cortical disruption. Carpal bones are intact with normal alignment. Distal radius and ulna are intact. No lytic or blastic lesions. XR/XR hand LT min 3V IMPRESSION: Old traumatic deformity left fifth digits. Osteoarthrosis/osteoarthritis. Electronically signed by: Benjamin Rolon MD 06/05/2025 11:10 AM EDT
--- OUTSIDE RECORDS SUMMARY | 2025-06-05 06:15 | XMS_ITS ---
Author Organization Aureliano Conteh III, MD Address [address] [place] [address] Care Team Providers Care X Ray Electronics Wireman Name Role Phone Dr. Aureliano Conteh III Primary Care Provider Allergies Allergen (clinical drug ingredient) Drug/Non Drug Allergy documented on EMR Reaction Allergy Type Onset Date Status Ragweed Unknown Allergy Active Cat dander Cat Dander Unknown Allergy Active Latex Gloves Unknown Drug Allergy Acti ve Flexeril Unknown Drug Allergy Active Results Component Value Reference Range Notes XR hand LT min 3V (Not yet r eviewed by provider) Interpretation: Performing Lab: Notes/Report: [address] [address] XRay Report Signed Patient: Yareli Salvador MR#: [id number] : 1955 Acct:[id number] Age/Sex: 70 / F ADM Date: 06/05/25 Loc: HO.XRAY Attending Dr: Aureliano Conteh MD Ordering Physician: Aureliano Conteh MD Date of Service: 06/05/25 Procedure(s): XR hand LT min 3V Accession Number(s): [id number] cc: Aureliano Conteh MD Reason for Exam: [...] 06/05/25 1110 DD/ 1057 TD/TT: 06/05/25 1101 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: [place] [address] XRay Report Signed Patient: Lorena Salvador MR#: [id number] : 1955 Acct:[id number] Age/Sex: 70 / F ADM Date: 06/05/25 Loc: REJI Attending Dr: Aureliano Conteh MD Ordering Physician: Aureliano Conteh MD Date of Service: 06/05/25 Procedure(s): XR hand LT min 3V Accession Number(s): [id number] cc: Aureliano Conteh MD Reason for Exam: [...] Dictated By: Benjamin Mcdonald MD Signed By: <Electron icallanne marie signed by Benjamin Ramos MD in OV> 06/05/25 1110 DD/ 1057 TD/TT: 06/05/25 1101 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: REASON FOR VISIT follow up Medications Medication SIG (Take, Route, Frequency, Duration) [...] Externally twice a day 05/25/2025 Active Nystatin 830955 UNIT/GM 1 application Externally Twice a day [...] degrees Fahrenheit 06/05/20 25 Blood pressure systolic 148 mm Hg 06/05/20 25 Blood pressure diastolic 71 mm Hg 025 Heart Rate 80 /min 06/05/2025 Height 61 in 06/05/2025 Weight 212 lbs 06/05/2025 BMI 40.05 kg/m2 06/05/2025 EB Encounters Encounter Location Date Provider Diagnosis Aureliano Conteh III, MD [address] [place] [address] [place] [address] 06/05/2025 Aureliano Conteh Former smoker Z87.891 ; Right hand pain M79.641 and Left hand pain M79.642 Assessments Encounter Date Diagnosis (ICD Code) Assessment Notes Treatment Notes Treatment Clinical Notes 06/05/2025 Former smoker (ICD-10 - Z87.891) She is highly motivated not to smoke and we discussed strategies for maintenance of abstinence. 06/05/2025 Right hand pain (ICD-10 - M79.641) 06/05/2025 Left hand pain (ICD-10 - M79.642) Plan Of Treatment Medication Medication Name Sig Start Date Stop Date Notes Omeprazole 20 MG TAKE 1 CAPSULE BY [facility] DAILY Alcohol Prep Pad none - [...] application Externally twice a day 05/25/2025 Nystatin 149304 UNIT/GM 1 application Externally Twice a day Pioglitazone HCl 15 MG Take 1 tablet by mouth once daily Ozempic (0.25 or 0.5 MG/DOSE) 2 MG/3ML 0.5 mg Subcutaneous weekly 09/11/2024 disp one month supply woitjh needles please Albuterol Sulfate HFA 108 (90 [...] Order Date XR hand wrist LT 06/05/2025 XR hand LT min 3V 06/05/2025 Next Appt Details Follow Up: 4 Weeks, Reason: OV Provider Name:uAreliano Conteh , 07/03/2025 09:15:00 AM, [address] [place] [address] [address], [place], [address], Provider Name:Aureilano Conteh , 12/18/2025 02:15:00 PM, [address] [place] [address] [address], [place], [address], Progress Notes * Yareli SALVADOR HDOB:[birth year] (70 yo F)Acc No.[id number]:06/05/2025 Progress Notes Patient: Yareli WALSH Provider: Otto Conteh MD :1955 A ge:70 Y S ex:Female Date:06/05/2025 Address:[address] [place] [address], [id number] Subjective: * Chief Complaints: * 1 . Follow up. * HPI: C OVID-19 Screening: left shoulder pain better usess heat pad, gained wt, WANTS NEW NEBULIZER, NEEDS ME TO SAY SO IN PN. Questions H ave you had any new [...] Bilateral breast pain., Atypical lobular hyperplasia, AODM, 2018 noncardiac chest pain, Osteoporosis January 2022, Diabetes. [...] at this time. 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 * Medications: T aking Ketoconazole 2 % Cream 1 application Externally twice a day , Taking Pioglitazone HCl 15 MG Tablet Take 1 tablet by mouth once daily , Taking Atorvastatin Calcium 10 MG Tablet 1 tablet Orally Once a day , Taking Metoprolol Succinate ER 25 MG Tablet Extended Release 24 Hour TAKE 1 TABLET BY MOUTH DAILY , Taking One Touch Delica Lancets - Miscellaneous Check blood sugar 4 times a day , Notes to Pharmacist: E11.9 Type 2 Diabetes, Taking Alcohol Prep Pad none pad - - use to check blood sugars four times a day , Taking Omeprazole 20 MG Capsule Delayed Release TAKE 1 CAPSULE BY MOUTH DAILY , Taking Caltrate 600+D , Taking All-In-One Nebulizer System - Miscellaneous as directed - use three times a day , Taking Nebulizer Mask Adult - Miscellaneous as directed - use three times daily , Taking Albuterol Sulfate HFA 108 (90 Base) MCG/ACT Aerosol Solution 1 puff as needed Inhalation every 4 hrs , Taking Trulicity 1.5 MG/0.5ML Solution Pen-injector as directed Subcutaneous , Taking Osteo Bi-Flex One Per Day - Tablet as directed Orally , Taking Ozempic (0.25 or 0.5 MG/DOSE) 2 MG/3ML Solution Pen-injector 0.5 mg Subcutaneous weekly , Notes to Pharmacist: disp one month supply woitjh needles please, Taking Nystatin 760329 UNIT/GM Cream 1 application Externally Twice a day , Taking Albuterol Sulfate (2.5 MG/3ML) 0.083% Nebulization Solution 3 mL Inhalation Three times a day , Notes to Pharmacist: J45.909 Asthma, Medication List reviewed and reconciled with the patient * Allergies: F lexeril, Latex Gloves, Cat Dander, Ragweed. Objective: * Vitals: H t: 61, Wt:212, BMI:40.05, BP:148/71, HR:80, Temp:98.1, Ht-cm: 154.94, Wt-k.16. EB. * P ast Orders: I maging:XR chest 2V (Order Date - 05/29/2025) (Performed Date - 05/29/2025) Imaging:Diabetic Eye Exam * Performed Date 05/06/2025 09/21/2023 Order Date 05/06/2025 09/21/2023 07/19/2021 Result: undefined undefined ???Imaging:US venous duplex LE LT (Order Date - 05/01/2025) (Performed Date - 05/01/2025) * Lab:[facility] [place]. Pane l Fast * Collection Date 05/01/2025 [...] Examination: G eneral Examination: GENERAL APPEARANCE: p lorelei, well nourished, well developed, in no acute [...] strategies for maintenance of abstinence. 2 . R ight hand pain - M79.641 3 . L eft hand pain - M79.642 Plan: * Treatment: 2. L eft hand pain I maging: XR hand wrist LT I maging: XR hand LT min 3V (Performed Date - 06/05/2025) 3. O thers Continue Ketoconazole Cream, 2 %, [...] TAKE 1 CAPSULE BY MOUTH DAILY. * Preventive Medicine: Counseling: C are goal [...] Pending * Provider: Otto Conteh MD Date: Generated for Yovani rod/Zo/Gaebsmitting on: 01:08 PM EDT History and Physical Notes [...]
--- OUTSIDE RECORDS SUMMARY | 2025-06-05 13:08 | XMS_ITS | Patient Health Record ---
Author Organization Aureliano Conteh III, MD Address [address] [place] [address] [place] [address] Care Team Providers Care Pl Sql Developer Name Role Phone Dr. Aureliano Conteh III Primary Care Provider [phone] Allergies Allergen (clinical drug ingredient) Drug/Non Drug Allergy documented on EMR Reaction Allergy Type Onset Date Status Ragweed Unknown Allergy Active Cat dander Cat Dander Unknown Allergy Active Latex Gloves Unknown Drug Allergy Acti ve Flexeril Unknown Drug Allergy Active Results Component Value Reference Range Notes XR hand LT min 3V (Not yet r eviewed by provider) Interpretation: Performing Lab: Notes/Report: [facility] [address] [place] [address] XRay Report Signed Patient: Yareli Salvador MR#: [id number] 9793 : 1955 Acct:[id number] Age/Sex: 70 / F ADM Date: 06/05/25 Loc: HO.XRAY Attending Dr: Aureliano Conteh MD Ordering Physician: Aureliano Conteh MD Date of Service: 06/05/25 Procedure(s): XR hand LT min 3V Accession Number(s): [id number] cc: Aureliano Conteh MD Reason for Exam: [...] 06/05/25 1110 DD/ 1057 TD/TT: 06/05/25 1101 Pickle Sorter: [place] [address] XRay Report Signed Patient: Lorena Salvador MR#: [id number] 9793 : 1955 Acct:[id number] Age/Sex: 70 / F ADM Date: 06/05/25 Loc: REJI Attending Dr: Aureliano Conteh MD Ordering Physician: Aureliano Conteh MD Date of Service: 06/05/25 Procedure(s): XR tatum d LT min 3V Accession Number(s): [id number] cc: Aureliano Conteh MD Reason for Exam: [...] Old traumatic deform ity left fifth digits. Osteoarthrosis/osteo arthri tis. Electronically lynette d by: Benjamin Rolon MD 06/05/2025 11:10 AM EDT RP Dictated By: Benjamin Mcdonald MD Signed By: <Electron ically signed by Benjamin Ramos MD in OV> 06/05/25 1110 DD/ 1057 TD/TT: 06/05/25 1101 Pickle Sorter: Lipid Panel Reviewed date:11/12/2024 01:06:57 PM Interpretation: Performing Lab:[address] [address] Notes/Report: Triglycerides 143 <150 mg/dL Desirable Triglyceride: [...] Random Reviewed date:11/12/2024 01:06:57 PM Interpretation: Performing Lab:[address] [address] Notes/Report: Creatinine Urine 139.35 Microalbumin Urine 18.0 Microalbum/Creatinine Ratio Ur 12.9 <30 ug/mg cr Albumin/Creatinine Ratio Reference Ranges: Normal: < 30 ug/mg creatinine Microalbuminuria: 30 - 300 ug/mg creatinine Clinical Albuminuria: > 300 ug/mg creatinine Hemoglobin A1c Reviewed date:11/12/2024 01:06:57 PM Interpretation: Performing Lab:[facility], [address] [place] [address] Notes/Report: Hemoglobin A1c % 7.0 <6.0 % [...] average glucose, using the formula of the A4V-Hztuhzc Average Glucose study (ADAG), Diabetes Care, Vol.31,#8, Mar. 2007 Lipid Panel Reviewed date:05/02/2025 05:58:34 PM Interpretation: Performing Lab:[facility], [address] [place] [address] Notes/Report: Triglycerides 101 <150 mg/dL Desirable Triglyceride: [...] ff Reviewed date:08/01/2024 08:35:00 AM Interpretation: Performing Lab:[facility], [address] [place] [address] Notes/Report: White Blood Count 6.6 4.8-10.8 X10*3/uL [...] NRBC Abs Auto 0.000 0.0-0.012 X10*3/uL Comprehensive [place]. Panel Fa st Reviewed date:08/01/2024 08:35:00 AM Interpretation: Performing Lab:[facility], [address] [place] [address] Notes/Report: Sodium 142 135-145 mmol/L Potassium 3.8 [...] Panel Reviewed date:08/01/2024 08:35:01 AM Interpretation: Performing Lab:[facility], [address] [place] [address] Notes/Report: Triglycerides 99 <150 mg/dL Desirable Triglyceride: [...] A1c Reviewed date:08/01/2024 08:35:00 AM Interpretation: Performing Lab:[facility], [address] [place] [address] Notes/Report: Hemoglobin A1c % 6.8 <6.0 % [...] average glucose, using the formula of the J7N-Qbldncu Average Glucose study (ADAG), Diabetes Care, Vol.31,#8, 2007 Complete Blood Count Auto Di ff Reviewed date:11/12/2024 01:06:57 PM Interpretation: Performing Lab:[facility], [address] [place] [address] Notes/Report: White Blood Count 7.6 4.8-10.8 X10*3/uL [...] NRBC Abs Auto 0.000 0.0-0.012 X10*3/uL Comprehensive [place]. Panel Fa st Reviewed date:11/12/2024 01:06:57 PM Interpretation: Performing Lab:[facility], [address] [place] [phone] Notes/Report: Sodium 141 135-145 mmol/L Potassium 3.9 [...] Blood Reviewed date:02/18/2025 03:55:55 PM Interpretation: Performing Lab:[facility], [address] [place] [address] Notes/Report: Glucose, Whole Blood 147 60-115 mg/dL METER # : [id number] Pathology Reviewed date:02/18/2025 03:55:55 PM Interpretation: Performing Lab:[facility], [address] [place] [address] Notes/Report: ------ Name: Salvador,Bert leoncio Age/Sex: 69/F : 1955 Unit#: [id number] Attend Dr: Parish Lopez MD Re02/12/25 Status : [facility] Location: [facility] Disch: ------ SPEC : [id number] RECD : 02/12/25 STATUS: [place] [facility] NUM: [id number] MARK: 02/12/25 [facility] DR: Parish Lopez MD ENTERED: 02/12/25 51 [...] Cosme Salvador Age/Sex: 69/F : 1955 Unit#: [id number] Attend Dr: Parish Lopez MD Re02/12/25 Status : [facility] Location: [facility] Disch: ------ SPEC : [id number] RECD : 02/12/25 STATUS: [facility] NUM: [id number] MARK: 02/12/25 [facility] DR: Parish Lopez MD ENTERED: 02/12/25 51 SP TYPE: Surgical OTHR DR: Aureliano Conteh MD ORDERED: HE Stain/9, Gross Micro L4/3 IHC S/NG Disclaimer NOTE: Unless otherwi se stated, all tissue is formalin-fixed and paraffin-embedded. Some or all of the immunohistochemical tests reported herein may have been developed and their performance characteristics determined by [facility]. They have not been cleared or appr micah by the U.S. Food and Drug Administration (FDA). However, the FDA has determined that such clearance or approval is not necessary. This laboratory is certified under the Clinical Laboratory Improvement Amendments of 1988 (CLIA) as qualified to perform high comp lexity clinical laboratory testing. Copies To: Aureliano Conteh MD [address] [facility] [address] [place], [place] [id number] Parish Lopez MD [facility] [address] [place] [address] ------ Signed (signature on file) Pepe Amanda MD 02/13/25 1334 ------ END OF REPORT Complete Blood Count Auto Di ff Reviewed date:05/02/2025 05:58:34 PM Interpretation: Performing Lab:[facility], [address] [place] [address] Notes/Report: White Blood Count 7.0 4.8-10.8 X10*3/uL [...] NRBC Abs Auto 0.000 0.0-0.012 X10*3/uL Comprehensive [place]. Panel Fa Reviewed date:05/02/2025 05:58:34 PM Interpretation: Performing Lab:[facility], [address] [place] [address] Notes/Report: Sodium 142 135-145 mmol/L Potassium 3.7 [...] date:05/02/2025 05:58:34 PM Interpretation: Performing Lab: Notes/Report: [address] [address] Ultrasound Report Signed Patient: Yareli Salvador MR#: [id number] 9793 : 1955 Acct:[id number] Age/Sex: 69 / F ADM Date: 05/01/25 Loc: HO.US Attending Dr: Aureliano Conteh MD Ordering Physician: Aureliano Conteh MD Date of Service: 05/01/25 Procedure(s): US venous duplex LE LT Accession Number(s): [id number] cc: Aureliano Conteh MD Reason for Exam: [...] 05/01/25 1126 DD/ 1100 TD/TT: 05/01/25 1115 Pickle Sorter: [place] [address] Ultrasound Report Signed Patient: Lorena Salvador MR#: [id number] 9793 : 1955 Acct:[id number] Age/Sex: 69 / F ADM Date: 05/01/25 Loc: .US Attending Dr: Aureliano Conteh MD Ordering Physician: Aureliano Conteh MD Date of Service: 05/01/25 Procedure(s): US chiki ous duplex LE LT Accession Number(s): [id number] cc: Aureliano Conteh MD Reason for Exam: [...] Aureliano Ochoa MD 05/01/2025 11:26 AM EDT RP Dictated By: Aureliano Ochoa MD Signed By: <Elieser icachiara signed by Aureliano Ochoa MD in OV> 05/01/25 1126 DD/ 1100 TD/TT: 05/01/25 1115 Pickle Sorter: Diabetic Eye Exam Reviewed date:05/12/2025 01:29:38 PM Interpretation:undefined Performing Lab: Notes/Report: undefined XR chest 2V Reviewed date:06/01/2025 08:49:01 AM Interpretation: Performing Lab: Notes/Report: [address] [address] XRay Report Signed Patient: Yareli Salvador MR#: [id number] 9793 : 1955 Acct:[id number] Age/Sex: 70 / F ADM Date: 05/29/25 Loc: .[facility] Attending Dr: Aureliano Conteh MD Ordering Physician: Aureliano Conteh MD Date of Service: 05/29/25 Procedure(s): XR chest 2V Accession Number(s): [id number] cc: Aureliano Conteh MD Reason for Exam: CHEST PAIN EXAMINATION: XR CHEST CLINICAL INFORMATION: CHEST PAIN COMPARISON: None available. TECHNIQUE: 2 views of the chest were obtained. FINDINGS: The cardiac, hilar, and mediastinal contours are normal. Aortic mural calcifications. The lungs are clear bilaterally. There is no pneumothorax or pleural effusion. There is no focal osseous or soft tissue abnormality. There are cholecystectomy clips present. XR/XR chest 2V IMPRESSION: No active pulmonary disease. Electronically signed by: Jordi Suazo MD 05/29/2025 11:23 AM EDT RP Dictated By: Jordi Suazo MD Signed By: <Electronically signed by Jordi Suazo MD in OV> 05/29/25 112 DD/ 1112 TD/TT: 05/29/25 111 Pickle Sorter: [address] [address] XRay Report Signed Patient: Lorena Salvador MR#: [id number] 9793 : 1955 Acct:[id number] Age/Sex: 70 / F ADM Date: 05/29/25 Loc: [facility] Attending Dr: Aureliano Conteh MD Ordering Physician: Aureliano Conteh MD Date of Service: 05/29/25 Procedure(s): XR chest 2V Accession Number(s): [id number] cc: Aureliano Conteh MD Reason for Exam: YI ST PAIN EXAMINATION: XR CHEST CLINICAL INFORMATION: CHEST PAIN COMPARISON: None available. TECHNIQUE: 2 views of the chest were obtained. FINDINGS: The cardiac, hilar, and mediastinal contours are normal. Aortic mural calcifications. The lungs are clear bilaterally. There is no pneumothorax or pleural effusion. There is no focal os seous or soft tissue abnormality. There are cholecystectomy clip s present. X R/XR chest 2V IMPRESSION: No active pulmonary disease. Electronically lynette d by: Jordi Suazo MD 05/29/2025 11:23 AM EDT RP Dictated By: Jordi Mauricio MD Signed By: <Electron natalie signed by Jordi Suazo MD in OV> 05/29/25 112 DD/ 1112 TD/TT: 05/29/25 111 Pickle Sorter: XR wrist LT min 3V (Not yet reviewed by provider) Interpretation: Performing Lab: Notes/Report: [address] [address] XRay Report Signed Patient: Yareli Salvador MR#: [id number] 9793 : 1955 Acct:[id number] Age/Sex: 70 / F ADM Date: 06/05/25 Loc: HO.XRAY Attending Dr: Aureliano Conteh MD Ordering Physician: Aureliano Conteh MD Date of Service: 06/05/25 Procedure(s): XR wrist LT min 3V Accession Number(s): [id number] cc: Aureliano Conteh MD Reason for Exam: PAIN EXAMINATION: XR WRIST, LEFT CLINICAL INFORMATION: PAIN COMPARISON: None available. TECHNIQUE: PA, lateral, oblique, and scaphoid views of the left wrist. FINDINGS: The bones and soft tissues are normal. No fracture. Alignment is anatomic with normal joint spaces. No erosions or abnormal soft tissue calcifications. XR/XR wrist LT min 3V IMPRESSION: Normal left wrist. Electronically signed by: Jordi Suazo MD 06/05/2025 11:05 AM EDT Dictated By: Jordi Suazo MD Signed By: <Electronically signed by Jordi Suazo MD in OV> 06/05/25 1105 DD/ 1057 TD/TT: 06/05/25 1101 Pickle Sorter: [address] [address] XRay Report Signed Patient: Lorena Salvador MR#: [id number] 9793 : 1955 Acct:[id number] Age/Sex: 70 / F ADM Date: 06/05/25 Loc: HO.XRAY Attending Dr: Aureliano Conteh MD Ordering Physician: Aureliano Conteh MD Date of Service: 06/05/25 Procedure(s): XR wri st LT min 3V Accession Number(s): [id number] cc: Aureliano Conteh MD Reason for Exam: PAIN EXAMINATION: XR WRIST, LEFT CLINICAL INFORMATION: PAIN COMPARISON: None available. TECHNIQUE: PA, lateral, oblique , and scaphoid views of the left wrist. FINDINGS: The bones and soft t issues are normal. No fracture. Alignment is anatomic with normal joint spaces. No erosions or abnormal soft tissue calcifications. X R/XR wrist LT min 3V IMPRESSION: Normal left wrist. Electronically lynette d by: Jordi Suazo MD 06/05/2025 11:05 AM EDT Dictated By: Jordi Mauricio MD Signed By: <Electron ically signed by Jordi Suazo MD in [place]> 06/05/25 1105 DD/ 1057 TD/TT: 06/05/25 1101 Pickle Sorter: Reason For Referral Reason Consult and Treat Bilateral Hearing Loss Diagnosis 1 Hearing loss, bilate ral (H91.93) Referral Organization Aureliano Conteh III, MD Referring Provider First Name Aureliano Referring Provider Last Name Conteh Referring Provider Speciality Internal edicine Referred Provider [facility] Referred Provider Specialty Audiologists General Notes Nikki Maldonado 10/13/2024 01:13:57 PM > referral was faxed again per request from [facility]. Referral Priority Routine Referral Appointment Date 11/14/2024 Reason left 5th finger old fracture now pain with lump in palm evaluate and treatment Diagnosis 1 Closed nondisplaced fracture of phalanx of finger, unspecified finger, unspecified phalanx, initial encounter (S62.605K) Referral Organization Aureliano Conteh III, MD Referring Provider First Name Aureliano Referring Provider Last Name Conteh Referring Provider Speciality Internal edicine Referred Provider [facility] Referred Provider Specialty Orthopedic S gamal General Notes Bibi Benoit CMA 11/11 01:28:05 PM >referral with progress note faxed to [facility] pt made aware of this, Bibi Benoit CMA 11/25/2024 04:09:32 PM >I called [facility] pt has appt on 11/28/2024 at 9:15am Referral Priority Routine Referral Appointment Date 11/28/2024 Medications Medication SIG (Take, Route, Frequency, Duration) Notes Start Date End Date Status Albuterol Sulfate (2.5 MG/3ML) 0.083% 3 mL Inhalation Three times a day J45.909 Asthma 02/06/2017 Active Albuterol Sulfate HFA 108 (90 Base) MCG/ACT 1 puff as needed Inhalation every 4 hrs 01/22/2024 Active Ketoconazole 2 % 1 application Externally twice a day 05/25/2025 Active Trulicity 1.5 MG/0.5ML as directed Subcutaneous Active All-In-One Nebulizer System - as directed - use three times a day 04/16/2023 Active Nystatin 674672 UNIT/GM 1 application Externally Twice a day Active Nebulizer Mask Adult - as directed - use three times daily 04/16/2023 Active Omeprazole 20 MG TAKE 1 CAPSULE BY MOUTH DAILY Active Caltrate 600+D Activ e Alcohol Prep Pad none - - use to check blood sugars four times a day 05/19/2018 Active Metoprolol Succinate ER 25 MG TAKE 1 TABLET BY MOUTH DAILY Active One Touch Delica Lancets - Check blood sugar 4 times a day E11.9 Type 2 Diabetes 06/04/2024 Active Pioglitazone HCl 15 MG Take 1 tablet by mouth once daily Active Osteo Bi-Flex One Per Day - as directed Orally Active Atorvastatin Calcium 10 MG 1 tablet Orally Once a day Active Ozempic (0.25 or 0.5 MG/DOSE) 2 MG/3ML 0.5 mg Subcutaneous weekly disp one month supply woitjh needles please 09/11/2024 Active Immunizations Vaccine Route Administration Date Status [...] Status W/U Status Risk Notes Problem Obesity (134943166) Obesity (278.00) Active confirmed She has lost an additional 2 pounds. She will continue on her weight loss program. Problem 4280486 Former smoker (Z87.891) Active confirmed She is highly motivated not to smoke and we discussed strategies for maintenance of abstinence. Problem 969640165 Obesity (E66.9) Active confirmed Her weight has been stable. When she uses up the current supply of Ozempic I will increase the dose. Problem 863649164 Asthma (J45.909) Active confirmed She is breathing comfortably today on room air. No change in her regimen was needed. Problem 97906382 Depression (F32.9) Active confirmed Her depression is much better. No change in her medication was made. Problem 56048745 Type 2 diabetes mellitus without complications (E11.9) Active confirmed She has been compliant with her medications. She has not had blood work done but it was ordered today to be done in the next week. Her hemoglobin A1c was 6.8.Her blood sugar was 129. I have increased the dose of Ozempic to 0.5 mg weekly Problem 52948372 Varicose veins o f bilateral lower extremities with other complications (I83.893) Active confirmed We discussed compression hose. She will obtain a pair of those are new symptoms. She willl then reportt back. Problem 010021124 Low back pain (M54.5) Active confirmed Her back pain is mild and stable and she is conducting all of the activities of daily life without impairment. No change in her regimen was needed. Problem 77626522 Hearing loss, bilateral (H91.93) Active confirmed She did not have her hearing aids today. They are being repaired. She will wear them on her next visit. There is been no change in her hearing loss. Problem 984941135 Hyperlipidemia type II (E78.0) Active confirmed Most recent fasting total cholesterol was 199. A fasting lipid profile has been ordered today. No change in her medications was made today. Problem 28767887 Cervical dysplasia (N87.9) Active confirmed She says s he has an upcoming appointment with her fashion illustrator. She wished to defer her pelvic examination and rectal examination to the fashion illustrator. Her breast examination was unremarkable. Problem 85753830 Thyroglossal cys t (Q89.2) Active confirmed She has no symptoms in her neck. She has no difficulty swallowing or odynophagia. Problem 227904021 Atypical lobular hyperplasia of breast (N62) Active confirmed There is no sign of breast cancer. She has completed 5 years of tamoxifen as a preventative and the drug was discontinued at this time. Problem 469566767 Chest pressure (R07.89) Active confirmed This is atypical for angina. EKG has been ordered. If necessary she will have stress test. She has significant risk factors for heart disease. Problem 191160096 Osteopenia of spine (M85.88) Active confirmed He was continued on her regimen of calcium tablets and vitamin D. Vital Signs Heart Rate 80 /min 06/05/2025 EB Temperature 98.1 degrees Fahrenheit 06/05/2025 EB Blood pressure diastolic 71 mm Hg 06/05/2025 EB Height 61 in 06/05/2025 EB Blood pressure systolic 148 mm Hg 06/05/2025 EB Weight 212 lbs 06/05/2025 EB BMI 40.05 kg/m2 06/05/2025 Encounters Encounter Location Date Provider Diagnosis Aureliano Conteh III, MD [address] [place] [address] [place] [address] 06/05/2025 Aureliano Conteh Former smoker Z87.89 1 ; Right hand pain M79.641 and Left hand pain M79.642 Aureliano Conteh III, MD [address] [place] [address] [place] [address] 08/07/2024 Aureliano Conteh Former smoker Z87.89 1 ; Type 2 diabetes mellitus without complications E11.9 ; Depression F32.9 ; Hearing loss, bilateral H91.93 ; Asthma J45.909 ; Morbid obesity E66.01 and Osteoporosis M81.0 Aureliano Conteh III, MD [address] [place] [address] [place] [address] 09/11/2024 Aureliano Conteh Former smoker Z87.89 1 ; [...] of spine M85.88 Aureliano Conteh III, MD [address] [place] [address] [place] [address] 10/13/2024 Aureliano Conteh Type 2 diabetes amor itus without complications E11.9 ; Obesity E66.9 ; Former smoker Z87.891 ; Asthma J45.909 ; Depression F32.9 and Hearing loss, bilateral H91.93 Aureliano Conteh III, MD [address] [place] [address] [place] [address] 11/10/2024 Aureliano Yady Former smoker Z87.89 1 ; Type 2 diabetes mellitus without complications E11.9 ; Hearing loss, bilateral H91.93 ; Depression F32.9 ; Asthma J45.909 ; Morbid obesity E66.01 and Low back pain M54.5 Aureliano Conteh III, MD [address] [place] [address] [place] [address] 12/16/2024 Aureliano Conteh Former smoker Z87.89 1 ; Type 2 diabetes mellitus without complications E11.9 ; Depression F32.9 ; Hearing loss, bilateral H91.93 ; Asthma J45.909 ; Obesity E66.9 ; Osteoporosis M81.0 and Varicose veins of bilateral lower extremities with other complications I83.893 Aureliano Conteh III, MD [address] [place] [address] [place] [address] 01/13/2025 Aureliano Yady Former smoker Z87.89 1 ; Type 2 diabetes mellitus without complications E11.9 ; Depression F32.9 ; Hearing loss, bilateral H91.93 ; Low back pain M54.5 ; Cervical dysplasia N87.9 ; Hyperlipidemia type II E78.0 ; Asthma J45.909 and Morbid obesity E66.01 Aureliano Conteh III, MD [address] [place] [address] [place] [address] 02/19/2025 Aureliano Conteh Former smoker Z87.89 1 ; Type 2 diabetes mellitus without complications E11.9 ; Hearing loss, bilateral H91.93 ; Depression F32.9 ; Asthma J45.909 and Obesity E66.9 Aureliano Conteh III, MD [address] [place] [address] [place] [address] 04/03/2025 Aureliano Conteh Obesity E66.9 ; Type [...] unspecified laterality M85.859 Aureliano Conteh III, MD [address] [place] [address] [place] [address] 05/01/2025 Aureliano Conteh Former smoker Z87.89 1 ; Type 2 diabetes mellitus without complications E11.9 ; Left leg pain M79.605 ; Obesity E66.9 ; Depression F32.9 ; Hearing loss, bilateral H91.93 ; Low back pain M54.5 ; Cervical dysplasia N87.9 ; Hyperlipidemia type II E78.0 and Asthma J45.909 Aureliano Conteh III, MD [address] [place] [address] [place] [address] 05/29/2025 Aureliano oCnteh Former smoker Z87.89 1 ; Obesity 278.00 ; Depression F32.9 ; Low back pain M54.5 ; Atypical lobular hyperplasia of breast N62 ; Osteopenia of spine M85.88 and Chest pressure R07.89 Aureliano Conteh III, MD [address] [place] [address] [place] [address] 06/02/2025 Aureliano Conteh III, MD [address] [place] [address] [place] [address] 06/10/2024 Aureliano Conteh Former smoker Z87.89 1 Aureliano Conteh III, MD [address] [place] [address] [place] [address] 06/11/2024 Aureliano Conteh III, MD [address] [place] [address] [place] [address] 08/14/2024 Aureliano Conteh III, MD [address] [place] [address] [place] [address] 08/22/2024 Aureliano Conteh III, MD [address] [place] [address] [place] [address] 11/07/2024 Aureliano Conteh III, MD [address] [place] [address] [place] [address] 11/12/2024 Aureliano Conteh III, MD [address] [place] [address] [place] [address] 11/12/2024 Aureliano Conteh III, MD [address] [place] [address] [place] [address] 11/13/2024 Aureliano Conteh III, MD [address] [place] [address] [place] [address] 11/17/2024 Aureliano Conteh III, MD [address] [place] [address] [place] [address] 04/17/2025 Aureliano Conteh III, MD [address] [place] [address] [place] [address] 05/07/2025 Aureliano Conteh III, MD [address] [place] [address] [place] [address] 05/11/2025 Aureliano Conteh III, MD [address] [place] [address] [place] [address] 05/25/2025 Aureliano Conteh III, MD [address] [place] [address] [place] [address] 05/25/2025 Aureliano Conteh Assessments Encounter Date Diagnosis (ICD Code) Assessment Notes Treat ment Notes Treatment Clinical Notes 06/05/2025 Former smoker (ICD-1 0 - Z87.891) She is highly motivated not to smoke and we discussed strategies for maintenance of abstinence. 08/07/2024 Former smoker (ICD-1 0 - Z87.891) [...] dose of Ozempic to 0.5 mg weekly 05/29/2025 Obesity (ICD9-CM - 278.00) She has lost an additional 2 pounds. She will continue on her weight loss program. 05/29/2025 Former smoker (ICD-1 0 - Z87.891) She is highly motivated not to smoke and we discussed strategies for maintenance of abstinence. 06/10/2024 Former smoker (ICD-1 0 - Z87.891) She is highly motivated not to smoke and we discussed strategies for maintenance of abstinence. 06/05/2025 Right hand pain (ICD-10 - M79.641) 08/07/2024 Depression (ICD-10 - F32.9) Her depression [...] varicose vein. She is not misusing he. 05/29/2025 Depression (ICD-10 - F32.9) Her depression is much better. No change in her medication was made. 06/05/2025 Left hand pain (ICD-10 - M79.642) 08/07/2024 Hearing loss, bilateral (ICD-10 - H91.93) [...] of Ozempic I will increase the dose. 05/29/2025 Low back pain (ICD-1 0 - M54.5) Her back pain is mild and stable and she is conducting all of the activities of daily life without impairment. No change in her regimen was needed. 08/07/2024 Asthma (ICD-10 - J45.909) She is [...] change in her medication was made. 05/29/2025 Atypical lobular hyperplasia of breast (ICD-10 - N62) There is no sign of breast cancer. She has completed 5 years of tamoxifen as a preventative and the drug was discontinued at this time. 08/07/2024 Morbid obesity (ICD-10 - E66.01) Her [...] she has an upcoming appointment with her fashion illustrator. She wished to defer her pelvic examination and rectal examination to the fashion illustrator. Her breast examination was unremarkable. 02/19/2025 Obesity [...] been no change in her hearing loss. 05/29/2025 Osteopenia of spine (ICD-10 - M85.88) He was continued on her regimen of calcium tablets and vitamin D. 08/07/2024 Osteoporosis (ICD-10 - M81.0) She was [...] she has an upcoming appointment with her fashion illustrator. She wished to defer her pelvic examination and rectal examination to the fashion illustrator. Her breast examination was unremarkable. 05/01/2025 Low back pain (ICD-1 0 - M54.5) Her back pain is mild and stable and she is conducting all of the activities of daily life without impairment. No change in her regimen was needed. 05/29/2025 Chest pressure (ICD-10 - R07.89) This is atypical for angina. EKG has been ordered. If necessary she will have stress test. She has significant risk factors for heart disease. 09/11/2024 Low back pain (ICD-1 0 - [...] she has an upcoming appointment with her fashion illustrator. She wished to defer her pelvic examination and rectal examination to the fashion illustrator. Her breast examination was unremarkable. 09/11/2024 Asthma [...] Order Date PROFILE, FASTING (COMPREHENSIVE METABOLI C) 06/28/2018 PROFILE, FASTING (COMPREHENSIVE METABOLI C) 05/08/2024 PROFILE, FASTING (COMPREHENSIVE METABOLI C) 10/01/2023 PROFILE, FASTING (COMPREHENSIVE METABOLI C) 11/02/2022 PROFILE, FASTING (COMPREHENSIVE METABOLI C) 08/18/2019 PROFILE, FASTING (COMPREHENSIVE METABOLI C) 03/12/2023 PROFILE, FASTING (COMPREHENSIVE METABOLI C) 12/18/2022 PROFILE, FASTING (COMPREHENSIVE METABOLI C) 08/04/2021 PROFILE, [...] PROFILE, FASTING (COMPREHENSIVE METABOLI C) 02/14/2022 PROFILE, RANDOM (COMPREHENSIVE METABOLIC ) 01/14/2020 PROFILE, RANDOM (COMPREHENSIVE METABOLIC ) 11/03/2021 HEMOGLOBIN A1C (GLYCOHEMOGLOBIN) 020 HEMOGLOBIN A1C (GLYCOHEMOGLOBIN) 020 HEMOGLOBIN A1C (GLYCOHEMOGLOBIN) 022 HEMOGLOBIN A1C (GLYCOHEMOGLOBIN) 020 HEMOGLOBIN A1C (GLYCOHEMOGLOBIN) 022 HEMOGLOBIN A1C (GLYCOHEMOGLOBIN) 023 HEMOGLOBIN A1C (GLYCOHEMOGLOBIN) 019 HEMOGLOBIN A1C (GLYCOHEMOGLOBIN) 023 HEMOGLOBIN A1C (GLYCOHEMOGLOBIN) 023 HEMOGLOBIN A1C (GLYCOHEMOGLOBIN) 021 HEMOGLOBIN A1C (GLYCOHEMOGLOBIN) 019 HEMOGLOBIN A1C (GLYCOHEMOGLOBIN) 018 HEMOGLOBIN A1C (GLYCOHEMOGLOBIN) 017 HEMOGLOBIN A1C (GLYCOHEMOGLOBIN) 019 HEMOGLOBIN A1C (GLYCOHEMOGLOBIN) 021 HEMOGLOBIN A1C (GLYCOHEMOGLOBIN) 021 LIPID PANEL 12/10/2020 LIPID PANEL 06/28/2018 LIPID PANEL 08/09/2020 LIPID PANEL 04/30/2020 LIPID PANEL 01/14/2020 LIPID PANEL 11/03/2021 LIPID PANEL 11/02/2022 LIPID PANEL 08/18/2019 LIPID PANEL 03/12/2023 LIPID PANEL 12/18/2022 LIPID PANEL 08/04/2021 LIPID PANEL 04/10/2019 LIPID PANEL 02/08/2018 LIPID PANEL 04/06/2017 LIPID PANEL 11/01/2018 MICROALBUMIN, RANDOM 12/10/2020 MICROALBUMIN, RANDOM 02/14/2022 MICROALBUMIN, RANDOM 01/14/2020 MICROALBUMIN, RANDOM 11/02/2022 MICROALBUMIN, RANDOM 08/18/2019 MICROALBUMIN, RANDOM 03/12/2023 MICROALBUMIN, RANDOM 12/18/2022 CBC w DIFF 05/12/2021 CBC w DIFF 02/08/2018 CBC w DIFF 02/09/2021 CBC w DIFF 04/06/2017 CBC w DIFF 11/01/2018 CBC w DIFF 12/10/2020 CBC w DIFF 06/28/2018 CBC w DIFF 08/09/2020 CBC w DIFF 04/30/2020 CBC w DIFF 02/14/2022 CBC w DIFF 11/03/2021 CBC w DIFF 01/14/2020 CBC w DIFF 08/04/2021 CBC w DIFF 11/02/2022 CBC w DIFF 08/18/2019 CBC w DIFF 03/12/2023 CBC w DIFF 04/10/2019 CBC w DIFF 12/18/2022 ROUTINE CULTURE 03/05/2018 XR CHEST 2 VIEW PA & LAT 05/29/2025 XR SHOULDER LT 2 VIEWS 12/10/2020 BONE [...] 05/08/2024 Lipid Panel 10/01/2023 Microalbumin, Random 10/01/2023 ECG 12 lead EKG 05/29/2025 XR hand wrist LT 06/05/2025 XR hand LT min 3V 06/05/2025 XR wrist LT min 3V 06/05/2025 Hemoglobin A1c 02/09/2021 Hemoglobin A1c 05/08/2024 Hemoglobin A1c 10/01/2023 Next Appt Details Provider Name:Aureliano Fisher Yady , 07/03/2025 09:15:00 AM, [address] [place] [address] [place], [place], [address], Provider Name:Aureliano Bustosne , 12/18/2025 02:15:00 PM, [address] [facility] [place], [place], [address], Insurance Providers Payer Name Payer Address Payer Phone Subscriber Number Group Number Insured Name Patient Relationship to Insured Coverage Start Date Coverage End Date [employer] Medicare [address] [place] [phone] [id number] Yareli Fernandez Self - patient is the insured MED[place] [address] [place], [place] [id number] [phone] [id number] Yareli Fernandez Self - patient is the insured MEDICARE NGS [address] [place] [address] [id number] Yareli Fernandez Self - patient is the [...]
== END 2025-06-05 10:42 | disposition home or self-care (01) ==
LOC: HO.XRAY 10:41
PROVIDERS: PCP Internal Medicine Medical Oncology; Visit Provider Internal Medicine Medical Oncology
DX: M79.642 Pain in left hand (principal)
CPT/HCPCS: 73110; 73130

== ENCOUNTER → 2025-06-05 10:52 | Outpatient (BNV) | payer MEDICARE, MEDICAID, SELFPAY | PROVIDERS: PCP Internal Medicine Medical Oncology; Visit Provider Radiology Diagnostic Radiology | DX: M19.042 Primary osteoarthritis, left hand (principal); M20.002 Unspecified deformity of left finger(s); M25.532 Pain in left wrist | CPT/HCPCS: 73110; 73130 ==

== ENCOUNTER 2025-07-10 10:39 | Outpatient (REF) | payer MEDICARE, MEDICAID, SELFPAY ==
--- OUTSIDE RECORDS SUMMARY | 2025-05-11 08:35 | XMS_ITS ---
Author Organization Aureliano Conteh III, MD Address [address] [place] [address] Care Team Providers Care Customs Examiner Name Role Phone Dr. Aureliano Conteh III Primary Care Provider REASON FOR VISIT needs PT-2 form Social History Sex Assigned At : Social History Observation Description Sex Assigned At Female Encounters Encounter Location Date Provider Diagnosis Aureliano Conteh III, MD [address] [place] [address] [place] [address] 05/11/2025 Aureliano Conteh Plan Of Treatment Next Appt Details Provider Name:Aureliano Conteh , 08/10/2025 10:15:00 AM, [address] [place] [address] [place], [address], Provider Name:Aureliano Conteh , 12/18/2025 02:15:00 PM, [address] [place] [address] [place], [address], Progress Notes * Yareli CALHOUN HDOB:[birth year] (70 yo F)Acc No.[id number]:05/11/2025 Patient: Yareli WALSH :1955 A ge:70 Y S ex:Female Address:[address] [place] [address], [phone] * true * Date: Generated for Yovani rod/Zo/Gabesmitting on: 09/09/2024 11:23 AM EST
--- OUTSIDE RECORDS SUMMARY | 2025-05-25 04:21 | XMS_ITS ---
Author Organization Aureliano Conteh III, MD Address [address] [place] [address] [place] [address] Care Team Providers Care Crystal Slicer Name Role Phone Dr. Aureliano Conteh III Primary Care Provider [phone] REASON FOR VISIT Needs call back from Social History Sex Assigned At : Social History Observation Description Sex Assigned At Female Encounters Encounter Location Date Provider Diagnosis Aureliano Conteh III, MD [address] [place] [address] [place] [address] 05/25/2025 Aureliano Conteh Plan Of Treatment Next Appt Details Provider Name:Aureliano Conteh , 08/10/2025 10:15:00 AM, [address] [place] [address] [place], [address], Provider Name:Aureliano Conteh , 12/18/2025 02:15:00 PM, [address] [place] [address] [place], [address], Progress Notes * Yareli CALHOUN HDOB:[birth year] (70 yo F)Acc No.[id number]:05/25/2025 Patient: Yareli WALSH :1955 A ge:70 Y S ex:Female Address:[address] [place] [address], [phone] * true * Date: Generated for Yovani rod/Zo/Gabesmitting on: 09/09/2024 11:24 AM EST
--- OUTSIDE RECORDS SUMMARY | 2025-05-25 05:16 | XMS_ITS ---
Author Organization Aureliano Conteh III, MD Address [address] [place] [address] [place] [address] Care Team Providers Care Transcription Specialist Name Role Phone Dr. Aureliano Conteh III Primary Care Provider Medications Medication SIG (Take, Route, Fr equency, Duration) Notes Start Date End Date Status Ketoconazole 2 % 1 application Compliance Aide ally twice a day for 14 days 05/25/2025 07/19/2025 Active Social History Sex Assigned At : Social History Observation Description Sex Assigned At Female Encounters Encounter Location Date Provider Diagnosis Aureliano Conteh III, MD [address] [place] [address] [place] [address] 05/25/2025 Aureliano Conteh Plan Of Treatment Medication Medication Name Sig Start Date Stop Date Notes Ketoconazole 2 % 1 application Compliance Aide ally twice a day for 14 days 05/25/2025 07/19/2025 Next Appt Details Provider Name:Aureliano Conteh , 08/10/2025 10:15:00 AM, [address] [place] [address] [place], [address], Provider Name:Aureliano Conteh , 12/18/2025 02:15:00 PM, [address] [place] [address] [place] PIMENTEL, SHARON SAEZ, [address], Progress Notes * Yareli CALHOUN HDOB:[birth year] (70 yo F)Acc No.[id number]:05/25/2025 Patient: Yareli WALSH :1955 A ge:70 Y S ex:Female Address:[address] [place] [address], [phone] * Refills Start Ketoconazole Cream, 2 %, Externally, 60 Gram, 1 application, twice a day, 14 days, Refills=3 * true * Date: Generated for Yovani rod/Zo/Angelaitting on: 09/09/2024 11:24 AM EST
--- OUTSIDE RECORDS SUMMARY | 2025-05-29 05:00 | XMS_ITS ---
Author Organization Aureliano Conteh III, MD Address [address] [place] [address] [place] [address] Care Team Providers Care Pressroom Supervisor Name Role Phone Dr. Aureliano Conteh III [...] 1.5 MG/0.5ML as directed Subcutaneous Active Nystatin 461543 UNIT/GM 1 application Externally Twice a day [...] Date Provider Diagnosis Aureliano Conteh III, MD [address] [place] [address] [address] [place], [place] [address] 05/29/2025 Aureliano Conteh Former smoker Z87.89 1 [...] Trulicity 1.5 MG/0.5ML as directed Subcutaneous Nystatin 097334 UNIT/GM 1 application Externally Twice a day [...] Provider Name:Aureliano Conteh , 08/10/2025 10:15:00 AM, [address] [place] [address] [address], [place], [phone], Provider Name:Aureliano Conteh , 12/18/2025 02:15:00 PM, [address] [place] [address] [address], [place], [address], Progress Notes * LJCosmeha HDOB:[birth year] (70 yo F)Acc No.[id number]:05/29/2025 Progress Notes Patient: Yareli WALSH Provider: Otto Conteh MD :1955 A ge:70 Y S ex:Female Date:05/29/2025 Address:[address] [place] [phone] Subjective: * Chief Complaints: * O zempic [...] Hospitalization/Major Diagno stic Procedure: c hest pain [facility] 05/10/2018No history * Family History: [...] at this time. 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 * Medications: T akingAtorvastatin Calcium 10 MG Tablet 1 tablet Orally Once a day Metoprolol Succinate ER 25 MG Tablet Extended Release 24 Hour TAKE 1 TABLET BY MOUTH DAILY Nystatin 651250 UNIT/GM Cream APPLY TOPICALLY TO THE AFFECTED [...] 1 TABLET BY MOUTH DAILY Taking Nystatin 008953 UNIT/GM Cream APPLY TOPICALLY TO THE AFFECTED [...] Conteh MD Date: 1 Generated for Yovani rod/Zo/eTjasemetsmitting on: 09/09/2024 11:25 AM EST History and Physical Notes * [...]
--- OUTSIDE RECORDS SUMMARY | 2025-06-02 06:27 | XMS_ITS ---
Author Organization Aureliano Conteh III, MD Address [address] [place] [address] Care Team Providers Care Laborer Drying Department Name Role Phone Dr. Aureliano Conteh III Primary Care Provider REASON FOR VISIT New Nebulizer Social History Sex Assigned At : Social History Observation Description Sex Assigned At Female Encounters Encounter Location Date Provider Diagnosis Aureliano Conteh III, MD [address] [place] [address] [place] [address] 06/02/2025 Aureliano Conteh Plan Of Treatment Next Appt Details Provider Name:Aureliano Conteh , 08/10/2025 10:15:00 AM, [address] [place] [address] [place], [phone], Provider Name:Aureliano Conteh , 12/18/2025 02:15:00 PM, [address] [place] [address] [place], [phone], Progress Notes * Yareli CALHOUN HDOB:[birth year] (70 yo F)Acc No.[id number]:06/02/2025 Patient: Yareli WALSH :1955 A ge:70 Y S ex:Female Address:[address] [place] [address], [phone] * true * Date: Generated for Yovani rod/Zo/Gabesmitting on: 09/09/2024 11:25 AM EST
--- OUTSIDE RECORDS SUMMARY | 2025-06-05 05:15 | XMS_ITS ---
Author Organization Aureliano Conteh III, MD Address [address] [place] [address] Care Team Providers Care Senior Controls Analyst Name Role Phone Dr. Aureliano Conteh III Primary Care Provider [phone] Allergies Allergen (clinical drug ingredient) Drug/Non Drug Allergy documented on EMR Reaction Allergy Type Onset Date Status Ragweed Unknown Allergy Active Cat dander Cat Dander Unknown Allergy Active Latex Gloves Unknown Drug Allergy Acti ve Flexeril Unknown Drug Allergy Active Results Component Value Reference Range Notes XR hand LT min 3V Reviewed date:06/14/2025 07:35:03 AM Interpretation: Performing Lab: Notes/Report: [address] [address] XRay Report Signed Patient: Yareli Salvador MR#: [id number] : 1955 Acct:[id number] Age/Sex: 70 / F ADM Date: 06/05/25 Loc: HO.XRAY Attending Dr: Aureliano Conteh MD Ordering Physician: Aureliano Conteh MD Date of Service: 06/05/25 Procedure(s): XR hand LT min 3V Accession Number(s): [id number] cc: Aureliano Conteh MD Reason for Exam: PAIN EXAMINATION: XR HAND, LEFT CLINICAL INFORMATION: PAIN COMPARISON: January 26, 2017 TECHNIQUE: PA, lateral, and oblique views of the left hand. FINDINGS: Joint space narrowing involving the proximal and distal interphalangeal joints of the digits. There is a fixed flexed proximal interphalangeal joints of the feet degenerative. Old traumatic deformity in the proximal phalanx of the fifth digit. No acute cortical disruption. Carpal bones are intact with normal alignment. Distal radius and ulna are intact. No lytic or blastic lesions. XR/XR hand LT min 3V IMPRESSION: Old traumatic deformity left fifth digits. Osteoarthrosis/osteoarthritis. 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 FINDINGS: Joint space narrowin g involving the proximal and distal interphalangeal joints of the digits . There is a fixed flexed proximal interphalangeal joints of the feet degenerative. Old traumatic deformity in the proximal phalanx of the fifth digit. No acute cortical disruption. Carpal bones are int act with normal alignment. Distal radius and ulna are intact. No lytic or blastic lesions. X R/XR hand LT min 3V IMPRESSION: Old traumatic deform ity left fifth digits. Osteoarthrosis/osteoarthritis. Electronically lynette d by: Benjamin Rolon MD 06/05/2025 11:10 AM EDT RP Dictated By: Benjamin Mcdonald MD Signed By: <Electro nically signed by Benjamin Ramos MD in OV> 06/05/25 1110 DD/ 1057 TD/TT: 06/05/25 1101 Senior Sales Consultant: REASON FOR VISIT Left shoulder pain, Depression, Hearing loss, Low back pain, Diabetes, Hyperlipidemia, Asthma, Obesity Medications Medication SIG (Take, Route, Frequency, Duration) Notes Start Date End Date Status Omeprazole 20 MG TAKE 1 CAPSULE BY MOUTH DAILY Active Alcohol Prep Pad none - - use to check blood sugars four times a day 05/19/2018 Active Metoprolol Succinate ER 25 MG TAKE 1 TABLET BY MOUTH DAILY Active One Touch Delica Lancets - Check blood sugar 4 times a day E11.9 Type 2 Diabetes 06/04/2024 Active Atorvastatin Calcium 10 MG 1 tablet Orally Once a day Active Albuterol Sulfate (2.5 MG/3ML) 0.083% 3 mL Inhalation Three times a day J45.909 Asthma 02/06/2017 Active Ketoconazole 2 % 1 application Externally twice a day 05/25/2025 Active Nystatin 948101 UNIT/GM 1 application Externally Twice a day Active Pioglitazone HCl 15 MG Take 1 tablet by mouth once daily Active Ozempic (0.25 or 0.5 MG/DOSE) 2 MG/3ML 0.5 mg Subcutaneous weekly disp one month supply woitjh needles please 09/11/2024 Active Albuterol Sulfate HFA 108 (90 Base) MCG/ACT 1 puff as needed Inhalation every 4 hrs 01/22/2024 Active Trulicity 1.5 MG/0.5ML as directed Subcutaneous Active All-In-One Nebulizer System - as directed - use three times a day 04/16/2023 Active Nebulizer Mask Adult - as directed - use three times daily 04/16/2023 Active Osteo Bi-Flex One Per Day - as directed Orally Active Caltrate 600+D Activ e Social History Tobacco Use: Social History Observation [...] non-user Ex-cigaret te smoker Vital Signs Temperature 98.1 degrees Fahrenheit 06/05/20 25 Blood pressure systolic 133 mm Hg 06/05/20 25 Blood pressure diastolic 71 mm Hg 025 Heart Rate 80 /min 06/05/2025 Height 61 in 06/05/2025 Weight 212 lbs 06/05/2025 BMI 40.05 kg/m2 06/05/2025 Encounters Encounter Location Date Provider Diagnosis Aureliano Conteh III, MD [address] [place] [address] [place] [address] 06/05/2025 Aureliano Conteh Former smoker Z87.89 1 ; Pain in left shoulder M25.512 ; Obesity E66.9 ; Depression F32.9 ; Hearing loss, bilateral H91.93 ; Low back pain M54.5 ; Varicose veins of bilateral lower extremities with other complications I83.893 ; Atypical lobular hyperplasia of breast N62 and Chest pressure R07.89 Assessments Encounter Date Diagnosis (ICD Code) Assessment Notes Treat ment Notes Treatment Clinical Notes 06/05/2025 Former smoker (ICD-10 - Z87.891) She is highly motivated not to smoke and we discussed strategies for maintenance of abstinence. 06/05/2025 Pain in left shoulder (ICD-10 - M25.512) The chest pressure has resolved in the left shoulder pain is clearly related to motion and is much improved she says about 50%. 06/05/2025 Obesity (ICD-10 - E66.9) Her weight is up 3 pounds some of which is closing. When she uses up the current supply of Ozempic I will increase the dose. 06/05/2025 Depression (ICD-10 - F32.9) Her depression is much better. No change in her medication was made. 06/05/2025 Hearing loss, bilateral (ICD-10 - H91.93) She did not have her hearing aids today. They are being repaired. She will wear them on her next visit. There is been no change in her hearing loss. 06/05/2025 Low back pain (ICD-10 - M54.5) Her back pain is mild and stable and she is conducting all of the activities of daily life without impairment. No change in her regimen was needed. 06/05/2025 Varicose veins of bilateral lower extremities with other complications (ICD-10 - I83.893) We discussed compression hose. She will obtain a pair of those are new symptoms. She willl then reportt back. 06/05/2025 Atypical lobular hyperplasia of breast (ICD-10 - N62) There is no sign of breast cancer. She has completed 5 years of tamoxifen as a preventative and the drug was discontinued at this time. 06/05/2025 Chest pressure (ICD-10 - R07.89) This complaint has resolved. Plan Of Treatment Medication Medication Name Sig Start Date Stop Date Notes Omeprazole 20 MG TAKE 1 CAPSULE BY [facility] DAILY Alcohol Prep Pad none - - use to check b lood sugars four times a day 05/19/2018 Metoprolol Succinate ER 25 MG TAKE 1 TABLET BY MOUTH DAILY One Touch Delica Lancets - Check blood sugar 4 times a day 06/04/2024 E11.9 Type 2 Diabetes Atorvastatin Calcium 10 MG 1 tablet Orally Once a day Albuterol Sulfate (2.5 MG/3ML) 0.083% 3 mL Inhalation Three times a day 02/06/2017 J45.909 Asthma Ketoconazole 2 % 1 application Externally twice a day 05/25/2025 Nystatin 122334 UNIT/GM 1 application Externally Twice a day Pioglitazone HCl 15 MG Take 1 tablet by mouth once daily Ozempic (0.25 or 0.5 MG/DOSE) 2 MG/3ML 0.5 mg Subcutaneous weekly 09/11/2024 disp one month supply woitj needles please Albuterol Sulfate HFA 108 (90 Base) MCG/ACT 1 puff as needed Inhalation every 4 hrs 01/22/2024 Trulicity 1.5 MG/0.5ML as directed Subcutaneous All-In-One Nebulizer System - as directed - use three times a day 04/16/2023 Nebulizer Mask Adult - as directed - use three times daily 04/16/2023 Osteo Bi-Flex One Per Day - as directed Orally Caltrate 600+D Pending Test Test Name Order Date XR hand wrist LT 06/05/2025 Next Appt Details Follow Up: 4 Weeks, Reason: OV Provider Name:Aureliano Conteh , 08/10/2025 10:15:00 AM, [address] [place] [address] [address], [place], [address], Provider Name:Aureliano Conteh , 12/18/2025 02:15:00 PM, [address] [place] [address] [address], [place], [address], Progress Notes * Yareli SALVADOR HDOB:[birth year] (70 yo F)Acc No.[id number]:06/05/2025 Progress Notes Patient: Yareli WALSH Provider: Otto Conteh MD :1955 A ge:70 Y S ex:Female Date:06/05/2025 Address:[address] [place] [address], [id number] Subjective: * Chief Complaints: * L eft shoulder painDepressionHearing lossLow back painDiabetesHyperlipidemiaAsthmaObesity * HPI: C OVID-19 Screening: On her last visit a week ago she complained of a pressure-like discomfort in her left shoulder and upper left chest. She reports that it now feels much better and has been using a heating pad. It is not related to exertion but is exacerbated by movement of the left shoulder. The EKG done May 29, 2025 was within normal limits. She has gained some weight. She requests that we've arrived her with a new nebulizer. Her old nebulizer is broken and unreliable and no longer works well. This is a reasonable request and she certainly needs the nebulizer. We have begun the process of obtaining a new one for her asthma. Without the nebulizer she will be constantly in the emergency room.She made the point that she does not have the chest discomfort at the same frequency as she uses his nebulizer regularly. Questions H ave you had any new onset fever, chills, cough, congestion, sore throat, shortness of breath, muscle aches? N o * ROS: G eneral/Constitutional: pain L eft shoulder pain is improving. C hills d enies. F atigue a dmits. F ever d enies. E NT: Decreased hearing i n both ears. R espiratory: Cough d enies. C ardiovascular: Chest pain with exertion d enies. D yspnea on exertion?with moderate activity. S hortness of breath t hat is moderate. G astrointestinal: Constipation o ccasional. D ecreased [...] working at this time. 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 She was born in [place], [place]. * Medications: T akingKetoconazole 2 % Cream 1 application Externally twice a day Pioglitazone HCl 15 MG Tablet Take 1 tablet by mouth once daily Atorvastatin Calcium 10 MG Tablet 1 tablet Orally Once a day Metoprolol Succinate ER 25 MG Tablet Extended Release 24 Hour TAKE 1 TABLET BY MOUTH DAILY One Touch Delica Lancets - Miscellaneous Check blood sugar 4 times a day , Notes to Pharmacist: E11.9 Type 2 DiabetesAlcohol Prep Pad none pad - - use to check blood sugars four times a day Omeprazole 20 MG Capsule Delayed Release TAKE 1 CAPSULE BY MOUTH DAILY Caltrate 600+D All-In-One Nebulizer System - Miscellaneous as directed [...] Pharmacist: disp one month supply woitjh needles pleaseNystatin 031241 UNIT/GM Cream 1 application Externally Twice a day Albuterol Sulfate (2.5 MG/3ML) 0.083% Nebulization Solution 3 mL Inhalation Three times a day , Notes to Pharmacist: J45.909 AsthmaMedication List reviewed and reconciled with the patientTaking Ketoconazole 2 % Cream 1 application Externally twice a day Taking Pioglitazone HCl 15 MG Tablet Take 1 tablet by mouth once daily Taking Atorvastatin Calcium 10 MG Tablet 1 tablet Orally Once a day Taking Metoprolol Succinate ER 25 MG Tablet Extended Release 24 Hour TAKE 1 TABLET BY MOUTH DAILY Taking One Touch Delica Lancets - Miscellaneous Check blood sugar 4 times a day , Notes to Pharmacist: E11.9 Type 2 DiabetesTaking Alcohol Prep Pad none pad - - use to check blood sugars four times a day Taking Omeprazole 20 MG Capsule Delayed Release TAKE 1 CAPSULE BY MOUTH DAILY Taking Caltrate 600+D Taking All-In-One Nebulizer System - Miscellaneous as [...] disp one month supply woitjh needles pleaseTaking Nystatin 364893 UNIT/GM Cream 1 application Externally Twice a day Taking Albuterol Sulfate (2.5 MG/3ML) 0.083% Nebulization Solution 3 mL Inhalation Three times a day , Notes to Pharmacist: J45.909 AsthmaMedication List reviewed and reconciled with the patient * Allergies: F lexerilLatex GlovesCat DanderRagweedno[Allergies Verified] Objective: * Vitals: H t: 61, Wt:212, BMI:40.05, BP:133/71, HR:80, Temp:98.1, Ht-cm: 154.94, Wt-k.16. * P ast Orders: I maging:XR chest 2V (Order Date - 05/29/2025) (Performed Date - 05/29/2025) Imaging:Diabetic Eye Exam * Performed Date 05/06/2025 09/21/2023 Order Date 05/06/2025 09/21/2023 07/19/2021 Result: undefined undefined ???Imaging:US venous duplex LE LT (Order Date - 05/01/2025) (Performed Date - 05/01/2025) * Lab:[facility] * Collection Date 05/01/2025 [...] EYES: e jojo, perrla, anicteric, conjugate. EARS: : Normal anatomy with bilateral hearing loss. NOSE: s eptum intact. ORAL CAVITY: n ormal, unremarkable. NECK/THYROID: n o jugular venous distention, no carotid bruit, thyroid normal. LYMPH NODES: n o enlarged lymph nodes,spleen normal. SKIN: n o suspicious lesions, anicteric. HEART: n o clicks, gallops, murmurs, or rubs, regular rhythm, S1, S2 normal, no s3, or vascular bruits. LUNGS: : diminished breath sounds throughout: scattered inspiratory wheezes. BREASTS: N ot examined. ABDOMEN: b owel [...] a lert, oriented. Assessment: * Assessment: 1. P ain in left shoulder - M25.512 (Primary) N otes :The chest pressure has resolved in the left shoulder pain is clearly related to motion and is much improved she says about 50%. 2 . F ormer smoker - Z87.891 N otes :She is highly motivated not to smoke and we discussed strategies for maintenance of abstinence. 3 . O besity - E66.9 N otes :Her weight is up 3 pounds some of which is closing. W hen she uses up the current supply of Ozempic I will increase the dose. 4 . D epression - F32.9 N otes :Her depression is much better. No change in her medication was made. 5 . H earing loss, bilateral - H91.93 N otes :She did not have her hearing aids today. They are being repaired. She will wear them on her next visit. There is been no change in her hearing loss. 6 . L ow back pain - M54.5 N otes :Her back pain is mild and stable and she is conducting all of the activities of daily life without impairment. No change in her regimen was needed. 7 . V aricose veins of bilateral lower extremities with other complications - I83.893 N otes :We discussed compression hose. She will obtain a pair of those are new symptoms. She willl then reportt back. 8 . A typical lobular hyperplasia of breast - N62 N otes :There is no sign of breast cancer. She has completed 5 years of tamoxifen as a preventative and the drug was discontinued at this time. 9 . C hest pressure - R07.89 N otes :This complaint has resolved. Plan: * Treatment: 2. O thers Continue [...] DAILY. * Imaging: * I maging: XR hand wrist LT I maging: XR hand LT min 3V (Performed Date - 06/05/2025) * Procedure Codes: * Preventive Medicine: Counseling: [...] tobacco use and urged to quit. 1 * Follow Up: 4 Weeks (Reason: OV) * Images: * Sign off status: Completed true * Provider: Otto Conteh MD Date: Generated for Yovani rod/Zo/Angelaitting on: 09/09/2024 11:24 AM EST History and Physical Notes * [...] EYES: eomi, perrla, anicte jenny, conjugate EARS: : Normal anatomy wit h bilateral hearing loss NOSE: septum intact NECK/THYROID: no jugular venous di stention, no carotid bruit, thyroid normal HEART: no clicks, gallops, murmurs, or rubs, regular rhythm, S1, S2 normal, no s3, or vascular bruits LUNGS: : diminished breath sounds throughout: scattered inspiratory wheezes ABDOMEN: bowel sounds normal, no ascites, no [...]
--- OUTSIDE RECORDS SUMMARY | 2025-06-08 06:50 | XMS_ITS ---
Author Organization Aureliano Conteh III, MD Address [address] [place] [address] [place] [address] Care Team Providers Care Shift Mgr Name Role Phone Dr. Aureliano Conteh III Primary Care Provider REASON FOR VISIT Refills Medications Medication SIG (Take, Route, Fr equency, Duration) Notes Start Date End Date Status Nystatin 869558 UNIT/GM 1 application Ex ternally Twice a day for 30 days Active Social History Sex Assigned At : Social History Observation Description Sex Assigned At Female Encounters Encounter Location Date Provider Diagnosis Aureliano Conteh III, MD [address] [place] [address] [place] [address] 06/08/2025 Aureliano Conteh Former smoker Z87.891 Assessments Encounter Date Diagnosis (ICD Code) Assessment Notes Treatment Notes Treatment Clinical Notes 06/08/2025 Former smoker (ICD-10 - Z87.891) She is highly motivated not to smoke and we discussed strategies for maintenance of abstinence. Plan Of Treatment Medication Medication Name Sig Start Date Stop Date Notes Nystatin 680316 UNIT/GM 1 application Ex ternally Twice a day for 30 days Next Appt Details Provider Name:Aureliano Conteh , 08/10/2025 10:15:00 AM, [address] [facility] [place], [place], [address], Provider Name:Aureliano Conteh , 12/18/2025 02:15:00 PM, [address] [facility] [place], [place], [address], Progress Notes * Yareli CALHOUN HDOB:[birth year] (70 yo F)Acc No.[id number]:06/08/2025 Patient: Yareli WALSH :1955 A ge:70 Y S ex:Female Address:[address] [place] [address], [address] * Refills Refill Nystatin Cream, 229956 UNIT/GM, Externally, 15 Gram, 1 application, Twice a day, 30 days, Refills=11 * true * Date: Generated for Yovani rod/Zo/Gabesmitting on: 1 09/09/2024 11:24 AM EST
--- OUTSIDE RECORDS SUMMARY | 2025-06-08 06:52 | XMS_ITS ---
Author Organization Aureliano Conteh III, MD Address [address] [place] [place] [address] Care Team Providers Care Locomotive Crane Operator Helper Name Role Phone Dr. Aureliano Conteh III Primary Care Provider REASON FOR VISIT Message Social History Sex Assigned At : Social History Observation Description Sex Assigned At Female Encounters Encounter Location Date Provider Diagnosis Aureliano Conteh III, MD [address] [place] [address] [place] [address] 06/08/2025 Aureliano Conteh Plan Of Treatment Next Appt Details Provider Name:Aureliano Conteh , 08/10/2025 10:15:00 AM, [address] [place] [address] [place], [address], Provider Name:Aureliano Conteh , 12/18/2025 02:15:00 PM, [address] [place] [address] [place], [address], Progress Notes * Yareli CALHOUN HDOB:[birth year] (70 yo F)Acc No.[id number]:06/08/2025 Patient: Yareli WALSH :1955 A ge:70 Y S ex:Female Address:[address] [place] [address], [address] * true * Date: Generated for Yovani rod/Zo/Gabesmitting on: 09/09/2024 11:25 AM EST
--- OUTSIDE RECORDS SUMMARY | 2025-07-03 04:15 | XMS_ITS ---
Author Organization Aureliano Conteh III, MD Address [address] [place] [address] Care Team Providers Care Business Intelligence Consultant Name Role Phone Dr. Aureliano Conthe III Primary Care Provider Allergies Allergen (clinical [...] a day J45.909 Asthma 02/06/2017 Active Nystatin 404529 UNIT/GM 1 application Externally Twice a day [...] Problem Status W/U Status Risk Notes Problem [id number] Morbid obesity (E66.01) Active confirmed Her weight [...] Date Provider Diagnosis Aureliano Conteh III, MD [address] [place] [address] [address] [place], [place] [address] 07/03/2025 Aureliano Conteh Former smoker Z87.89 1 [...] times a day 02/06/2017 J45.909 Asthma Nystatin 773271 UNIT/GM 1 application Externally Twice a day [...] Provider Name:Aureliano Conteh , 08/10/2025 10:15:00 AM, [address] [place] [address] [address], [place], [address], Provider Name:Aureliano Conteh , 12/18/2025 02:15:00 PM, [address] [place] [address] [address], [place], [address], Progress Notes * Yareli CALHOUN HDOB:[birth year] (70 yo F)Acc No.[id number]:07/03/2025 Patient: Andrew RIGOYareli MORALES Provider: Otto Conteh MD :1955 A ge:70 Y S ex:Female Date:07/03/2025 Address:[address] [place] [phone] Subjective: * Chief Complaints: * L eft [...] of provider rendering services: { ...} [address] [facility] [address] L ocation of patient: sandra ddress listed [...] working at this time. 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 * Medications: T akingAlbuterol Sulfate (2.5 [...] disp one month supply woitj needles pleaseNystatin 030787 UNIT/GM Cream 1 application Externally Twice a [...] one month supply woitjh needles pleaseTaking Nystatin 652698 UNIT/GM Cream 1 application Externally Twice a [...] Date: 09/02/2024 Generated for Yovani rod/Zo/Angelaitting on: 09/09/2024 11:24 AM EST History and Physical Notes * HPI (History of Present Illness) Category Sub-Category Detail Notes Telehealth Location of prov ider rendering services:: {...} [address] [facility] [address] Location of patient:: address listed in demographics [...]
--- NOTE | ~2025-07-10 | XR_ITS ---
EXAMINATION: XR SHOULDER 2 OR MORE VIEWS LEFT HISTORY: PAIN COMPARISON: Comparison is made with the prior examination dated 12/10/2020. FINDINGS: Four views of the left shoulder are submitted. Osseous mineralization is normal. There is no fracture or dislocation. The glenohumeral joint is maintained. There is mild degenerative change of the AC joint. The soft tissues are unremarkable. XR/XR shoulder LT min 2V IMPRESSION: Mild degenerative change of the AC joint. Electronically signed by: Aureliano Ochoa MD 07/10/2025 11:25 AM MARQUIS MCGHEE
--- OUTSIDE RECORDS SUMMARY | 2025-07-10 05:00 | XMS_ITS ---
Author Organization Aureliano Conteh III, MD Address [address] [address] Care Team Providers Care Wheel Tuner Name Role Phone Dr. Aureliano Conteh III Primary Care Provider [phone] REASON FOR VISIT follow up Medications Medication SIG (Take, Route, Frequency, Duration) Notes Start Date End Date Status Pioglitazone HCl 15 MG Take 1 tablet by mouth once daily Active Atorvastatin Calcium 10 MG 1 tablet Orally Once a day Active Ketoconazole 2 % 1 application Externally twice a day 05/25/2025 Active Metoprolol Succinate ER 25 MG TAKE 1 TABLET BY MOUTH DAILY Active One Touch Delica Lancets - Check blood sugar 4 times a day E11.9 Type 2 Diabetes 06/04/2024 Active Osteo Bi-Flex One Per Day - as directed Orally Active Ozempic (0.25 or 0.5 MG/DOSE) 2 MG/3ML 0.5 mg Subcutaneous weekly disp one month supply woitjh needles please 09/11/2024 Active Gabapentin 100 MG 1 capsule at bedtime Orally three times a day for 14 days 07/10/2025 Active Nystatin 838954 UNIT/GM 1 application Externally Twice a day Active Albuterol Sulfate (2.5 MG/3ML) 0.083% 3 mL Inhalation Three times a day J45.909 Asthma 02/06/2017 Active Trulicity 1.5 MG/0.5ML as directed Subcutaneous Active Caltrate 600+D Activ e All-In-One Nebulizer [...] TAKE 1 CAPSULE BY MOUTH DAILY Active Social History Tobacco Use: Social History [...] Additional Findings: Tobacco non-user Ex-cigaret te smoker Encounters Encounter Location Date Provider Diagnosis Aureliano Conteh III, MD [address] [place] [address] [place] [address] 07/10/2025 Aureliano Conteh Former smoker Z87.891 and Pain in left shoulder M25.512 Assessments Encounter Date Diagnosis (ICD Code) Assessment Notes Treatment Notes Treatment Clinical Notes 07/10/2025 Former smoker (ICD-10 - Z87.891) She is highly motivated not to smoke and we discussed strategies for maintenance of abstinence. 07/10/2025 Pain in left shoulder (ICD-10 - M25.512) Plan Of Treatment Medication Medication Name Sig Start Date Stop Date Notes Pioglitazone HCl 15 MG Take 1 tablet by mouth once daily Atorvastatin Calcium 10 MG 1 tablet Orally Once a day Ketoconazole 2 % 1 application Externally twice a day 05/25/2025 Metoprolol Succinate ER 25 MG TAKE 1 TABLET BY MOUTH DAILY One Touch Delica Lancets - Check blood sugar 4 times a day 06/04/2024 E11.9 Type 2 Diabetes Osteo Bi-Flex One Per Day - as directed Orally Ozempic (0.25 or 0.5 MG/DOSE) 2 MG/3ML 0.5 mg Subcutaneous weekly 09/11/2024 disp one month supply woitjh needles please Gabapentin 100 MG 1 capsule at bedtime Orally three times a day for 14 days 07/10/2025 Nystatin 024727 UNIT/GM 1 application Externally Twice a day Albuterol Sulfate (2.5 MG/3ML) 0.083% 3 mL Inhalation Three times a day 02/06/2017 J45.909 Asthma Trulicity 1.5 MG/0.5ML as directed Subcutaneous Caltrate 600+D All-In-One Nebulizer System - as directed - use three times a day 04/16/2023 Nebulizer Mask Adult - as directed - use three times daily 04/16/2023 Albuterol Sulfate HFA 108 (90 Base) MCG/ACT 1 puff as needed Inhalation every 4 hrs 01/22/2024 Alcohol Prep Pad none - - use to check b lood sugars four times a day 05/19/2018 Omeprazole 20 MG TAKE 1 CAPSULE BY MO [facility] DAILY Pending Test Test Name Order Date XR SHOULDER LT 2 VIEWS 07/10/2025 Next Appt Details Follow Up: 5 Weeks, Reason: OV Provider Name:Aureliano Conteh , 08/10/2025 10:15:00 AM, [address] [place] [address] [address], [place], [address], Provider Name:Aureliano Conteh , 12/18/2025 02:15:00 PM, [address] [place] [address] [address], [place], [address], Progress Notes * Yareli CALHOUN HDOB:[birth year] (70 yo F)Acc No.[id number]:07/10/2025 Progress Notes Patient: Yareli WALSH Provider: Otto Conteh MD :1955 A ge:70 Y S ex:Female Date:07/10/2025 Address:[address] [place] [address] [id number] Subjective: * Chief Complaints: * 1 . Follow up. * HPI: C OVID-19 Screenin weeks severe left shjould pain no reliev with otc, no antecedent, appt with ortho in july, left shoulder impingemnet. Questions H ave you had any new [...] History: * Surgical History: p artial hystererectomy 08/04/2003, [...] working at this time. 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 * Medications: T aking Nystatin 141559 UNIT/GM Cream 1 application Externally Twice a day , Taking Albuterol Sulfate (2.5 MG/3ML) 0.083% Nebulization Solution 3 mL Inhalation Three times a day , Notes to Pharmacist: J45.909 Asthma, Taking Ketoconazole 2 % Cream 1 application [...] Notes to Pharmacist: disp one month supply stevie lopez please, Medication List reviewed and reconciled with the patient Objective: * Vitals: * P ast Orders: Lab:Lipid Panel * [...] 0.000 (Ref Range: 0.0-0.012 X10*3/uL) * Lab:[facility] * Collection Date 05/01/2025 11/10/2024 07/31/2024 [...] 8.4-10.2 mg/dL) 9.5 (Ref Range: 8.4-10.2 mg/dL) ???Imaging:XR wrist LT min 3V (Order Date - 06/05/2025) (Performed Date - 06/05/2025) ???Imaging:XR hand LT min 3V (Order Date - 06/05/2025) (Performed Date - 06/05/2025) ???Imaging:XR chest 2V (Order Date - 05/29/2025) (Performed Date - 05/29/2025) * Imaging:Diabetic Eye Exam * Performed Date [...] strategies for maintenance of abstinence. 2 . P ain in left shoulder - M25.512 Plan: * Treatment: 2. P ain in left shoulder I maging: XR SHOULDER LT 2 VIEWS 3. O thers Continue Ketoconazole Cream, 2 [...] TAKE 1 CAPSULE BY MOUTH DAILY. * Follow Up: 5 Weeks (Reason: OV) * Images: * The named appointment provid er may or may not be the originator of this progress note, and it is not deemed complete until electronically signed by the appointment provider. Sign off status: Pending * Provider: Otto Conteh MD Date: 09/09/2024 Generated for Yovani rod/Zo/Angelaitting on: 09/09/2024 11:23 AM EST History and Physical Notes * [...]
--- OUTSIDE RECORDS SUMMARY | 2025-07-10 11:24 | XMS_ITS | Patient Health Record ---
Author Organization Aureliano Conteh III, MD Address [address] [place] [place] [address] Care Team Providers Care Awning Hanger Helper Name Role Phone Dr. Aureliano Conteh [...] Panel Reviewed date:11/12/2024 01:06:57 PM Interpretation: Performing Lab:[facility], [address] [place] [place] [phone] Notes/Report: Triglycerides 143 <150 mg/dL Desirable Triglyceride: [...] Random Reviewed date:11/12/2024 01:06:57 PM Interpretation: Performing Lab:[facility], [address] [place] [phone] Notes/Report: Creatinine Urine 139.35 Microalbumin Urine 18.0 Microalbum/Creatinine Ratio Ur 12.9 <30 ug/mg cr Albumin/Creatinine Ratio Reference Ranges: Normal: < 30 ug/mg creatinine Microalbuminuria: 30 - 300 ug/mg creatinine Clinical Albuminuria: > 300 ug/mg creatinine Hemoglobin A1c Reviewed date:11/12/2024 01:06:57 PM Interpretation: Performing Lab:[facility], [address] [place] [address] Notes/Report: Hemoglobin A1c % 7.0 <6.0 % [...] average glucose, using the formula of the G0X-Nbtosdo Average Glucose study (ADAG), Diabetes Care, Vol.31,#8, Mar. 2007 Lipid Panel Reviewed date:05/02/2025 05:58:34 PM Interpretation: Performing Lab:[address] [address] Notes/Report: Triglycerides 101 <150 mg/dL Desirable Triglyceride: [...] low results in patients with liver disease. XR hand LT min 3V Reviewed date:06/14/2025 07:35:03 AM Interpretation: Performing Lab: Notes/Report: [address] [address] XRay Report Signed Patient: Yareli Salvador MR#: [id number] : 1955 Acct:[id number] Age/Sex: 70 / F ADM Date: 06/05/25 Loc: [facility] Attending Dr: Aureliano Conteh MD Ordering Physician: Aureliano Conteh MD Date of Service: 06/05/25 Procedure(s): XR hand LT min 3V Accession Number(s): [id number] cc: Aureliano Conteh MD Reason for Exam: [...] Benjamin Rolon MD 06/05/2025 11:10 AM EDT Dictated By: Benjamin Ny MD Signed By: <Electronically signed by Benjamin Ramos MD in OV> 06/05/25 1110 DD/ 1057 TD/TT: 06/05/25 1101 Production Repairer: [address] [address] XRay Report Signed Patient: Lorena Salvador MR#: [id number] : 1955 Acct:[id number] Age/Sex: 70 / F ADM Date: 06/05/25 Loc: HO.XRAY Attending Dr: Aureliano Conteh MD Ordering Physician: Aureliano Conteh MD Date of Service: 06/05/25 Procedure(s): XR tatum d LT min 3V Accession Number(s): [id number] cc: Aureliano Conteh MD Reason for Exam: [...] 06/05/25 1110 DD/ 1057 TD/TT: 06/05/25 1101 Production Repairer: Complete Blood Count Auto Di ff Reviewed date:08/01/2024 08:35:00 AM Interpretation: Performing Lab:[facility], [address] [place] [phone] Notes/Report: White Blood Count 6.6 4.8-10.8 X10*3/uL [...] NRBC Abs Auto 0.000 0.0-0.012 X10*3/uL Comprehensive [facility]. Panel Fa st Reviewed date:08/01/2024 08:35:00 AM Interpretation: Performing Lab:[facility], [address] [place] [address] Notes/Report: Sodium 142 135-145 mmol/L Potassium 3.8 [...] Panel Reviewed date:08/01/2024 08:35:01 AM Interpretation: Performing Lab:[facility], [address] [place] [phone] Notes/Report: Triglycerides 99 <150 mg/dL Desirable Triglyceride: [...] A1c Reviewed date:08/01/2024 08:35:00 AM Interpretation: Performing Lab:[facility], [address] [place] [phone] Notes/Report: Hemoglobin A1c % 6.8 <6.0 % [...] average glucose, using the formula of the V4N-Ycsywrr Average Glucose study (ADAG), Diabetes Care, Vol.31,#8, 2007 Complete Blood Count Auto Di ff Reviewed date:11/12/2024 01:06:57 PM Interpretation: Performing Lab:[facility], [address] [place] [phone] Notes/Report: White Blood Count 7.6 4.8-10.8 X10*3/uL [...] NRBC Abs Auto 0.000 0.0-0.012 X10*3/uL Comprehensive [facility]. Panel Fa st Reviewed date:11/12/2024 01:06:57 PM Interpretation: Performing Lab:[facility], [address] [place] [phone] Notes/Report: Sodium 141 135-145 mmol/L Potassium 3.9 [...] Blood Reviewed date:02/18/2025 03:55:55 PM Interpretation: Performing Lab:[facility], [address] [place] [phone] Notes/Report: Glucose, Whole Blood 147 60-115 mg/dL METER # : [id number] Pathology Reviewed date:02/18/2025 03:55:55 PM Interpretation: Performing Lab:[facility], [address] [place] [phone] Notes/Report: ------ Name: Salvador,Bert leoncio Age/Sex: 69/F : 1955 Unit#: [id number] Attend Dr: Parish Lopez MD Re02/12/25 Status : [facility] Location: HO.SSS Disch: ------ SPEC : [id number] RECD : 02/12/25 STATUS: [facility] NUM: [id number] MARK: 02/12/[address] [facility] [address]: Parish Lopez MD ENTERED: 02/12/25 SP TYPE: Surgical OTHR DR: Aureliano Conteh [...] Cosme Salvador Age/Sex: 69/F : 1955 Unit#: [id number] Attend Dr: Parish Lopez MD Re02/12/25 Status : [facility] Location: [facility] Disch: ------ SPEC : [id number] RECD : 02/12/25 STATUS: [facility] NUM: [id number] MARK: 02/12/[address] [facility] [address]: Parish Lopez MD ENTERED: 02/12/25- 51 SP TYPE: Surgical OTHR DR: Aureliano Conteh MD ORDERED: HE Stain/9, Gross Micro L4/3 IHC S/NG Disclaimer NOTE: Unless otherwi se stated, all tissue is formalin-fixed and paraffin-embedded. Some or all of the immunohistochemical tests reported herein may have been developed and their performance characteristics determined by [facility]. They have not been cleared or appr micah by the U.S. Food and Drug Administration (FDA). However, the FDA has determined that such clearance or approval is not necessary. This laboratory is certified under the Clinical Laboratory Improvement Amendments of 1988 (CLIA) as qualified to perform high comp lexity clinical laboratory testing. Copies To: Aureliano Conteh MD [address] [facility] [address] [place] [address] Parish Lopez MD [facility] G[facility]ology [address] [address] ------ Signed (signature on file) Pepe Amanda MD 02/13/25 1334 ------ END OF REPORT Complete Blood Count Auto Di ff Reviewed date:05/02/2025 05:58:34 PM Interpretation: Performing Lab:[facility], [address] [place] [phone] Notes/Report: White Blood Count 7.0 4.8-10.8 X10*3/uL [...] NRBC Abs Auto 0.000 0.0-0.012 X10*3/uL Comprehensive [facility]. Panel Fa st Reviewed date:05/02/2025 05:58:34 PM Interpretation: Performing Lab:[facility], [address] [place] [phone] Notes/Report: Sodium 142 135-145 mmol/L Potassium 3.7 [...] date:05/02/2025 05:58:34 PM Interpretation: Performing Lab: Notes/Report: [address] [address] Ultrasound Report Signed Patient: Yareli Salvador MR#: [id number] : 1955 Acct:[id number] Age/Sex: 69 / F ADM Date: 05/01/25 Loc: .US Attending Dr: Aureliano Conteh MD Ordering Physician: Aureliano Conteh MD Date of Service: 05/01/25 Procedure(s): US venous duplex LE LT Accession Number(s): [id number] cc: Aureliano Conteh MD Reason for Exam: [...] 05/01/25 1126 DD/ 1100 TD/TT: 05/01/25 1115 Production Repairer: [place] [address] Ultrasound Report Signed Patient: Lorena Salvador MR#: [id number] : 1955 Acct:[id number] Age/Sex: 69 / F ADM Date: 05/01/25 Loc: .US Attending Dr: Aureliano Conteh MD Ordering Physician: Aureliano Conteh MD Date of Service: 05/01/25 Procedure(s): US chiki ous duplex LE LT Accession Number(s): [id number] cc: Aureliano Conteh MD Reason for Exam: [...] Dictated By: Aureliano Ochoa MD Signed By: <Electron ically signed by Aureliano Ochoa MD in OV> 05/01/25 1126 DD/ 1100 TD/TT: 05/01/25 1115 Production Repairer: Diabetic Eye Exam Reviewed date:05/12/2025 01:29:38 PM Interpretation:undefined Performing Lab: Notes/Report: undefined XR chest 2V Reviewed date:06/01/2025 08:49:01 AM Interpretation: Performing Lab: Notes/Report: [address] [address] XRay Report Signed Patient: Yareli Salvador MR#: [id number] : 1955 Acct:[id number] Age/Sex: 70 / F ADM Date: 05/29/25 Loc: HO.CARD Attending Dr: Aureliano Conteh MD Ordering Physician: Aureliano Conteh MD Date of Service: 05/29/25 Procedure(s): XR chest 2V Accession Number(s): [id number] cc: Aureliano Conteh MD Reason for Exam: [...] 05/29/25 112 DD/ 1112 TD/TT: 05/29/25 111 Production Repairer: [place] [address] XRay Report Signed Patient: Lorena Salvador MR#: [id number] : 1955 Acct:[id number] Age/Sex: 70 / F ADM Date: 05/29/25 Loc: [facility] Attending Dr: Aureliano Conteh MD Ordering Physician: Aureliano Conteh MD Date of Service: 05/29/25 Procedure(s): XR chest 2V Accession Number(s): [id number] cc: Aureliano Conteh MD Reason for Exam: [...] by Jordi Suazo MD in OV> 05/29/25 1123 DD/ 1112 TD/TT: 05/29/25 111 Production Repairer: XR wrist LT min 3V Reviewed date:06/14/2025 07:35:03 AM Interpretation: Performing Lab: Notes/Report: [address] [address] XRay Report Signed Patient: Yareli Salvador MR#: [id number] : 1955 Acct:[id number] Age/Sex: 70 / F ADM Date: 06/05/25 Loc: HO.XRAY Attending Dr: Aureliano Conteh MD Ordering Physician: Aureliano Conteh MD Date of Service: 06/05/25 Procedure(s): XR wrist LT min 3V Accession Number(s): [id number] cc: Aureliano Conteh MD Reason for Exam: [...] 06/05/25 1105 DD/ 1057 TD/TT: 06/05/25 1101 Production Repairer: [address] [address] XRay Report Signed Patient: Lorena Salvador MR#: [id number] : 1955 Acct:[id number] Age/Sex: 70 / F ADM Date: 06/05/25 Loc: HO.XRAY Attending Dr: Aureliano Conteh MD Ordering Physician: Aureliano Conteh MD Date of Service: 06/05/25 Procedure(s): XR wri st LT min 3V Accession Number(s): [id number] cc: Aureliano Conteh MD Reason for Exam: [...] Jordi Suazo MD 06/05/2025 11:05 AM EDT RP Workstation: [id number] Dictated By: Jordi Mauricio MD Signed By: <Electron ically signed by Jordi Suazo MD in OV> 06/05/25 1105 DD/ 1057 TD/TT: 06/05/25 1101 Production Repairer: Reason For Referral Reason Consult and Treat Bilateral Hearing Loss Diagnosis 1 Hearing loss, bilate ral (H91.93) Referral Organization Aureliano Conteh III, MD Referring Provider First Name Aureliano Referring Provider Last Name Conteh Referring Provider Speciality Internal M edicine Referred Provider [facility] Referred Provider Specialty Audiologists General Notes Nikki Maldonado 10/13/2024 01:13:57 PM > referral was faxed again per request from [facility]. Referral Priority Routine Referral Appointment Date 11/14/2024 Reason left 5th finger old fracture now pain with lump in palm evaluate and treatment Diagnosis 1 Closed nondisplaced fracture of phalanx of finger, unspecified finger, unspecified phalanx, initial encounter (S62.568T) Referral Organization Aureliano Conteh III, MD Referring Provider First Name Aureliano Referring Provider Last Name Conteh Referring Provider Speciality Internal edicine Referred Provider [facility] Referred Provider Specialty Orthopedic S urgery General Notes Bibi Benoit CMA 11/11 01:28:05 PM >referral with progress note faxed to [facility] pt made aware of this, Bibi Benoit CMA 11/25/2024 04:09:32 PM >I called [facility] pt has appt on 11/28/2024 at 9:15am Referral Priority Routine Referral Appointment Date 11/28/2024 Medications Medication SIG (Take, Route, Frequency, Duration) Notes Start Date End Date Status Trulicity 1.5 MG/0.5ML as directed Subcutaneous Active Pioglitazone HCl 15 MG Take 1 tablet by mouth once daily Active Osteo Bi-Flex One Per Day - as directed Orally Active Atorvastatin Calcium 10 MG 1 tablet Orally Once a day Active Ozempic (0.25 or 0.5 MG/DOSE) 2 MG/3ML 0.5 mg Subcutaneous weekly disp one month supply woitjh needles please 09/11/2024 Active Caltrate 600+D Activ e Gabapentin 100 MG 1 capsule at bedtime Orally three times a day for 14 days 07/10/2025 Active All-In-One Nebulizer System - as directed - use three times a day 04/16/2023 Active Nystatin 883798 UNIT/GM 1 application Externally Twice a day Active Nebulizer Mask Adult - as directed - use three times daily 04/16/2023 Active Albuterol Sulfate (2.5 MG/3ML) 0.083% 3 mL Inhalation Three times a day J45.909 Asthma 02/06/2017 Active Albuterol Sulfate HFA 108 (90 Base) MCG/ACT 1 puff as needed Inhalation every 4 hrs 01/22/2024 Active Metoprolol Succinate ER 25 MG TAKE 1 TABLET BY MOUTH DAILY Active One Touch Delica Lancets - Check blood sugar 4 times a day E11.9 Type 2 Diabetes 06/04/2024 Active Alcohol Prep Pad none - - use to check blood sugars four times a day 05/19/2018 Active Omeprazole 20 MG TAKE 1 CAPSULE BY MOUTH DAILY Active Ketoconazole 2 % 1 application Externally twice a day 05/25/2025 Active Immunizations Vaccine Route Administration Date Status [...] Problem Status W/U Status Risk Notes Problem 5168999 Former smoker (Z87.891) Active confirmed She is highly motivated not to smoke and we discussed strategies for maintenance of abstinence. Problem 607450271 Obesity (E66.9) Active confirmed Her weight is up 3 pounds some of which is closing. When she uses up the current supply of Ozempic I will increase the dose. Problem 304024293 Asthma (J45.909) Active confirmed She is breathing comfortably today on room air. No change in her regimen was needed. Problem 46160923 Depression (F32.9) Active confirmed Her depression is much better. No change in her medication was made. Problem 31025543 Type 2 diabetes mellitus without complications (E11.9) Active confirmed She has been compliant with her medications. She has not had blood work done but it was ordered today to be done in the next week. Her hemoglobin A1c was 6.8.Her blood sugar was 129. 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 She will obtain a pair of those are new symptoms. She willl then reportt back. Problem 080899633 Low back pain (M54.5) Active confirmed Her back pain is mild and stable and she is conducting all of the activities of daily life without impairment. No change in her regimen was needed. Problem 62763125 Hearing loss, bilateral (H91.93) Active confirmed She did not have her hearing aids today. They are being repaired. She will wear them on her next visit. There is been no change in her hearing loss. Problem 993024488 Hyperlipidemia type II (E78.0) Active confirmed Most recent fasting total cholesterol was 199. A fasting lipid profile has been ordered today. No change in her medications was made today. Problem 11057945 Cervical dysplasia (N87.9) Active confirmed She says s he has an upcoming appointment with her physician liaison. She wished to defer her pelvic examination and rectal examination to the physician liaison. Her breast examination was unremarkable. Problem 21980204 Thyroglossal cys t (Q89.2) Active confirmed She has no symptoms in her neck. She has no difficulty swallowing or odynophagia. Problem 594640689 Atypical lobular hyperplasia of breast (N62) Active confirmed There is no sign of breast cancer. She has completed 5 years of tamoxifen as a preventative and the drug was discontinued at this time. Problem 213881941 Morbid obesity (E66.01) Active confirmed Her weight is stable and unchanged. Her body mass index is 40. We have reviewed her weight loss strategy today. We have reviewed her diet and nutrition. We have discussed lifestyle modifications. I all stopped her trulicity. Problem 498539498 Osteopenia of spine (M85.88) Active confirmed He was continued on her regimen of calcium tablets and vitamin D. Vital Signs Heart Rate 80 /min 06/05/2025 Temperature 98.1 degrees Fahrenheit 06/05/2025 Blood pressure diastolic 71 mm Hg 06/05/2025 Height 61 in 07/03/2025 Blood pressure systolic 133 mm Hg 06/05/2025 Weight 212 lbs 07/03/2025 BMI 40.05 kg/m2 07/03/2025 Encounters Encounter Location Date Provider Diagnosis Aureliano Conteh III, MD [address] [place] [address] [place] [address] 07/10/2025 Aureliano Conteh Former smoker Z87.89 1 and Pain in left shoulder M25.512 Aureliano Conteh III, MD [address] [place] [address] [place] [address] 08/07/2024 Aureliano Conteh Former smoker Z87.89 1 ; Type 2 diabetes mellitus without complications E11.9 ; Depression F32.9 ; Hearing loss, bilateral H91.93 ; Asthma J45.909 ; Morbid obesity E66.01 and Osteoporosis M81.0 Aureliano Conteh III, MD [address] [place] [address] [place] [address] 09/11/2024 Aureliano Conteh Former smoker Z87.89 1 [...] of spine M85.88 Aureliano Conteh III, MD [address] [place] [address] [place] [address] 10/13/2024 Aureliano Conteh Type 2 diabetes amor itus without complications E11.9 ; Obesity E66.9 ; Former smoker Z87.891 ; Asthma J45.909 ; Depression F32.9 and Hearing loss, bilateral H91.93 Aureliano Conteh III, MD [address] [place] [address] [place] [address] 11/10/2024 Aureliaon Conteh Former smoker Z87.89 1 ; Type 2 diabetes mellitus without complications E11.9 ; Hearing loss, bilateral H91.93 ; Depression F32.9 ; Asthma J45.909 ; Morbid obesity E66.01 and Low back pain M54.5 Aureliano Conteh III, MD [address] [place] [address] [place] [address] 12/16/2024 Aureliano Conteh Former smoker Z87.89 1 ; Type 2 diabetes mellitus without complications E11.9 ; Depression F32.9 ; Hearing loss, bilateral H91.93 ; Asthma J45.909 ; Obesity E66.9 ; Osteoporosis M81.0 and Varicose veins of bilateral lower extremities with other complications I83.893 Aureliano Cnoteh III, MD [address] [place] [address] [place] [address] 01/13/2025 Aureliano Yady Former smoker Z87.89 1 ; Type 2 diabetes mellitus without complications E11.9 ; Depression F32.9 ; Hearing loss, bilateral H91.93 ; Low back pain M54.5 ; Cervical dysplasia N87.9 ; Hyperlipidemia type II E78.0 ; Asthma J45.909 and Morbid obesity E66.01 Aureliano Conteh III, MD [address] [place] [address] [place] [address] 02/19/2025 Aureliano Conteh Former smoker Z87.89 1 ; Type 2 diabetes mellitus without complications E11.9 ; Hearing loss, bilateral H91.93 ; Depression F32.9 ; Asthma J45.909 and Obesity E66.9 Aureliano Conteh III, MD [address] [place] [address] [place] [address] 04/03/2025 Aureliano Conteh Obesity E66.9 ; Type [...] unspecified laterality M85.859 Aureliano Conteh III, MD [address] [place] [address] [place] [address] 05/01/2025 Aureliano Bustosne Former smoker Z87.89 1 ; Type 2 diabetes mellitus without complications E11.9 ; Left leg pain M79.605 ; Obesity E66.9 ; Depression F32.9 ; Hearing loss, bilateral H91.93 ; Low back pain M54.5 ; Cervical dysplasia N87.9 ; Hyperlipidemia type II E78.0 and Asthma J45.909 Aureliano Conteh III, MD [address] [place] [address] [place] [address] 05/29/2025 Aureliano Conteh Former smoker Z87.89 1 ; Obesity 278.00 ; Depression F32.9 ; Low back pain M54.5 ; Atypical lobular hyperplasia of breast N62 ; Osteopenia of spine M85.88 and Chest pressure R07.89 Aureliano Conteh III, MD [address] [place] [address] [place] [address] 06/05/2025 Aureliano Conteh Former smoker Z87.89 1 ; Pain in left shoulder M25.512 ; Obesity E66.9 ; Depression F32.9 ; Hearing loss, bilateral H91.93 ; Low back pain M54.5 ; Varicose veins of bilateral lower extremities with other complications I83.893 ; Atypical lobular hyperplasia of breast N62 and Chest pressure R07.89 Aureliano Conteh III, MD [address] [place] [address] [place] [address] 07/03/2025 Aureliano Bustosne Former smoker Z87.89 1 ; Pain, joint, shoulder, left M25.512 ; Morbid obesity E66.01 ; Depression F32.9 ; Hearing loss, bilateral H91.93 ; Low back pain M54.5 ; Varicose veins of bilateral lower extremities with other complications I83.893 and Type 2 diabetes mellitus without complications E11.9 Aureliano Conteh III, MD [address] [place] [address] [place] [address] 08/14/2024 Aureliano Conteh III, MD [address] [facility] [place] [address] 08/22/2024 Aureliano Conteh III, MD [address] [place] [address] [place] [address] 11/07/2024 Aureliano Conteh III, MD [address] [facility] [place] [address] 11/12/2024 Aureliano Conteh III, MD [address] [place] [address] [place] [address] 11/12/2024 Aureliano Conteh III, MD [address] [place] [address] [place] [address] 11/13/2024 Aureliano Conteh III, MD [address] [place] [address] [place] [address] 11/17/2024 Aureliano Conteh III, MD [address] [place] [address] [place] [address] 04/17/2025 Aureliano Conteh III, MD [address] [place] [address] [place] [address] 05/07/2025 Aureliano Conteh III, MD [address] [place] [address] [place] [address] 05/11/2025 Aureliano Conteh III, MD [address] [place] [address] [place] [address] 05/25/2025 Aureliano Conteh III, MD [address] [place] [address] [place] [address] 05/25/2025 Aureliano Conteh III, MD [address] [place] [address] [place] [address] 06/02/2025 Aureliano Conteh III, MD [address] [place] [address] [place] [address] 06/08/2025 Aureliano Conteh Former smoker Z87.89 1 Aureliano Conteh III, MD [address] [place] [address] [place] [address] 06/08/2025 Aureliano Conteh Assessments Encounter Date Diagnosis (ICD Code) Assessment Notes Treat ment Notes Treatment Clinical Notes 07/10/2025 Former smoker (ICD-1 0 - Z87.891) She [...] discussed strategies for maintenance of abstinence. 06/05/2025 Former smoker (ICD-1 0 - Z87.891) She is highly motivated not to smoke and we discussed strategies for maintenance of abstinence. 06/05/2025 Pain in left shoulde r (ICD-10 - M25.512) The chest pressure has resolved in the left shoulder pain is clearly related to motion and is much improved she says about 50%. 07/03/2025 Former smoker (ICD-1 0 - Z87.891) She is highly motivated not to smoke and we discussed strategies for maintenance of abstinence. 07/03/2025 Pain, joint, shoulder, left (ICD-10 - M25.512) She reports improvement with treatment. No change in her regimen was made. 06/08/2025 Former smoker (ICD-1 0 - Z87.891) She is highly motivated not to smoke and we discussed strategies for maintenance of abstinence. 07/10/2025 Pain in left shoulde r (ICD-10 - M25.512) 08/07/2024 Depression (ICD-10 - F32.9) Her depression [...] change in her medication was made. 06/05/2025 Obesity (ICD-10 - E66.9) Her weight is up 3 pounds some of which is closing. When she uses up the current supply of Ozempic I will increase the dose. 07/03/2025 Morbid obesity (ICD-10 - E66.01) Her weight is stable and unchanged. Her body mass index is 40. We have reviewed her weight loss strategy today. We have reviewed her diet and nutrition. We have discussed lifestyle modifications.I all stopped her trulicity. 08/07/2024 Hearing loss, bilateral (ICD-10 - H91.93) [...] change in her regimen was needed. 06/05/2025 Depression (ICD-10 - F32.9) Her depression is much better. No change in her medication was made. 07/03/2025 Depression (ICD-10 - F32.9) Her depression is much better. No change in her medication was made. 08/07/2024 Asthma (ICD-10 - J45.909) She is [...] drug was discontinued at this time. 06/05/2025 Hearing loss, bilateral (ICD-10 - H91.93) She did not have her hearing aids today. They are being repaired. She will wear them on her next visit. There is been no change in her hearing loss. 07/03/2025 Hearing loss, bilateral (ICD-10 - H91.93) She did not have her hearing aids today. They are being repaired. She will wear them on her next visit. There is been no change in her hearing loss. 08/07/2024 Morbid obesity (ICD-10 - E66.01) Her [...] she has an upcoming appointment with her physician liaison. She wished to defer her pelvic examination and rectal examination to the physician liaison. Her breast examination was unremarkable. 02/19/2025 Obesity [...] regimen of calcium tablets and vitamin D. 06/05/2025 Low back pain (ICD-1 0 - M54.5) Her back pain is mild and stable and she is conducting all of the activities of daily life without impairment. No change in her regimen was needed. 07/03/2025 Low back pain (ICD-1 0 - M54.5) [...] she has an upcoming appointment with her physician liaison. She wished to defer her pelvic examination and rectal examination to the physician liaison. Her breast examination was unremarkable. 05/01/2025 Low [...] has significant risk factors for heart disease. 06/05/2025 Varicose veins of bilateral lower extremities with other complications (ICD-10 - I83.893) We discussed compression hose. She will obtain a pair of those are new symptoms. She willl then reportt back. 07/03/2025 Varicose veins of bilateral lower extremities with other complications (ICD-10 - I83.893) We discussed compression hose. She will obtain a pair of those are new symptoms. She willl then reportt back. 09/11/2024 Low back pain (ICD-1 0 - [...] she has an upcoming appointment with her physician liaison. She wished to defer her pelvic examination and rectal examination to the physician liaison. Her breast examination was unremarkable. 06/05/2025 Atypical lobular hyperplasia of breast (ICD-10 - N62) There is no sign of breast cancer. She has completed 5 years of tamoxifen as a preventative and the drug was discontinued at this time. 07/03/2025 Type 2 diabetes mellitus without complications (ICD-10 - E11.9) She has been compliant with her medications. She has not had blood work done but it was ordered today to be done in the next week. Her hemoglobin A1c was 6.8.Her blood sugar was 129. I have increased the dose of Ozempic to 0.5 mg weekly 09/11/2024 Asthma (ICD-10 - J45.909) She is [...] change in her medications was made today. 06/05/2025 Chest pressure (ICD-10 - R07.89) This complaint has resolved. 09/11/2024 Morbid obesity (ICD-10 - E66.01) Her [...] C) 02/14/2022 PROFILE, FASTING (COMPREHENSIVE METABOLI C) 06/28/2018 PROFILE, FASTING (COMPREHENSIVE METABOLI C) 05/08/2024 PROFILE, FASTING (COMPREHENSIVE METABOLI C) 12/18/2022 PROFILE, FASTING (COMPREHENSIVE METABOLI C) 10/01/2023 PROFILE, FASTING (COMPREHENSIVE METABOLI C) 11/02/2022 PROFILE, FASTING (COMPREHENSIVE METABOLI C) 08/18/2019 PROFILE, FASTING (COMPREHENSIVE METABOLI C) 03/12/2023 PROFILE, RANDOM (COMPREHENSIVE METABOLIC ) 11/03/2021 PROFILE, RANDOM (COMPREHENSIVE METABOLIC ) 01/14/2020 HEMOGLOBIN A1C (GLYCOHEMOGLOBIN) 020 HEMOGLOBIN A1C (GLYCOHEMOGLOBIN) [...] A1C (GLYCOHEMOGLOBIN) 020 HEMOGLOBIN A1C (GLYCOHEMOGLOBIN) 022 LIPID PANEL 06/28/2018 LIPID PANEL 08/09/2020 LIPID PANEL 04/30/2020 LIPID PANEL 01/14/2020 LIPID PANEL 11/03/2021 LIPID PANEL 11/02/2022 LIPID PANEL 08/18/2019 LIPID PANEL 03/12/2023 LIPID PANEL 12/18/2022 LIPID PANEL 08/04/2021 LIPID PANEL 04/10/2019 LIPID PANEL 02/08/2018 LIPID PANEL 04/06/2017 LIPID PANEL 11/01/2018 LIPID PANEL 12/10/2020 MICROALBUMIN, RANDOM 12/10/2020 MICROALBUMIN, RANDOM 02/14/2022 MICROALBUMIN, RANDOM 01/14/2020 MICROALBUMIN, RANDOM 11/02/2022 MICROALBUMIN, RANDOM 08/18/2019 MICROALBUMIN, RANDOM 03/12/2023 MICROALBUMIN, RANDOM 12/18/2022 CBC w DIFF 12/10/2020 CBC w DIFF 06/28/2018 CBC w DIFF 08/09/2020 CBC w DIFF 04/30/2020 CBC w DIFF 02/14/2022 CBC w DIFF 11/03/2021 CBC w DIFF 01/14/2020 CBC w DIFF 08/04/2021 CBC w DIFF 11/02/2022 CBC w DIFF 08/18/2019 CBC w DIFF 03/12/2023 CBC w DIFF 04/10/2019 CBC w DIFF 12/18/2022 CBC w DIFF 05/12/2021 CBC w DIFF 02/08/2018 CBC w DIFF 02/09/2021 CBC w DIFF 04/06/2017 CBC w DIFF 11/01/2018 ROUTINE CULTURE 03/05/2018 XR CHEST 2 VIEW PA & LAT 05/29/2025 XR SHOULDER LT 2 VIEWS 07/10/2025 XR SHOULDER LT 2 VIEWS 12/10/2020 BONE [...] EKG 05/29/2025 XR hand wrist LT 06/05/2025 Hemoglobin A1c 02/09/2021 Hemoglobin A1c 05/08/2024 Hemoglobin A1c 10/01/2023 Next Appt Details Provider Name:Aureliano Conteh , 08/10/2025 10:15:00 AM, [address] [facility] [place], [place], [address], Provider Name:Aureliano Conteh , 12/18/2025 02:15:00 PM, [address] [facility] [place], [place], [address], Insurance Providers Payer Name Payer Address Payer Phone Subscriber Number Group Number Insured Name Patient Relationship to Insured Coverage Start Date Coverage End Date [employer] [address] [place] [address] [id number] Yareli Fernandez Self - patient is the insured MEDICAID [facility] [address] [place], [place] [id number] [phone] [id number] Yareli Fernandez Self - patient is the insured MEDICARE [employer] [address] [place] [address] [phone] [id number] Yareli Fernandez Self - patient is the [...]
== END 2025-07-10 10:40 | disposition home or self-care (01) ==
LOC: HO.XRAY 10:39
PROVIDERS: PCP Internal Medicine Medical Oncology; Visit Provider Internal Medicine Medical Oncology
DX: M25.512 Pain in left shoulder (principal)
CPT/HCPCS: 73030

== ENCOUNTER → 2025-07-10 11:06 | Outpatient (BNV) | payer MEDICARE, MEDICAID, SELFPAY | PROVIDERS: PCP Internal Medicine Medical Oncology; Visit Provider Radiology Diagnostic Radiology | DX: M19.012 Primary osteoarthritis, left shoulder (principal) | CPT/HCPCS: 73030 ==

== ENCOUNTER 2025-08-06 08:58 | Outpatient (AMB) | payer MEDICARE, MEDICAID, SELFPAY ==
--- OUTSIDE RECORDS SUMMARY | 2025-05-25 04:21 | XMS_ITS ---
Author Organization Aureliano Conteh III, MD Address [address] [place] [address] [place] [address] Care Team Providers Care Public Health Name Role Phone Dr. Aureliano Conteh III Primary Care Provider REASON FOR VISIT Needs call back from Social History Sex Assigned At : Social History Observation Description Sex Assigned At Female Encounters Encounter Location Date Provider Diagnosis Aureliano Conteh III, MD [address] [place] [address] [place] [address] 05/25/2025 Aureliano Conteh Plan Of Treatment Next Appt Details Provider Name:Aureliano Conteh , 08/10/2025 10:15:00 AM, [address] [place] [address] [place], [address], Provider Name:Aureliano Conteh , 12/18/2025 02:15:00 PM, [address] [place] [address] [place], [address], Progress Notes * Yareli CALHOUN HDOB:[birth year] (70 yo F)Acc No.[id number]:05/25/2025 Patient: Yareli WALSH :1955 A ge:70 Y S ex:Female Address:[address] [place] [address], [phone] * true * Date: Generated for Yovani rod/Zo/Gabesmitting on: 10/07/2024 09:50 AM EST
--- OUTSIDE RECORDS SUMMARY | 2025-05-25 05:16 | XMS_ITS ---
Author Organization Aureliano Conteh III, MD Address [address] [place] [address] [place] [address] Care Team Providers Care Wrecking Mechanic Name Role Phone Dr. Aureliano Conteh III Primary Care Provider Medications Medication SIG (Take, Route, Fr equency, Duration) Notes Start Date End Date Status Ketoconazole 2 % 1 application Manager Office Services ally twice a day for 14 days 05/25/2025 07/19/2025 Active Social History Sex Assigned At : Social History Observation Description Sex Assigned At Female Encounters Encounter Location Date Provider Diagnosis Aureliano Conteh III, MD [address] [place] [address] [place] [address] 05/25/2025 Aureliano Conteh Plan Of Treatment Medication Medication Name Sig Start Date Stop Date Notes Ketoconazole 2 % 1 application Manager Office Services ally twice a day for 14 days 05/25/2025 07/19/2025 Next Appt Details Provider Name:Aureliano Conteh , 08/10/2025 10:15:00 AM, [address] [place] [address] [place], [address], Provider Name:Aureliano Conteh , 12/18/2025 02:15:00 PM, [address] [place] [address] [place] PIMENTEL, [place]ARON SAEZ, [address], Progress Notes * Yareli CALHOUN HDOB:[birth year] (70 yo F)Acc No.[id number]:05/25/2025 Patient: Yareli WALSH :1955 A ge:70 Y S ex:Female Address:[address] [place] [address], [address] * Refills Start Ketoconazole Cream, 2 %, Externally, 60 Gram, 1 application, twice a day, 14 days, Refills=3 * true * Date: Generated for Yovani rod/Zo/Angelaitting on: 10/07/2024 09:54 AM EST
--- OUTSIDE RECORDS SUMMARY | 2025-05-29 05:00 | XMS_ITS ---
Author Organization Aureliano Conteh III, MD Address [address] [place] [address] [place] [address] Care Team Providers Care Content Administrator Name Role Phone Dr. Aureliano Conteh III Primary Care Provider Allergies Allergen (clinical drug ingredient) Drug/Non Drug Allergy documented on EMR Reaction Allergy Type Onset Date Status Ragweed Unknown Allergy Active Cat dander Cat Dander Unknown Allergy Active Latex Gloves Unknown Drug Allergy Acti ve Flexeril Unknown Drug Allergy Active REASON FOR VISIT Ozempic weight loss program, Diabetes, Hearing loss, Hyperlipidemia, Asthma, Morbid obesity, Osteopenia Medications Medication SIG (Take, Route, Frequency, Duration) Notes Start Date End Date Status Ozempic (0.25 or 0.5 MG/DOSE) 2 MG/3ML 0.5 mg Subcutaneous weekly disp one month supply woitjh needles please 09/11/2024 Active Osteo Bi-Flex One Per Day - as directed Orally Active Trulicity 1.5 MG/0.5ML as directed Subcutaneous Active Nystatin 542127 UNIT/GM 1 application Externally Twice a day for 30 days Active Albuterol Sulfate (2.5 MG/3ML) 0.083% 3 mL Inhalation Three times a day for 90 days J45.909 Asthma 02/06/2017 Active Nebulizer Mask Adult - as directed - use three times daily 04/16/2023 Active All-In-One Nebulizer System - as directed - use three times a day 04/16/2023 Active Albuterol Sulfate HFA 108 (90 Base) MCG/ACT 1 puff as needed Inhalation every 4 hrs 01/22/2024 Active Caltrate 600+D Activ e Omeprazole 20 MG TAKE 1 CAPSULE BY MOUTH DAILY Active Metoprolol Succinate ER 25 MG TAKE 1 TABLET BY MOUTH DAILY Active Alcohol Prep Pad none - - use to check blood sugars four times a day 05/19/2018 Active One Touch Delica Lancets - Check blood sugar 4 times a day E11.9 Type 2 Diabetes 06/04/2024 Active Atorvastatin Calcium 10 MG 1 tablet Orally Once a day Active Pioglitazone HCl 15 MG Take 1 tablet by mouth once daily Active Ketoconazole 2 % 1 application Externally twice a day 05/25/2025 Active Social History Tobacco Use: Social History [...] non-user Ex-cigaret te smoker Vital Signs Temperature 98.4 degrees Fahrenheit 05/29/20 25 Blood pressure systolic 136 mm Hg 05/29/20 25 Blood pressure diastolic 82 mm Hg 025 Heart Rate 91 /min 05/29/2025 Height 61 in 05/29/2025 Weight 209 lbs 05/29/2025 BMI 39.49 kg/m2 05/29/2025 Encounters Encounter Location Date Provider Diagnosis Aureliano Conteh III, MD [address] [place] [address] [address] [place], [place] [address] 05/29/2025 Aureliano Conteh Former smoker Z87.89 1 ; Obesity 278.00 ; Depression F32.9 ; Low back pain M54.5 ; Atypical lobular hyperplasia of breast N62 ; Osteopenia of spine M85.88 and Chest pressure R07.89 Assessments Encounter Date Diagnosis (ICD Code) Assessment Notes Treatment Notes Treatment Clinical Notes 05/29/2025 Former smoker (ICD-10 - Z87.891) She is highly motivated not to smoke and we discussed strategies for maintenance of abstinence. 05/29/2025 Obesity (ICD9-CM - 278.00) She has lost an additional 2 pounds. She will continue on her weight loss program. 05/29/2025 Depression (ICD-10 - F32.9) Her depression is much better. No change in her medication was made. 05/29/2025 Low back pain (ICD-10 - M54.5) Her back pain is mild and stable and she is conducting all of the activities of daily life without impairment. No change in her regimen was needed. 05/29/2025 Atypical lobular hyperplasia of breast (ICD-10 - N62) There is no sign of breast cancer. She has completed 5 years of tamoxifen as a preventative and the drug was discontinued at this time. 05/29/2025 Osteopenia of spine (ICD-10 - M85.88) He was continued on her regimen of calcium tablets and vitamin D. 05/29/2025 Chest pressure (ICD-10 - R07.89) This is atypical for angina. EKG has been ordered. If necessary she will have stress test. She has significant risk factors for heart disease. Plan Of Treatment Medication Medication Name Sig Start Date Stop Date Notes Ozempic (0.25 or 0.5 MG/DOSE) 2 MG/3ML 0.5 mg Subcutaneous weekly 09/11/2024 disp one month supply woitj needles please Osteo Bi-Flex One Per Day - as directed Orally Trulicity 1.5 MG/0.5ML as directed Subcutaneous Nystatin 359134 UNIT/GM 1 application Externally Twice a day for 30 days Albuterol Sulfate (2.5 MG/3ML) 0.083% 3 mL Inhalation Three times a day for 90 days 02/06/2017 J45.909 Asthma Nebulizer Mask Adult - as directed - use three times daily 04/16/2023 All-In-One Nebulizer System - as directed - use three times a day 04/16/2023 Albuterol Sulfate HFA 108 (90 Base) MCG/ACT 1 puff as needed Inhalation every 4 hrs 01/22/2024 Caltrate 600+D Omeprazole 20 MG TAKE 1 CAPSULE BY MO UTH DAILY Metoprolol Succinate ER 25 MG TAKE 1 TABLET BY MOUTH DAILY Alcohol Prep Pad none - - use to check b lood sugars four times a day 05/19/2018 One Touch Delica Lancets - Check blood sugar 4 times a day 06/04/2024 E11.9 Type 2 Diabetes Atorvastatin Calcium 10 MG 1 tablet Orally Once a day Pioglitazone HCl 15 MG Take 1 tablet by mouth once daily Ketoconazole 2 % 1 application Externally twice a day 05/25/2025 Pending Test Test Name Order Date XR CHEST 2 VIEW PA & LAT 05/29/2025 ECG 12 lead EKG 05/29/2025 Next Appt Details Follow Up: 4 Weeks, Reason: ov Provider Name:Aureliano Conteh , 08/10/2025 10:15:00 AM, [address] [place] [address] [address], [place], [address], Provider Name:Aureliano Conteh , 12/18/2025 02:15:00 PM, [address] [place] [address] [address], [place], [address], Progress Notes * LJCosmeha HDOB:[birth year] (70 yo F)Acc No.[id number]:05/29/2025 Progress Notes Patient: Yareli WALSH Provider: Otto Conteh MD :1955 A ge:70 Y S ex:Female Date:05/29/2025 Address:[address] [place] [id number] Subjective: * Chief Complaints: * O zempic weight loss programDiabetesHearing lossHyperlipidemiaAsthmaMorbid obesityOsteopenia * HPI: C OVID-19 Screening: S he returns for medical management on Ozempic. She has lost another 2 pounds. She says she has a nebulizer at home that is old and she wants a new one. We also refilled her nebulizer albuterol vials today. She has pain in her left shoulder for the last 3 days. She has a significant rash under her breasts are to be fungal. He is using nystatin and ketoconazole at this time. He has discomfort in her chest that feels like a gas pocket but the discomfort radiates down her left arm. I have ordered an EKG. She is likely to need a exercise tolerance test if this does not resolve. Questions H ave you had any new onset fever, chills, cough, congestion, sore throat, shortness of breath, muscle aches? N o * ROS: G eneral/Constitutional: pain G as pocket left chest. C hills d enies. F atigue a dmits. F ever d enies. E NT: Decreased hearing i n both ears. R espiratory: Cough d enies. C ardiovascular: Chest pain with exertion d enies. D yspnea on exertion?with prolonged activity. S hortness of breath w ith exertion. [...] Hospitalization/Major Diagno stic Procedure: c hest pain [facility] 05/10/2018No history * Family History: F ather: [...] at this time. 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 * Medications: T akingAtorvastatin Calcium 10 MG Tablet 1 tablet Orally Once a day Metoprolol Succinate ER 25 MG Tablet Extended Release 24 Hour TAKE 1 TABLET BY MOUTH DAILY Nystatin 803577 UNIT/GM Cream APPLY TOPICALLY TO THE AFFECTED [...] puff as needed Inhalation every 4 hrs Trulicity 1.5 MG/0.5ML Solution Pen-injector as directed Subcutaneous Osteo Bi-Flex One Per Day - Tablet as directed Orally Ozempic (0.25 or 0.5 MG/DOSE) 2 MG/3ML Solution Pen-injector 0.5 mg Subcutaneous weekly , Notes to Pharmacist: disp one month supply woitjh needles pleasePioglitazone HCl 15 MG Tablet Take 1 tablet by mouth once daily Ketoconazole 2 % Cream 1 application Externally twice a day , stop date 07/19/2025Medication List reviewed and reconciled with the patientTaking Atorvastatin Calcium 10 MG Tablet 1 tablet Orally Once a day Taking Metoprolol Succinate ER 25 MG Tablet Extended Release 24 Hour TAKE 1 TABLET BY MOUTH DAILY Taking Nystatin 575628 UNIT/GM Cream APPLY TOPICALLY TO THE AFFECTED [...] as needed Inhalation every 4 hrs Taking Trulicity 1.5 MG/0.5ML Solution Pen-injector as directed Subcutaneous Taking Osteo Bi-Flex One Per Day - Tablet as directed Orally Taking Ozempic (0.25 or 0.5 MG/DOSE) 2 MG/3ML Solution Pen-injector 0.5 mg Subcutaneous weekly , Notes to Pharmacist: disp one month supply woitjh needles pleaseTaking Pioglitazone HCl 15 MG Tablet Take 1 tablet by mouth once daily Taking Ketoconazole 2 % Cream 1 application Externally twice a day , stop date 07/19/2025Medication List reviewed and reconciled with the patient * Allergies: F lexerilLatex GlovesCat DanderRagweedno[Allergies Verified] Objective: * Vitals: H t: 61, Wt:209, BMI:39.49, BP:136/82, HR:91, Temp:98.4, Ht-cm: 154.94, Wt-k.8. * P ast Orders: Lab:Lipid Panel * Collection Date 05/01/2025 11/10/2024 [...] mg/dL) 43 (Ref Range: >40 mg/dL) * Lab:Complete Blood Count Aut o [...] X10*3/uL) 0.000 (Ref Range: 0.0-0.012 X10*3/uL) * Lab:[facility] * Collection Date 05/01/2025 11/10/2024 [...] mg/dL) 9.5 (Ref Range: 8.4-10.2 mg/dL) * Imaging:Diabetic Eye Exam * Performed Date 05/06/2025 09/21/2023 Order Date 05/06/2025 09/21/2023 07/19/2021 Result: undefined undefined ???Imaging:US venous duplex LE LT (Order Date - 05/01/2025) (Performed Date - 05/01/2025) * Examination: G eneral Examination: GENERAL APPEARANCE: [...] normal, no ascites, no organomegaly, no mass: centripital obesity. RECTAL EXAM: n ot examined. MUSCULOSKELETAL: e xtremities unremarkable, no clubbing, cyanosis or edema. PERIPHERAL PULSES: n ormal. NEUROLOGIC: a lert and oriented, cranial nerves 2-12 grossly intact, deep tendon reflexes 2+ symmetrical, motor strength normal upper and lower extremities, sensory exam intact. PSYCH: a lert, oriented. Assessment: * Assessment: 1. O besity - 278.00 (Primary) N otes :She has lost an additional 2 pounds. She will continue on her weight loss program. 2 . F ormer smoker - Z87.891 N otes :She is highly motivated not to smoke and we discussed strategies for maintenance of abstinence. 3 . D epression - F32.9 N otes :Her depression is much better. No change in her medication was made. 4 . L ow back pain - M54.5 N otes :Her back pain is mild and stable and she is conducting all of the activities of daily life without impairment. No change in her regimen was needed. 5 . A typical lobular hyperplasia of breast - N62 N otes :There is no sign of breast cancer. She has completed 5 years of tamoxifen as a preventative and the drug was discontinued at this time. 6 . O steopenia of spine - M85.88 N otes :He was continued on her regimen of calcium tablets and vitamin D. 7 . C hest pressure - R07.89 N otes :This is atypical for angina. EKG has been ordered. If necessary she will have stress test. She has significant risk factors for heart disease. Plan: * Treatment: 2. O thers Continue Ketoconazole Cream, 2 %, 1 application, Externally, twice a day; C ontinue Pioglitazone HCl Tablet, 15 MG, Take 1 tablet by mouth once daily; C ontinue One Touch Delica Lancets Miscellaneous, -, Check blood sugar 4 times a day, Notes to Pharmacist: E11.9 Type 2 Diabetes; C ontinue Omeprazole Capsule Delayed Release, 20 MG, TAKE 1 CAPSULE BY MOUTH DAILY. * Imaging: * I maging: XR CHEST 2 VIEW PA & LAT I maging: ECG 12 lead EKG * Procedure Codes: * Preventive Medicine: Counseling: [...] of tobacco use and urged to quit. 1 DM Care Plan: P atient Lifestyle Goals P atient wants to be able to manage diabetes without too much effort. T reatment Goals B lood Sugars less than < 115, HbA1C < 7.0. B arriers n o barriers. S elf-Managment Goals W ork on weight loss, with a goal of losing 1 lb per week. * Follow Up: 4 Weeks (Reason: ov) * Images: * Sign off status: Completed true * Provider: Otto Conteh MD Date: 1 Generated for Yovani rod/Zo/eTjasmeetsmitting on: 10/07/2024 09:54 AM EST History and Physical Notes * HPI (History [...] normal, no ascites, no organomegaly, no mass: centripital obesity NEUROLOGIC: alert and oriented, cranial [...]
--- OUTSIDE RECORDS SUMMARY | 2025-06-02 06:27 | XMS_ITS ---
Author Organization Aureliano Conteh III, MD Address [address] [address] Care Team Providers Care Matrix Plater Name Role Phone Dr. Aureliano Conteh III Primary Care Provider [phone] REASON FOR VISIT New Nebulizer Social History Sex Assigned At : Social History Observation Description Sex Assigned At Female Encounters Encounter Location Date Provider Diagnosis Aureliano Conteh III, MD [address] [place] [address] [place] [address] 06/02/2025 Aureliano Conteh Plan Of Treatment Next Appt Details Provider Name:Aureliano Conteh , 08/10/2025 10:15:00 AM, [address] [place] [address] [place], [address], Provider Name:Aureliano Conteh , 12/18/2025 02:15:00 PM, [address] [place] [address] [place], [phone], Progress Notes * Yareli CALHOUN HDOB:[birth year] (70 yo F)Acc No.[id number]:06/02/2025 Patient: Yareli WALSH :1955 A ge:70 Y S ex:Female Address:[address] [place] [address], [phone] * true * Date: Generated for Yovani rod/Zo/Gabesmitting on: 10/07/2024 09:55 AM EST
--- OUTSIDE RECORDS SUMMARY | 2025-06-08 06:50 | XMS_ITS ---
Author Organization Aureliano Conteh III, MD Address [address] [place] [address] [place] [address] Care Team Providers Care Checkman Name Role Phone Dr. Aureliano Conteh III Primary Care Provider REASON FOR VISIT Refills Medications Medication SIG (Take, Route, Fr equency, Duration) Notes Start Date End Date Status Nystatin 965147 UNIT/GM 1 application Ex ternally Twice a day for 30 days Active Social History Sex Assigned At : Social History Observation Description Sex Assigned At Female Encounters Encounter Location Date Provider Diagnosis Aureliano Conteh III, MD [address] [place] [address] [place] [address] 06/08/2025 Aureliano Conteh Former smoker Z87.891 Assessments Encounter Date Diagnosis (ICD Code) Assessment Notes Treatment Notes Treatment Clinical Notes 06/08/2025 Former smoker (ICD-10 - Z87.891) She is highly motivated not to smoke and we discussed strategies for maintenance of abstinence. Plan Of Treatment Medication Medication Name Sig Start Date Stop Date Notes Nystatin 536716 UNIT/GM 1 application Ex ternally Twice a day for 30 days Next Appt Details Provider Name:Aureliano Conteh , 08/10/2025 10:15:00 AM, [address] [facility] [place], [place], [address], Provider Name:Aureliano Conteh , 12/18/2025 02:15:00 PM, [address] [facility] [place], [place], [address], Progress Notes * Yareli CALHOUN HDOB:[birth year] (70 yo F)Acc No.[id number]:06/08/2025 Patient: Yareli WALSH :1955 A ge:70 Y S ex:Female Address:[address] [place] [address], [address] * Refills Refill Nystatin Cream, 396564 UNIT/GM, Externally, 15 Gram, 1 application, Twice a day, 30 days, Refills=11 * true * Date: Generated for Yovani rod/Zo/Gabesmitting on: 1 10/07/2024 09:50 AM EST
--- OUTSIDE RECORDS SUMMARY | 2025-06-08 06:52 | XMS_ITS ---
Author Organization Aureliano Conteh III, MD Address [address] [place] [address] Care Team Providers Care Fiscal Clerk Name Role Phone Dr. Aureliano Conteh III Primary Care Provider [phone] REASON FOR VISIT Message Social History Sex Assigned At : Social History Observation Description Sex Assigned At Female Encounters Encounter Location Date Provider Diagnosis Aureliano Conteh III, MD [address] [place] [address] [place] [address] 06/08/2025 Aureliano Conteh Plan Of Treatment Next Appt Details Provider Name:Aureliano Conteh , 08/10/2025 10:15:00 AM, [address] [place] [address] [place], [address], Provider Name:Aureliano Conteh , 12/18/2025 02:15:00 PM, [address] [place] [address] [place], [address], Progress Notes * Yareli CALHOUN HDOB:[birth year] (70 yo F)Acc No.[id number]:06/08/2025 Patient: Yareli WALSH :1955 A ge:70 Y S ex:Female Address:[address] [place] [address], [address] * true * Date: Generated for Yovani rod/Zo/eTjasmeetsmitting on: 10/07/2024 09:55 AM EST
--- OUTSIDE RECORDS SUMMARY | 2025-07-03 04:15 | XMS_ITS ---
Author Organization Aureliano Conteh III, MD Address [address] [address] Care Team Providers Care Kitchenwhere Maker Name Role Phone Dr. Aureliano Conteh III Primary Care Provider [phone] Allergies Allergen (clinical drug ingredient) Drug/Non Drug Allergy documented on EMR Reaction Allergy Type Onset Date Status Ragweed Unknown Allergy Active Cat dander Cat Dander Unknown Allergy Active Latex Gloves Unknown Drug Allergy Acti ve Flexeril Unknown Drug Allergy Active REASON FOR VISIT Left shoulder pain, Left hand and wrist pain, Hearing loss, Diabetes, Asthma, Obesity Medications Medication SIG (Take, Route, Frequency, Duration) Notes Start Date End Date Status Omeprazole 20 MG TAKE 1 CAPSULE BY MOUTH DAILY Active Alcohol Prep Pad none - - use to check blood sugars four times a day 05/19/2018 Active One Touch Delica Lancets - Check blood sugar 4 times a day E11.9 Type 2 Diabetes 06/04/2024 Active Metoprolol Succinate ER 25 MG TAKE 1 TABLET BY MOUTH DAILY Active Caltrate 600+D Activ e Albuterol Sulfate (2.5 MG/3ML) 0.083% 3 mL Inhalation Three times a day J45.909 Asthma 02/06/2017 Active Nystatin 832211 UNIT/GM 1 application Externally Twice a day Active Pioglitazone HCl 15 MG Take 1 tablet by mouth once daily Active Ketoconazole 2 % 1 application Externally twice a day 05/25/2025 Active Atorvastatin Calcium 10 MG 1 tablet Orally Once a day Active Albuterol Sulfate HFA 108 (90 Base) MCG/ACT 1 puff as needed Inhalation every 4 hrs 01/22/2024 Active Nebulizer Mask Adult - as directed - use three times daily 04/16/2023 Active Trulicity 1.5 MG/0.5ML as directed Subcutaneous Active Ozempic (0.25 or 0.5 MG/DOSE) 2 MG/3ML 0.5 mg Subcutaneous weekly disp one month supply woitjh needles please 09/11/2024 Active Osteo Bi-Flex One Per Day - as directed Orally Active All-In-One Nebulizer System - as directed - use three times a day 04/16/2023 Active Social History Tobacco Use: Social [...] Problem Status W/U Status Risk Notes Problem 079845312 Morbid obesity (E66.01) Active confirmed Her weight is stable and unchanged. Her body mass index is 40. We have reviewed her weight loss strategy today. We have reviewed her diet and nutrition. We have discussed lifestyle modifications .I all stopped her trulicity. Vital Signs Height 61 in 07/03/2025 Weight 212 lbs 07/03/2025 BMI 40.05 kg/m2 07/03/2025 Encounters Encounter Location Date Provider Diagnosis Aureliano Conteh III, MD [address] [place] [address] [place], [place] [address] 07/03/2025 Aureliano Conteh Former smoker Z87.89 1 ; Pain, joint, shoulder, left M25.512 ; Morbid obesity E66.01 ; Depression F32.9 ; Hearing loss, bilateral H91.93 ; Low back pain M54.5 ; Varicose veins of bilateral lower extremities with other complications I83.893 and Type 2 diabetes mellitus without complications E11.9 Assessments Encounter Date Diagnosis (ICD Code) Assessment Notes Treat ment Notes Treatment Clinical Notes 07/03/2025 Former smoker (ICD-10 - Z87.891) She is highly motivated not to smoke and we discussed strategies for maintenance of abstinence. 07/03/2025 Pain, joint, shoulder, left (ICD-10 - M25.512) She reports improvement with treatment. No change in her regimen was made. 07/03/2025 Morbid obesity (ICD-10 - E66.01) Her weight is stable and unchanged. Her body mass index is 40. We have reviewed her weight loss strategy today. We have reviewed her diet and nutrition. We have discussed lifestyle modifications.I all stopped her trulicity. 07/03/2025 Depression (ICD-10 - F32.9) Her depression is much better. No change in her medication was made. 07/03/2025 Hearing loss, bilateral (ICD-10 - H91.93) She did not have her hearing aids today. They are being repaired. She will wear them on her next visit. There is been no change in her hearing loss. 07/03/2025 Low back pain (ICD-10 - M54.5) Her back pain is mild and stable and she is conducting all of the activities of daily life without impairment. No change in her regimen was needed. 07/03/2025 Varicose veins of bilateral lower extremities with other complications (ICD-10 - I83.893) We discussed compression hose. She will obtain a pair of those are new symptoms. She willl then reportt back. 07/03/2025 Type 2 diabetes mellitus without complications (ICD-10 - E11.9) She has been compliant with her medications. She has not had blood work done but it was ordered today to be done in the next week. Her hemoglobin A1c was 6.8.Her blood sugar was 129. I have increased the dose of Ozempic to 0.5 mg weekly Plan Of Treatment Medication Medication Name Sig Start Date Stop Date Notes Omeprazole 20 MG TAKE 1 CAPSULE BY MO UTH DAILY Alcohol Prep Pad none - - use to check b lood sugars four times a day 05/19/2018 One Touch Delica Lancets - Check blood sugar 4 times a day 06/04/2024 E11.9 Type 2 Diabetes Metoprolol Succinate ER 25 MG TAKE 1 TABLET BY MOUTH DAILY Caltrate 600+D Albuterol Sulfate (2.5 MG/3ML) 0.083% 3 mL Inhalation Three times a day 02/06/2017 J45.909 Asthma Nystatin 368033 UNIT/GM 1 application Externally Twice a day Pioglitazone HCl 15 MG Take 1 tablet by mouth once daily Ketoconazole 2 % 1 application Externally twice a day 05/25/2025 Atorvastatin Calcium 10 MG 1 tablet Orally Once a day Albuterol Sulfate HFA 108 (90 Base) MCG/ACT 1 puff as needed Inhalation every 4 hrs 01/22/2024 Nebulizer Mask Adult - as directed - use three times daily 04/16/2023 Trulicity 1.5 MG/0.5ML as directed Subcutaneous Ozempic (0.25 or 0.5 MG/DOSE) 2 MG/3ML 0.5 mg Subcutaneous weekly 09/11/2024 disp one month supply woit needles please Osteo Bi-Flex One Per Day - as directed Orally All-In-One Nebulizer System - as directed - use three times a day 04/16/2023 Next Appt Details Follow Up: 3 Weeks, Reason: ov Provider Name:Aureliano Conteh , 08/10/2025 10:15:00 AM, [address] [place] [address] [address], [place], [address], Provider Name:Aureliano Conteh , 12/18/2025 02:15:00 PM, [address] [place] [address] [address], [place], [address], Progress Notes * Yareli CALHOUN HDOB:[birth year] (70 yo F)Acc No.[id number]:07/03/2025 Patient: Andrew RIGOYareli MORALES Provider: Otto Conteh MD :1955 A ge:70 Y S ex:Female Date:07/03/2025 Address:[address] [place] [id number] Subjective: * Chief Complaints: * L eft shoulder painLeft hand and wrist painHearing lossDiabetesAsthmaObesity * HPI: C OVID-19 Screening: This powerhouse aggressive place over 15 minutes with the patient at home and me in my office. She gave consent for billing. She reports that the left shoulder pain is rapidly improving. The pain in her left wrist also is responding to treatment. She denies any new problems. Her low back is pain-free at this time. She continues her efforts at weight loss. Her hearing loss is unchanged. She has no respiratory complaints today and is now wheezing. Questions H ave you had any new onset fever, chills, cough, congestion, sore throat, shortness of breath, muscle aches? N o * : Telehealth L ocation of provider rendering services: { ...} [address] [facility] [address] L ocation of patient: sandra ddress listed in demographics for today's visit P atient identification confirmed using: JONEL Lau ame T elehealth method: T elephone only. Patient not visible to care provider. C onsent: P atient verbally consented to treatment, Patient verbally consented to billing insurance company, Patient informed of any privacy concerns related to method of visit T otal time spent with patient (mins) 1 5 * ROS: G eneral/Constitutional: pain L eft hand and left shoulder, otherwise only normal aches and pains. C hills d enies. F atigue a dmits. F ever d enies. E NT: Decreased hearing d enies. R espiratory: Cough d enies. C ardiovascular: Chest pain with exertion d enies. D yspnea on exertion?with prolonged activity. S hortness of breath d enies. G [...] aches d enies. P ainful joints L eft shoulder and left hand. S ciatica d enies. W eakness d [...] working at this time. 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 She was born in [place], [place]. * Medications: T akingAlbuterol Sulfate (2.5 MG/3ML) 0.083% Nebulization Solution 3 mL Inhalation Three times a day , Notes to Pharmacist: J45.909 AsthmaKetoconazole 2 % Cream 1 application Externally twice [...] Pharmacist: disp one month supply woitj needles pleaseNystatin 222351 UNIT/GM Cream 1 application Externally Twice a day Medication List reviewed and reconciled with the patientTaking Albuterol Sulfate (2.5 MG/3ML) 0.083% Nebulization Solution 3 mL Inhalation Three times a day , Notes to Pharmacist: J45.909 AsthmaTaking Ketoconazole 2 % Cream 1 application Externally [...] one month supply woitjh needles pleaseTaking Nystatin 623515 UNIT/GM Cream 1 application Externally Twice a day Medication List reviewed and reconciled with the patient * Allergies: F lexerilLatex GlovesCat DanderRagweedno[Allergies Verified] Objective: * Vitals: H t: 61, Wt:212, BMI:40.05, Ht-cm: 154.94, Wt-k.16. Assessment: * Assessment: 1. P ain, joint, shoulder, left - M25.512 (Primary) N otes :She reports improvement with treatment. No change in her regimen was made. 2 . F ormer smoker - Z87.891 N otes :She is highly motivated not to smoke and we discussed strategies for maintenance of abstinence. 3 . M orbid obesity - E66.01 N otes :Her weight is stable and unchanged. Her body mass index is 40. We have reviewed her weight loss strategy today. We have reviewed her diet and nutrition. We have discussed lifestyle modifications.I all stopped her trulicity. 4. D epression - F32.9 N otes :Her [...] She willl then reportt back. 8 . T ype 2 diabetes mellitus without complications - E11.9 N otes :She has been compliant with her medications. She has not had blood work done but it was ordered today to be done in the next week. Her hemoglobin A1c was 6.8.Her blood sugar was 129. I have increased the dose of Ozempic to 0.5 mg weekly Plan: * Treatment: 2. O thers Continue [...] TAKE 1 CAPSULE BY MOUTH DAILY. * Procedure Codes: 9 8012 SYNCH AUDIO-ONLY EST SF 10 * Preventive Medicine: Counseling: C are goal [...] of tobacco use and urged to quit. 09/02/2024 DM Care Plan: P atient Lifestyle Goals P atient wants to be able to manage diabetes without too much effort. T reatment Goals B lood Sugars less than < 115, HbA1C < 7.0. B arriers n o barriers. S elf-Managment Goals W ork on weight loss, with a goal of losing 1 lb per week. * Follow Up: 3 Weeks (Reason: ov) * Images: * Sign off status: Completed true * Provider: Otto Conteh MD Date: 09/02/2024 Generated for Yovani rod/Zo/Angelaitting on: 10/07/2024 09:54 AM EST History and Physical Notes * HPI (History of Present Illness) Category Sub-Category Detail Notes Telehealth Location of prov ider rendering services:: {...} [address] [facility] [address] Location of patient:: address listed in demographics for today's visit Patient identification confirmed using:: Name, Telehealth method:: Telephone only. Ale ent not visible to care provider. Consent:: Patient verbally c onsented to treatment, Patient verbally consented to billing insurance company, Patient informed of any privacy concerns related to method of visit Total time spent with patient (mins): 15 COVID-19 Screening Questions Have you had any new onset fever, chills, cough, congestion, sore throat, shortness of breath, muscle aches?: No
--- OUTSIDE RECORDS SUMMARY | 2025-07-10 05:00 | XMS_ITS ---
Author Organization Aureliano Conteh III, MD Address [address] [place] [address] Care Team Providers Care Memorandum Statement Clerk Name Role Phone Dr. Aureliano Conteh III Primary Care Provider REASON FOR VISIT Ongoing severe left shoulder., Depression, Low back pain, Diabetes, Hyperlipidemia, Asthma, Osteopenia, Morbid obesity Medications Medication SIG (Take, Route, Frequency, Duration) [...] day for 14 days 07/10/2025 Active Nystatin 162818 UNIT/GM 1 application Externally Twice a day [...] Problem Status W/U Status Risk Notes Problem [id number] Pain in left shoulder (M25.512) Active confirmed She is going to telephone the orthopedic office and put herself on a cancellation list. She will use her sling on her left arm at all times. She will avoid using aspirin or naproxen. She will use acetaminophen instead. She is to call me if anything worsens. He will continue to use a heating pad on the shoulder. Vital Signs Blood pressure systolic 138 mm Hg 07/10/20 25 Blood pressure diastolic 80 mm Hg 025 Heart Rate 78 /min 07/10/2025 Height 61 in 07/10/2025 Weight 211 lbs 07/10/2025 BMI 39.86 kg/m2 07/10/2025 Encounters Encounter Location Date Provider Diagnosis Aureliano Conteh III, MD [address] [place] [address] [address] [place], [place] [id number] 07/10/2025 Aureliano Conteh Former smoker Z87.89 1 ; Pain in left shoulder M25.512 ; Obesity E66.9 ; Depression F32.9 ; Hearing loss, bilateral H91.93 ; Low back pain M54.5 ; Atypical lobular hyperplasia of breast N62 ; Varicose veins of bilateral lower extremities with other complications I83.893 and Osteopenia of spine M85.88 Assessments Encounter Date Diagnosis (ICD Code) Assessment Notes Treat ment Notes Treatment Clinical Notes 07/10/2025 Former smoker (ICD-10 - Z87.891) She is highly motivated not to smoke and we discussed strategies for maintenance of abstinence. 07/10/2025 Pain in left shoulder (ICD-10 - M25.512) She is going to telephone the orthopedic office and put herself on a cancellation list. She will use her sling on her left arm at all times. She will avoid using aspirin or naproxen. She will use acetaminophen instead. She is to call me if anything worsens. He will continue to use a heating pad on the shoulder. 07/10/2025 Obesity (ICD-10 - E66.9) She has lost 1 pound. When she uses up the current supply of Ozempic I will increase the dose. 07/10/2025 Depression (ICD-10 - F32.9) Her depression is much better. No change in her medication was made. 07/10/2025 Hearing loss, bilateral (ICD-10 - H91.93) She did not have her hearing aids today. They are being repaired. She will wear them on her next visit. There is been no change in her hearing loss. 07/10/2025 Low back pain (ICD-10 - M54.5) Her back pain is mild and stable and she is conducting all of the activities of daily life without impairment. No change in her regimen was needed. 07/10/2025 Atypical lobular hyperplasia of breast (ICD-10 - N62) There is no sign of breast cancer. She has completed 5 years of tamoxifen as a preventative and the drug was discontinued at this time. 07/10/2025 Varicose veins of bilateral lower extremities with other complications (ICD-10 - I83.893) We discussed compression hose. She will obtain a pair of those are new symptoms. She willl then reportt back. 07/10/2025 Osteopenia of spine (ICD-10 - M85.88) He was continued on her regimen of calcium tablets and vitamin D. Plan Of Treatment Medication Medication Name Sig [...] disp one month supply woitj needles please Gabapentin 100 MG 1 capsule at bedtime Orally three times a day for 14 days 07/10/2025 Nystatin 039974 UNIT/GM 1 application Externally Twice a day [...] Omeprazole 20 MG TAKE 1 CAPSULE BY [facility] DAILY Pending Test Test Name Order Date XR SHOULDER LT 2 VIEWS 07/10/2025 Next Appt Details Follow Up: 5 Weeks, Reason: OV Provider Name:Aureliano Conteh , 08/10/2025 10:15:00 AM, [address] [place] [address] [address], [place], [id number], Provider Name:Aureliano Conteh , 12/18/2025 02:15:00 PM, [address] [place] [address] [address], [place], [phone], Progress Notes * Yareli CALHOUN HDOB:[birth year] (70 yo F)Acc No.[id number]:07/10/2025 Progress Notes Patient: Yareli WALSH Provider: Otto Conteh MD :1955 A ge:70 Y S ex:Female Date:07/10/2025 Address:[address] [place] [address] [place], [id number] Subjective: * Chief Complaints: * O ngoing severe left shoulder.DepressionLow back painDiabetesHyperlipidemiaAsthmaOsteopeniaMorbid obesity * HPI: C OVID-19 Screening: S he returns for ongoing medical management. The left shoulder continues to be severely painful with elevation. An x-ray of the left shoulder June showed normal mineralization and a normal joint with mild degenerative changes in the before meals joint. She has no appointment in July 2025 with orthopedics. The pain in the shoulder radiates down the arm consistent with a nerve impingement. She was advised to use her sling at all times when she has not been. As the opposite arm for heavy lifting and exertional tasks. Questions H ave you had any new onset fever, chills, cough, congestion, sore throat, shortness of breath, muscle aches? N o * ROS: G eneral/Constitutional: pain L eft shoulder and low back, otherwise only normal aches and pains. C hills d enies. F atigue a dmits. F ever d enies. ? E NT: Decreased hearing d enies. R espiratory: Cough d enies. C ardiovascular: Chest pain with exertion d enies. D yspnea on exertion?with prolonged activity. S hortness of breath w ith exertion. G astrointestinal: Constipation d enies. D ecreased appetite d enies.?Diarrhea d enies. H e[place] o ccasional. N ausea d enies. R ectal bleeding d enies. V omiting d enies. H ematology: bruising d enies. p etechiae d enies. S wollen glands n one have been noted. G enitourinary: Frequent urination a t night. M usculoskeletal: Muscle aches d enies. P ainful joints L ow back and left shoulder. S ciatica d enies. W eakness d [...] Hospitalization/Major Diagno stic [place] [facility] [place] * Family History: F ather: [...] working at this time. 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 * Medications: T akingNystatin 978615 UNIT/GM Cream 1 application Externally Twice a [...] Notes to Pharmacist: disp one month supply woitTykoon needles pleaseMedication List reviewed and reconciled with the patientTaking Nystatin 072002 UNIT/GM Cream 1 application Externally Twice a [...] reconciled with the patient Objective: * Vitals: H t: 61, Wt:211, BMI:39.86, BP:138/80, HR:78, Ht-cm: 154.94, Wt-k.71. * P ast Orders: Lab:Lipid Panel * [...] X10*3/uL) 0.000 (Ref Range: 0.0-0.012 X10*3/uL) * Lab:[facility]prehensive [facility] * Collection Date 05/01/2025 11/10/2024 [...] perrla, anicteric, conjugate. EARS: N ormal anatomy with bilateral hearing loss. NOSE: s [...] e xtremities unremarkable, no clubbing, cyanosis or edemaHe, significant pain to elevation and range of motion of the left shoulder. PERIPHERAL PULSES: n ormal. NEUROLOGIC: a lert and oriented, cranial nerves 2-12 grossly intact, deep tendon reflexes 2+ symmetrical, motor strength normal upper and lower extremities, sensory exam intact. PSYCH: a lert, oriented: anxious appearing: mood depressed: cognitive function intact. Assessment: * Assessment: 1. P ain in left shoulder - M25.512 (Primary) N otes :She is going to telephone the orthopedic office and put herself on a cancellation list. She will use her sling on her left arm at all times. She will avoid using aspirin or naproxen. She will use acetaminophen instead. She is to call me if anything worsens. He will continue to use a heating pad on the shoulder. 2 . F sharifa smoker - Z87.891 N otes :She is highly motivated not to smoke and we discussed strategies for maintenance of abstinence. 3 . O besity - E66.9 N otes :She has lost 1 pound. W hen she uses up the current [...] in her regimen was needed. 7 . A typical lobular hyperplasia of breast - N62 N otes :There is no sign of breast cancer. She has completed 5 years of tamoxifen as a preventative and the drug was discontinued at this time. 8 . V aricose veins of bilateral lower extremities with other complications - I83.893 N otes :We discussed compression hose. She will obtain a pair of those are new symptoms. She willl then reportt back. 9 . O steopenia of spine - M85.88 N otes :He was continued on her regimen of calcium tablets and vitamin D. Plan: * Treatment: 2. F sharifa smoker Continue Nystatin Cream, 892906 UNIT/GM, 1 application, Externally, Twice a day; C ontinue Albuterol Sulfate Nebulization Solution, (2.5 MG/3ML) 0.083%, 3 mL, Inhalation, Three times a day, Notes to Pharmacist: J45.909 Asthma; C ontinue Atorvastatin Calcium Tablet, 10 MG, 1 tablet, Orally, Once a day; C ontinue Metoprolol Succinate ER Tablet Extended Release 24 Hour, 25 MG, TAKE 1 TABLET BY MOUTH DAILY; C ontinue Alcohol Prep Pad pad, none, -, -, use to check blood sugars four times a day; C ontinue Caltrate 600+D; C ontinue All-In-One Nebulizer System Miscellaneous, -, as directed, -, use three times a day; C ontinue Nebulizer Mask Adult Miscellaneous, -, as directed, -, use three times daily; C ontinue Albuterol Sulfate HFA Aerosol Solution, 108 (90 Base) MCG/ACT, 1 puff as needed, Inhalation, every 4 hrs; C ontinue Trulicity Solution Pen-injector, 1.5 MG/0.5ML, as directed, Subcutaneous; C ontinue Osteo Bi-Flex One Per Day Tablet, -, as directed, Orally; C ontinue Ozempic (0.25 or 0.5 MG/DOSE) Solution Pen-injector, 2 MG/3ML, 0.5 mg, Subcutaneous, weekly, Notes to Pharmacist: disp one month supply woitTykoon needles please; S tart Gabapentin Capsule, 100 MG, 1 capsule at bedtime, Orally, three times a day, 14 days, 42 Capsule, Refills 5. 3. O thers Continue Ketoconazole Cream, 2 [...] CAPSULE BY MOUTH DAILY. * Procedure Codes: * Preventive Medicine: Counseling: [...] tobacco use and urged to quit. 1 09/09/2024 DM Care Plan: P atient Lifestyle Goals P atient wants to be able to manage diabetes without too much effort. T reatment Goals H bA1C < 7.0, Blood Sugars less than < 115. B arriers n o barriers. S elf-Managment Goals W ork on weight loss, with a goal of losing 1 lb per week, Increase exercise to 3 times a week for 30 mins. * Follow Up: 5 Weeks (Reason: OV) * Images: * Sign off status: Completed true * Provider: Otto Conteh MD Date: 09/09/2024 Generated for Yovani rod/Zo/Angelaitting on: 10/07/2024 09:49 AM EST History and Physical Notes * [...] perrla, anicte jenny, conjugate EARS: Normal anatomy with bilateral hearing loss NOSE: septum intact NECK/THYROID: [...] extremities unremark able, no clubbing, cyanosis or edemaHe, significant pain to elevation and range of motion of the left shoulder LYMPH NODES: no enlarged lymph no gaurav,spleen normal RECTAL EXAM: not examined PSYCH: alert, oriented: anx ious appearing: mood depressed: cognitive function intact ORAL CAVITY: normal, unremarkable
--- OUTSIDE RECORDS SUMMARY | 2025-07-21 04:26 | XMS_ITS ---
Author Organization Aureliano Conteh III, MD Address [address] [address] Care Team Providers Care Safety Attendant Name Role Phone Dr. Aureliano Conteh III Primary Care Provider REASON FOR VISIT Xr Results Social History Sex Assigned At : Social History Observation Description Sex Assigned At Female Encounters Encounter Location Date Provider Diagnosis Aureliano Conteh III, MD [address] [place] [address] [place] [address] 07/21/2025 Aureliano Conteh Plan Of Treatment Next Appt Details Provider Name:Aureliano Conteh , 08/10/2025 10:15:00 AM, [address] [place] [address] [place], [address], Provider Name:Aureliano Conteh , 12/18/2025 02:15:00 PM, [address] [place] [address] [place], [address], Progress Notes * Yareli CALHOUN HDOB:[birth year] (70 yo F)Acc No.[id number]:07/21/2025 Patient: Yareli WALSH :1955 A ge:70 Y S ex:Female Address:[address] [place] [address], [phone] * true * Date: Generated for Yovani rod/Zo/Gabesmitting on: 10/07/2024 09:50 AM EST
--- NOTE | 2025-08-06 09:04 | MHC.OFFVIS ---
Vital Signs 08/06/25 09:07 Height 5 ft 2 in Weight 210 lb BMI 38.4 Handedness Right Intake Visit Reasons: Left shoulder pain and weakness Intake Note: Yareli is a 70 year old female who presents with complaints of progressively worsening left shoulder pain and weakness. The patient states that several months ago she fell onto her left arm. Since that time she has not been able to lift her left hand above shoulder height. She denies any symptoms prior to that fall. She has failed the last 6 weeks of conservative treatment which has included Tylenol, anti-inflammatory medicines, gabapentin, a home exercise program and physical therapy exercises. Allergies cyclobenzaprine (From FLEXERIL) Allergy (Severe, Verified 08/06/25 09:07) STOP BREATHING latex (LATEX) Allergy (Intermediate, Verified 08/06/25 09:07) RASH, anxiety Medication List - Last Reconciled 08/06/25 by Jeremy Jalloh MD atorvastatin 10 mg PO DAILY calcium carbonate-vitamin D3 600 mg-20 mcg (800 unit) (Caltrate plus D) 1 tab PO DAILY glucosamine-chondroitin 250-200 mg (Osteo Bi-Flex) 2 tabs PO TID methylprednisolone (Medrol (Du)) PO PER PKG DIR metoprolol succinate ER 25 mg PO DAILY omeprazole 20 mg PO DAILY pioglitazone 15 mg PO DAILY semaglutide (Ozempic) 0.5 mg subcut QWEEK [facility] Medical History (Updated 08/06/25 @ 09:25 by Jeremy Jalloh MD) Left shoulder pain Abnormal Pap smear of cervix Well woman exam Chronic neck and back pain DM type 2 (diabetes mellitus, type 2) GERD (gastroesophageal reflux disease) Depression Asthma Elevated cholesterol On beta luis fernando at home HTN (hypertension) Surgical History History of thyroglossal duct cyst removal Hx of bilateral breast reduction surgery Hx of colonoscopy Hx of breast lump removal Hx of cholecystectomy Hx of hysterectomy Hx of section Hx of tubal ligation Family History Maternal Aunt Bone cancer Sister Breast CA Colon cancer Father Lung cancer Mother Colon cancer Maternal Grandmother Stomach cancer Breast CA Maternal Uncle Pancreatic cancer Social History Household Members: Spouse and Family Are you a primary clinical manager home care to a significant other at home: No Do you presently have visiting nurse or other home services: No Alcohol intake: current Alcohol intake frequency: does not drink Patient Tobacco Use Status: Former Tobacco user Tobacco use type: Cigarette Years Smoked: patient piero 2011 Physical Exam Vital Signs: BMI result Body Mass Index 38.4 Extrem Other: Left shoulder examination shows limited active range of motion due to pain, positive impingement signs, no instability Results Reviewed Results Reviewed: X-rays of the patient's left shoulder show severe acromioclavicular joint narrowing, a type 3 acromion, no acute bony abnormalities Assessment & Plan Assessment & Plan (1) Rotator cuff insufficiency of left shoulder: Code(s): M25.312 - Other instability, left shoulder Category: Medical Plan Ms. Salvador presents with left shoulder pain and weakness due to impingement syndrome and most likely a full-thickness rotator cuff tear. Thus, I will send the patient for an MRI of her left shoulder for further evaluation. I will see her back once the MRI is completed to discuss the findings and treatment options. I did give her a prescription for a Medrol Dosepak to help with her symptoms in the meantime. Feel free to call me at any time should questions regarding her orthopedic management arise. Thank you very much for asking me to see this very friendly patient. I spent 20 minutes in reviewing the patient's records and imaging studies, seeing the patient and documenting in the medical record. Orders: Orders MR shoulder LT wo con 08/07/25 M25.312 - Other instability, left shoulder Medications: New methylprednisolone (Medrol (Du)) PO PER PKG DIR 21 ea 0RF Coding Level of Care Code New Pt Level 3 (72701) Add On Problem Visit Only Diagnoses Rotator cuff insufficiency of left shoulder M25.312
[2025-08-06 09:07] VITALS: BMI 38.4
--- OUTSIDE RECORDS SUMMARY | 2025-08-06 09:50 | XMS_ITS | Patient Health Record ---
Author Organization Aureliano Conteh III, MD Address [address] [place] [address] Care Team Providers Care Building Principal Name Role Phone Dr. Aureliano Conteh III [...] Panel Reviewed date:11/12/2024 01:06:57 PM Interpretation: Performing Lab:[facility], [address] [place] [address] Notes/Report: Triglycerides 143 <150 mg/dL Desirable Triglyceride: [...] Random Reviewed date:11/12/2024 01:06:57 PM Interpretation: Performing Lab:[facility], [address] [place] [address] Notes/Report: Creatinine Urine 139.35 Microalbumin Urine 18.0 Microalbum/Creatinine Ratio Ur 12.9 <30 ug/mg cr Albumin/Creatinine Ratio Reference Ranges: Normal: < 30 ug/mg creatinine Microalbuminuria: 30 - 300 ug/mg creatinine Clinical Albuminuria: > 300 ug/mg creatinine Hemoglobin A1c Reviewed date:11/12/2024 01:06:57 PM Interpretation: Performing Lab:[facility], [address] [place] [address] Notes/Report: Hemoglobin A1c % 7.0 <6.0 % [...] average glucose, using the formula of the O7U-Tejvxng Average Glucose study (ADAG), Diabetes Care, Vol.31,#8, Mar. 2007 Lipid Panel Reviewed date:05/02/2025 05:58:34 PM Interpretation: Performing Lab:[address] [address] Notes/Report: Triglycerides 101 <150 mg/dL Desirable Triglyceride: [...] date:06/14/2025 07:35:03 AM Interpretation: Performing Lab: Notes/Report: [address] [address] XRay Report Signed Patient: Yareli Salvador MR#: [id number] : 1955 Acct:[id number] Age/Sex: 70 / F ADM Date: 06/05/25 Loc: [facility] Attending Dr: Aureliano Conteh MD Ordering Physician: Aureliano Conteh MD Date of Service: 06/05/25 Procedure(s): XR hand LT min 3V Accession Number(s): [id number] cc: Aureliano Conteh MD Reason for Exam: [...] 06/05/25 1110 DD/ 1057 TD/TT: 06/05/25 1101 Flight Purser: [address] [address] XRay Report Signed Patient: Lorena Salvador MR#: [id number] : 1955 Acct:[id number] Age/Sex: 70 / F ADM Date: 06/05/25 Loc: HO.XRAY Attending Dr: Aureliano Conteh MD Ordering Physician: Aureliano Conteh MD Date of Service: 06/05/25 Procedure(s): XR tatum d LT min 3V Accession Number(s): [id number] cc: Aureliano Conteh MD Reason for Exam: [...] 06/05/2025 11:10 AM EDT Dictated By: Benjamin Mcdonald MD Signed By: <Electron ically signed by Benjamin Ramos MD in OV> 06/05/25 1110 DD/ 1057 TD/TT: 06/05/25 1101 Flight Purser: Complete Blood Count Auto Di ff Reviewed date:11/12/2024 01:06:57 PM Interpretation: Performing Lab:[facility], [address] [place] [address] Notes/Report: White Blood Count 7.6 4.8-10.8 X10*3/uL [...] NRBC Abs Auto 0.000 0.0-0.012 X10*3/uL Comprehensive [place]. Panel Fa st Reviewed date:11/12/2024 01:06:57 PM Interpretation: Performing Lab:[facility], [address] [place] [address] Notes/Report: Sodium 141 135-145 mmol/L Potassium 3.9 [...] Blood Reviewed date:02/18/2025 03:55:55 PM Interpretation: Performing Lab:[facility], [address] [place] [address] Notes/Report: Glucose, Whole Blood 147 60-115 mg/dL METER # : [id number] Pathology Reviewed date:02/18/2025 03:55:55 PM Interpretation: Performing Lab:[facility], [address] [place] [phone] Notes/Report: ------ Name: Cosme Salvador Age/Sex: 69/F : 1955 [id number]#: [id number] Attend Dr: Parish Lopez MD Re02/12/25 Status : [facility] Location: [facility] Disch: ------ SPEC : [id number] RECD : 02/12/25 STATUS: [facility] NUM: [id number] MARK: 02/12/25 [facility] DR: Parish Lopez MD ENTERED: 02/12/25 [...] CEDS CONTINUED ON NEXT PAGE ------ Name: ModestoCosme leoncio Age/Sex: 69/F : 1955 Unit#: [id number] Attend Dr: Parish Lopez MD Re02/12/25 [place] [facility]: [facility] Disch: ------ SPEC : [id number] RECD : 02/12/25 STATUS: [facility] NUM: [id number] MARK: 02/12/25 [facility] DR: Parish Lopez MD ENTERED: 02/12/25 51 SP TYPE: Surgical OTHR DR: Aureliano Conteh MD ORDERED: HE Stain/9, Gross Micro L4/3 IHC S/NG Disclaimer NOTE: Unless otherwi se stated, all tissue is formalin-fixed and paraffin-embedded. Some or all of the immunohistochemical tests reported herein may have been developed and their performance characteristics determined by [facility]. They have not been cleared or appr micah by the U.S. Food and Drug Administration (FDA). However, the FDA has determined that such clearance or approval is not necessary. This laboratory is certified under the Clinical Laboratory Improvement Amendments of 1988 (CLIA) as qualified to perform high comp lexity clinical laboratory testing. Copies To: Aureliano Conteh MD [address] [place] [address] [id number] Parish Lopez MD [facility] [address] [place] [address] ------ Signed (signature on file) Pepe Amanda MD 02/13/25 1334 ------ END OF REPORT Complete Blood Count Auto Di ff Reviewed date:05/02/2025 05:58:34 PM Interpretation: Performing Lab:[facility], [address] [place] [phone] Notes/Report: White Blood Count 7.0 4.8-10.8 X10*3/uL [...] NRBC Abs Auto 0.000 0.0-0.012 X10*3/uL Comprehensive [place]. Panel Fa st Reviewed date:05/02/2025 05:58:34 PM Interpretation: Performing Lab:[facility], [address] [place] [phone] Notes/Report: Sodium 142 135-145 mmol/L Potassium 3.7 [...] date:05/02/2025 05:58:34 PM Interpretation: Performing Lab: Notes/Report: [address] [place] [address] Ultrasound Report Signed Patient: Yareli Salvador MR#: [id number] : 1955 Acct:[id number] Age/Sex: 69 / F ADM Date: 05/01/25 Loc: HO.US Attending Dr: Aureliano Conteh MD Ordering Physician: Aureliano Conteh MD Date of Service: 05/01/25 Procedure(s): US venous duplex LE LT Accession Number(s): [id number] cc: Aureliano Conteh MD Reason for Exam: [...] 05/01/25 1126 DD/ 1100 TD/TT: 05/01/25 1115 Flight Purser: [place] [address] Ultrasound Report Signed Patient: Lorena Salvador MR#: [id number] : 1955 Acct:[id number] Age/Sex: 69 / F ADM Date: 05/01/25 Loc: . Attending Dr: Aureliano Conteh MD Ordering Physician: Aureliano Conteh MD Date of Service: 05/01/25 Procedure(s): US chiki ous duplex LE LT Accession Number(s): [id number] cc: Aureliano Conteh MD Reason for Exam: [...] By: Aureliano Ochoa MD Signed By: <Elieser icallanne marie signed by Aureliano Ochoa MD in OV> 05/01/25 1126 DD/ 1100 TD/TT: 05/01/25 1115 Flight Purser: Diabetic Eye Exam Reviewed date:05/12/2025 01:29:38 PM Interpretation:undefined Performing Lab: Notes/Report: undefined XR chest 2V Reviewed date:06/01/2025 08:49:01 AM Interpretation: Performing Lab: Notes/Report: [address] [address] XRay Report Signed Patient: Yareli Salvador MR#: [id number] : 1955 Acct:[id number] Age/Sex: 70 / F ADM Date: 05/29/25 Loc: HO.CARD Attending Dr: Aureliano Conteh MD Ordering Physician: Aureliano Conteh MD Date of Service: 05/29/25 Procedure(s): XR chest 2V Accession Number(s): [id number] cc: Aureliano Conteh MD Reason for Exam: [...] in OV> 05/29/25 1123 DD/ 1112 TD/TT: 05/29/251112 Flight Purser: [address] [address] XRay Report Signed Patient: Lorena Salvador MR#: [id number] 9793 : 1955 Acct:[id number] Age/Sex: 70 / F ADM Date: 05/29/25 Loc: HO.CARD Attending Dr: Aureliano Conteh MD Ordering Physician: Aureliano Conteh MD Date of Service: 05/29/25 Procedure(s): XR chest 2V Accession Number(s): [id number] cc: Aureliano Conteh MD Reason for Exam: [...] Jordi Suazo MD 05/29/2025 11:23 AM EDT Dictated By: Jordi Mauricio MD Signed By: <Electron ically signed by Jordi Suazo MD in OV> 05/29/25 1123 DD/ 1112 TD/TT: 05/29/25 111 Flight Purser: XR wrist LT min 3V Reviewed date:06/14/2025 07:35:03 AM Interpretation: Performing Lab: Notes/Report: [address] [address] XRay Report Signed Patient: Yareli Salvador MR#: [id number] : 1955 Acct:[id number] Age/Sex: 70 / F ADM Date: 06/05/25 Loc: HO.XRAY Attending Dr: Aureliano Conteh MD Ordering Physician: Aureliano Conteh MD Date of Service: 06/05/25 Procedure(s): XR wrist LT min 3V Accession Number(s): [id number] cc: Aureliano Conteh MD Reason for Exam: [...] 06/05/25 1105 DD/ 1057 TD/TT: 06/05/25 1101 Flight Purser: [place] [address] XRay Report Signed Patient: Lorena Salvador MR#: [id number] : 1955 Acct:[id number] Age/Sex: 70 / F ADM Date: 06/05/25 Loc: HO.NIKITA Attending Dr: Aureliano Conteh MD Ordering Physician: Aureliano Conteh MD Date of Service: 06/05/25 Procedure(s): XR wri st LT min 3V Accession Number(s): [id number] cc: Aureliano Conteh MD Reason for Exam: [...] Suazo MD 06/05/2025 11:05 AM EDT RP Dictated By: Jordi Mauricio MD Signed By: <Electron natalie signed by Jordi Suazo MD in OV> 06/05/25 1105 DD/ 1057 TD/TT: 06/05/25 1101 Flight Purser: XR shoulder LT min 2V Reviewed date:07/12/2025 07:06:23 AM Interpretation: Performing Lab: Notes/Report: [address] [address] XRay Report Signed Patient: Yareli Salvador MR#: [id number] : 1955 Acct:[id number] Age/Sex: 70 / F ADM Date: 07/10/25 Loc: HO.XRAY Attending Dr: Aureliano Conteh MD Ordering Physician: Aureliano Conteh MD Date of Service: 07/10/25 Procedure(s): XR shoulder LT min 2V Accession Number(s): [id number] cc: Aureliano Conteh MD Reason for Exam: PAIN EXAMINATION: XR SHOULDER 2 OR MORE VIEWS LEFT HISTORY: PAIN COMPARISON: Comparison is made with the prior examination dated 12/10/2020. FINDINGS: Four views of the left shoulder are submitted. Osseous mineralization is normal. There is no fracture or dislocation. The glenohumeral joint is maintained. There is mild degenerative change of the AC joint. The soft tissues are unremarkable. XR/XR shoulder LT min 2V IMPRESSION: Mild degenerative change of the AC joint. Electronically signed by: Aureliano Ochoa MD 07/10/2025 11:25 AM [facility]ictated By: Aureliano Ochoa MD Signed By: <Electronically signed by Aureliano Ochoa MD in OV> 07/10/25 1125 DD/ 1106 TD/TT: 07/10/25 1120 Flight Purser: [address] [address] XRay Report Signed Patient: Lorena Salvador MR#: [id number] : 1955 Acct:[id number] Age/Sex: 70 / F ADM Date: 07/10/25 Loc: HO.XRAY Attending Dr: Aureliano Conteh MD Ordering Physician: Aureliano Conteh MD Date of Service: 07/10/25 Procedure(s): XR ena ulder LT min 2V Accession Number(s): [id number] cc: Aureliano Conteh MD Reason for Exam: PAIN EXAMINATION: XR SHOU LDER 2 OR MORE VIEWS LEFT HISTORY: PAIN COMPARISON: Comparis on is made with the prior examination dated 12/10/2020. FINDINGS: Four views of the le ft shoulder are submitted. Osseous mineralization is normal. There is no fracture or dislocation. The glenohumeral joint is maintained. There is mild degenerative change of the AC joint. The soft tissues are unremarkable. X R/XR shoulder LT min 2V IMPRESSION: Mild degenerative ch keron of the AC joint. Electronically lynette d by: Aureliano Ochoa MD 07/10/2025 11:25 AM [facility]ictated By: Aureliano Ochoa MD Signed By: <Elieser estrada signed by Aureliano Ochoa MD in OV> 07/10/25 1125 DD/ 1106 TD/TT: 07/10/25 1120 Flight Purser: Reason For Referral Reason Consult and Treat Bilateral Hearing Loss Diagnosis 1 Hearing loss, bilate ral (H91.93) Referral Organization Aureliano Conteh III, MD Referring Provider First Name Aureliano Referring Provider Last Name Yady Referring Provider Speciality Internal M edicine Referred Provider [facility], [facility] Audiology Referred Provider Specialty Audiologists General Notes Nikki Gonzales 10/13/2024 01:13:57 PM > referral was faxed again per request from [facility] Audiologists. Referral Priority Routine Referral Appointment Date 11/14/2024 Reason left 5th finger old fracture now pain with lump in palm evaluate and treatment Diagnosis 1 Closed nondisplaced fracture of phalanx of finger, unspecified finger, unspecified phalanx, initial encounter (S62.600U) Referral Organization Aureliano Conteh III, MD Referring Provider First Name Aureliano Referring Provider Last Name Conteh Referring Provider Speciality Internal M edicine Referred Provider [place] Referred Provider Specialty Orthopedic S [facility] General Notes Bibi Benoit CMA 11/11 01:28:05 PM >referral with progress note faxed to [place] orth[facility] office pt made aware of this, Bibi Benoit CMA 11/25/2024 04:09:32 PM >I called TAYLOR pt [...] three times a day 04/16/2023 Active Nystatin 388501 UNIT/GM 1 application Externally Twice a day [...] Problem Status W/U Status Risk Notes Problem 5063941 Former smoker (Z87.891) Active confirmed She is highly motivated not to smoke and we discussed strategies for maintenance of abstinence. Problem 189468288 Obesity (E66.9) Active confirmed She has lost 1 pound. When she uses up the current supply of Ozempic I will increase the dose. Problem 209590629 Asthma (J45.909) Active confirmed She is breathing comfortably today on room air. No change in her regimen was needed. Problem 55448009 Depression (F32.9) Active confirmed Her depression is much better. No change in her medication was made. Problem 17130730 Type 2 diabetes mellitus without complications (E11.9) Active confirmed She has been compliant with her medications. She has not had blood work done but it was ordered today to be done in the next week. Her hemoglobin A1c was 6.8.Her blood sugar was 129. 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 She will obtain a pair of those are new symptoms. She willl then reportt back. Problem 53447565375130977 Pain in left shoulder (M25.512) Active confirmed [...] use a heating pad on the shoulder. Problem 968701791 Low back pain (M54.5) Active confirmed Her back pain is mild and stable and she is conducting all of the activities of daily life without impairment. No change in her regimen was needed. Problem 87305754 Hearing loss, bilateral (H91.93) Active confirmed She did not have her hearing aids today. They are being repaired. She will wear them on her next visit. There is been no change in her hearing loss. Problem 283166250 Hyperlipidemia type II (E78.0) Active confirmed Most recent fasting total cholesterol was 199. A fasting lipid profile has been ordered today. No change in her medications was made today. Problem 93694784 Cervical dysplasia (N87.9) Active confirmed She says she has an upcoming appointment with her k[place] reo. She wished to defer her pelvic examination and rectal examination to the kaiako koh[place] reo. Her breast examination was unremarkable. Problem 83557964 Thyroglossal cyst (Q89.2) Active confirmed She has no symptoms in her neck. She has no difficulty swallowing or odynophagia. Problem 868255790 Atypical lobular hyperplasia of breast (N62) Active confirmed There is no sign of breast cancer. She has completed 5 years of tamoxifen as a preventative and the drug was discontinued at this time. Problem 025681921 Morbid obesity (E66.01) Active confirmed Her weight is stable and unchanged. Her body mass index is 40. We have reviewed her weight loss strategy today. We have reviewed her diet and nutrition. We have discussed lifestyle modifications .I all stopped her trulicity. Problem 007241366 Osteopenia of spine (M85.88) Active confirmed He was continued on her regimen of calcium tablets and vitamin D. Vital Signs Heart Rate 78 /min 07/10/2025 Temperature 98.1 degrees Fahrenheit 06/05/2025 Blood pressure diastolic 80 mm Hg 07/10/2025 Height 61 in 07/10/2025 Blood pressure systolic 138 mm Hg 07/10/2025 Weight 211 lbs 07/10/2025 BMI 39.86 kg/m2 07/10/2025 Encounters Encounter Location Date Provider Diagnosis Aureliano Conteh III, MD [address] [place] [address] [place] [address] 08/07/2024 Aureliano Conteh Former smoker Z87.89 1 ; Type 2 diabetes mellitus without complications E11.9 ; Depression F32.9 ; Hearing loss, bilateral H91.93 ; Asthma J45.909 ; Morbid obesity E66.01 and Osteoporosis M81.0 Aureliano Conteh III, MD [address] [place] [address] [place] [address] 09/11/2024 Aureliano Conteh Former smoker Z87.89 1 [...] of spine M85.88 Aureliano Conteh III, MD [address] [place] [address] [place] [address] 10/13/2024 Aureliano Conteh Type 2 diabetes amor itus without complications E11.9 ; Obesity E66.9 ; Former smoker Z87.891 ; Asthma J45.909 ; Depression F32.9 and Hearing loss, bilateral H91.93 Aureliano Conteh III, MD [address] [place] [address] [place] [address] 11/10/2024 Aureliano Yady Former smoker Z87.89 1 ; Type 2 diabetes mellitus without complications E11.9 ; Hearing loss, bilateral H91.93 ; Depression F32.9 ; Asthma J45.909 ; Morbid obesity E66.01 and Low back pain M54.5 Aureliano Conteh III, MD [address] [place] [address] [place] [address] 12/16/2024 Aureliano Yady Former smoker Z87.89 1 ; Type 2 diabetes mellitus without complications E11.9 ; Depression F32.9 ; Hearing loss, bilateral H91.93 ; Asthma J45.909 ; Obesity E66.9 ; Osteoporosis M81.0 and Varicose veins of bilateral lower extremities with other complications I83.893 Aureliano Conteh III, MD [address] [place] [address] [place] [address] 01/13/2025 Aureliano Conteh Former smoker Z87.89 1 ; Type 2 diabetes mellitus without complications E11.9 ; Depression F32.9 ; Hearing loss, bilateral H91.93 ; Low back pain M54.5 ; Cervical dysplasia N87.9 ; Hyperlipidemia type II E78.0 ; Asthma J45.909 and Morbid obesity E66.01 Aureliano Conteh III, MD [address] [place] [address] [place] [address] 02/19/2025 Aureliano Conteh Former smoker Z87.89 1 ; Type 2 diabetes mellitus without complications E11.9 ; Hearing loss, bilateral H91.93 ; Depression F32.9 ; Asthma J45.909 and Obesity E66.9 Aureliano Conteh III, MD [address] [place] [address] [place] [address] 04/03/2025 Aureliano Yady Obesity E66.9 ; Type 2 diabetes mellitus [...] unspecified laterality M85.859 Aureliano Conteh III, MD [address] [place] [address] [place] [address] 05/01/2025 Aureliano aYdy Former smoker Z87.89 1 ; Type 2 diabetes mellitus without complications E11.9 ; Left leg pain M79.605 ; Obesity E66.9 ; Depression F32.9 ; Hearing loss, bilateral H91.93 ; Low back pain M54.5 ; Cervical dysplasia N87.9 ; Hyperlipidemia type II E78.0 and Asthma J45.909 Aureliano Conteh III, MD [address] [place] [address] [place] [address] 05/29/2025 Aureliano Conteh Former smoker Z87.89 1 ; Obesity 278.00 ; Depression F32.9 ; Low back pain M54.5 ; Atypical lobular hyperplasia of breast N62 ; Osteopenia of spine M85.88 and Chest pressure R07.89 Aureliano Conteh III, MD [address] [place] [address] [place] [address] 06/05/2025 Aureliano Kaiserrne Former smoker Z87.89 1 ; Pain in left shoulder M25.512 ; Obesity E66.9 ; Depression F32.9 ; Hearing loss, bilateral H91.93 ; Low back pain M54.5 ; Varicose veins of bilateral lower extremities with other complications I83.893 ; Atypical lobular hyperplasia of breast N62 and Chest pressure R07.89 Aureliano Conteh III, MD [address] [place] [address] [place] [address] 07/03/2025 Aureliano Conteh Former smoker Z87.89 1 ; Pain, joint, shoulder, left M25.512 ; Morbid obesity E66.01 ; Depression F32.9 ; Hearing loss, bilateral H91.93 ; Low back pain M54.5 ; Varicose veins of bilateral lower extremities with other complications I83.893 and Type 2 diabetes mellitus without complications E11.9 Aureliano Conteh III, MD [address] [place] [address] [place] [address] 07/10/2025 Aureliano Conteh Former smoker Z87.89 1 ; Pain in left shoulder M25.512 ; Obesity E66.9 ; Depression F32.9 ; Hearing loss, bilateral H91.93 ; Low back pain M54.5 ; Atypical lobular hyperplasia of breast N62 ; Varicose veins of bilateral lower extremities with other complications I83.893 and Osteopenia of spine M85.88 Aureliano Conteh III, MD [address] [place] [address] [place] [address] 08/14/2024 Aureliano Conteh III, MD [address] [place] [address] [place] [address] 08/22/2024 Aureliano Conteh III, MD [address] [place] [address] [place] [address] 11/07/2024 Aureliano Conteh III, MD [address] [place] [address] [place] [address] 11/12/2024 Aureliano Conteh III, MD [address] [place] [address] [place] [address] 11/12/2024 Aureliano Conteh III, MD [address] [place] [address] [place] [address] 11/13/2024 Aureliano Conteh III, MD [address] [place] [address] [place] [address] 11/17/2024 Aureliano Conteh III, MD [address] [place] [address] [place] [address] 04/17/2025 Aureliano Conteh III, [place] [address] 05/07/2025 Aureliano Conteh III, MD [address] [place] [address] [place] [address] 05/11/2025 Aureliano Conteh III, MD [address] [place] [address] [place] [address] 05/25/2025 Aureliano Conteh III, MD [address] [place] [address] [place] [address] 05/25/2025 Aureliano Conteh III, MD [address] [place] [address] [place] [address] 06/02/2025 Aureliano Conteh III, MD [address] [place] [address] [place] [address] 06/08/2025 Aureliano Conteh Former smoker Z87.89 1 Aureliano Conteh III, MD [address] [place] [address] [place] [address] 06/08/2025 Arueliano Conteh III, MD [address] [place] [address] [place] [address] 07/21/2025 Aureliano Conteh Assessments Encounter Date Diagnosis (ICD Code) Assessment Notes Treat ment Notes Treatment Clinical Notes 08/07/2024 Former smoker (ICD-1 0 - Z87.891) [...] No change in her regimen was made. 07/10/2025 Former smoker (ICD-1 0 - Z87.891) She is highly motivated not to smoke and we discussed strategies for maintenance of abstinence. 07/10/2025 Pain in left shoulde r (ICD-10 - M25.512) She is going to telephone the orthopedic office and put herself on a cancellation list. She will use her sling on her left arm at all times. She will avoid using aspirin or naproxen. She will use acetaminophen instead. She is to call me if anything worsens. He will continue to use a heating pad on the shoulder. 06/08/2025 Former smoker (ICD-1 0 - Z87.891) She is highly motivated not to smoke and we discussed strategies for maintenance of abstinence. 08/07/2024 Depression (ICD-10 - F32.9) Her depression [...] discussed lifestyle modifications.I all stopped her trulicity. 07/10/2025 Obesity (ICD-10 - E66.9) She has lost 1 pound. When she uses up the current supply of Ozempic I will increase the dose. 08/07/2024 Hearing loss, bilateral (ICD-10 - H91.93) [...] change in her medication was made. 07/10/2025 Depression (ICD-10 - F32.9) Her depression [...] no change in her hearing loss. 07/10/2025 Hearing loss, bilateral (ICD-10 - H91.93) [...] she has an upcoming appointment with her k[place] k[place] reo. She wished to defer her pelvic examination and rectal examination to the kaiako koh[place] reo. Her breast examination was unremarkable. 02/19/2025 Obesity [...] change in her regimen was needed. 07/10/2025 Low back pain (ICD-1 0 - M54.5) [...] she has an upcoming appointment with her k[place] k[place] reo. She wished to defer her pelvic examination and rectal examination to the kaiako koh[place] reo. Her breast examination was unremarkable. 05/01/2025 Low [...] symptoms. She willl then reportt back. 07/10/2025 Atypical lobular hyperplasia of breast (ICD-10 - N62) There is no sign of breast cancer. She has completed 5 years of tamoxifen as a preventative and the drug was discontinued at this time. 09/11/2024 Low back pain (ICD-1 0 - [...] she has an upcoming appointment with her [facility]. She wished to defer her pelvic examination and rectal examination to the [facility]. Her breast examination was unremarkable. 06/05/2025 Atypical [...] dose of Ozempic to 0.5 mg weekly 07/10/2025 Varicose veins of bilateral lower extremities with other complications (ICD-10 - I83.893) We discussed compression hose. She will obtain a pair of those are new symptoms. She willl then reportt back. 09/11/2024 Asthma (ICD-10 - J45.909) She is [...] (ICD-10 - R07.89) This complaint has resolved. 07/10/2025 Osteopenia of spine (ICD-10 - M85.88) He was continued on her regimen of calcium tablets and vitamin D. 09/11/2024 Morbid obesity (ICD-10 - E66.01) Her [...] C) 11/02/2022 PROFILE, FASTING (COMPREHENSIVE METABOLI C) 05/08/2024 PROFILE, FASTING (COMPREHENSIVE METABOLI C) 08/18/2019 PROFILE, FASTING (COMPREHENSIVE METABOLI C) 10/01/2023 PROFILE, FASTING (COMPREHENSIVE METABOLI C) 03/12/2023 PROFILE, FASTING (COMPREHENSIVE METABOLI C) 08/04/2021 PROFILE, [...] 023 HEMOGLOBIN A1C (GLYCOHEMOGLOBIN) 019 LIPID PANEL 01/14/2020 LIPID PANEL 11/03/2021 LIPID PANEL 11/02/2022 LIPID PANEL 08/18/2019 LIPID PANEL 03/12/2023 LIPID PANEL 08/04/2021 LIPID PANEL 12/18/2022 LIPID PANEL 04/10/2019 LIPID PANEL 02/08/2018 LIPID PANEL 04/06/2017 LIPID PANEL 11/01/2018 LIPID PANEL 12/10/2020 LIPID PANEL 06/28/2018 LIPID PANEL 08/09/2020 LIPID PANEL 04/30/2020 MICROALBUMIN, RANDOM 01/14/2020 MICROALBUMIN, RANDOM 11/02/2022 MICROALBUMIN, RANDOM 08/18/2019 MICROALBUMIN, RANDOM 03/12/2023 MICROALBUMIN, RANDOM 12/18/2022 MICROALBUMIN, RANDOM 12/10/2020 MICROALBUMIN, RANDOM 02/14/2022 CBC w DIFF 12/10/2020 CBC w DIFF 06/28/2018 CBC w DIFF 08/09/2020 CBC w DIFF 04/30/2020 CBC w DIFF 02/14/2022 CBC w DIFF 11/03/2021 CBC w DIFF 01/14/2020 CBC w DIFF 08/04/2021 CBC w DIFF 11/02/2022 CBC w DIFF 08/18/2019 CBC w DIFF 04/10/2019 CBC w DIFF 03/12/2023 CBC w DIFF 12/18/2022 CBC w DIFF [...] 10/01/2023 Lipid Panel 02/09/2021 Microalbumin, Random 10/01/2023 ECG 12 lead EKG 05/29/2025 XR hand wrist LT 06/05/2025 Hemoglobin A1c 02/09/2021 Hemoglobin A1c 05/08/2024 Hemoglobin A1c 10/01/2023 Next Appt Details Provider Name:Aureliano Conteh , 08/10/2025 10:15:00 AM, [address] [facility] [address], [place], [address], Provider Name:Aureliano Conteh , 12/18/2025 02:15:00 PM, [address] [facility] [address], [place], [address], Insurance Providers Payer Name Payer Address Payer Phone Subscriber Number Group Number Insured Name Patient Relationship to Insured Coverage Start Date Coverage End Date [employer] [address] [place] [address] [id number] Yareli Fernandez Self - patient is the insured MED[place] [address] [place] [id number] Yareli Fernandez Self - patient is the insured MEDICARE NGS [address] [place] [address] [id number] Vi gonzales Yareli Self - patient is [...]
== END 2025-08-06 09:23 | disposition home or self-care (01) ==
LOC: HO.HOS 08:59
PROVIDERS: PCP Internal Medicine Medical Oncology; Visit Provider Orthopaedic Surgery
DX: M25.312 Other instability, left shoulder (principal)
CPT/HCPCS: 99203; G2211

== ENCOUNTER → 2025-08-06 08:58 | Outpatient (BNVA) | payer MEDICARE, MEDICAID, SELFPAY | PROVIDERS: PCP Internal Medicine Medical Oncology; Visit Provider Orthopaedic Surgery | DX: M25.312 Other instability, left shoulder (principal) | CPT/HCPCS: 99202 ==